=== PATIENT | female | born 1960 | race Caucasian/White ===

== ENCOUNTER 2018-09-15 10:38 | Emergency (ER) | payer BC ==
--- OUTSIDE RECORDS SUMMARY | 2018-09-15 10:40 | XMS REPORT | Clinical Summary ---
:1960 Author Organization [facility] Address [address] [place] [address] Care Team Providers Name Role Phone Florencio Caceres MD Primary Care Provider Allergies Not on File Medications Not on file Active Problems Not on file Social History Tobacco Use Types Packs/Day Years Used Date Never Assessed Sex Assigned at Date Recorded Not on file Job Start Date Occupation Industry Not on file Not on file Not on file Travel History Travel Start Travel End No recent travel history available. Last Filed Vital Signs Not on file Plan of Treatment Health Maintenance Due Date Last Done Comments CERVICAL CANCER SCREENING 1979 BREAST CANCER SCREENING 01/16/2008 COLON CANCER SCREENING 01/16/2008 SHINGLES VACCINES (1 of 2) 01/16/2008 INFLUENZA VACCINE 02/26/2018 Results Not on fileafter 09/14/2017 Insurance Payer Benefit Plan / Group Subscriber ID Type Phone Address BCBS BCBS CHOICE PPO/FEDERAL EMPL PPO xxxxxxxxxxxx PPO Charline MAJOR y (Home) [place] [id number] Advance Directives Patient has advance care planning documents on file. For more information, please contact:[facility] [place] [address]
--- OUTSIDE RECORDS SUMMARY | 2018-09-15 10:41 | XMS REPORT | Continuity of Care Document ---
:1960 Author Organization Interface Problems Problem Status Onset Date Classification Date Comments Source Reported Medications Medication Details Route Status Patient Ordering Order Source Instructions Provider Date Allergies, Adverse Reactions, Alerts Substance Category Reaction Severity Reaction Status Date Comments Source type Reported Immunizations Immunization Date Given Site Status Last Updated Comments Source Results Order Results Value Reference Date Interpretation Comments Source Name Range Vital Signs Vital Sign Value Date Comments Source Encounters Location Location Encounter Encounter Reason Attending ADM DC Status Source Details Type Number For Provider Date Date Visit Outpatient [id number] ARASH 08/01 [facility] [id number] ARASH 08/07 [facility] [id number] ARASH 09/18 [facility] Procedures Procedure Code Date Perfomer Comments Source
--- OUTSIDE RECORDS SUMMARY | 2018-09-15 10:41 | XMS REPORT ---
:1960 Author Organization [employer] Care Team Providers Name Role Phone Osmel Juan Provider Role Unavailable Allergies, Adverse Reactions, Alerts Substance Reaction Event Type Lyrica Info Not Available Drug Allergy Mucinex Info Not Available Drug Allergy Metoprolol Tartrate Info Not Available Drug Allergy Macrobid Info Not Available Drug Allergy Gabapentin Info Not Available Drug Allergy Clonidine HCl Info Not Available Drug Allergy Benicar Info Not Available Drug Allergy Aspirin Info Not Available Drug Allergy Problems Problem Type Condition Code Onset Dates Condition Status Problem Primary osteoarthritis of right M17.11 Active knee Problem Pain, joint, knee, right M25.561 Active Assessment Pain, joint, knee, right M25.561 Active Assessment Primary osteoarthritis of right M17.11 Active knee Medications Medication Code Code Instructions Start End Status Dosage System Date Date Amlodipine [facility] 37405478183 5 MG Oral Active not Besylate defined Quetiapine [facility] 02894158310 300 MG Oral Active not Fumarate defined Citalopram [facility] 97328273688 40 MG Oral Active not Hydrobromide defined Bystolic [facility] 04637004223 10 MG Oral Active not defined Topiramate [facility] 62714810819 100 MG Oral Active not defined Levothyroxine [facility] 02019342488 75 MCG Oral Active not Sodium defined Alprazolam ND 22635204169 1 MG Oral Active not defined Results No Known Results Summary Purpose eClinicalWorks Submission
[2018-09-15 11:57] LABS: Absolute Lymphocytes (CBC) 2.3 K/uL (0.7-4.9); Absolute Monocytes 0.6 K/uL (0.1-1.3); Absolute Neutrophil 6.4 K/uL (1.8-8.0); Basophils % 0.4 % (0-1.3); Eosinophils % 1.3 % (0-4.4); Hematocrit 36.4 % (36.0-45.0); Lymphocytes % 24.2 % (15.3-44.8); MPV 8.3 fL (7.6-11.3); Monocytes % 6.8 % (3.3-12.3); RBC Red Blood Cell Count 5.71 M/uL (3.86-4.86)
[2018-09-15 12:15] LABS: ALT/SGPT 26 U/L (12-78); AST/SGOT 15 U/L (15-37); Albumin 3.4 g/dL (3.4-5.0); Alkaline Phosphatase 112 U/L (45-117); BUN Blood Urea Nitrogen 20 mg/dL (7-18); Bicarbonate 21 mmol/L (21-32); Bilirubin Direct 0.1 mg/dL (0-0.2); Bilirubin Total 0.4 mg/dL (0.2-1.0); Glucose Level 98 mg/dL (74-106); Lipase 253 U/L (73-393); Potassium 4.3 mmol/L (3.5-5.1); Protein, Total 7.3 g/dL (6.4-8.2); Sodium Level 141 mmol/L (136-145)
[2018-09-15 12:24] LABS: Blood Morphology Comment NOTED (NOT SEEN); Platelet Estimate ADEQ; Urine White Blood Cell Casts OK
[2018-09-15 12:25] LABS: Anisocytosis 2+; Hypochromasia 1+
--- NOTE | 2018-09-15 12:33 | RAD REPORT ---
EXAM DESCRIPTION: US - Abdomen Exam Limited - 09/15/2018 11:15 am CLINICAL HISTORY: Abdominal pain. COMPARISON: None. FINDINGS: The gallbladder wall is not thickened. A gallstone is not seen. The biliary tree is normal caliber. IMPRESSION: Unremarkable gallbladder ultrasound.
[2018-09-15] MEDS ORDERED: FENTANYL CITR 100 MCG/2 ML ONE (12:55)
--- NOTE | 2018-09-15 12:59 | RAD REPORT ---
EXAM DESCRIPTION: CT - Stone Protocol - 09/15/2018 12:49 pm CLINICAL HISTORY: Flank pain. FLANK PAIN COMPARISON: Abdomen Pelvis W Contrast dated 11/19/2015 TECHNIQUE: Axial images were obtained without oral or IV contrast. Lack of contrast limits solid org an and vascular assessment. The [id number] spans the entirety of the system partially obscuring uppermost abdomen and lung bases. Coronal reformatted images were obtained and reviewed. All CT scans are performed using dose optimization technique as appropriate and may include automated exposure control or mA/KV adjustment according to patient size. FINDINGS: The lower lung samuels are clear. Imaged portions of the liver and spleen show no suspicious findings on non-contrast imaging. The panc reas and adrenal glands are normal. No pathologic lymphadenopathy in the abdomen or pelvis. Moderate aortic atherosclerosis. No urinary tract stones or obstructive uropathy. No bowel obstruction, free air, free fluid or abscess. The majority of the colon is surgically absent with a distal colonic anastomosis seen. Moderate fecal material is retained in the distal colon. No significant bony abnormality. IMPRESSION: No urinary tract stones or obstructive uropathy. No acute intra-abdominal process seen.
[2018-09-15 13:26] LABS: Troponin (Emerg Dept Use Only) < 0.02 ng/mL (0.0-0.045)
--- NOTE | 2018-09-15 13:48 | EDPHYS ---
Physician Documentation [facility] Name: Nelsy Romero Age: 58 yrs Sex: Female : 1960 Arrival Date: 09/15/2018 Time: 10:42 Bed 20 Private MD: Florencio Caceres T ED Physician Adriel Gardiner HPI: 09/15 14:10 This 58 yrs old Female presents to ER via Ambulatory with complaints of gs Abdominal Pain. 14:10 The patient complains of pain in the left low back and right low back. The pain does gs not radiate. Onset: The symptoms/episode began/occurred 4 week(s) ago. Modifying factors: The symptoms are alleviated by nothing. the symptoms are aggravated by food/fluids. Associated signs and symptoms: Pertinent positives: nausea. Severity of pain: At its worst the pain was severe in the emergency department the pain has improved markedly. The patient has experienced similar episodes in the past, several times. The patient has been recently seen by a physician: the patient's primary care provider, earlier today, with similar presenting complaints. Historical: - Allergies: 10:49 benacor; aa5 10:49 Clonidine; aa5 10:49 GABAPENTIN; aa5 10:49 IRON COMPLEX; aa5 10:49 Lipitor; aa5 10:49 Lyrica; aa5 10:49 Macrobid; aa5 10:49 Metoprolol Tartrate; aa5 10:49 Mucinex; aa5 - Home Meds: 10:51 Zyrtec 10 mg Oral chew 1 tab once daily [Active]; Topamax 100 mg Oral tab 1 tab three aa5 times a day [Active]; sulindac 200 mg Oral tab 1 tab 2 times per day [Active]; omeprazole 40 mg Oral cpDR 1 cap once daily [Active]; citalopram 40 mg tab 1 tab once daily [Active]; Bystolic 10 mg Oral tab 1 tab once daily [Active]; levothyroxine 25 mcg tab once daily [Active]; - PMHx: 10:49 Anxiety; buldging disk in neck; Degenerative disc disease; Depression; Hypertension; aa5 thalassemia minor; 10:51 Thyroid problem; aa5 - PSHx: 10:49 Knee surgery; colon resection; aa5 - Immunization history:: Flu vaccine is up to date. - Social history:: Smoking status: Patient uses tobacco products, smokes two packs cigarettes per day. - Ebola Screening: : No symptoms or risks identified at this time. ROS: 14:10 All other systems are negative. Exam: 14:40 Head/Face: Normocephalic, atraumatic. Eyes: Pupils equal round and reactive to light, gs extra-ocular motions intact. Lids and lashes normal. Conjunctiva and sclera are non-icteric and not injected. Cornea within normal limits. Periorbital areas with no swelling, redness, or edema. ENT: Nares patent. No nasal discharge, no septal abnormalities noted. Tympanic membranes are normal and external auditory canals are clear. Oropharynx with no redness, swelling, or masses, exudates, or evidence of obstruction, uvula midline. Mucous membranes moist. Neck: Trachea midline, no thyromegaly or masses palpated, and no cervical lymphadenopathy. Supple, full range of motion without nuchal rigidity, or vertebral point tenderness. No Meningismus. Chest/axilla: Normal chest wall appearance and motion. Nontender with no deformity. No lesions are appreciated. Cardiovascular: Regular rate and rhythm with a normal S1 and S2. No gallops, murmurs, or rubs. Normal PMI, no JVD. No pulse deficits. Respiratory: Lungs have equal breath sounds bilaterally, clear to auscultation and percussion. No rales, rhonchi or wheezes noted. No increased work of breathing, no retractions or nasal flaring. Skin: Warm, dry with normal turgor. Normal color with no rashes, no lesions, and no evidence of cellulitis. MS/ Extremity: Pulses equal, no cyanosis. Neurovascular intact. Full, normal range of motion. Neuro: Awake and alert, GCS 15, oriented to person, place, time, and situation. Cranial nerves II-XII grossly intact. Motor strength 5/5 in all extremities. Sensory grossly intact. Cerebellar exam normal. Normal gait. 14:40 Constitutional: The patient appears alert, awake. 14:51 Abdomen/GI: Palpation: moderate abdominal tenderness, in the posterior aspect of left gs lateral abdomen and right upper quadrant. 14:51 Back: CVA tenderness, that is mild, is noted bilaterally. 14:57 ECG was reviewed by the Attending Physician. Vital Signs: 10:51 BP 109 / 58; Pulse 68; Resp 16 S; Temp 98.2(TE); Pulse Ox 99% on R/A; Weight 96.16 kg aa5 (R); Height 5 ft. 8 in. (172.72 cm) (R); Pain 5/10; 12:00 BP 112 / 66; Pulse 66; Resp 16; Pulse Ox 99% on R/A; hb 10:51 Body Mass Index 32.23 (96.16 kg, 172.72 cm) aa5 MDM: 12:34 Patient medically screened. gs 14:51 Differential diagnosis: nephrolithiasis, pyelonephritis, UTI, acute choly, cad,aaa. gs Data reviewed: vital signs, nurses notes. Counseling: I had a detailed discussion with the patient and/or guardian regarding: the historical points, exam findings, and any diagnostic results supporting the discharge/admit diagnosis, lab results, radiology results, the need for outpatient follow up. Response to treatment: the patient's symptoms have markedly improved after treatment. 09/15 11:27 Order name: Basic Metabolic Panel; Complete Time: 13:36 gs 09/15 11:27 Order name: CBC with Diff; Complete Time: 12:34 gs 09/15 11:27 Order name: Hepatic Function; Complete Time: 13:36 gs 09/15 11:27 Order name: Lipase; Complete Time: 13:36 gs 09/15 12:06 Order name: CBC Smear Scan; Complete Time: 12:34 EDMS 09/15 10:56 Order name: US Abdomen Limited; Complete Time: 13:11 kb 09/15 11:27 Order name: IV Saline Lock; Complete Time: 11:44 gs 09/15 11:27 Order name: Labs collected and sent; Complete Time: 11:44 gs 09/15 12:35 Order name: EKG; Complete Time: 12:36 gs 09/15 12:35 Order name: EKG - Nurse/Tech; Complete Time: 13:35 gs 09/15 12:37 Order name: CT Stone Protocol; Complete Time: 13:11 gs 09/15 13:08 Order name: Troponin (Emerg Dept Use Only); Complete Time: 13:36 EDMS EC:57 Rate is 61 beats/min. Rhythm is regular. KS interval is normal. QRS interval is normal. gs T waves are Normal. No ST changes noted. Clinical impression: Normal ECG. Interpreted by me. Administered Medications: 12:48 Drug: fentaNYL (PF) 25 mcg Route: IVP; Site: left antecubital; hb Disposition: 09/15/18 13:47 Discharged to Home. Impression: Abdominal and pelvic pain. - Condition is Stable. - Discharge Instructions: Abdominal Pain, Adult, [id number]. - Medication Reconciliation Form, Thank You Letter, Antibiotic Education, Prescription Opioid Use form. - Follow up: Private Physician; When: 2 - 3 days; Reason: Re-evaluation by your physician. Signatures: Dispatcher [employer] [facility] Kyra Solis RN RN aa5 Gwendolyn Red RN RN Adriel Gardiner MD MD Corrections: (The following items were deleted from the chart) 13:07 12:36 TROPONIN (EMERG DEPT USE ONLY)+C.LAB.BRZ ordered. [facility] 14:13 13:47 09/15/2018 13:47 Discharged to Home. Impression: Abdominal and pelvic pain. hb Condition is Stable. Forms are Medication Reconciliation Form, Thank You Letter, Antibiotic Education, Prescription Opioid Use. Follow up: Private Physician; When: 2 - 3 days; Reason: Re-evaluation by your physician. gs
--- NOTE | 2018-09-15 13:48 | ER ---
Nurse's Notes [facility] Name: Nelsy Romero Age: 58 yrs Sex: Female : 1960 Arrival Date: 09/15/2018 Time: 10:42 Bed 20 Private MD: Florencio Caceres T Diagnosis: Abdominal and pelvic pain Presentation: 09/15 10:47 Presenting complaint: Patient states: Dr. Caceres sent me here to get my gallbladder aa5 checked. Pt c/o back pain, chest pain and right flank pain. Transition of care: patient was not received from another setting of care. Onset of symptoms was September 15, 2018. Risk Assessment: Do you want to hurt yourself or someone else? Patient reports no desire to harm self or others. Initial Sepsis Screen: Does the patient meet any 2 criteria? No. Patient's initial sepsis screen is negative. Does the patient have a suspected source of infection? No. Patient's initial sepsis screen is negative. Care prior to arrival: None. 10:47 Method Of Arrival: Ambulatory aa5 10:47 Acuity: RENITA 3 aa5 Historical: - Allergies: 10:49 benacor; aa5 10:49 Clonidine; aa5 10:49 GABAPENTIN; aa5 10:49 IRON COMPLEX; aa5 10:49 Lipitor; aa5 10:49 Lyrica; aa5 10:49 Macrobid; aa5 10:49 Metoprolol Tartrate; aa5 10:49 Mucinex; aa5 - Home Meds: 10:51 Zyrtec 10 mg Oral chew 1 tab once daily [Active]; Topamax 100 mg Oral tab 1 tab three aa5 times a day [Active]; sulindac 200 mg Oral tab 1 tab 2 times per day [Active]; omeprazole 40 mg Oral cpDR 1 cap once daily [Active]; citalopram 40 mg tab 1 tab once daily [Active]; Bystolic 10 mg Oral tab 1 tab once daily [Active]; levothyroxine 25 mcg tab once daily [Active]; - PMHx: 10:49 Anxiety; buldging disk in neck; Degenerative disc disease; Depression; Hypertension; aa5 thalassemia minor; 10:51 Thyroid problem; aa5 - PSHx: 10:49 Knee surgery; colon resection; aa5 - Immunization history:: Flu vaccine is up to date. - Social history:: Smoking status: Patient uses tobacco products, smokes two packs cigarettes per day. - Ebola Screening: : No symptoms or risks identified at this time. Screenin:00 Abuse screen: Denies threats or abuse. Denies injuries from another. Nutritional hb screening: No deficits noted. Tuberculosis screening: No symptoms or risk factors identified. Fall Risk None identified. Assessment: 11:15 General: Appears in no apparent distress. Behavior is calm, cooperative. Pain: Pain hb currently is 5 out of 10 on a pain scale. Neuro: Level of Consciousness is awake, alert, obeys commands, Oriented to person, place, time, situation. Cardiovascular: Capillary refill < 3 seconds Patient's skin is warm and dry. Respiratory: Airway is patent Trachea midline Respiratory effort is even, unlabored, Respiratory pattern is regular, symmetrical. GI: Abdomen is non-distended, Bowel sounds present X 4 quads. Abd is soft and non tender X 4 quads. : No signs and/or symptoms were reported regarding the genitourinary system. EENT: No signs and/or symptoms were reported regarding the EENT system. Derm: Skin is intact, is healthy with good turgor. Musculoskeletal: No signs and/or symptoms reported regarding the musculoskeletal system. 12:00 Reassessment: Patient appears in no apparent distress at this time. No changes from hb previously documented assessment. Patient and/or family updated on plan of care and expected duration. Pain level reassessed. Patient is alert, oriented x 3, equal unlabored respirations, skin warm/dry/pink. 13:00 Reassessment: Patient appears in no apparent distress at this time. No changes from hb previously documented assessment. Patient and/or family updated on plan of care and expected duration. Pain level reassessed. Patient is alert, oriented x 3, equal unlabored respirations, skin warm/dry/pink. Vital Signs: 10:51 BP 109 / 58; Pulse 68; Resp 16 S; Temp 98.2(TE); Pulse Ox 99% on R/A; Weight 96.16 kg aa5 (R); Height 5 ft. 8 in. (172.72 cm) (R); Pain 5/10; 12:00 BP 112 / 66; Pulse 66; Resp 16; Pulse Ox 99% on R/A; hb 10:51 Body Mass Index 32.23 (96.16 kg, 172.72 cm) aa5 ED Course: 10:42 Patient arrived in ED. mr 10:43 Florencio Caceres MD is Private Physician. mr 10:47 Arm band placed on. aa5 10:48 Triage completed. aa5 11:00 Patient has correct armband on for positive identification. Bed in low position. Call hb light in reach. Side rails up X 1. 11:07 Adriel Gardiner MD is Attending Physician. gs 11:15 US Abdomen Limited In Process Unspecified. EDMS 11:30 Gwendolyn Red, RN is Primary Nurse. hb 11:38 Missed attempt(s): 22 gauge in right forearm. Bleeding controlled, band aid applied, 3 catheter tip intact. 11:40 Initial lab(s) drawn, by ok, sent to lab. Inserted saline lock: 22 gauge in left dh3 antecubital area, using aseptic technique. Blood collected. 12:47 CT completed. Patient tolerated procedure well. Patient moved to CT via wheelchair. Patient moved back from CT. 12:49 CT Stone Protocol In Process Unspecified. EDMS 13:33 EKG done, by technical support 1 software engineer. reviewed by Adriel Gardiner MD. at1 14:12 No provider procedures requiring assistance completed. IV discontinued, intact, hb bleeding controlled, No redness/swelling at site. Pressure dressing applied. Administered Medications: 12:48 Drug: fentaNYL (PF) 25 mcg Route: IVP; Site: left antecubital; hb Outcome: 13:47 Discharge ordered by . gs 14:12 Discharged to home ambulatory, with significant other. hb 14:12 Condition: stable 14:12 Discharge instructions given to patient, significant other, Instructed on discharge instructions, follow up and referral plans. medication usage, Demonstrated understanding of instructions, follow-up care, medications. 14:13 Patient left the ED. hb Signatures: Dispatcher [employer] EDVT Annie Bhatti Ashli Kyra Ibarra, RN RN aa5 Ann Marrufo, medical imaging director EKG Tat1 Gwendolyn Red, ALBERT RN Verónica Campbell [facility] Adriel Gardiner MD MD
--- NOTE | 2018-09-15 17:23 | EKG ---
Test Date: 2018-09-15 Test Time: 13:06:47 Manager Bakery: BEULAH MEASUREMENT RESULTS: Intervals: Rate: 61 MI: 138 QRSD: 88 QT: 434 QTc: 436 Bud: P: 36 MI: 138 QRS: 30 T: 64 INTERPRETIVE STATEMENTS: Normal sinus rhythm Normal ECG Compared to ECG 10/20/2012 09:01:17 No significant changes Electronically Signed On 09-15-18 17:23:04 [employer] by John Owens
== END 2018-09-15 14:13 | disposition home or self-care (01) ==
LOC: ER 10:38
DX: R10.2 Pelvic and perineal pain (principal); M54.5 Low back pain; R10.9 Unspecified abdominal pain; F41.9 Anxiety disorder, unspecified; F32.9 Major depressive disorder, single episode, unspecified; I10 Essential (primary) hypertension; F17.210 Nicotine dependence, cigarettes, uncomplicated; Z88.1 Allergy status to other antibiotic agents; Z88.8 Allergy status to other drugs, medicaments and biological substances
CPT/HCPCS: 36415; 74176; 76377; 76705; 80048; 80076; 83690; 84484; 85025; 93005; J3010

== ENCOUNTER 2021-06-07 05:51 | Inpatient (IN) | payer BC ==
--- NOTE | 2021-06-02 15:29 | RAD REPORT ---
EXAM DESCRIPTION: RAD - Chest Pa And Lat (2 Views) - 06/02/2021 3:13 pm CLINICAL HISTORY: Pre Op pending knee replacement COMPARISON: Chest Pa And Lat (2 Views) dated 10/03/2016; Chest Single View dated 09/22/2016; Chest Sing le View dated 09/21/2016; Chest Single View dated 09/20/2016 FINDINGS: Lines: None. Lungs: No evidence of edema or pneumonia. Pleural: No significant pleural effusions or pneumothorax. Cardiac: The heart size is within normal limits. Bones: No acute fractures. Remote bilateral rib fractures. Other: IMPRESSION: No acute cardiopulmonary disease.
[2021-06-02 15:42] LABS: Absolute Lymphocytes (CBC) 3.3 K/uL (0.7-4.9); Basophils % 0.3 % (0-1.3); Hematocrit 38.9 % (36.0-45.0); MPV 8.7 fL (7.6-11.3); RBC Red Blood Cell Count 6.35 M/uL (3.86-4.86)
[2021-06-02 15:44] LABS: Potassium 4.1 mmol/L (3.5-5.1)
[2021-06-02 16:20] LABS: Protime INR 0.93
[2021-06-02 20:22] LABS: Blood Morphology Comment NOTED (NOT SEEN); Platelet Estimate ADEQ; White Blood Cell Scan OK (OK)
[2021-06-02 20:23] LABS: Anisocytosis 1+; Burr Cells FEW; Hypochromasia 2+; Ovalocytes 1+; Poikilocytosis 2+; Polychromasia 1+
[2021-06-07] MEDS ORDERED: Ringers Lactate 1,000 ML IV ONE ×2 (06:05→08:25)
[2021-06-07] MEDS ORDERED: CEFAZOLIN/SWI 2gm 2 GM/20 ML SYR ONE (06:05)
[2021-06-07] MEDS ORDERED: Oxycodone HCl/Acetaminophen 1 TAB TAB ONE (06:06)
[2021-06-07] MEDS ORDERED: GABAPENTIN 100 MG CAP ONE (06:06)
[2021-06-07] MEDS ORDERED: ACETAMINOPHEN 500 MG TAB ONE (06:06)
[2021-06-07] MEDS ORDERED: NS 0.9% VIAL 20 ML ONE (06:14)
[2021-06-07] MEDS ORDERED: LIDOCAINE 1% MPF 5 ML VIAL ONE (06:14)
[2021-06-07] MEDS ORDERED: FENTANYL CITR 100 MCG/2 ML ONE (06:15)
[2021-06-07] MEDS ORDERED: dexAMETHasone 10 MG/ML VIAL ONE (06:15)
[2021-06-07] MEDS ORDERED: MIDAZOLAM HCL 2 MG/2 ML INJ ONE (06:16)
[2021-06-07] MEDS ORDERED: BUPIVACAINE 0.25% PF 30 ML VIAL ONE (06:16)
[2021-06-07] MEDS ORDERED: propofoL 200 MG/20 ML VIAL IV ONE (07:07)
[2021-06-07] MEDS ORDERED: LIDOCAINE 2% MPF 5 ML VIAL ONE (07:07)
[2021-06-07] MEDS ORDERED: BUPIVACA 0.5%/EPI 0.0005%/PF 30 ML VIAL ONE (07:14)
[2021-06-07] MEDS ORDERED: NS 0.9% VIAL 10 ML ONE (07:32)
[2021-06-07] MEDS ORDERED: KETAMINE HCL 500 MG/5 ML VIAL ONE (07:32)
[2021-06-07] MEDS ORDERED: HYDROMORPHONE HCL 2 MG/ML inj ONE (07:37)
[2021-06-07] MEDS ORDERED: ONDANSETRON 4 MG/2 ML VIAL ONE (07:38)
[2021-06-07] MEDS ORDERED: EPHEDRINE SULF 50 MG/ML VIAL ONE (07:42)
[2021-06-07] MEDS ORDERED: Phenylephrine HCl 10 MG/ML 1 ML VIAL ONE (08:00)
[2021-06-07] MEDS ORDERED: TRANEXAMIC ACID 1,000 MG in NA CHLORIDE 0.9% 50 ML IV ONE (08:00)
--- NOTE | 2021-06-07 10:34 | P.BOP ---
Preoperative diagnosis: right knee osteoarthritis Postoperative diagnosis: same Primary procedure: right total knee arthroplasty Assembly Loader: NONE,NONE Estimated blood loss: 20 cc Specimen: right knee bone remnants Findings: see dictation Anesthesia: General Complications: None Implants: [employer] Andie Persona 10 CR femur, E tibia, 32 patella, 10 CR poly Fluids & blood products: per anesthesia record; TT: 102 mins @ 300 mmHg Transferred to: Recovery Room Condition: Good
[2021-06-07] MEDS ORDERED: HOME MED 1 EA UNK (Dexlansoprazole [Dexilant] 30 MG Cap.Dr.Bp) PO PRN (10:35)
[2021-06-07] MEDS ORDERED: DOCUSATE NA 100 MG CAP PO PRN (10:36)
[2021-06-07] MEDS ORDERED: ONDANSETRON 4 MG/2 ML VIAL IV PRN (10:36)
[2021-06-07] MEDS ORDERED: TRAMADOL HCL 50 MG TAB PO PRN (10:40)
--- NOTE | 2021-06-07 11:25 | RAD REPORT ---
EXAM DESCRIPTION: RAD - Knee Right 2 View - 06/07/2021 10:56 am CLINICAL HISTORY: Post Op COMPARISON: Knee Right 3 View dated 04/21/2017 FINDINGS: Postoperative changes from right knee arthroplasty. The hardware is intact. Air in fluid i s present within the joint which is not unexpected. Surgical clips along the ventral aspect of the kn ee. No acute fracture. IMPRESSION: Status post right total knee arthroplasty without evidence of immediate hardware complic ations.
[2021-06-07] MEDS ORDERED: PANTOPRAZOLE 40MG TABLET PO PRN (11:33)
[2021-06-07 12:15] VITALS: BMI 29.3
[2021-06-07] MEDS: HYDROCODONE/APAP 7.5/325 MG TAB PO PRN (14:26)
[2021-06-07] MEDS ORDERED: CEFAZOLIN 2 GM in NA CHLORIDE 0.9% 100 ML IVPB SCH (17:00)
[2021-06-07] MEDS: MORPHINE 2 MG/ML SYR IV PRN ×2 (17:16→21:41)
[2021-06-07] MEDS: CEFAZOLIN/SWI 2gm 2 GM/20 ML SYR IV SCH (17:18)
[2021-06-07] MEDS ORDERED: AMLODIPINE 5 MG TAB PO SCH (21:00)
[2021-06-07] MEDS ORDERED: GABAPENTIN 300 MG CAP PO SCH (21:00)
[2021-06-07] MEDS ORDERED: HOME MED 1 EA UNK (Citalopram Hydrobromide [Celexa] 40 MG Tablet) PO SCH (21:00)
--- NOTE | 2021-06-07 21:02 | P.OP ---
Preoperative diagnosis: right knee osteoarthritis Postoperative diagnosis: same Primary procedure: right total knee arthroplasty Anesthesia: general Estimated blood loss: 20 cc Specimen: right knee bone remnants Findings: see dictation Operative Technique: Indication For Procedure: Nelsy is a 61 year-old female presenting to my clinic with signs, symptoms and x-ray findings consistent with severe right knee osteoarthritis. I discussed with the patient at length risks and benefits associated with operative and nonoperative treatment. She had failed conservative treatment measures and had significant difficulties with ADLs secondary to her pain. We discussed operative treatment and elected to proceed with right total knee arthroplasty. She expressed understanding and elected to proceed with operative treatment. Description Of Procedure: After informed consent was obtained, the patient was identified in the preoperative holding area. The right lower extremity was marked. The patient was then taken to the PACU where she underwent a right lower extremity adductor canal block performed by Anesthesia. She was then taken to the operating room, transferred to the operating table in supine fashion, and placed under general anesthesia. Her right lower extremity was then prepped and draped in usual sterile fashion. A time-out was initiated. The correct patient and procedure were confirmed and identified. The patient did receive her preoperative prophylactic antibiotics. The right lower extremity was then exsanguinated and tourniquet was inflated to 300 mmHg. Approximately 15 cm longitudinal incision was made centered over the anterior aspect of the right knee. Dissection was then taken to the extensor mechanism and a medial parapatellar arthrotomy was performed. The patella was everted and dislocated laterally and the knee was flexed in the fat pad. Medial and lateral meniscus and ACL were all excised exposing the distal femur. Excess hypertrophic synovium was also excised within the suprapatellar pouch. The patient had an MRI of her right knee preoperatively for surgical planning and creation of cutting blocks. The cutting block was then placed over the distal femur and pins were then placed. The distal femoral cutting block was then placed over the pins. Knee joint was then used to ensure proper depth cut and the distal femur was then cut. The chamfer cutting guide was then placed over the distal end of the femur. Anterior, posterior cuts as well as anterior and posterior chamfer cuts were then made again confirming proper depth of the cut using an Celestino wing. Excess bone remnants were then sent to pathology for further evaluation. Next, attention was taken to the proximal tibia. A tibial jig and tibial cutting block was then placed on proximal aspect of the right tibia and locked into position. Pins were then placed and alignment guide was then used to confirm proper alignment of the cut and then coronal and sagittal planes. Once this was confirmed, the cutting jig was placed over the pins and the proximal tibia was cut. Extra cuts had to be made on the tibia and distal femur as there was tightness in both flexion and extension. Sizing trays were then selected and size 10 mm spacer was used and there was good overall balance in flexion and extension. Next, the trial implants were then placed using the size 10 standard CR femur and a size E tibia with an 10 mm CR poly. There was overall good range of motion and good stability trial implants were then removed. This improved the overall stability of the knee and components. The wound was then irrigated thoroughly with normal saline and the knee was then injected with 30 cc of 0.5% Marcaine both in the posterior capsule and medial lateral gutters as well as quadriceps tendon and periosteum. The tibia was then punched. The femur was drilled. The cement was then prepared on the back table. Cement was then placed first on the tibial surface followed by size E tibia. Excess cement was removed with [place] elevators. Size 10 standard CR femur was then placed on the distal femur after cement was placed on the distal femur. Excess cement was then removed and a size 10 mm CR trial poly was then placed. The knee was held in extension as the cement hardened. Undersurface of the patella was prepared debriding osteophytes using rongeurs as well as osteophytes had been debrided off the proximal tibia with rongeurs and osteotomes to aid with the medial tightness. Cement was placed on the undersurface of the patella after it was cut and a size 32 patella was placed. Once the cement was hardened, the knee was ranged, there was good overall stability both in flexion, extension and as well as stability with varus and dago jory stresses. Trial poly was then removed and a size 10 mm CR poly was then placed and locked into position. The knee was then ranged again. There was good overall range of motion both for flexion and extension with good stability. The wound was then irrigated again thoroughly with normal saline using pulse lavage. Tourniquet was let down. Hemostasis was achieved using Bovie electrocautery. Extensor mechanism was then approximated using a #1 Vicryl bothin interrupted and running fashion. The fascia was then approximated using 0 Vicryl. Subcutaneous tissue was approximated with a 2-0 Vicryl. Skin was approximated using marquita. Sterile dressings were applied. The patient was awakened and transferred back in stable condition Complications: None Implants: Biomet Andie Persona 10 CR femur, E tibia, 32 patella, 10 mm CR poly Fluids & blood products: per anesthesia record; TT: 102 mins @ 300 mmHg Transferred to: Recovery Room Condition: Good
[2021-06-07] MEDS: BACLOFEN 10 MG TAB PO SCH (21:40)
[2021-06-07] MEDS: TOPIRAMATE 100 MG TAB PO SCH (21:40)
[2021-06-08] MEDS: CEFAZOLIN/SWI 2gm 2 GM/20 ML SYR IV SCH ×2 (01:01→10:22)
[2021-06-08 03:45] LABS: Hematocrit 34.4 % (36.0-45.0)
[2021-06-08] MEDS ORDERED: ENOXAPARIN 30 MG/0.3 ML SQ SCH (06:00)
[2021-06-08] MEDS: HYDROCODONE/APAP 7.5/325 MG TAB PO PRN ×2 (06:07→14:44)
[2021-06-08] MEDS ORDERED: LEVOTHYROXINE SOD 0.075 MG TAB PO SCH (06:30)
[2021-06-08] MEDS ORDERED: HOME MED 1 EA UNK (Nebivolol Hcl [Bystolic] 10 MG Tablet) PO SCH (09:00)
[2021-06-08] MEDS ORDERED: HOME MED 1 EA UNK (Levothyroxine Sodium [Levothyroxine] 150 MCG Capsule) PO SCH (09:00)
[2021-06-08] MEDS ORDERED: CELECOXIB 100 MG CAPSULE PO SCH (09:00)
[2021-06-08] MEDS ORDERED: NEBIVOLOL HCL 5 MG TAB PO SCH (09:00)
[2021-06-08] MEDS ORDERED: LIOTHYRONINE SOD 25 MCG TAB PO SCH (09:00)
[2021-06-08] MEDS: BACLOFEN 10 MG TAB PO SCH (10:16)
[2021-06-08] MEDS: TOPIRAMATE 100 MG TAB PO SCH (10:16)
[2021-06-08 11:33] VITALS: O2SAT 96
[2021-06-08 14:08] VITALS: BP 159/69; TEMP 98.6
--- NOTE | 2021-06-08 14:42 | P.DS ---
Admission Date: 06/07/21 Discharge Date: 06/08/21 Disposition: DC HOME/HOME HEALTH CARE Discharge Condition: GOOD Reason for Admission: s/p R TKA, HTN Consultations: None Procedures: R TKA on 06/07/2021 Brief History of Present Illness: Nelsy is a 61-year-old female that underwent right total knee arthroplasty on June 07, 2021 without complication. She was admitted to the floor for observation and physical therapy. Hospital Course: Nelsy underwent the surgery without complication. She was admitted to the floor in stable condition. Physical therapy was consulted the patient mobilized well. She was discharged on June 08 in stable condition. She will take Xarelto while at home for DVT prophylaxis. Physical therapy will be consulted to work on range of motion and strengthening exercises on an outpatient basis. Vital Signs/Physical Exam: Temp Pulse Resp BP Pulse Ox 98.6 F 65 20 159/69 H 98 06/08/21 13:00 06/08/21 13:00 06/08/21 13:00 06/08/21 13:00 06/08/21 13:00 Laboratory Data at Discharge: WBC 11.90 K/uL (4.3-10.9) H 06/02/21 14:52 Hgb 10.6 g/dL (12.0-15.0) L 06/08/21 03:28 Hct 34.4 % (36.0-45.0) L 06/08/21 03:28 Plt Count 278 K/uL (152-406) 06/02/21 14:52 PT 10.7 SECONDS (9.5-12.5) 06/02/21 14:52 INR 0.93 06/02/21 14:52 APTT 29.5 SECONDS (24.3-36.9) 06/02/21 14:52 Sodium 141 mmol/L (136-145) 06/02/21 14:52 Potassium 4.1 mmol/L (3.5-5.1) 06/02/21 14:52 BUN 17 mg/dL (7-18) 06/02/21 14:52 Creatinine 1.22 mg/dL (0.55-1.3) 06/02/21 14:52 Glucose 97 mg/dL (74-106) 06/02/21 14:52 Home Medications: Citalopram Hydrobromide [Celexa] 20 mg PO BID 09/20/16 Nebivolol HCl [Bystolic] 10 mg PO DAILY 09/20/16 Topiramate 200 mg PO BID 09/20/16 Amlodipine [Norvasc] 5 mg PO BEDTIME 06/02/21 Aspirin [Aspirin EC 81 MG] 81 mg PO DAILY 06/02/21 Baclofen 10 mg PO BID 06/02/21 Dexlansoprazole [Dexilant] 60 mg PO DAILYPRN PRN 06/02/21 Gabapentin 600 mg PO BEDTIME 06/02/21 Levothyroxine Sodium [Levothyroxine] 150 mcg PO DAILY 06/02/21 Liothyronine [Cytomel] 25 mcg PO DAILY 06/02/21 Physician Discharge Instructions: Keep dressing clean and dry; use PORTER hose for 2 weeks on both lower extremities. Begin Xarelto once daily starting tomorrow 06/09, with breakfast. Followup with Dr. Soria in 1-2 weeks for staple removal Diet: Regular Activity: Weight bearing as tolerated (RLE) Followup: Albin Soria MD [ACTIVE - CAN ADMIT] - 1-2 Weeks (Follow up per scheduled appointment )
--- OUTSIDE RECORDS SUMMARY | 2021-06-10 19:08 | XMS REPORT | Clinical Summary ---
:1960 Author Organization [facility] Address [address] [place] [address] Care Team Providers Name Role Phone Lisa Toure MD Unavailable Martina Maldonado MD Primary Care Provider Allergies Active Allergy Reactions Severity Noted Date Comments Aspirin GI Intolerance 03/24/2019 Olmesartan-Hydrochlorothi Hives 03/24/2019 azide Clonidine Palpitations Low 03/24/2019 Pregabalin Palpitations Low 03/24/2019 Nitrofurantoin Other (See Comments) 03/24/2019 Back pain per Monohyd/M-Cryst patient Metoprolol Shortness Of Breath High 03/24/2019 Guaifenesin Palpitations Low 03/24/2019 Medications Medication Sig Dispensed Refills Start Date End Date Status QUEtiapine (SEROquel Take 600 mg by 0 Active XR) 300 MG 24 hr mouth at bedtime. tablet gabapentin (NEURONTIN) Take 300 mg by 0 Active 300 mg capsule mouth at bedtime. liothyronine (CYTOMEL) Take 25 mcg by 0 Active 25 mcg tablet mouth daily. citalopram (CeleXA) 40 Take 80 mg by 0 Active mg tablet mouth daily. dexlansoprazole Take 60 mg by 0 Active (DEXILANT) 60 mg mouth daily. capsule nebivolol (BYSTOLIC) Take 10 mg by 0 Active 10 mg tablet mouth daily. amLODIPine (NORVASC) 5 Take 5 mg by mouth 0 Active mg tablet daily. baclofen (LIORESAL) 10 Take 10 mg by 0 Active mg tablet mouth every 12 (twelve) hours. topiramate (TOPAMAX) Take 200 mg by 0 Active 100 mg tablet mouth twice daily. levothyroxine Take 125 mcg by 0 Active (TIROSINT) 125 mcg cap mouth daily. mupirocin (BACTROBAN) Apply 1 0 Active 2% ointment application topically to affected area(s) daily. lidocaine RECTAL APPLY 6 03/06/2019 Active HCl-hydrocortison ac RECTALLY TWICE 3-0.5 % kit WEEKLY NEEDED RECTICARE 5 % cream APPLY TO AFFECTED 1 01/27/2019 Active AREA 4 TIMES A DAY NEEDED Active Problems Problem Noted Date Other skin change 03/24/2019 Encounters Date Type Specialty Care Team Description 11/06/2020 Orders Only Infectious Diseases Michael Camacho MD S ARS-CoV-2 vaccination after 06/07/2020 Surgical History Surgery Date Site/Laterality Comments UPPER GASTROINTESTINAL 02/19/2019 Dr. Gareth Hensley ENDOSCOPY COLECTOMY 07/29/2004 - total colectomy for 07/28/2005 treatment of col onic inertia ESOPHAGEAL DILATION KNEE CARTILAGE SURGERY 07/29/1973 - Right 07/28/1974 APPENDECTOMY Medical History Medical History Date Comments Hypertension 1997 Migraine 2000 Caused by disc. [place]oma kalli by Dr. Richard Phan Allergic rhinitis As lomg as I remembe r Tooth disorder Wear upper denture Swallowing problem 2013 Dr. Gareth Hensley Gastric ulcer 2015 Dr. Gareth Hensley Menopause 11/2007 Anemia Thalasemia minor Blood transfusion, without reported 08/2004 Afte r Operation diagnosis Arthritis Age Depressive disorder Anxiety Herpes zoster 2014 Across right side of face Hypothyroidism [place] of colon 2004 Esophageal erosions Hypothyroidism Rheumatoid arthritis Thalassemia minor Family History Medical History Relation Name Comments -Pancreatic cancer Brother [place] -Cervical cancer Daughter Sienna -Thyroid cancer Maternal Aunt Nithya -Breast cancer Maternal Grandmother Brenda -Melanoma Maternal Uncle Be -Ovarian cancer Mother Cameron -Brain cancer Paternal Aunt Kinsey -Breast cancer Paternal Grandmother Lala Relation Name Status Comments Brother [place] Daughter Sienna Maternal Aunt Nithya Maternal Grandmother Brenda Maternal Uncle Be Mother Cameron Paternal Aunt [place] Paternal Grandmother [place] Social History Tobacco Use Types Packs/Day Years Used Date Current Every Day Smoker 1 46 Tobacco Cessation: Ready to Quit: No Alcohol Use Standard Drinks/Week Comments Not Currently 0 (1 standard drink = 0.6 oz pure alcoho l) Sex Assigned at Date Recorded Not on file Obstetrics History Para Term AB IAB SAB Ectopic Multiple Living Live Births 1 1 0 Date Outcome GA Total Labor/2nd/3rd Weight Sex Delivery Anes PTL Shanthi A 1 A5 Name Clin Labor Para Comments Menarche age 12 Menopause: LMP age 40 Denies breast feeding or HRT OCP for 6 years Last Filed Vital Signs Not on file Plan of Treatment Health Maintenance Due Date Last Done Comments COVID-19 Vaccination (1) 1965 Results Not on fileafter 06/07/2020 Insurance Payer Benefit Plan / Subscriber ID Effective Dates Phone Addre ss Type Group [place] [id number] 2018-Present PO [place] X [id number] HMO BLUE SHIELD BLUE/[place] [employer] [phone] Care Teams Hospice Volunteer Coordinator Relationship Specialty Start Date End Date Rafia Toure, PCP - External Referring Obstetrics/Gynecology 03/03/19 [address] [facility] [address] [place] [address] Gaviota Maldonado PCP - General Breast Surgery 03/11/19 MD Radha [address] [place] [id number]
--- OUTSIDE RECORDS SUMMARY | 2021-06-10 19:08 | XMS REPORT | Continuity of Care Document ---
:1960 Author Organization [facility] t Address [address] [place] [address] Dr. [address]. [address] [place] [address] Care Team Providers Name Role Phone Joel SHOEMAKER, Martina Garcia Primary Care Physician [phone] Janice SHOEMAKER Attending Clinician Misty Chamorro MD Attending Clinician Misty CHAMORRO Attending Clinician Unavailable Aruna BURGER, A Attending Clinician ARUNA, Mile Attending Clinician Unavailable Doctor Unassigned, Name Attending Clinician Unavailable Only, Test Attending Clinician Unavailable Aruna BURGER, A Admitting Clinician ARUNA, Mile Admitting Clinician Unavailable Payers Payer Name Policy Type Policy Number Effective Date Expiration Date Radha verdugo BLUE CROSS BLUE [id number] 2018 MD Calin [facility] 00:00:00 BLUE/BLUE [id number] [id number] 2018-Pre [id number], [place] [id number] [facility] [id number] 2018 SELECT 00:00:00 Problems Condition Condition Condition Status Onset Resolution Last Treating Co mments Source Name Details Category Date Date Treatment Clinician Date Obesity Obesity Disease Active 2020-0 Univers (BMI (BMI 6-26 ity of 30-39.9) 30-39.9) 00:00: [place] 00 Medical Branch Other skin Other skin Disease Active 2019-0 M D change change 03-24 Anderso 00:00: n 00 Allergies, Adverse Reactions, Alerts Allergy Allergy Status Severity Reaction(s) Onset Inactive Treating Comm ents Source Name Type Date Date Clinician Olmesart Propensi Active Rash 2020-0 Univer s an ty to 6-25 ity of Medoxomi adverse 00:00: [place] l reaction 00 Medical s Branch Clonidin Propensi Active Palpitations 2020-0 Univers e ty to 6-25 ity of adverse 00:00: [place] reaction 00 Medical s Branch Nitrofur Propensi Active Unknown - 2019-0 "Cant Uni vers antoin ty to See comments 01-20 Move" ity of Monohyd/ adverse 00:00: [place] M-Cryst reaction 00 Medical s Branch Metoprol Propensi Active Rash 2020-0 Univer s ol ty to 6-25 ity of adverse 00:00: [place] reaction 00 Medical s Branch OLMESART DRUG Active Rash 2020-0 Univers AN INGREDI 6-25 ity of MEDOXOMI 00:00: [place] L 00 Medical Branch CLONIDIN DRUG Active Palpitations 2020-0 Un ford E INGREDI 6-25 ity of 00:00: [place] 00 Medical Branch NITROFUR DRUG Active Unknown-Cmnt 2020-0 Un ford ANTOIN 6-25 ity of MONOHYD/ 00:00: [place] M-CRYST 00 Medical Branch METOPROL DRUG Active Rash 2020-0 Univers OL INGREDI 6-25 ity of 00:00: [place] 00 Medical Branch NO KNOWN Drug Active Univers ALLERGIE Class ity of S [facility] Mucinex Adverse Active Info Not [facility] Reaction Available [facility] Clinics Metoprol Adverse Active Info Not [facility] Reaction Available [facility] Clonidin Adverse Active Info Not [facility] e [facility] Benicar Adverse Active Info Not [facility] Reaction Available [facility]ics Aspirin Adverse Active Info Not [facility] Reaction Available [facility] Clinics Lyrica Adverse Active Info Not [facility] Reaction Available [facility] Macrobid Adverse Active Info Not [facility] Reaction Available [facility] Family History Family Member Diagnosis Comments Start Date Stop Date Source Paternal grandmother -Breast cancer MD Cruz Natural brother -Pancreatic cancer Misty Cruz Natural daughter -Cervical cancer MD Cruz Maternal aunt -Thyroid cancer Maternal grandmother -Breast cancer MD Cruz Maternal uncle -Melanoma MD Vandana schumacher Natural mother -Ovarian cancer MD Sharon hicks Paternal aunt -Brain cancer MD Chapman son Social History Social Habit Start Date Stop Date Quantity Comments Source Exposure to Not sure [facility]-CoV-2 (event) [facility] Tobacco use and 2020-01-25 2020-01-25 Never used Universit y of exposure 00:00:00 00:00:00 [facility] Cigarettes smoked 2019-03-24 2019-03-24 MD Calin bojorquez current (pack per 00:00:00 00:00:00 day) - Reported Cigarette 2019-03-24 2019-03-24 MD Cruz pack-years 00:00:00 00:00:00 Alcohol intake 2019-03-24 2019-03-24 Ex-drinker MD Vandana schumacher 00:00:00 00:00:00 (finding) Sex [birth year] At [birth year] MD Rachel on 00:00:00 00:00:00 Smoking Status Start Date Stop Date Source Unknown if ever smoked [facility] Current some day smoker 2020-01-25 00:00:00 [facility] Smokes tobacco daily 2019-03-24 00:00:00 MD Calin bojorquez Medications Ordered Filled Start Stop Current Ordering Indication Dosage Frequency Signature Comments Components Source Medication Medication Date Date Medication? Clinician (SIG) Name Name barium 2020-0 2020- No 340g 340 g, Univers sulfate 08-31 Oral, ity of (LIQUID E-Z 16:00: 15:33 ONCE, 1 Cheng RICO) 60 % 00 :00 dose, Wed Med ical (w/v) oral 08/31/20 at Bran ch suspension 1000, 340 g Routine nebivolol Yes 10mg Take 10 mg Un ford (BYSTOLIC) 6-26 by mouth ity o f 10 mg 16:40: daily. [place] tablet 13 Medical Branch liothyronin 2020-0 Yes 25ug Take 25 Uni vers e 25 mcg 6-26 mcg by ity of tablet 16:40: mouth [place] 13 daily. Medical Branch Levothyroxi 2020-0 Yes Take by Un ford ne 125 mcg 6-26 mouth. ity of capsule 16:40: [place] [address] Medical Branch citalopram 2020-0 Yes 40mg Take 40 mg U nivers 40 mg 6-26 by mouth ity of tablet 16:40: daily. [place] [address] Medical Branch amLODIPine 2020-0 Yes 5mg Take 5 mg Un ford 5 mg tablet 6-26 by mouth ity of 16:40: daily. [place] [address] Medical Branch topiramate 2020-0 Yes 200mg Take 200 Un ford 200 mg Cp24 6-26 mg by ity of 16:40: mouth 2 [place] 13 (two) Medical times Branch daily. baclofen 10 2019-0 Yes 10mg Take 10 mg Univers mg tablet 6-26 by mouth 2 ity of 16:40: (two) [place] [address] times Medical daily. Branch Dexlansopra 2020-0 Yes 60mg Take 60 mg Univers zole 6-26 by mouth ity of (DEXILANT) 16:40: daily [place] 60 mg 13 before Medical capsule breakfast. Branch gabapentin 2019-0 Yes Take by Uni vers ER 600 mg 6-26 mouth at ity of tablet, 16:40: bedtime. [place] extended 13 Medical release 24 Branch hr hydroxychlo 2020-0 Yes 400mg Take 400 U nivers roquine 200 6-26 mg by ity of mg tablet 16:40: mouth [place] [address] daily. Medical Branch nebivolol 2020-0 Yes 10mg Take 10 mg Un ford (BYSTOLIC) 6-26 by mouth ity o f 10 mg 16:40: daily. [place] tablet 13 Medical Branch liothyronin 2020-0 Yes 25ug Take 25 Uni vers e 25 mcg 6-26 mcg by ity of tablet 16:40: mouth [place] 13 daily. Medical Branch Levothyroxi 2020-0 Yes Take by Un ford ne 125 mcg 6-26 mouth. ity of capsule 16:40: [place] [address] Medical Branch citalopram 2020-0 Yes 40mg Take 40 mg U nivers 40 mg 6-26 by mouth ity of tablet 16:40: daily. [place] [address] Medical Branch amLODIPine 2020-0 Yes 5mg Take 5 mg Un ford 5 mg tablet 6-26 by mouth ity of 16:40: daily. [place] [address] Medical Branch topiramate 2020-0 Yes 200mg Take 200 Un ford 200 mg Cp24 6-26 mg by ity of 16:40: mouth 2 [place] 13 (two) Medical times Branch daily. baclofen 10 2020-0 Yes 10mg Take 10 mg Univers mg tablet 6-26 by mouth 2 ity of 16:40: (two) [place] [address] times Medical daily. Branch Dexlansopra 2020-0 Yes 60mg Take 60 mg Univers zole 6-26 by mouth ity of (DEXILANT) 16:40: daily [place] 60 mg 13 before Medical capsule breakfast. Branch gabapentin 2019-0 Yes Take by Uni vers ER 600 mg 6-26 mouth at ity of tablet, 16:40: bedtime. [place] [address] Medical release 24 Branch hr hydroxychlo 2020-0 Yes 400mg Take 400 U nivers roquine 200 6-26 mg by ity of mg tablet 16:40: mouth [place] [address] daily. Medical Branch nebivolol 2019-0 Yes 10mg Take 10 mg Un ford (BYSTOLIC) 6-26 by mouth ity o f 10 mg 16:40: daily. [place] tablet 13 Medical Branch liothyronin 2019-0 Yes 25ug Take 25 Uni vers e 25 mcg 6-26 mcg by ity of tablet 16:40: mouth [place] [address] daily. Medical Branch Levothyroxi 2019-0 Yes Take by Un ford ne 125 mcg 6-26 mouth. ity of capsule 16:40: [place] [address] Medical Branch citalopram 2020-0 Yes 40mg Take 40 mg U nivers 40 mg 6-26 by mouth ity of tablet 16:40: daily. [place] [address] Medical Branch amLODIPine 2020-0 Yes 5mg Take 5 mg Un ford 5 mg tablet 6-26 by mouth ity of 16:40: daily. [place] [address] Medical Branch topiramate 2020-0 Yes 200mg Take 200 Un ford 200 mg Cp24 6-26 mg by ity of 16:40: mouth 2 [place] [address] (two) Medical times Branch daily. baclofen 10 2019-0 Yes 10mg Take 10 mg Univers mg tablet 6-26 by mouth 2 ity of 16:40: (two) [place] [address] times Medical daily. Branch Dexlansopra 2020-0 Yes 60mg Take 60 mg Univers zole 6-26 by mouth ity of (DEXILANT) 16:40: daily [place] 60 mg 13 before Medical capsule breakfast. Branch gabapentin 2020-0 Yes Take by Uni vers ER 600 mg 6- mouth at ity of tablet, 16:40: bedtime. [place] extended 13 Medical release 24 Branch hr hydroxychlo 2020-0 Yes 400mg Take 400 U nivers roquine 200 6-26 mg by ity of mg tablet 16:40: mouth [place] 13 daily. Medical Branch lactated 2020-0 Yes 1000mL at 75 Univer s ringers IV 6-26 mL/hr, ity of infusion 14:45: 1,000 mL, [place] 1[place]000 mL 00 IV Medical Infusion, Branch CONTINUOUS , Starting Sat01/22/20 at 0945, Until Discontinu ed, Routine, PACU FENTanyl PF 2020-0 Yes 25ug 25 mcg, Uni vers (SUBLIMAZE 6- Slow IV ity of (PF)) 14:40: Push, [place] injection 45 Q5MIN PRN, Medi eren 25 mcg 4 doses, Branch Starting Sat01/22/20 at 0940, Until Discontinu ed, Routine, Pain (scale 4-6), PACU ondansetron 2020-0 Yes 4mg 4 mg, Slow Univers (ZOFRAN - IV Push, ity of (PF)) 14:40: PRN, 1 [place] injection 4 45 dose, Medical mg Starting Branch Sat01/22/20 at 0940, Until Discontinu ed, Routine, Nausea and Vomiting (N/V), PACU lidocaine 2020-0 Yes PRN, Univers 1% (PF) 01-21 Starting ity of (XYLOCAINE) 13:22: Fri [place] injection 00 01/22/20 at Medi eren 0822, Branch Until Discontinu ed, Routine, Intra-op bupivacaine 2020-0 Yes PRN, Univer s (preserv - Starting ity of free) 0.5% 13:22: Fri [place] (SENSORCAIN 01/22/20 at Mo dicny E [facility]) 0.5 0822, Branch % (5 mg/mL) Until injection Discontinu ed, Routine, Intra-op lactated 2020-0 2020- No 1000mL at 20 Unive rs ringers IV 6- 06-26 mL/hr, ity of infusion 12:45: 12:43 1,000 mL, Dong as 1,000 mL 00 :00 IV Medical Infusion, Branch ONCE, 1 dose, 01/22/20 at 0745, Routine, DSU Pre-op lidocaine 2019-0 Yes 1mL 1 mL, Univers 1% (PF) 01-21 Infiltrati ity of (XYLOCAINE) 12:42: on, [place]N, [place] injection 1 44 Starting Medi eren mL Fri Branch 01/22/20 at 0742, Until Discontinu ed, Routine, Surgery/Pr ocedure, DSU Pre-op QUEtiapine 2019-0 Yes 600mg Take 600 MD (SEROquel 8-27 mg by Anderso XR) 300 MG 09:24: mouth at n 24 hr 02 bedtime. tablet gabapentin 2019-0 Yes 300mg Take 300 MD (NEURONTIN) 8-27 mg by Anderso 300 mg 09:24: mouth at n capsule 02 bedtime. liothyronin 2019-0 Yes 25ug Take 25 MD e (CYTOMEL) 8-27 mcg by Wilson o 25 mcg 09:24: mouth n tablet 02 daily. citalopram 2019-0 Yes 80mg Take 80 mg M D (CeleXA) 40 8-27 by mouth Calin rso mg tablet 09:24: daily. n 02 dexlansopra 2019-0 Yes 60mg Take 60 mg MD zole 8-27 by mouth Anderso (DEXILANT) 09:24: daily. n 60 mg 02 capsule nebivolol 2019-0 Yes 10mg Take 10 mg MD (BYSTOLIC) 8-27 by mouth Ari so 10 mg 09:24: daily. n tablet 02 amLODIPine 2019-0 Yes 5mg Take 5 mg MD (NORVASC) 5 8-27 by mouth Calin rso mg tablet 09:24: daily. n 02 baclofen 2019-0 Yes 10mg Take 10 mg MD (LIORESAL) 8-27 by mouth Ari so 10 mg 09:24: every 12 n tablet 02 (twelve) hours. topiramate 2019-0 Yes 200mg Take 200 MD (TOPAMAX) 8-27 mg by Anderso 100 mg 09:24: mouth n tablet 02 twice daily. levothyroxi 2019-0 Yes 125ug Take 125 M D ne 8-27 mcg by Anderso (TIROSINT) 09:24: mouth n 125 mcg cap 02 daily. mupirocin Yes 1{appli Apply 1 MD (BACTROBAN) 03-24 cation} applicatio Anderso 2% ointment 09:24: n n 02 topically to affected area(s) daily. lidocaine Yes RECTAL MD HCl-hydroco 03-06 APPLY Anderso rtison ac 00:00: RECTALLY n 3-0.5 % kit 00 TWICE WEEKLY NEEDED RECTICARE 5 Yes APPLY TO MD % cream 01-27 AFFECTED Anderso 00:00: AREA 4 n 00 TIMES A DAY NEEDED Citalopram Citalopram Yes Na Pandey [address] [facility] Hydrobromid Hydrobromid [facility] Baclofen Baclofen Yes Na Pandey [address] [facility] Bactroban Bactroban Yes Na Pandey [address] applicatio [facility] to [facility] affected l area Outpati ent Clinics Doxycycline Doxycycline Yes Na Pandey [address] [facility] Hyclate Hyclate [facility] Azithromyci Azithromyci Yes Na Pandey [address] [facility] n n on the [facility] - first day, Memoria then 1 l tablet Outpati daily for ent 4 days Clinics Gabapentin Gabapentin Yes Na Pandey [address] [facility] Topiramate Topiramate Yes Na Pandey not [facility] defined [facility] PredniSONE PredniSONE Yes Na Pandey [address] [facility] daily x 5 [facility] - days then Memoria one tablet l daily x 5 Outpati days ent Clinics Bystolic Bystolic Yes Na Pandey [address] [facility] Liothyronin Liothyronin Yes Na Pandey [address] [facility] e Sodium e Sodium on an [facility] - empty Memoria stomach l Outpati ent Clinics Dexilant Dexilant Yes Na Pandey [address] [facility] Levothyroxi Levothyroxi Yes Na Pandey [address] [facility] ne Sodium ne Sodium on an Luke s - empty Memoria stomach in l the Outpati morning ent Clinics Hydroxychlo Hydroxychlo Yes Na Pandey not [facility] roquine roquine defined [facility] - Sulfate Sulfate [facility]oria l Outpati ent Clinics Levothyroxi Levothyroxi Yes Na Pandey [address] [facility] ne Sodium ne Sodium on an Luke s - empty Memoria stomach in l the Outpati morning ent Clinics Amlodipine Amlodipine Yes Na Pandey [address] [facility] [facility] Besylate Besylate [facility] Quetiapine Quetiapine Yes Na Pandey not [facility] Fumarate Fumarate defined [facility] - [facility] Outpat[facility] ent Clinics Liothyronin Liothyronin Yes Na Pandey [address] [facility] e Sodium e Sodium on an [facility] empty [facility]oria stomach l Outpati ent Clinics No known No Univers medications [facility] No known No Univers medications [facility] Vital Signs Vital Name Observation Time Observation Value Comments Source Systolic blood 2020-01-22 15:34:00 160 mm[Hg] [facility] Diastolic blood 2020-01-22 15:34:00 62 mm[Hg] [facility] Heart rate 2020-01-22 15:34:00 67 /min [facility] Respiratory rate 2020-01-22 15:34:00 12 /min [facility] Oxygen saturation in 2020-01-22 15:34:00 96 /min [facility] Arterial blood by [facility] Pulse oximetry Branch Body temperature 2020-01-22 14:37:00 36.5 Deanne [facility] Body height 2020-01-21 16:45:00 172.7 cm [facility] Body weight 2020-01-21 16:45:00 95.255 kg [facility] BMI 2020-01-21 16:45:00 31.93 kg/m2 [facility] Procedures Procedure Date / Time Performing Clinician Source Performed [place] BARIUM SWALLOW 2020-08-31 15:50:28 Pedro Chamorro [facility] ESOPHAGUS [facility] [place] TIME OR 2020-01-22 14:15:18 Guero Valdovinos [facility] (NON-REPORTABLE) [facility] CBC WITH DIFFERENTIAL 2020-01-22 12:27:00 Guero Valdovinos [facility] PROTHROMBIN TIME / INR 2020-01-22 12:27:00 Guero Valdovinos [facility] ACTIVATED PARTIAL THRMPLAS 2020-01-22 12:27:00 Guero Valdovinos [facility] DAY SURGERY - ADC 2020-01-22 05:01:00 Doctor Moonssigned, [facility] [place] [facility] PATIENT FINANCIAL 2020-01-18 17:24:22 Doctor Unassigned, Un [facility] POLICY [place] [facility] NO SHOW OR MISSED 2020-01-18 17:23:47 Doctor Unassigned, [facility] APPOINTMENT POLICY [place] [facility] ACKNOWLEDGEMENT NOTICE OF PRIVACY 2020-01-18 17:23:25 Doctor Unassigned, [facility] PRACTICES [place] [facility] CONSENT/REFUSAL FOR 2020-01-18 17:23:00 Doctor Karoline, [facility] DIAGNOSIS AND TREATMENT [place] [facility] ASSIGNMENT OF BENEFITS 2020-01-18 17:22:39 Doctor Unassigned, [facility] [place] [facility] Plan of Care Planned Activity Planned Date Details Comments Source Future Scheduled Test 1963 00:00:00 COVID-19 Vaccination MD Cruz (1) [code = COVID-19 Vaccination (1)] Encounters Start End Encounter Admission Attending Care Care Encounter Source Date/Time Date/Time Type Type Clinicians Facility Department ID 2021-05-22 2021-05-22 Outpatient [facility] [id number] [facility] 00[facility] 2021-05-16 2021-05-16 Outpatient [facility] [id number] [facility] 2021-05-11 2021-05-11 Outpatient [id number] [facility] 2021-04-14 2021-04-14 Outpatient [facility] [id number] [facility] 2021-04-14 2021-04-14 Outpatient [facility] [id number] [facility] 2021-03-20 2021-03-20 Outpatient [facility] [id number] [facility] 2021-02-24 2021-02-24 ambulatory [facility] [id number] [facility] 2021-02-23 2021-02-23 Outpatient [facility] [id number] [facility] 2021-02-23 2021-02-23 Outpatient [facility] [id number] [facility] 2021-02-23 2021-02-23 Outpatient [facility] [id number] [facility] 2021-02-09 2021-02-09 Outpatient [facility] [id number] [facility] 2021-02-08 2021-02-08 Outpatient [facility] [id number] [facility] 2020-12-12 2020-12-12 Outpatient [facility] [id number] [facility] 2020-11-22 2020-11-22 Outpatient [facility] [id number] [facility] 2020-11-21 2020-11-21 Outpatient [facility] [id number] [facility] 2020-11-09 2020-11-09 Outpatient [facility] [id number] [facility] 2020-10-24 2020-10-24 Outpatient [facility] [id number] [facility] 2020-10-17 2020-10-17 Outpatient [facility] [id number] [facility] 2020-10-15 2020-10-15 Outpatient [facility] [id number] Univers 09:10:00 [facility] 2020-10-10 2020-10-10 Outpatient [facility] [id number] [facility] 2020-09-24 2020-09-24 Outpatient [facility] [id number] Univers 09:10:00 09:10:00 [facility] 2020-09-08 2020-09-08 Outpatient [facility] [id number] [facility] 2020-09-07 2020-09-07 Outpatient [facility] [id number] [facility] 2020-09-07 2020-09-07 Outpatient [facility] [id number] [facility] 2020-09-02 2020-09-02 Outpatient [facility] [id number] [facility] 2020-08-31 2020-08-31 [facility] [id number] Univers 09:00:00 23:59:00 Encounter Misty Reyes [id number] [facility] [place] [id number] [facility] [id number] [facility] 807 Branch 2020-08-31 2020-08-31 Outpatient [facility] [id number] Univers 00:00:00 00:00:00 [id number] ity [facility] 2020-08-31 2020-08-31 Outpatient PEDRO TELLEZ [facility] [id number] Univers 00:00:00 00:00:00 ity [facility] 2020-08-29 2020-08-29 Outpatient [facility] [id number] [facility] 2020-08-05 2020-08-05 Outpatient [facility] [id number] [facility] 2020-07-07 2020-07-07 Outpatient [facility] [id number] [facility] 2020-05-13 2020-05-13 Outpatient [facility] [id number] [facility] 2020-05-11 2020-05-11 Outpatient [facility] [id number] [facility] 2020-05-10 2020-05-10 Outpatient [facility] [id number] [facility] 2020-05-10 2020-05-10 Outpatient [facility] [id number] [facility] 2020-05-04 2020-05-04 Outpatient [facility] [id number] [facility] 2020-04-08 2020-04-08 [facility] [id number] [facility] 14:25:00 14:25:00 t [employer] [facility] l Medicine Outpati ent Clinics 2020-04-07 2020-04-07 [facility] [id number] 11:00:00 11:00:00 t [employer] [facility] Clin[facility] 2020-03-29 2020-03-29 Outpatient Linda Mckeont [id number] [facility] 14:53:00 14:53:00 t [employer] [facility]MD [facility] [place] 2020-03-29 2020-03-29 [facility] [id number] 09:48:00 09:48:00 t Ryan Ryan Signal [employer] [place] [facility] [place] [facility] [place] 2020-03-23 2020-03-23 Outpatient Linda Mckeont [id number] 08:00:00 08:00:00 t [facility] 2020-03-07 2020-03-07 Outpatient Linda Mckeont [id number] 08:45:00 08:45:00 t [facility] ent [facility] 2020-02-25 2020-02-25 Outpatient Linda Mckeont [id number] 15:00:00 15:00:00 t [facility] 2020-01-22 2020-01-22 [facility] [id number] Univers 07:05:01 10:45:00 Encounter Guero Reyes [id number] ity of [place] [id number] [place] [facility] [id number] [place] [id number] Branch 2020-01-22 2020-01-22 Outpatient [facility] LORELEI [id number] Univers 07:05: 10:45:00 GUERO ity of [facility] 2020-01-22 2020-01-22 Orders Doctor ADAMS [id number] Univers 00:00:00 00:00:00 Only Unassigned, ANGIE [id number] ity of [place] [facility] [id number] Dong as [id number] [place] [address] Branch 2020-01-21 2020-01-21 Laboratory Only, Adc Test [facility] [id number] [facility] 10:52:42 11:19:22 Only Guero Valdovinos [id number] [facility] [id number] [facility] [id number] [address] 2020-01-21 2020-01-21 Outpatient Hannah VALDOVINOS [facility] [id number] Univers 11:00:00 11:00:00 [facility] 2020-[facility]-11 2020-01-11 [facility] [id number] 13:35:00 13:35:00 t Ryan Ryan Signal Data [place] [facility] - [facility] l Medicine Outpati ent Clinics 2020-01-06 2020-01-06 [facility] [id number] 10:20:00 10:20:00 t Ryan Ryan [employer] Luke s - Drive [facility] l Medicine Outpati ent Clinics 2019-12-31 2019-12-31 [facility] [id number] [facility] 11:52:00 11:52:00 t Ryan [employer] Luke s - Drive [facility] Medicine Outpati ent Clinics 2019-12-14 2019-12-14 [facility] [id number] [address] 13:21:00 13:21:00 t Ryan [employer] s - Drive [facility] Medicine Outpati ent Clinics 2019-11-12 2019-11-12 [facility] [id number] [address] 09:37:00 09:37:00 t Ryan [employer] Luke s - Drive [facility] Medicine Outpati ent Clinics 2019-10-07 2019-10-07 [facility] [id number] [address] 08:00:00 08:00:[address] Luke s - Drive [facility] Medicine Outpati ent Clinics 2019-10-01 2019-10-01 [facility] [id number] [address] 11:58:00 11:58:00 t Ryan [employer] s - Drive [facility] l Medicine Outpati ent Clinics 2019-09-18 2019-09-18 [facility] [id number] 09:05:00 09:05:00 t Ryan [employer] s - Drive [facility] Medicine Outpati ent Clinics 2019-08-11 2019-08-11 [facility] [id number] [address] 09:20:00 09:20:00 t Ryan [employer] [address] [facility] Medicine Outpati ent Clinics 2019-07-03 2019-07-03 [facility] [id number] [address] 09:40:00 09:40:00 t Ryan [employer] [facility] Medicine Outpati ent Clinics 2019-06-23 2019-06-23 [facility] [id number] [address] 17:04:00 17:04:00 t Ryan [employer] [facility] Medicine Outpati ent Clinics 2019-04-03 2019-04-03 [facility] [id number] [address] 10:40:00 10:40:00 t [employer] [facility] Medicine Outpati ent Clinics 2019-03-03 2019-03-03 [facility] [id number] [address] 10:17:00 10:17:00 t [employer] [facility] Medicine Outpati ent Clinics 2019-02-23 2019-02-23 [facility] [id number] 08:38:00 08:38:00 t [employer] [facility] Medicine Outpati ent Clinics 2019-02-13 2019-02-13 [facility] [id number] 08:30:00 08:30:00 t [facility] ent Clinics 2019-02-11 2019-02-11 [facility] [id number] 08[facility]00:00 08:00:00 t [facility] ent Clinics 2019-01-27 2019-01-27 [facility] [id number] [address] 16:20:00 16:20:00 t [employer] Kate [employer] [facility] Outpati ent Clinics 2018-12-08 2018-12-08 [facility] [id number] [facility] [address] 09:44:00 09:44:00 t [facility] Luke s - Drive [facility] ent Clinics 2018-03-18 2018-03-18 Outpatient Linda [facility]keont 15 [id number] [facility] 08:30:00 08:30:00 t [facility] ent [facility] Results Test Description Test Test Results Result Source Time Comments Comments [place] BARIUM 2020-08- HISTORY: Dysphagia. Unive rsity of SWALLOW 03 TECHNIQUE: Barium [facility] edical ESOPHAGUS 15:57:47 swallow/esophagram were B ranch obtained using overheadradiography technique as well as digital fluoroscopic technique done by mewith the patient in multiple positions. FINDINGS: Swallowing function appear normal. Esophagus appears of normalsize and shape with no focal mucosal lesions. No stricture or diverticulaseen. I was able to demonstrate hiatal hernia with Valsalva technique. Somereversed peristaltic activity was seen in the lower esophagus, withrefluxing of barium from the lower esophagus into middle esophagus.However, no significant gastroesophageal reflux was visualized. ThinSchatzki's ring was also visualized. CONCLUSIONS: Thin Schatzki's ring, short sliding hiatal hernia withoutsignificant gastroesophageal reflux. [facility], Radiant Results Inft User - 08/31/2020 9:58 AM CSTHISTORY: Dysphagia.TECHNIQUE: Barium swallow/esophagram were obtained using overheadradiography technique as well as digital fluoroscopic technique done by mewith the patient in multiple positions.FINDINGS: Swallowing function appear normal. Esophagus appears of normalsize and shape with no focal mucosal lesions. No stricture or diverticulaseen. I was able to demonstrate hiatal hernia with Valsalva technique. Somereversed peristaltic activity was seen in the lower esophagus, withrefluxing of barium from the lower esophagus into middle esophagus.However, no significant gastroesophageal reflux was visualized. ThinSchatzki's ring was also visualized.CONCLUSIONS: Thin Schatzki's ring, short sliding hiatal hernia withoutsignificant gastroesophageal reflux. FL TIME OR 2019-12- These images do not Unive rsity of (NON-REPORTABLE) [address] [facility] 14:16:17 diagnostic report. Branch CBC WITH DIFFERENTIAL 2020-01-22 13:26:00 Test Item Value Reference Range Interpretation Comme nts WBC (test code = 6690-2) See_Comment [A utomated message] The system which ge nerated this result transmit kalli reference range: 4.30 - 1 1.10 10*3/?L. The reference r gonzalez was not used to interpr et this result as normal/abnor mal. RBC (test code = 789-8) See_Comment H [Au tomated message] The system which ge nerated this result transmit kalli reference range: 3.93 - 5 .25 10*6/?L. The reference r gonzalez was not used to interpr et this result as normal/abnor mal. HGB (test code = 718-7) 11.6 g/dL 11.6-15 HCT (test code = 4544-3) 39.2 % 35.7-45.2 MCV (test code = 787-2) 63.2 fL 80.6-95.5 L MCH (test code = 785-6) 18.7 pg 25.9-32.8 L MCHC (test code = 786-4) 29.6 g/dL 31.6-35.1 L RDW-SD (test code = 15602-8) 37.5 fL 39-49.9 L RDW-CV (test code = 788-0) 18.6 % 12-15.5 H PLT (test code = 777-3) See_Comment [Au tomated message] The system which ge nerated this result transmit kalli reference range: 166 - 35 8 10*3/?L. The reference range was not used to interpret th is result as normal/abnormal . MPV (test code = 12745-8) 10.1 fL 9.5-12.9 NRBC/100 WBC (test code = See_Comment [ Automated message] The [id number]) system which [employer] nerated this result transmit klali reference range: 0.0 - 10 .0 /100 WBCs. The reference r gonzalez was not used to interpr et this result as normal/abnor mal. NRBC x10^3 (test code = <0.01 See_Comment [Au tomated message] The [id number]) system which [employer] nerated this result transmit kalli reference range: 10*3/?L. The reference range was not u sed to interpret this result as normal/abnormal . GRAN MAT (NEUT) % (test code 66.8 % = 770-8) IMM GRAN % (test code = 0.60 % [id number]) LYMPH % (test code = 736-9) 23.4 % MONO % (test code = 5905-5) 7.0 % EOS % (test code = 713-8) 1.6 % BASO % (test code = 706-2) 0.6 % GRAN MAT x10^3(ANC) (test 6.70 10*3/uL 1.88-7.09 code = [id number]) IMM GRAN x10^3 (test code = 0.06 10*3/uL 0-0.06 [id number]) LYMPH x10^3 (test code = 2.34 10*3/uL 1.32-3.29 731-0) MONO x10^3 (test code = 0.70 10*3/uL 0.33-0.92 742-7) EOS x10^3 (test code = 0.16 10*3/uL 0.03-0.39 711-2) BASO x10^3 (test code = 0.06 10*3/uL 0.01-0.07 704-7) Lab Interpretation (test Abnormal code = 08527-3) [facility] / [id number] 13:16:00 Test Item Value Reference Range Interpretation Comments PROTIME PATIENT (test See_Comment [Auto mated message] code = 5964-2) The system ich generated this result transmitted ref erence range: 12.0 - 1 4.7 Seconds. The re ference range was not u sed to interpret this result as normal/abnor mal. INR (test code = 6301-6) Nor mal INR <1.1; Warfarin Therap eutic range 2.0 to 3. 0 or 2.5 to 3.5, dep ending upon the indica tions. Lab Interpretation (test Normal code = 82807-7) [facility] 13:15:00 Test Item Value Reference Range Interpretation Comments APTT Patient (test See_Comment [Automat ed code = 3173-2) message] The system which generated this result transmitted reference range : 23 - 38 Seconds . The reference range was not used to interpr et this result as normal/abnormal . SERA (test code = SERA) The [facility] patient population mean normal value for aPTT is 30 seconds. Lab Interpretation Normal (test code = 75915-6) [facility]
== END 2021-06-08 15:32 | disposition home health service (06) | DRG 470 ==
LOC: OR 05:51 → 2ND 11:18 → OBSVTOIN 16:21
PROVIDERS: ADMIT Orthopaedic Surgery Sports Medicine; ATTEND Orthopaedic Surgery Sports Medicine
PROC: 0SRC0J9 Replacement of Right Knee Joint with Synthetic Substitute, Cemented, Open Approach (ICD-10-PCS; principal; 2021-06-07 07:30)
DX: M17.11 Unilateral primary osteoarthritis, right knee (principal); I10 Essential (primary) hypertension; Z20.822 Contact with and (suspected) exposure to COVID-19; Z79.890 Hormone replacement therapy; Z79.82 Long term (current) use of aspirin; Z79.52 Long term (current) use of systemic steroids; Z79.899 Other long term (current) drug therapy; Z88.8 Allergy status to other drugs, medicaments and biological substances
CPT/HCPCS: 36415; 71046; 80048; 85014; 85018; 85025; 85610; 85730; 88305; 88311; 94010; 97110; 97116; 97139; 97161; 97530; G0378; G0379; J0690; J1100; J1170; J2250; J2270; J2370; J2405; J2704; J3010; J7120; U0003

== ENCOUNTER 2022-07-02 12:01 | Day surgery (SDC) | payer BC ==
--- NOTE | 2022-06-29 10:30 | RAD REPORT ---
EXAM DESCRIPTION: RAD - Chest Pa And Lat (2 Views) - 06/29/2022 10:24 am CLINICAL HISTORY: Pre op pending heart cath COMPARISON: Chest Pa And Lat (2 Views) dated 06/02/2021; Chest Pa And Lat (2 Views) dated 10/03/2016; C hest Single View dated 09/22/2016; Chest Single View dated 09/21/2016 FINDINGS: Lines: None. Lungs: No evidence of edema or pneumonia. Pleural: No significant pleural effusions or pneumothorax. Cardiac: The heart size is within normal limits. Mediastinum: Within normal limits. Bones: No acute fractures. Remote right sided rib fractures. Other: None IMPRESSION: No acute cardiopulmonary disease.
[2022-06-29 11:12] LABS: Absolute Lymphocytes (CBC) 4.2 K/uL (0.7-4.9); Hematocrit 33.2 % (36.0-45.0); Lymphocytes % 37.9 % (15.3-44.8); MCV 61.6 fL (80-100); MPV 8.6 fL (7.6-11.3); RBC Red Blood Cell Count 5.39 M/uL (3.86-4.86)
[2022-06-29 11:22] LABS: Protime INR 0.95
[2022-06-29 11:32] LABS: Potassium 3.9 mmol/L (3.5-5.1)
[2022-06-29 12:40] LABS: Anisocytosis 1+; Blood Morphology Comment NOTED (NOT SEEN); Hypochromasia 2+; Ovalocytes 1+; Platelet Estimate ADEQ; White Blood Cell Scan OK (OK)
--- NOTE | 2022-06-29 13:42 | EKG ---
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
[2022-07-02] MEDS ORDERED: NA CHLORIDE 0.9% 500 ML ONE (12:06)
[2022-07-02 12:40] VITALS: TEMP 98
[2022-07-02] MEDS ORDERED: LIDOCAINE 1% 20 ML MDV ONE (13:40)
[2022-07-02] MEDS ORDERED: HEPA 1000U/500MLS 2,000 UNIT/1,000 ML BAG IV ONE (13:40)
[2022-07-02] MEDS ORDERED: FENTANYL CITR 100 MCG/2 ML ONE (13:41)
[2022-07-02] MEDS ORDERED: ASPIRIN 325 MG TAB ONE (13:42)
[2022-07-02] MEDS ORDERED: CLOPIDOGREL 75 MG TABLET ONE (13:42)
[2022-07-02] MEDS ORDERED: VERAPAMIL HCL 10 MG/4 ML VIAL IV ONE (13:42)
[2022-07-02] MEDS ORDERED: HEPARIN 5000 UNIT/ML 1 ML VIAL ONE (13:42)
[2022-07-02] MEDS ORDERED: MIDAZOLAM HCL 2 MG/2 ML INJ ONE (13:42)
[2022-07-02] MEDS ORDERED: HEPARIN 10,000 UNIT/10 ML VIAL IV ONE (13:43)
[2022-07-02] MEDS ORDERED: ATROPINE SULF 1 MG/10 ML SYR IV ONE (13:43)
[2022-07-02] MEDS ORDERED: TICAGRELOR 90 MG TABLET PO ONE (13:43)
[2022-07-02 16:38] VITALS: BP 126/50; O2SAT 100
--- NOTE | 2022-07-02 20:45 | OP ---
Date of Procedure: 07/02/2022 Surgeon: MICHELA TOWNSEND Procedures Performed: 1.Selective coronary angiogram. 2.Left heart catheterization. Indication: Chest pain with abnormal stress test. Access: Right radial artery 6-C[place] Rican closed with TR band. Complications: None. Estimated Blood Loss: Bleeding less than 10 mL. Anesthesia: Total sedation time was 25 minutes. Description Of Procedure: After risks, benefits, and alternatives were explained, patient agreed to procedure and signed informed consent. The patient was brought to the cardiac catheterization [facility] and prepped and draped in usual sterile fashion. Then I accessed right radial artery using pedi atric micropuncture kit, placed 6-[place] Slender sheath, took 5-[place] 4 catheter in order to e ngage the left main and right coronary artery and took standard views and then the catheter was pushe d over the wire into the LV. LVEDP was measured. Pullback did not record any gradient and then jeanie denis the catheter and sheath and placed TR band with good hemostasis. Findings: 1.Left main: Large and normal. 2.LAD: Moderate size with diffuse proximal to mid 50% stenosis, normal diagonal branches and then th e LAD becomes normal. 3.Left circumflex: It is large and codominant and normal. 4.RCA: It has a codominant circulation, moderate size with diffuse 50% long lesion in the mid secti on. 5.Elevated LVEDP 15 mmHg. Conclusion: 1.Moderate coronary artery disease of left anterior descending and right coronary artery. 2.Mildly elevated left ventricular end-diastolic pressure. Recommendations: 1.Aggressive risk factor modification and medical management. Repeat stress test in 6 months to a y ear. 2.Diuretics. SR/MODL Voice ID: [id number] Report ID: [id number]
== END 2022-07-02 16:45 | disposition home or self-care (01) ==
LOC: PRE 12:01
PROVIDERS: ATTEND Internal Medicine
DX: I25.10 Atherosclerotic heart disease of native coronary artery without angina pectoris (principal); I10 Essential (primary) hypertension; F17.210 Nicotine dependence, cigarettes, uncomplicated; Z79.82 Long term (current) use of aspirin; Z79.899 Other long term (current) drug therapy; Z88.2 Allergy status to sulfonamides; Z88.6 Allergy status to analgesic agent; Z88.8 Allergy status to other drugs, medicaments and biological substances; Z82.49 Family history of ischemic heart disease and other diseases of the circulatory system
CPT/HCPCS: 93005; 85025; 80048; 36415; 85610; 85730; 71046; 93458; C1893; Q9966; J1644 ×2; J2250; J3010; J7040; J0461

== ENCOUNTER 2022-07-22 11:19 | Emergency (ER) | payer BC ==
--- OUTSIDE RECORDS SUMMARY | 2022-07-22 11:23 | XMS REPORT | Clinical Summary ---
:1960 Author Organization [facility] MD [facility] Address [address] [place] [address] Care Team Providers Name Role Phone Rafia Toure MD Unavailable Gaviota Maldonado MD Primary Care Provider [phone] Allergies Active Allergy Reactions Severity Noted Date [...] Problem Noted Date Other skin change 03/24/2019 Surgical History Surgery Date Site/Laterality Comments UPPER [...] Paternal Aunt Kinsey -Breast cancer Paternal Grandmother [place] Relation Name Status Comments Brother [place] Daughter Sienna Maternal Aunt Nithya Maternal Grandmother Brenda Maternal Uncle Be Mother Cameron Paternal Aunt Kinsey Paternal Grandmother Lala Social History Tobacco Use Types Packs/Day Years Used Date Smoking Tobacco: Every Day Cigarettes 1 46 Tobacco Cessation: Ready to Quit: [...] Due Date Last Done Comments COVID-19 Vaccination (#1) 1960 Results Not on fileafter 07/22/2021 Insurance Payer Benefit Plan / Subscriber ID Effective Dates Phone Addre ss Type Group [employer] O [id number] 2018-Present PO ROSALES X [id number] O [place] [place] [employer] [id number] Care Teams 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
--- OUTSIDE RECORDS SUMMARY | 2022-07-22 11:34 | XMS REPORT | Continuity of Care Document ---
:1960 Author Organization [facility] t Address [address] [place] [address] Michael. [address] [place] [address] Care Team Providers Name Role Phone [phone] Primary Care Physician Unavailable Amy Pandey Attending Clinician Unavailable Richard Phan Attending Clinician Doctor Unassigned, [place] Attending Clinician Unavailable Pedro Chamorro MD Attending Clinician PEDRO CHAMORRO Attending Clinician Unavailable Guero Valdovinos DPM Attending Clinician GUERO VALDOVINOS Attending Clinician Unavailable Only, Adc Test Attending Clinician Unavailable Guero Valdovinos DPM Admitting Clinician GUERO VALDOVINOS Admitting Clinician Unavailable Payers Payer Name Policy Type Policy Number Effective Date Expiration Date S ourbryant [employer] 6 [id number] 2018 Common Spiri t Blue Shield of 00:00:00 - [facility] Problems Condition Condition Condition Status Onset Resolution Last Treating Co mments Source Name Details Category Date Date Treatment Clinician Date Obesity Obesity Disease Active Univers (BMI (BMI 6-26 ity of 30-39.9) 30-39.9) 00:00: [place] 00 Medical [facility] Other skin Other skin Disease Active U nivers change change 8-27 ity of 00:00: [place] 00 MD [facility] [id number] Thalassemi Problem Com mon a, Spirit unspecifie - CHI d type [facility] [id number] Primary Problem Comm on osteoarthr Spirit itis of - [facility] right knee [facility] Anxiety Anxiety Problem Common [facility] [id number] Pain in Problem Common joint of [facility] right knee [facility] [id number] Essential Problem Comm on hypertensi Spirit on [facility] Allergic Allergic Problem Commo n rhinitis rhinitis [facility] [id number] +5th digit Problem Co mmon eff Spirit 04/28/20*CK - CHI D (chronic kidney [facility] disease), Medical stage III Center [id number] [place] [id number] lesion of [facility] breast [facility] [id number] Primary Problem Common insomnia [facility] Depression Depression Problem C ommon [facility] Gastroesop Gastroesop Problem C [facility] hageal hageal Spirit reflux reflux - [facility], [facility] Med[facility] l not Center specified Thalassemi Thalassemi Problem C ommon a minor a minor [facility] [id number] Cigarette Problem Comm on nicotine [facility] dependence - [facility] Migraine Migraine Problem Commo n with aura with aura Spir it and - CHI without [facility] migrainosu Medica l s, not Center intractabl e [id number] PUD Problem Common (peptic Spirit ulcer - CHI disease) [facility] [id number] Simple Problem Common chronic Spirit bronchitis [facility] Mixed Mixed Problem Common hyperlipid hyperlipid Sp sunitha emia emia [facility] Vitamin D Vitamin D Problem Com mon deficiency deficiency Sp sunitha [facility] [id number] Gastro-eso Problem Co mmon phageal Spirit reflux - CHI disease [facility] esophagiti Medica l s Center Cervical Osteoarthr Problem Com mon spondylosi itis of Spiri t s without spine with - C HI myelopathy radiculopa [facility] cervicotho Medica l racic Center region Acquired Acquired Problem Commo n hypothyroi hypothyroi Sp sunitha dism dism - CHI [facility] [id number] Rheumatoid Problem Co mmon arthritis Spirit involving - [facility] multiple [facility] unspecifie Medica l d whether Center rheumatoid factor present [id number] Depression Problem Co mmon with Spirit anxiety - CHI [facility] Degenerati Lumbar Problem Commo n on of degenerati Spirit lumbar ve disc - [facility] [id number] Unsteady Problem Comm on gait Spirit - CHI [facility] [id number] Chronic Problem Comm on obstructiv Spirit e - CHI pulmonary [facility] with Medical (acute) Center lower respirator y infection [id number] Unspecifie Problem Com mon d chronic Spirit bronchitis - CHI [facility] [id number] Needs flu Problem Com mon shot Spirit - CHI [facility] Chronic Stage 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 - CHI stage 3A disease [facility] [id number] Aftercare Problem Com mon following Spirit joint - CHI [facility] Artificial Status Problem Commo n knee joint post right Sp sunitha present knee - [facility] Hypertensi Problem Active 2022-03-25 M emoria ve Hypertensi 03:56:05 l disorder, ve Jamie systemic disorder, arterial systemic (disorder) arterial (disorder) Active Problem 03/25/2022 [facility] Hypothyroi Hypothyro Problem Active 2022-03-25 Memoria dism idism 03:56:05 l (disorder) (disorder) He rmann Active Problem 03/25/2022 [facility] Lumbar Lumbar Problem Active 2022-03-25 Babatunde roe radiculopa radiculopa 03:56:05 l thy thy [place] (disorder) (disorder) Active Problem 03/25/2022 [facility] Weight Weight Problem Active 2022-03-25 Babatunde roe gain gain 03:56:05 l finding finding Jamie (finding) (finding) Active Problem 03/25/2022 [facility] Cervical Cervical Problem Active 2022-03-25 Memoria radiculopa radiculopa 03:56:05 l thy thy [place] (disorder) (disorder) Active Problem 03/25/2022 [facility] Headache Headache Problem Active 2022-03-25 Memoria (finding) (finding) 03:56:05 l Active Jamie Problem 03/25/2022 [facility] Paresthesi Paresthes Problem Active 2022-03-25 Memoria a ia 03:56:05 l (finding) (finding) Herm chinmay Active Problem 03/25/2022 [facility] Rheumatoid Rheumatoi Problem Active 2022-03-25 Memoria arthritis d 03:56:05 l (disorder) arthritis Her echeverria (disorder) Active Problem 03/25/2022 [facility] Allergies, Adverse Reactions, Alerts Allergy Allergy Status [...] s Branch Nitrofur Propensi Active Unknown - 2020-0 "Cant Uni vers antoin ty to See [...] ity of 00:00: [place] 00 [facility] Aspirin Propensi Active GI 2019-0 Univers ty to Intolerance 03-24 ity o f adverse 00:00: [place] reaction 00 MD linda schumacher [facility] [place] Propensi Active Hives Univer s an-[place] ty to 03-24 ity of chloroth adverse 00:00: [place] iazide reaction 00 MD linda schumacher [facility] Clonidin Propensi Active Palpitations Univers e ty to 03-24 ity of adverse 00:00: [place] reaction 00 MD linda schumacher [facility] Pregabal Propensi Active Palpitations Univers in ty to 03-24 ity of adverse 00:00: [place] reaction 00 MD linda schumacher [facility] Nitrofur Propensi Active Other (See Back pain Univers antoin ty to Comments) 03-24 per ity of Monohyd/ adverse 00:00: patient [place] M-Cryst reaction 00 MD linda schumacher [facility] Metoprol Propensi Active Shortness Of Univers ol ty to Breath 03-24 ity of adverse 00:00: [place] reaction 00 MD linda schumacher [facility] Guaifene Propensi Active Palpitations Univers sin ty to 03-24 ity of adverse 00:00: [place] reaction 00 MD linda schumacher [facility] sulfa sulfa Active Memoria drugs drugs l Jamie guaifene guaifene Active Unknown Commo n sin sin [facility] aspirin aspirin Active Unknown Common [facility] metoprol metoprol Active Unknown Commo n ol ol [facility] nitrofur nitrofur Active Unknown Commo n antoin, antoin, Spirit macrocry macrocry [facility] stals / stals / St nitrofur nitrofur Lu antoin, antoin, Medical monohydr monohydr Center ate ate pregabal pregabal Active Unknown Commo n in in [facility] clonidin clonidin Active Unknown Commo n e e [facility] olmesart olmesart Active Unknown Commo n an an [facility] NO KNOWN Drug Active Univers ALLERGIE Class ity of S [place] [facility] Family History Family Member Diagnosis Comments Start Date Stop Date Source Natural brother -Pancreatic Universi ty of cancer [place] MD [facility] Natural daughter -Cervical cancer [facility] [place] MD [facility] Maternal aunt -Thyroid cancer [facility] [place] MD [facility] [place] Maternal grandmother -Breast cancer [facility] MD Ari [facility] [place] Maternal uncle -Melanoma [facility] MD Ari [facility]aba [facility] [place] Natural mother -Ovarian cancer [facility] [place] MD [facility] Paternal aunt -Brain cancer Universi ty [facility] MD Ari ruvalcaba [facility] [place] Paternal grandmother -Breast cancer [facility] MD Ari ruvalcaba [facility] Social History Social Habit Start Date Stop Date Quantity Comments Source Exposure to Not sure [facility]-CoV-2 (event) [facility] History of Tobacco Current Smoker Co mmon Spirit - Use CHI [facility] Tobacco use and 2020-01-21 2020-01-21 Never used Universit y of exposure 00:00:00 00:00:00 [facility] Cigarettes smoked 2019-03-24 2019-03-24 Univers ity of current (pack per 00:00:00 00:00:00 [place] Misty Cruz ) - Reported Cancer Ce nter Cigarette 2019-03-24 2019-03-24 University of pack-years 00:00:00 00:00:00 [place] MD Ari ruvalcaba [facility] Alcohol intake 2019-03-24 2019-03-24 Ex-drinker University of 00:00:00 00:00:00 (finding) [place] MD Ari ruvalcaba [facility] Sex Ass[birth year] At [birth year] Universit y of 00:00:00 00:00:00 [place] MD Ari ruvalcaba [facility] Smoking Status Start Date Stop Date Source Tobacco smoking consumption [facility] unknown Social History 2022-03-22 16:30:58 [facility] Current some day smoker 2020-01-21 00:00:00 Univ ersity [facility] [place] [facility] Medications Ordered Filled Start Stop Current Ordering Indication Dosage Frequency Signature Comments Components Source Medication Medication Date Date Medication? Clinician (SIG) Name Name Cipro 500 Cipro 500 2021-07- No 1{table BID Cipro 500 MG MG 0-06-03 t} MG 00:00: 00:00 00 :00 Cipro 500 Cipro 500 2021-07- No 1{table BID Cipro 500 MG MG 0-06-03 t} MG 00:00: 00:00 00 :00 Finasteride Finasteride 2021-07- No 1{table Finasterid 1 MG 1 MG 0-08-22 t} e 1 MG 00:00: 00:00 00 :00 Finasteride Finasteride 2021-07- No 1{table Finasterid 1 MG 1 MG 0-28 08-22 t} e 1 MG 00:00: 00:00 00 :00 Finasteride Finasteride 2021-07- No 1{table Finasterid 1 MG 1 MG 0-28 08-22 t} e 1 MG 00:00: 00:00 00 :00 Finasteride Finasteride 2021-07- No 1{table Finasterid 1 MG 1 MG 0-28 08-22 t} e 1 MG 00:00: 00:00 00 :00 Finasteride Finasteride 2021-07- No 1{table Finasterid 1 MG 1 MG 008-22 t} e 1 MG 00:00: 00:00 00 :00 baclofen 10 Yes 20 mg = 2 M emoria mg oral 8-25 tab, PO, l tablet 16:46: Daily, # Jamie 00 180 tab, 3 Refill(s), Pharmacy: [facility] #[id number], 170.18, cm, 03/22/22 11:35:00 CDT, Height, 85.511, kg, 03/22/22 11:35:00 CDT, Weight HYDROcodone HYDROcodone 2020-07- No 1{table HYDROcodon -Acetaminop -Acetaminop 08-06 t_as_ne e-Acetamin hen 7.5-325 hen 7.5-325 00:00: 00:00 eded} ophen MG MG 00 :00 7.5-325 MG HYDROcodone HYDROcodone 2020-07- No 1{table HYDROcodon -Acetaminop -Acetaminop 08-06 t_as_ne e-Acetamin hen 7.5-325 hen 7.5-325 00:00: 00:00 eded} ophen MG MG 00 :00 7.5-325 MG HYDROcodone HYDROcodone 2020-07- No 1{table HYDROcodon -Acetaminop -Acetaminop 08-06 t_as_ne e-Acetamin hen 7.5-325 hen 7.5-325 00:00: 00:00 eded} ophen MG MG 00 :00 7.5-325 MG HYDROcodone HYDROcodone 2020-07- No 1{table HYDROcodon -Acetaminop -Acetaminop 08-06 t_as_ne e-Acetamin hen 7.5-325 hen 7.5-325 00:00: 00:00 eded} ophen MG MG 00 :00 7.5-325 MG HYDROcodone HYDROcodone 2020-07- No 1{table HYDROcodon -Acetaminop -Acetaminop 08-06 t_as_ne e-Acetamin hen 7.5-325 hen 7.5-325 00:00: 00:00 eded} ophen MG MG 00 :00 7.5-325 MG HYDROcodone HYDROcodone 2020-07- No 1{table HYDROcodon -Acetaminop -Acetaminop 08-06 t_as_ne e-Acetamin hen 7.5-325 hen 7.5-325 00:00: 00:00 eded} ophen MG MG 00 :00 7.5-325 MG HYDROcodone HYDROcodone 2020-07- No 1{table HYDROcodon -Acetaminop -Acetaminop 08-06 t_as_ne e-Acetamin hen 7.5-325 hen 7.5-325 00:00: 00:00 eded} ophen MG MG 00 :00 7.5-325 MG Xarelto 10 Xarelto 10 2020-07 No 1{table QD Xarelto 10 MG MG 1-08 t} MG 00:00: 00 Xarelto 10 Xarelto 10 2020-07 No 1{table QD Xarelto 10 MG MG 1-08 t} MG 00:00: 00 Xarelto 10 Xarelto 10 2020-07 No 1{table QD Xarelto 10 MG MG 1-08 t} MG 00:00: 00 Xarelto 10 Xarelto 10 2020-07 No 1{table QD Xarelto 10 MG MG 1-08 t} MG 00:00: 00 Xarelto 10 Xarelto 10 2021-1 No 1{table QD Xarelto 10 MG MG 1-08 t} MG 00:00: 00 Xarelto 10 Xarelto 10 2020-1 No 1{table QD Xarelto 10 MG MG 1-08 t} MG 00:00: 00 Xarelto 10 Xarelto 10 2020-1 No 1{table QD Xarelto 10 MG MG 1-08 t} MG 00:00: 00 Xarelto 10 Xarelto 10 2020-1 No 1{table QD Xarelto 10 MG MG 1-08 t} MG 00:00: 00 Xarelto 10 Xarelto 10 2020- No 1{table QD Xarelto 10 MG MG 1-08 t} MG 00:00: 00 Xarelto 10 Xarelto 10 2020- No 1{table QD Xarelto 10 MG MG 1-08 t} MG 00:00: 00 Xarelto 10 Xarelto 10 2020- No 1{table QD Xarelto 10 MG MG 1-08 t} MG 00:00: 00 Xarelto 10 Xarelto 10 2020- No 1{table QD Xarelto 10 MG MG 1-08 t} MG 00:00: 00 Xarelto 10 Xarelto 10 2020- No 1{table QD Xarelto 10 MG MG 1-08 t} MG 00:00: 00 Xarelto 10 Xarelto 10 2020-1 No 1{table QD Xarelto 10 MG MG 1-08 t} MG 00:00: 00 Xarelto 10 Xarelto 10 2020- No 1{table QD Xarelto 10 MG MG 1-08 t} MG 00:00: 00 Xarelto 10 Xarelto 10 2020-1 No 1{table QD Xarelto 10 MG MG 1-08 t} MG 00:00: 00 Xarelto 10 Xarelto 10 2020- No 1{table QD Xarelto 10 MG MG 1-08 t} MG 00:00: 00 Xarelto 10 Xarelto 10 2020-1 No 1{table QD Xarelto 10 MG MG 1-08 t} MG 00:00: 00 Xarelto 10 Xarelto 10 2020- No 1{table QD Xarelto 10 MG MG 1-08 t} MG 00:00: 00 Xarelto 10 Xarelto 10 2020-07 No 1{table QD Xarelto 10 MG MG 1-08 t} MG 00:00: 00 Xarelto 10 Xarelto 10 2020-07 No 1{table QD Xarelto 10 MG MG 1-08 t} MG 00:00: 00 Xarelto 10 Xarelto 10 2020-07 No 1{table QD Xarelto 10 MG MG 1-08 t} MG 00:00: 00 Xarelto 10 Xarelto 10 2020-07 No 1{table QD Xarelto 10 MG MG 1-08 t} MG 00:00: 00 Xarelto 10 Xarelto 10 2020-07 No 1{table QD Xarelto 10 MG MG 1-08 t} MG 00:00: 00 Xarelto 10 Xarelto 10 2020-07 No 1{table QD Xarelto 10 MG MG 1-08 t} MG 00:00: 00 Xarelto 10 Xarelto 10 2020-07 No 1{table QD Xarelto 10 MG MG 1-08 t} MG 00:00: 00 Xarelto 10 Xarelto 10 2020-07 No 1{table QD Xarelto 10 MG MG 1-08 t} MG 00:00: 00 Xarelto 10 Xarelto 10 2020-07 No 1{table QD Xarelto 10 MG MG 1-08 t} MG 00:00: 00 Xarelto 10 Xarelto 10 2020-07 No 1{table QD Xarelto 10 MG MG 1-08 t} MG 00:00: 00 tramadol 2020-0 Yes 50 mg = 1 Babatunde roe hydrochlori 02-03 tab, PO, l de 50 MG 19:25: Daily, X Natalia nn Oral Tablet day, # 30 tab, 2 Refill(s), Pharmacy: [facility] #[id number], 172.72, cm, 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, Height, 7.636, kg, 02/03/21 14:08:00 CDT, Weight gabapentin 2020-0 Yes 600 mg = 2 M emoria 300 MG Oral 02-03 cap, PO, l Capsule 19:18: BID, # 120 Herm chinmay 00 cap, 3 Refill(s), Pharmacy: [facility] #[id number], 172.72, cm, 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, Height, 7.636, kg, 02/03/21 14:08:00 CDT, Weight baclofen 10 2020-0 Yes 20 mg = 2 M emoria mg oral 7-09 tab, PO, l tablet 19:18: Daily, # [place] 00 180 tab, 3 Refill(s), Pharmacy: [facility] #[id number], 172.72, cm, 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, Height, 7.636, kg, 02/03/21 14:08:00 CDT, Weight topiramate 2020-0 Yes = 1 tab, Mem oria 100 mg oral - PO, BID, # l tablet 19:18: 180 tab, 3 Natalia nn 00 Refill(s), Pharmacy: [facility] #[id number], 172.72, cm, 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, Height, 7.636, kg, 02/03/21 14:08:00 CDT, Weight Bupivicaine Bupivicaine 2020-0 No 2.5mg Common [place] Bartlett 5-17 Spirit 00:00: - CHI [facility] Kenalog Kenalog 2020-0 No 40mg Common (Triamcinol (Triamcinol 5-17 S pirit one) one) 00:00: - [facility]I [facility] Bupivicaine Bupivicaine 1-0 No 2.5mg Common Bartlett Bartlett 5-17 Spirit 00:00: - [facility]I [facility] Kenalog Kenalog 2020-0 No 40mg Common (Triamcinol (Triamcinol 5-17 S pirit one) one) 00:00: - [facility]I [facility] Bupivicaine Bupivicaine 2020-0 No 2.5mg Common [place] Bartlett 5-17 Spirit 00:00: - [facility]I [facility] Kenalog Kenalog 2020-0 No 40mg Common (Triamcinol (Triamcinol 5-17 S pirit one) one) 00:00: - [facility]I [facility] Bupivicaine Bupivicaine 2020-0 No 2.5mg Common Bartlett Bartlett 5-17 Spirit 00:00: - CHI 00 [facility] Kenalog Kenalog 2020-0 No 40mg Common (Triamcinol (Triamcinol 5-17 S pirit one) one) 00:00: - CHI 00 [facility] Bupivicaine Bupivicaine 2020-0 No 2.5mg Common [place] Bartlett 5-17 Spirit 00:00: - CHI 00 [facility] Kenalog Kenalog 2020-0 No 40mg Common (Triamcinol (Triamcinol 5-17 S pirit one) one) 00:00: - CHI 00 [facility] Bupivicaine Bupivicaine 2020-0 No 2.5mg Common [place] Bartlett 5-17 Spirit 00:00: - CHI 00 [facility] Kenalog Kenalog 2020-0 No 40mg Common (Triamcinol (Triamcinol 5-17 S pirit one) one) 00:00: - CHI 00 [facility] Bupivicaine Bupivicaine 2020-0 No 2.5mg Common [place] Bartlett 5-17 Spirit 00:00: - CHI 00 [facility] Kenalog Kenalog 2020-0 No 40mg Common (Triamcinol (Triamcinol 5-17 S pirit one) one) 00:00: - CHI 00 [facility] Bupivicaine Bupivicaine 2020-0 No 2.5mg Common [place] Bartlett 5-17 Spirit 00:00: - CHI 00 [facility] Kenalog Kenalog 2020-0 No 40mg Common (Triamcinol (Triamcinol 5-17 S pirit one) one) 00:00: - CHI 00 [facility] Bupivicaine Bupivicaine 2020-0 No 2.5mg Common Bart[place] Bartlett 5-17 Spirit 00:00: - CHI 00 [facility] Kenalog Kenalog 2020-0 No 40mg Common (Triamcinol (Triamcinol 5-17 S pirit one) one) 00:00: - CHI 00 [facility] Bupivicaine Bupivicaine 2020-0 No 2.5mg Common [place] Bartlett 5-17 Spirit 00:00: - CHI 00 [facility] Kenalog Kenalog 2020-0 No 40mg Common (Triamcinol (Triamcinol 5-17 S pirit one) one) 00:00: - CHI 00 [facility] Bupivicaine Bupivicaine 2020-0 No 2.5mg Common Bartlett Bartlett 5-17 Spirit 00:00: - CHI 00 [facility] Kenalog Kenalog 2020-0 No 40mg Common (Triamcinol (Triamcinol 5-17 S pirit one) one) 00:00: - CHI 00 [facility] Bupivicaine Bupivicaine 2020-0 No 2.5mg Common Bartlett Bartlett 5-17 Spirit 00:00: - CHI 00 [facility] Kenalog Kenalog 2020-0 No 40mg Common (Triamcinol (Triamcinol 5-17 S pirit one) one) 00:00: - CHI 00 [facility] Bupivicaine Bupivicaine 2020-0 No 2.5mg Common Bartlett Bartlett 5-17 Spirit 00:00: - CHI 00 [facility] Kenalog Kenalog 2020-0 No 40mg Common (Triamcinol (Triamcinol 5-17 S pirit one) one) 00:00: - CHI 00 [facility] Bupivicaine Bupivicaine 2020-0 No Common Bartlett Bartlett 5-17 Spirit 00:00: - CHI 00 [facility] Kenalog Kenalog 2020-0 No 40mg Common (Triamcinol (Triamcinol 5-17 S pirit one) one) 00:00: - CHI 00 [facility] Bupivicaine Bupivicaine 2020-0 No Common Bartlett Bartlett 5-17 Spirit 00:00: - CHI 00 [facility] Kenalog Kenalog 2020-0 No 40mg Common (Triamcinol (Triamcinol 5-17 S pirit one) one) 00:00: - CHI 00 [facility] Bupivicaine Bupivicaine 2020-0 No Common Bartlett Bartlett 5-17 Spirit 00:00: - CHI 00 [facility] Kenalog Kenalog 2020-0 No 40mg Common (Triamcinol (Triamcinol 5-17 S pirit one) one) 00:00: - CHI 00 [facility] Bupivicaine Bupivicaine 2020-0 No 2.5mg Common Bartlett Bartlett 5-17 Spirit 00:00: - CHI 00 [facility] Kenalog Kenalog 2020-0 No 40mg Common (Triamcinol (Triamcinol 5-17 S pirit one) one) 00:00: - [facility]I [facility] Bupivicaine Bupivicaine 2020-0 No 2.5mg Common Bartlett Bartlett 5-17 Spirit 00:00: - CHI 00 [facility] Kenalog Kenalog 2020-0 No 40mg Common (Triamcinol (Triamcinol 5-17 S pirit one) one) 00:00: - [facility] Hyalgan 20 Hyalgan 20 2020-0 No 20mg C ommon mg mg 3- Spirit 00:00: - [facility] Hyalgan 20 Hyalgan 20 2020-0 No 20mg C ommon mg mg 3- Spirit 00:00: - [facility] Hyalgan 20 Hyalgan 20 2020-0 No 20mg C ommon mg mg 3- Spirit 00:00: - [facility] Hyalgan 20 Hyalgan 20 2020-0 No 20mg C ommon mg mg 3- Spirit 00:00: - [facility] Hyalgan 20 Hyalgan 20 2020-0 No 20mg C ommon mg mg 3- Spirit 00:00: - [facility] Hyalgan 20 Hyalgan 20 2020-0 No 20mg C ommon mg mg 3- Spirit 00:00: - [facility] Hyalgan 20 Hyalgan 20 2020-0 No 20mg C ommon mg mg 3- Spirit 00:00: - [facility] Hyalgan 20 Hyalgan 20 2020-0 No 20mg C ommon mg mg 3- Spirit 00:00: - [facility] Hyalgan 20 Hyalgan 20 2020-0 No 20mg C ommon mg mg 3- Spirit 00:00: - [facility] Hyalgan 20 Hyalgan 20 2020-0 No 20mg C ommon mg mg 3- Spirit 00:00: - [facility] Hyalgan 20 Hyalgan 20 2020-0 No 20mg C ommon mg mg 10-24 Spirit 00:00: - [facility] Hyalgan 20 Hyalgan 20 2020-0 No 20mg C ommon mg mg 10-24 Spirit 00:00: - [facility] Hyalgan 20 Hyalgan 20 2020-0 No 20mg C ommon mg mg 10-24 Spirit 00:00: - [facility] Hyalgan 20 Hyalgan 20 2020-0 No 20mg C ommon mg mg 10-24 Spirit 00:00: - [facility] Hyalgan 20 Hyalgan 20 2020-0 No 20mg C ommon mg mg 10-24 Spirit 00:00: - [facility] Hyalgan 20 Hyalgan 20 2020-0 No 20mg C ommon mg mg 10-24 Spirit 00:00: - [facility] Hyalgan 20 Hyalgan 20 2020-0 No 20mg C ommon mg mg 10-24 Spirit 00:00: - [facility] Hyalgan 20 Hyalgan 20 2020-0 No 20mg C ommon mg mg 10-24 Spirit 00:00: - [facility] Hyalgan 20 Hyalgan 20 2020-0 No 20mg C ommon mg mg 10-17 Spirit 00:00: - [facility] Hyalgan 20 Hyalgan 20 2020-0 No 20mg C ommon mg mg 10-17 Spirit 00:00: - [facility] Hyalgan 20 Hyalgan 20 2020-0 No 20mg C ommon mg mg 10-17 Spirit 00:00: - [facility] Hyalgan 20 Hyalgan 20 2020-0 No 20mg C ommon mg mg 10-17 Spirit 00:00: - [facility] Hyalgan 20 Hyalgan 20 2020-0 No 20mg C ommon mg mg 10-17 Spirit 00:00: - [facility] Hyalgan 20 Hyalgan 20 2020-0 No 20mg C ommon mg mg 10-17 Spirit 00:00: - [facility] Hyalgan 20 Hyalgan 20 2020-0 No 20mg C ommon mg mg 10-17 Spirit 00:00: - CHI 00 [facility] Hyalgan 20 Hyalgan 20 2020-0 No 20mg C ommon mg mg 10-17 Spirit 00:00: - [facility] Hyalgan 20 Hyalgan 20 2020-0 No 20mg C ommon mg mg 10-17 [facility] 00:[facility]: - [facility] Hyalgan 20 Hyalgan 20 2020-0 No 20mg C ommon mg mg 10-17 [facility] 00:00: - [facility] Hyalgan 20 Hyalgan 20 2020-0 No 20mg C ommon mg mg 10-17 [facility] 00:00: - [facility] 00 [facility] Hyalgan 20 Hyalgan 20 2020-0 No 20mg C ommon mg mg 10-17 [facility] 00:00: - [facility] Hyalgan 20 Hyalgan 20 2020-0 No 20mg C ommon mg mg 10-17 [facility] 00:00: - [facility] Hyalgan 20 Hyalgan 20 2020-0 No 20mg C ommon mg mg 10-17 [facility] 00:00: - [facility] Hyalgan 20 Hyalgan 20 2020-0 No 20mg C ommon mg mg 10-17 [facility] 00:00: - [facility] Hyalgan 20 Hyalgan 20 2020-0 No 20mg C ommon mg mg 10-17 [facility] 00:00: - [facility] Hyalgan 20 Hyalgan 20 2020-0 No 20mg C ommon mg mg 10-17 [facility] 00:00: - [facility] Hyalgan 20 Hyalgan 20 2020-0 No 20mg C ommon mg mg 10-17 [facility] 00:00: - [facility] 00 [facility] Hyalgan 20 Hyalgan 20 2020-0 No 20mg C ommon mg mg 3- [facility] 00:00: - [facility] Hyalgan 20 Hyalgan 20 2020-0 No 20mg C ommon mg mg 3- [facility] 00:00: - [facility] Hyalgan 20 Hyalgan 20 2020-0 No 20mg C ommon mg mg 3- [facility] 00:00: - [facility] 00 [facility] Hyalgan 20 Hyalgan 20 2020-0 No 20mg C ommon mg mg 3-15 [facility] 00:00: - [facility] 00 [facility] Hyalgan 20 Hyalgan 20 2020-0 No 20mg C ommon mg mg 3-15 [facility] 00:00: - [facility] 00 [facility] Hyalgan 20 Hyalgan 20 2020-0 No 20mg C ommon mg mg 3-15 [facility] 00:00: - [facility] 00 [facility] Hyalgan 20 Hyalgan 20 2020-0 No 20mg C ommon mg mg 3-15 [facility] 00:00: - [facility] 00 [facility] Hyalgan 20 Hyalgan 20 2020-0 No 20mg C ommon mg mg 3-15 [facility] 00:00: - [facility] 00 [facility] Hyalgan 20 Hyalgan 20 2020-0 No 20mg C ommon mg mg 3-15 [facility] 00:00: - [facility] 00 [facility] Hyalgan 20 Hyalgan 20 2020-0 No 20mg C ommon mg mg 3-15 [facility] 00:00: - [facility] Hyalgan 20 Hyalgan 20 2020-0 No 20mg C ommon mg mg 3-15 [facility] 00:00: - [facility] 00 [facility] Hyalgan 20 Hyalgan 20 2020-0 No 20mg C ommon mg mg 3-15 [facility] 00:00: - [facility] 00 [facility] Hyalgan 20 Hyalgan 20 2020-0 No 20mg C ommon mg mg 3-15 [facility] 00:00: - [facility] 00 [facility] Hyalgan 20 Hyalgan 20 2020-0 No 20mg C ommon mg mg 3-15 [facility] 00:00: - [facility] 00 [facility] Hyalgan 20 Hyalgan 20 2020-0 No 20mg C ommon mg mg 3-15 [facility] 00:00: - [facility] 00 [facility] Hyalgan 20 Hyalgan 20 2020-0 No 20mg C ommon mg mg 3-15 [facility] 00:00: - [facility] Hyalgan 20 Hyalgan 20 2020-0 No 20mg C ommon mg mg 3-15 [facility] 00:00: - [facility] 00 [facility] Hyalgan 20 Hyalgan 20 2020-0 No 20mg C ommon mg mg 3-15 [facility] 00:00: - [facility] 00 [facility] Kenalog Kenalog 2020-0 No 40mg Common (Triamcinol (Triamcinol 2-05 S pirit one) one) 00:00: - [facility] 00 [facility] Bupivicaine Bupivicaine 2020-0 No 2.5mg Common Bartlett Bartlett 2-05 Spirit 00:00: - [facility] 00 [facility] Norma Kenalog 2020-0 No 40mg Common (Triamcinol (Triamcinol 2-05 S pirit one) one) 00:00: - [facility] 00 [facility] Bupivicaine Bupivicaine 2020-0 No 2.5mg Common Bartlett Bartlett 2-05 Spirit 00:00: - [facility] 00 [facility] Norma Olveraalog 2020-0 No 40mg Common (Triamcinol (Triamcinol 2-05 S pirit one) one) 00:00: - [facility] 00 [facility] Bupivicaine Bupivicaine 2020-0 No 2.5mg Common Bartlett Bartlett 2-05 Spirit 00:00: - [facility] 00 [facility] Norma Kenalog 2020-0 No 40mg Common (Triamcinol (Triamcinol 2-05 S pirit one) one) 00:00: - [facility] 00 [facility] Bupivicaine Bupivicaine 2020-0 No 2.5mg Common Bartlett Bartlett 2-05 Spirit 00:00: - [facility] 00 [facility] Norma Kenalog 2020-0 No 40mg Common (Triamcinol (Triamcinol 2-05 S pirit one) one) 00:00: - [facility] 00 [facility] Bupivicaine Bupivicaine 2020-0 No 2.5mg Common Bartlett Bartlett 2-05 Spirit 00:00: - [facility] 00 [facility] Kenjacob Kenalog 2020-0 No 40mg Common (Triamcinol (Triamcinol 2-05 S pirit one) one) 00:00: - [facility] 00 [facility] Bupivicaine Bupivicaine 2020-0 No 2.5mg Common Bartlett Bartlett 2-05 Spirit 00:00: - [facility] 00 [facility] Norma Kenalog 2020-0 No 40mg Common (Triamcinol (Triamcinol 2-05 S pirit one) one) 00:00: - [facility] 00 [facility] Bupivicaine Bupivicaine 2020-0 No 2.5mg Common Bartlett Bartlett 2-05 [facility] 00:00: - [facility] 00 [facility] Kenalog Kenalog 2020-0 No 40mg Common (Triamcinol (Triamcinol 2-05 S pirit one) one) 00:00: - [facility] 00 [facility] Bupivicaine Bupivicaine 2020-0 No 2.5mg Common Bartlett Bartlett 2-05 [facility] 00:00: - [facility] 00 [facility] Kenalog Kenalog 2020-0 No 40mg Common (Triamcinol (Triamcinol 2-05 S pirit one) one) 00:00: - [facility] 00 [facility] Bupivicaine Bupivicaine 2020-0 No 2.5mg Common Bartlett Bartlett 2-05 [facility] 00:00: - [facility] 00 [facility] Kenalog Kenalog 2020-0 No 40mg Common (Triamcinol (Triamcinol 2-05 S pirit one) one) 00:00: - [facility] 00 [facility] Bupivicaine Bupivicaine 2020-0 No 2.5mg Common Bartlett Bartlett 2-05 [facility] 00:00: - [facility] 00 [facility] Kenalog Kenalog 2020-0 No 40mg Common (Triamcinol (Triamcinol 2-05 S pirit one) one) 00:00: - [facility] 00 [facility] Bupivicaine Bupivicaine 2020-0 No 2.5mg Common Bartlett Bartlett 2-05 [facility] 00:00: - [facility] 00 [facility] Kenalog Kenalog 2020-0 No 40mg Common (Triamcinol (Triamcinol 2-05 S pirit one) one) 00:00: - [facility] 00 [facility] Bupivicaine Bupivicaine 2020-0 No 2.5mg Common Bartlett Bartlett 2-05 [facility] 00:00: - [facility] 00 [facility] Kenalog Kenalog 2020-0 No 40mg Common (Triamcinol (Triamcinol 2-05 S pirit one) one) 00:00: - [facility] 00 [facility] Bupivicaine Bupivicaine 2020-0 No 2.5mg Common Bartlett Bartlett 2-05 [facility] 00:00: - [facility] 00 [facility] Kenalog Kenalog 2020-0 No 40mg Common (Triamcinol (Triamcinol 2-05 S pirit one) one) 00:00: - [facility] 00 [facility] Bupivicaine Bupivicaine 2020-0 No Common Bartlett Bartlett 2-05 [facility] 00:00: - [facility] 00 [facility] Kenalog Kenalog 2020-0 No 40mg Common (Triamcinol (Triamcinol 2-05 S pirit one) one) 00:00: - [facility] 00 [facility] Bupivicaine Bupivicaine 2020-0 No Common Bartlett Bartlett 2-05 [facility] 00:00: - [facility] 00 [facility] Kenalog Kenalog 2020-0 No 40mg Common (Triamcinol (Triamcinol 2-05 S pirit one) one) 00:00: - [facility] 00 [facility] Bupivicaine Bupivicaine 2020-0 No Common Bartlett Bartlett 2-05 [facility] 00:00: - [facility] 00 [facility] Kenalog Kenalog 2020-0 No 40mg Common (Triamcinol (Triamcinol 2-05 S pirit one) one) 00:00: - [facility] 00 [facility] Bupivicaine Bupivicaine 2020-0 No 2.5mg Common Bartlett Bartlett 2-05 [facility] 00:00: - [facility] 00 [facility] Kenalog Kenalog 2020-0 No 40mg Common (Triamcinol (Triamcinol 2-05 S pirit one) one) 00:00: - [facility] 00 [facility] Bupivicaine Bupivicaine 2020-0 No 2.5mg Common Bartlett Bartlett 2-05 [facility] 00:00: - [facility] 00 [facility] barium 2020-0 2020- No 340g 340 g, Univers sulfate 203 Oral, ity of (LIQUID E-Z 16:00: 15:33 ONCE, 1 [place]) 60 % 00 :00 dose, Wed Med ical (w/v) oral 08/31/20 at [facility] suspension 1000, 340 g Routine tramadol 2019-07 Yes 50 mg = 1 Babatunde roe hydrochlori 0-12 tab, PO, l de 50 MG 19:22: Daily, Saravanan Fisher nn Oral Tablet 00 day, # 30 tab, 2 Refill(s), Pharmacy: [facility] #[id number], 172.72, cm, 02/18/20 9:24:00 CDT, Height, 101.818, kg, 02/18/20 9:24:00 CDT, Weight methotrexat 2019-0 Yes IV, ONCE, M emoria e 1 g 04-01 0 l injection 19:57: Refill(s) Her echeverria 00 Hyalgan 20 Hyalgan 20 2020-0 No 20mg C ommon mg mg 03-23 [facility] 00:00: - [facility] Hyalgan 20 Hyalgan 20 2020-0 No 20mg C ommon mg mg 03-23 [facility] 00:00: - [facility] Hyalgan 20 Hyalgan 20 2020-0 No 20mg C ommon mg mg 03-23 [facility] 00:00: - [facility] Hyalgan 20 Hyalgan 20 2020-0 No 20mg C ommon mg mg 03-23 [facility] 00:00: - [facility] Hyalgan 20 Hyalgan 20 2020-0 No 20mg C ommon mg mg 03-23 [facility] 00:00: - [facility] Hyalgan 20 Hyalgan 20 2020-0 No 20mg C ommon mg mg 03-23 [facility] 00:00: - [facility] Hyalgan 20 Hyalgan 20 2020-0 No 20mg C ommon mg mg 03-23 [facility] 00:00: - [facility] Hyalgan 20 Hyalgan 20 2020-0 No 20mg C ommon mg mg 03-23 [facility] 00:00: - [facility] Hyalgan 20 Hyalgan 20 2020-0 No 20mg C ommon mg mg 03-23 [facility] 00:00: - [facility] Hyalgan 20 Hyalgan 20 2020-0 No 20mg C ommon mg mg 03-23 [facility] 00:00: - [facility] Hyalgan 20 Hyalgan 20 2020-0 No 20mg C ommon mg mg 03-23 [facility] 00:00: - [facility] Hyalgan 20 Hyalgan 20 2020-0 No 20mg C ommon mg mg 03-23 [facility] 00:00: - [facility] Hyalgan 20 Hyalgan 20 2020-0 No 20mg C ommon mg mg 03-23 [facility] 00:00: - [facility] Hyalgan 20 Hyalgan 20 2020-0 No 20mg C ommon mg mg 03-23 [facility] 00:00: - [facility] Hyalgan 20 Hyalgan 20 2020-0 No 20mg C ommon mg mg 03-23 [facility] 00:00: - [facility] Hyalgan 20 Hyalgan 20 2020-0 No 20mg C ommon mg mg 03-23 [facility] 00:00: - [facility] Hyalgan 20 Hyalgan 20 2020-0 No 20mg C ommon mg mg 03-23 [facility] 00:00: - [facility] Hyalgan 20 Hyalgan 20 2020-0 No 20mg C ommon mg mg 03-23 [facility] 00:00: - [facility] Hyalgan 20 Hyalgan 20 2020-0 No 20mg C ommon mg mg 03-14 [facility] 00:00: - [facility] Hyalgan 20 Hyalgan 20 2020-0 No 20mg C ommon mg mg 03-14 [facility] 00:00: - [facility] Hyalgan 20 Hyalgan 20 2020-0 No 20mg C ommon mg mg 03-14 [facility] 00:00: - [facility] Hyalgan 20 Hyalgan 20 2020-0 No 20mg C ommon mg mg 03-14 [facility] 00:00: - [facility] Hyalgan 20 Hyalgan 20 2020-0 No 20mg C ommon mg mg 03-14 [facility] 00:00: - [facility] Hyalgan 20 Hyalgan 20 2020-0 No 20mg C ommon mg mg 03-14 [facility] 00:00: - [facility] Hyalgan 20 Hyalgan 20 2020-0 No 20mg C ommon mg mg 03-14 [facility] 00:00: - [facility] Hyalgan 20 Hyalgan 20 2020-0 No 20mg C ommon mg mg 03-14 [facility] 00:00: - [facility] Hyalgan 20 Hyalgan 20 2020-0 No 20mg C ommon mg mg 03-14 [facility] 00:00: - [facility] Hyalgan 20 Hyalgan 20 2020-0 No 20mg C ommon mg mg 03-14 [facility] 00:00: - [facility] Hyalgan 20 Hyalgan 20 2020-0 No 20mg C ommon mg mg 03-14 [facility] 00:00: - [facility] Hyalgan 20 Hyalgan 20 2020-0 No 20mg C ommon mg mg 03-14 [facility] 00:00: - [facility] Hyalgan 20 Hyalgan 20 2020-0 No 20mg C ommon mg mg 03-14 [facility] 00:00: - [facility] Hyalgan 20 Hyalgan 20 2020-0 No 20mg C ommon mg mg 03-14 [facility] 00:00: - [facility] Hyalgan 20 Hyalgan 20 2020-0 No 20mg C ommon mg mg 03-14 [facility] 00:00: - [facility] Hyalgan 20 Hyalgan 20 2020-0 No 20mg C ommon mg mg 03-14 [facility] 00:00: - [facility] Hyalgan 20 Hyalgan 20 2020-0 No 20mg C ommon mg mg 03-14 [facility] 00:00: - [facility] Hyalgan 20 Hyalgan 20 2020-0 No 20mg C ommon mg mg 03-14 [facility] 00:00: - [facility] Hyalgan 20 Hyalgan 20 2020-0 No 20mg C ommon mg mg 8 [facility] 00:00: - [facility] Kenalog Kenalog 2020-0 No 40mg Common (Triamcinol (Triamcinol 8-10 S pirit one) one) 00:00: - [facility] Bupivicaine Bupivicaine 2020-0 No 4mL Common Bartlett Bartlett 8- Spirit 00:00: - [facility] 00 [facility] Hyalgan 20 Hyalgan 20 2020-0 No 20mg C ommon mg mg 8 [facility] 00:00: - [facility] Kenalog Kenalog 2020-0 No 40mg Common (Triamcinol (Triamcinol 8-10 S pirit one) one) 00:00: - [facility] 00 [facility] Bupivicaine Bupivicaine 2020-0 No 4mL Common Bartlett Bartlett 8-10 Spirit 00:00: - [facility] 00 [facility] Hyalgan 20 Hyalgan 20 2020-0 No 20mg C ommon mg mg 8-10 [facility] 00:00: - [facility] 00 [facility] Kenalog Kenalog 2020-0 No 40mg Common (Triamcinol (Triamcinol 8-10 S pirit one) one) 00:00: - [facility] 00 [facility] Bupivicaine Bupivicaine 2020-0 No 4mL Common Bartlett Bartlett 8-10 [facility] 00:00: - [facility] 00 [facility] Hyalgan 20 Hyalgan 20 2020-0 No 20mg C ommon mg mg 8-10 [facility] 00:00: - [facility] 00 [facility] Kenalog Kenalog 2020-0 No 40mg Common (Triamcinol (Triamcinol 8-10 S pirit one) one) 00:00: - [facility] 00 [facility] Bupivicaine Bupivicaine 2020-0 No 4mL Common Bartlett Bartlett 8-10 [facility] 00:00: - [facility] 00 [facility] Hyalgan 20 Hyalgan 20 2020-0 No 20mg C ommon mg mg 8-10 [facility] 00:00: - [facility] 00 [facility] Kenalog Kenalog 2020-0 No 40mg Common (Triamcinol (Triamcinol 8-10 S pirit one) one) 00:00: - [facility] 00 [facility] Bupivicaine Bupivicaine 2020-0 No 4mL Common Bartlett Bartlett 8-10 [facility] 00:00: - [facility] 00 [facility] Hyalgan 20 Hyalgan 20 2020-0 No 20mg C ommon mg mg 8-10 [facility] 00:00: - [facility] 00 [facility] Kenalog Kenalog 2020-0 No 40mg Common (Triamcinol (Triamcinol 8-10 S pirit one) one) 00:00: - [facility] 00 [facility] Bupivicaine Bupivicaine 2020-0 No 4mL Common Bartlett Bartlett 8-10 Spirit 00:00: - [facility] 00 [facility] Hyalgan 20 Hyalgan 20 2020-0 No 20mg C ommon mg mg 8-10 Spirit 00:00: - [facility] 00 [facility] Kenalog Kenalog 2020-0 No 40mg Common (Triamcinol (Triamcinol 8-10 S pirit one) one) 00:00: - [facility] 00 [facility] Bupivicaine Bupivicaine 2020-0 No 4mL Common Bartlett Bartlett 8-10 Spirit 00:00: - [facility] 00 [facility] Hyalgan 20 Hyalgan 20 2020-0 No 20mg C ommon mg mg 8-10 Spirit 00:00: - [facility] 00 [facility] Kenalog Kenalog 2020-0 No 40mg Common (Triamcinol (Triamcinol 8-10 S pirit one) one) 00:00: - [facility] 00 [facility] Bupivicaine Bupivicaine 2020-0 No 4mL Common Bartlett Bartlett 8-10 Spirit 00:00: - [facility] 00 [facility] Hyalgan 20 Hyalgan 20 2020-0 No 20mg C ommon mg mg 8-10 [facility] 00:00: - [facility] 00 [facility] Kenalog Kenalog 2020-0 No 40mg Common (Triamcinol (Triamcinol 8-10 S pirit one) one) 00:00: - [facility] 00 [facility] Bupivicaine Bupivicaine 2020-0 No 4mL Common Bartlett Bartlett 8-10 Spirit 00:00: - [facility] 00 [facility] Hyalgan 20 Hyalgan 20 2020-0 No 20mg C ommon mg mg 8-10 [facility] 00:00: - [facility] 00 [facility] Kenalog Kenalog 2020-0 No 40mg Common (Triamcinol (Triamcinol 8-10 S pirit one) one) 00:00: - [facility] 00 [facility] Bupivicaine Bupivicaine 2020-0 No 4mL Common Bartlett Bartlett 8-10 Spirit 00:00: - [facility] 00 [facility] Hyalgan 20 Hyalgan 20 2020-0 No 20mg C ommon mg mg 8-10 Spirit 00:00: - [facility] 00 [facility] Kenalog Kenalog 2020-0 No 40mg Common (Triamcinol (Triamcinol 8-10 S pirit one) one) 00:00: - [facility] 00 [facility] Bupivicaine Bupivicaine 2020-0 No 4mL Common Bartlett Bartlett 8-10 Spirit 00:00: - [facility] 00 [facility] Hyalgan 20 Hyalgan 20 2020-0 No 20mg C ommon mg mg 8-10 [facility] 00:00: - [facility] 00 [facility] Kenalog Kenalog 2020-0 No 40mg Common (Triamcinol (Triamcinol 8-10 S pirit one) one) 00:00: - [facility] 00 [facility] Bupivicaine Bupivicaine 2020-0 No 4mL Common Bartlett Bartlett 8-10 Spirit 00:00: - [facility] 00 [facility] Hyalgan 20 Hyalgan 20 2020-0 No 20mg C ommon mg mg 8-10 [facility] 00:00: - [facility] 00 [facility] Kenalog Kenalog 2020-0 No 40mg Common (Triamcinol (Triamcinol 8-10 S pirit one) one) 00:00: - [facility] 00 [facility] Bupivicaine Bupivicaine 2020-0 No 4mL Common Bartlett Bartlett 8-10 Spirit 00:00: - [facility] 00 [facility] Hyalgan 20 Hyalgan 20 2020-0 No 20mg C ommon mg mg 8-10 [facility] 00:00: - [facility] 00 [facility] Kenalog Kenalog 2020-0 No 40mg Common (Triamcinol (Triamcinol 8-10 S pirit one) one) 00:00: - [facility] 00 [facility] Bupivicaine Bupivicaine 2020-0 No 4mL Common Bartlett Bartlett 8-10 Spirit 00:00: - [facility] 00 [facility] Hyalgan 20 Hyalgan 20 2020-0 No 20mg C ommon mg mg 8-10 [facility] 00:00: - [facility] 00 [facility] Kenalog Kenalog 2020-0 No 40mg Common (Triamcinol (Triamcinol 8-10 S pirit one) one) 00:00: - [facility] 00 [facility] Bupivicaine Bupivicaine 2020-0 No 4mL Common Bartlett Bartlett 8-10 [facility] 00:00: - [facility] 00 [facility] Hyalgan 20 Hyalgan 20 2020-0 No 20mg C ommon mg mg 8-10 [facility] 00:00: - [facility] 00 [facility] Kenalog Kenalog 2020-0 No 40mg Common (Triamcinol (Triamcinol 8-10 S pirit one) one) 00:00: - [facility] Bupivicaine Bupivicaine 2020-0 No 4mL Common Bartlett Bartlett 8-10 [facility] 00:00: - [facility] Hyalgan 20 Hyalgan 20 2020-0 No 20mg C ommon mg mg 8-10 [facility] 00:00: - [facility] Kenalog Kenalog 2020-0 No 40mg Common (Triamcinol (Triamcinol 8-10 S pirit one) one) 00:00: - [facility] Bupivicaine Bupivicaine 2020-0 No 4mL Common Bartlett Bartlett 8-10 [facility] 00:00: - [facility] Hyalgan 20 Hyalgan 20 2020-0 No 20mg C ommon mg mg 8-10 [facility] 00:00: - [facility] Kenalog Kenalog 2020-0 No 40mg Common (Triamcinol (Triamcinol 8-10 S pirit one) one) 00:00: - [facility] Bupivicaine Bupivicaine 2020-0 No 4mL Common Bartlett Bartlett 8-10 [facility] 00:00: - [facility] topiramate 2020-0 Yes = 1 tab, Mem oria 100 mg oral 7-23 PO, BID, # l tablet 14:35: 180 tab, 3 Natalia nn 00 Refill(s), Pharmacy: [facility] #[id number], 172.72, cm, 02/18/20 9:24:00 CDT, Height, 101.818, kg, 02/18/20 9:24:00 CDT, Weight Hydroxychlo 2020-0 Yes 400 mg, Mem oria roquine 7-23 PO, BID, 0 l 14:29: Refill(s) Buspirone 2020-0 Yes 5 mg, PO, Mem oria 7-23 Q8H, 0 l 14:29: Refill(s) baclofen 10 2019-0 Yes 10mg Take 10 mg Univers mg tablet 6-26 by mouth 2 ity of 16:40: (two) [place] 13 times Medical daily. Branch Dexlansopra 2020-0 Yes 60mg Take 60 mg Univers zole 6-26 by mouth ity of (DEXILANT) 16:40: daily [place] 60 mg 13 before Medical capsule breakfast. Branch gabapentin 2020-0 Yes Take by Univ ers ER 600 mg 6-26 mouth at ity of tablet, 16:40: bedtime. [place] extended 13 Medical release 24 Branch hr hydroxychlo 2020-0 Yes 400mg Take 400 U nivers roquine 200 6-26 mg by ity of mg tablet 16:40: mouth [place] 13 daily. Medical Branch nebivolol 2020-0 Yes 10mg Take 10 mg Un ford (BYSTOLIC) 6-26 by mouth ity o f 10 mg 16:40: daily. [facility] 13 Medical Branch liothyronin 2020-0 Yes 25ug Take 25 Uni vers e 25 mcg 6-26 mcg by ity of tablet 16:40: mouth [place] 13 daily. Medical Branch Levothyroxi 2020-0 Yes Take by Uni vers ne 125 mcg 6-26 mouth. ity of capsule 16:40: [place] [id number] Medical Branch citalopram 2020-0 Yes 40mg Take 40 mg U nivers 40 mg 6-26 by mouth ity of tablet 16:40: daily. [place] [address] Medical Branch amLODIPine 2020-0 Yes 5mg Take 5 mg Un ford 5 mg tablet 6-26 by mouth ity of 16:40: daily. [place] [address] Medical Branch topiramate 2020-0 Yes 200mg Take 200 Un ford 200 mg Cp24 6-26 mg by ity of 16:40: mouth 2 [place] 13 (two) Medical times Branch daily. baclofen 10 2020-0 Yes 10mg Take 10 mg Univers mg tablet 6-26 by mouth 2 ity of 16:40: (two) [place] 13 times Medical daily. Branch Dexlansopra 2020-0 Yes 60mg Take 60 mg Univers zole 6-26 by mouth ity of (DEXILANT) 16:40: daily [place] 60 mg 13 before Medical capsule breakfast. Branch gabapentin 2020-0 Yes Take by Univ ers ER 600 mg 6-26 mouth at ity of tablet, 16:40: bedtime. [place] extended 13 Medical release 24 Branch hr hydroxychlo 2020-0 Yes 400mg Take 400 U nivers roquine 200 6-26 mg by ity of mg tablet 16:40: mouth [place] 13 daily. Medical Branch nebivolol 2020-0 Yes 10mg Take 10 mg Un ford (BYSTOLIC) 6-26 by mouth ity o f 10 mg 16:40: daily. [place] tablet 13 Medical Branch liothyronin 2020-0 Yes 25ug Take 25 Uni vers e 25 mcg 6-26 mcg by ity of tablet 16:40: mouth [place] 13 daily. Medical Branch Levothyroxi 2019-0 Yes Take by Uni vers ne 125 mcg 6-26 mouth. ity of capsule 16:40: [place] 13 Medical Branch citalopram 2020-0 Yes 40mg Take 40 mg U nivers 40 mg 6-26 by mouth ity of tablet 16:40: daily. [place] 13 Medical Branch amLODIPine 2020-0 Yes 5mg Take 5 mg Un ford 5 mg tablet 6-26 by mouth ity of 16:40: daily. [place] [address] Medical Branch topiramate 2020-0 Yes 200mg Take 200 Un ford 200 mg Cp24 6-26 mg by ity of 16:40: mouth 2 [place] 13 (two) Medical times Branch daily. baclofen 10 2019-0 Yes 10mg Take 10 mg Univers mg tablet 6-26 by mouth 2 ity of 16:40: (two) [place] 13 times Medical daily. Branch Dexlansopra 2020-0 Yes 60mg Take 60 mg Univers zole 6-26 by mouth ity of (DEXILANT) 16:40: daily [place] 60 mg 13 before Medical capsule breakfast. Branch gabapentin 2019-0 Yes Take by Univ ers ER 600 mg 6-26 mouth at ity of tablet, 16:40: bedtime. [place] extended 13 Medical release 24 Branch hr hydroxychlo 2020-0 Yes 400mg Take 400 U nivers roquine 200 6-26 mg by ity of mg tablet 16:40: mouth [place] 13 daily. Medical Branch nebivolol 2020-0 Yes 10mg Take 10 mg Un ford (BYSTOLIC) 6-26 by mouth ity o f 10 mg 16:40: daily. [place] tablet 13 Medical [facility] liothyronin 2020-0 Yes 25ug Take 25 Uni vers e 25 mcg 6-26 mcg by ity of tablet 16:40: mouth [place] 13 daily. Medical [facility] Levothyroxi 2020-0 Yes Take by Uni vers ne 125 mcg 6-26 mouth. ity of capsule 16:40: [place] 13 [facility] citalopram 2020-0 Yes 40mg Take 40 mg U nivers 40 mg - by mouth ity of tablet 16:40: daily. [address] amLODIPine 2020-0 Yes 5mg Take 5 mg Un ford 5 mg tablet 01-21 by mouth ity of 16:40: daily. [address] topiramate 2020-0 Yes 200mg Take 200 Un ford 200 mg Cp24 6-26 mg by ity of 16:40: mouth 2 [place] [id number] (two) Medical times Branch daily. lactated 2020-0 Yes 1000mL at 75 Univer s ringers IV 6-26 mL/hr, ity of infusion 14:45: 1,000 [place], [place] 1[place]000 [place] 00 IV Medical Infusion, Branch CONTINUOUS , Starting Sat01/22/20 at 0945, Until Discontinu ed, Routine, PACU FENTanyl PF 2020-0 Yes 25ug 25 mcg, Uni vers (SUBLIMAZE 01-21 Slow IV ity of (PF)) 14:40: Push, [place] injection 45 Q5MIN PRN, Medi eren 25 mcg 4 doses, Branch Starting Sat01/22/20 at 0940, Until Discontinu ed, Routine, Pain (scale 4-6), PACU ondansetron 2020-0 Yes 4mg 4 mg, Slow Univers (ZOFRAN 01-21 IV Push, ity of (PF)) 14:40: PRN, [...] bupivacaine 2020-0 Yes PRN, Univer s (preserv 01-21 Starting ity of free) 0.5% 13:22: Fri [place] (SENSORCAIN 01/22/20 at Fl dictx E [facility]) 0.5 0822, Branch % (5 mg/mL) Until injection Discontinu ed, Routine, Intra-op lactated 2020-0 2020- No 1000mL at 20 Unive rs ringers IV - 06-26 mL/hr, ity of infusion 12:45: 12:43 1,000 mL, [place] 1,000 mL 00 :00 IV Medical Infusion, Branch ONCE, 1 dose, 01/22/20 at 0745, Routine, DSU Pre-op lidocaine 2020-0 Yes 1mL 1 mL, Univers 1% (PF) 6- Infiltrati ity of (XYLOCAINE) 12:42: on, PRN, [place] injection 1 44 Starting Medi eren mL Fri Branch 01/22/20 at 0742, Until Discontinu ed, Routine, Surgery/Pr ocedure, DSU Pre-op nebivolol 2020-0 Yes 10mg Take 10 mg Un ford (BYSTOLIC) 6-26 by mouth ity o f 10 mg 11:40: daily. [place] [id number] Medical Branch liothyronin 2020-0 Yes 25ug Take 25 Uni vers e 25 mcg 6-26 mcg by ity of tablet 11:40: mouth [place] 13 daily. Medical Branch Levothyroxi 2020-0 Yes Take by Uni vers ne 125 mcg 6-26 mouth. ity of capsule 11:40: [address] citalopram 2020-0 Yes 40mg Take 40 mg U nivers 40 mg 6-26 by mouth ity of tablet 11:40: daily. [address] amLODIPine 2020-0 Yes 5mg Take 5 mg Un ford 5 mg tablet - by mouth ity of 11:40: daily. [address] topiramate 2020-0 Yes 200mg Take 200 Un for[place] 200 mg Cp24 6-26 mg by ity of 11:40: mouth 2 [place] 13 (two) Medical times Branch daily. baclofen 10 2020-0 Yes 10mg Take 10 mg Univers mg tablet 6-26 by mouth 2 ity of 11:40: (two) [place] 13 times Medical daily. Branch Dexlansopra 2020-0 Yes 60mg Take 60 mg Univers zole 6-26 by mouth ity of (DEXILANT) 11:40: daily [place] 60 mg 13 before Medical capsule breakfast. Branch gabapentin 2020-0 Yes Take by Univ ers ER 600 mg 6-26 mouth at ity of tablet, 11:40: bedtime. [place] extended Medical release 24 Branch hr hydroxychlo 2020-0 Yes 400mg Take 400 U nivers roquine 200 6-26 mg by ity of mg tablet 11:40: mouth [place] 13 daily. Medical Branch Hydrochloro 2020-0 Yes 400 mg, Mem oria thiazide 5-28 PO, Daily, l 18:05: 0 Jamie 00 Refill(s) Kenalog Kenalog 2020-0 No 40mg Common (Triamcinol (Triamcinol 1-14 S pirit one) one) 00:00: - [facility] 00 [facility] Kenalog Kenalog 2020-0 No 40mg Common (Triamcinol (Triamcinol 1-14 S pirit one) one) 00:00: - [facility] 00 [facility] Kenalog Kenalog 2020-0 No 40mg Common (Triamcinol (Triamcinol 1-14 S pirit one) one) 00:00: - [facility] 00 [facility] Kenalog Kenalog 2020-0 No 40mg Common (Triamcinol (Triamcinol 1-14 S pirit one) one) 00:00: - [facility] 00 [facility] Kenalog Kenalog 2020-0 No 40mg Common (Triamcinol (Triamcinol 1-14 S pirit one) one) 00:00: - [facility] 00 [facility] Kenalog Kenalog 2020-0 No 40mg Common (Triamcinol (Triamcinol 1-14 S pirit one) one) 00:00: - [facility] 00 [facility] Kenalog Kenalog 2020-0 No 40mg Common (Triamcinol (Triamcinol 1-14 S pirit one) one) 00:00: - [facility] 00 [facility] Kenalog Kenalog 2020-0 No 40mg Common (Triamcinol (Triamcinol 1-14 S pirit one) one) 00:00: - [facility] 00 [facility] Kenalog Kenalog 2020-0 No 40mg Common (Triamcinol (Triamcinol 1-14 S pirit one) one) 00:00: - [facility] 00 [facility] Kenalog Kenalog 2020-0 No 40mg Common (Triamcinol (Triamcinol 1-14 S pirit one) one) 00:00: - [facility] 00 [facility] Kenalog Kenalog 2020-0 No 40mg Common (Triamcinol (Triamcinol 1-14 S pirit one) one) 00:00: - [facility] 00 [facility] Kenalog Kenalog 2020-0 No 40mg Common (Triamcinol (Triamcinol 1-14 S pirit one) one) 00:00: - [facility] 00 [facility] Kenalog Kenalog 2020-0 No 40mg Common (Triamcinol (Triamcinol 1-14 S pirit one) one) 00:00: - [facility] 00 [facility] Kenalog Kenalog 2020-0 No 40mg Common (Triamcinol (Triamcinol 1-14 S pirit one) one) 00:00: - [facility] 00 [facility] Kenalog Kenalog 2020-0 No 40mg Common (Triamcinol (Triamcinol 1-14 S pirit one) one) 00:00: - [facility] 00 [facility] Kenalog Kenalog 2020-0 No 40mg Common (Triamcinol (Triamcinol 1-14 S pirit one) one) 00:00: - [facility] 00 [facility] Kenalog Kenalog 2020-0 No 40mg Common (Triamcinol (Triamcinol 1-14 S pirit one) one) 00:00: - [facility] 00 [facility] Kenalog Kenalog 2020-0 No 40mg Common (Triamcinol (Triamcinol 1-14 S pirit one) one) 00:00: - [facility] 00 [facility] gabapentin 2018- Yes 600 mg = 2 M emoria 300 MG Oral 1-20 cap, PO, l Capsule 16:19: BID, # 120 [place] chinmay 22 cap, 2 Refill(s), Pharmacy: [facility] #[id number] baclofen 10 2018-07 Yes 20 mg = 2 M emoria mg oral 1-20 tab, PO, l tablet 16:19: BID, # 360 Natalia nn 19 tab, 3 Refill(s), Pharmacy: [facility] #[id number] topiramate 2018- Yes = 1 tab, Mem oria 100 mg oral 1-12 PO, BID, # l tablet 22:03: 180 tab, 3 Natalia nn 42 Refill(s), Pharmacy: [facility] #[id number] QUEtiapine 2018- Yes 600mg Take 600 Un ford (SEROquel 8-27 mg by ity of XR) 300 MG 09:24: mouth at [place] 24 hr 02 bedtime. tablet Vandana [facility] gabapentin Yes 300mg Take 300 Un ford (NEURONTIN) 8-27 mg by ity of 300 mg 09:24: mouth at [place] capsule 02 bedtime. MD Vandana schumacher [facility] liothyronin Yes 25ug Take 25 Uni vers e (CYTOMEL) 8-27 mcg by ity of 25 mcg 09:24: mouth [place] tablet 02 daily. MD Vandana schum[facility] citalopram Yes 80mg Take 80 mg U nivers (CeleXA) 40 8-27 by mouth ity of mg tablet 09:24: daily. MD Vandana schumacher [facility] dexlansopra Yes 60mg Take 60 mg Univers zole 8-27 by mouth ity of (DEXILANT) 09:24: daily. 60 mg 02 capsule Vandana [facility] nebivolol Yes 10mg Take 10 mg Un ford (BYSTOLIC) 8-27 by mouth ity o f 10 mg 09:24: daily. tablet MD Vandana schumacher [facility] amLODIPine Yes 5mg Take 5 mg Un ford (NORVASC) 5 8-27 by mouth ity of mg tablet 09:24: daily. MD Vandana schumacher [facility] baclofen Yes 10mg Take 10 mg Uni vers (LIORESAL) 8-27 by mouth ity o f 10 mg 09:24: every 12 [place] tablet 02 (twelve) MD hours. Vandana [facility] topiramate Yes 200mg Take 200 Un ford (TOPAMAX) 8-27 mg by ity of 100 mg 09:24: mouth [place] tablet 02 twice MD daily. Vandana [facility] levothyroxi Yes 125ug Take 125 U nivers ne 8-27 mcg by ity of (TIROSINT) 09:24: mouth [place] 125 mcg cap 02 daily. MD Vandana schumacher [facility] mupirocin Yes 1{appli Apply 1 Un ford (BACTROBAN) 8-27 cation} applicatio ity of 2% ointment 09:24: n [place] 02 topically MD to Andkaryo affected n area(s) Cancer daily. Center lidocaine 0 Yes RECTAL Univer s HCl-hydroco 03-06 APPLY ity of rtison ac 00:00: RECTALLY [place] 3-0.5 % kit 00 TWICE MD WEEKLY [place] NEEDED n [facility] topiramate 0 Yes = 1 tab, Mem oria 100 mg oral 7 PO, BID, # l tablet 19:50: 180 tab, Jamie 27 Refill(s) 7, Pharmacy: [facility] #[id number] Depo Medrol Depo Medrol 0 No 1mL Common (40mg) (40mg) 02-13 Spirit 00:00: - [facility] Bupivicaine Bupivicaine 2018-0 No 5mL Common [place]lett Bartlett 02-13 Spirit 00:00: - [facility] Depo Medrol Depo Medrol 2018-0 No 1mL Common (40mg) (40mg) 02-13 Spirit 00:00: - [facility] Bupivicaine Bupivicaine 2018-0 No 5mL Common Bartlett Bartlett 02-13 Spirit 00:00: - [facility] Depo Medrol Depo Medrol 2018-0 No 1mL Common (40mg) (40mg) 02-13 Spirit 00:00: - [facility] Bupivicaine Bupivicaine 2018-0 No 5mL Common Bartlett Bartlett 02-13 Spirit 00:00: - [facility] Depo Medrol Depo Medrol 2019-0 No 1mL Common (40mg) (40mg) 02-13 Spirit 00:00: - [facility] Bupivicaine Bupivicaine 2019-0 No 5mL Common Bartlett Bartlett 02-13 Spirit 00:00: - [facility] Depo Medrol Depo Medrol 2019-0 No 1mL Common (40mg) (40mg) 02-13 Spirit 00:00: - [facility] Bupivicaine Bupivicaine 2019-0 No 5mL Common Bartlett Bartlett 02-13 Spirit 00:00: - [facility] Depo Medrol Depo Medrol 2019-0 No 1mL Common (40mg) (40mg) 02-13 Spirit 00:00: - [facility] Bupivicaine Bupivicaine 2019-0 No 5mL Common Bartlett Bartlett 02-13 Spirit 00:00: - [facility] Depo Medrol Depo Medrol 2019-0 No 1mL Common (40mg) (40mg) 02-13 Spirit 00:00: - [facility] Bupivicaine Bupivicaine 2019-0 No 5mL Common Bartlett Bartlett 02-13 Spirit 00:00: - [facility] Depo Medrol Depo Medrol 2019-0 No 1mL Common (40mg) (40mg) 02-13 Spirit 00:00: - [facility] Bupivicaine Bupivicaine 2019-0 No 5mL Common Bartlett Bartlett 02-13 Spirit 00:00: - [facility] Depo Medrol Depo Medrol 2019-0 No 1mL Common (40mg) (40mg) 02-13 Spirit 00:00: - [facility] Bupivicaine Bupivicaine 2019-0 No 5mL Common Bartlett Bartlett 02-13 Spirit 00:00: - [facility] Depo Medrol Depo Medrol 2019-0 No 1mL Common (40mg) (40mg) 02-13 Spirit 00:00: - [facility] Bupivicaine Bupivicaine 2019-0 No 5mL Common Bartlett Bartlett 02-13 Spirit 00:00: - [facility] Depo Medrol Depo Medrol 2019-0 No 1mL Common (40mg) (40mg) 02-13 Spirit 00:00: - [facility] Bupivicaine Bupivicaine 2019-0 No 5mL Common Bartlett Bartlett 02-13 Spirit 00:00: - [facility] Depo Medrol Depo Medrol 2019-0 No 1mL Common (40mg) (40mg) 02-13 Spirit 00:00: - [facility] Bupivicaine Bupivicaine 2019-0 No 5mL Common Bartlett Bartlett 02-13 Spirit 00:00: - [facility] Depo Medrol Depo Medrol 2019-0 No 1mL Common (40mg) (40mg) 02-13 Spirit 00:00: - [facility] Bupivicaine Bupivicaine 2019-0 No 5mL Common Bartlett Bartlett 02-13 Spirit 00:00: - [facility] Depo Medrol Depo Medrol 2019-0 No 1mL Common (40mg) (40mg) 02-13 Spirit 00:00: - [facility] Bupivicaine Bupivicaine 2019-0 No 5mL Common Bartlett Bartlett 02-13 Spirit 00:00: - [facility] Depo Medrol Depo Medrol 2018-0 No 1mL Common (40mg) (40mg) 02-13 Spirit 00:00: - [facility] Bupivicaine Bupivicaine 2019-0 No 5mL Common Bartlett Bartlett 02-13 Spirit 00:00: - [facility] Depo Medrol Depo Medrol 2018-0 No 1mL Common (40mg) (40mg) 02-13 Spirit 00:00: - [facility] Bupivicaine Bupivicaine 2018-0 No 5mL Common Bartlett Bartlett 02-13 Spirit 00:00: - [facility] Depo Medrol Depo Medrol 2018-0 No 1mL Common (40mg) (40mg) 02-13 Spirit 00:00: - [facility] Bupivicaine Bupivicaine 2019-0 No 5mL Common Bartlett Bartlett 02-13 Spirit 00:00: - [facility] Depo Medrol Depo Medrol 2019-0 No 1mL Common (40mg) (40mg) 02-13 Spirit 00:00: - [facility] Bupivicaine Bupivicaine 2018-0 No 5mL Common Bartlett Bartlett 02-13 Spirit 00:00: - [facility] RECTICARE 5 2018-0 Yes APPLY TO Un ford % cream 01-27 AFFECTED ity of 00:00: AREA 4 [place] 00 TIMES A MD DAY Anderso NEEDED n [facility] gabapentin 2018-0 Yes 300 mg = 1 M emoria 300 MG Oral 6-17 cap, PO, l Capsule 13:36: Bedtime, # Herm chinmay 56 90 cap, 3 Refill(s), Pharmacy: [facility] #[id number] topiramate 2019- Yes 100 mg = 1 M emoria 100 MG Oral 5-17 tab, PO, l Tablet 15:22: BID, 0 [place] [Topamax] 00 Refill(s) nebivolol 2019- Yes 10 mg = 1 Mem oria 10 MG Oral 5-17 tab, PO, l Tablet 15:22: Daily, 0 [place] [Bystolic] 00 Refill(s) baclofen 10 No 10 mg = 1 M emoria mg oral 1-04 tab, PO, l tablet 18:15: BID, X 30 Donnell n 00 day, # 60 tab, 2 Refill(s), Pharmacy: [facility] #[id number] levothyroxi Yes 75 Memori a ne 75 mcg 1-04 microgram l (0.075 mg) 18:08: = 1 tab, Her echeverria oral tablet 00 PO, Daily, 0 Refill(s) citalopram Yes 40 mg = 1 Me moria 40 mg oral 1-04 tab, PO, l tablet 18:08: Daily, 0 [place] 00 Refill(s) QUEtiapine Yes See Memoria 200 mg oral 1-04 Instructio l tablet 18:08: ns, 3 po Jamie 00 qhs, 0 Refill(s) Citalopram No 40 mg, PO, M emoria 1-04 Daily, 0 l 18:04: Refill(s) Jamie 00 Depo Medrol Depo Medrol No 1mL Common (40mg) (40mg) 03-18 Spirit 00:00: - [facility] Bupivicaine Bupivicaine 2017-0 No 5mL Common [place]lett Bartlett 03-18 Spirit 00:00: - [facility] Depo Medrol Depo Medrol 0 No 1mL Common (40mg) (40mg) 03-18 Spirit 00:00: - [facility] Bupivicaine Bupivicaine 2017-0 No 5mL Common Bartlett Bartlett 03-18 Spirit 00:00: - [facility] Depo Medrol Depo Medrol 0 No 1mL Common (40mg) (40mg) 03-18 00:00: - [facility] Bupivicaine Bupivicaine 2018-0 No 5mL Common Bartlett Bartlett 03-18 00:00: - [facility] Depo Medrol Depo Medrol 2018-0 No 1mL Common (40mg) (40mg) 03-18 00:00: - [facility] Bupivicaine Bupivicaine 2018-0 No 5mL Common Bartlett Bartlett 03-18 00:00: - [facility] Depo Medrol Depo Medrol 2018-0 No 1mL Common (40mg) (40mg) 03-18 00:00: - [facility] Bupivicaine Bupivicaine 2018-0 No 5mL Common Bartlett Bartlett 03-18 00:00: - [facility] Depo Medrol Depo Medrol 2018-0 No 1mL Common (40mg) (40mg) 03-18 00:00: - [facility] Bupivicaine Bupivicaine 2018-0 No 5mL Common Bartlett Bartlett 03-18 00:00: - [facility] Depo Medrol Depo Medrol 2018-0 No 1mL Common (40mg) (40mg) 03-18 00:00: - [facility] Bupivicaine Bupivicaine 2018-0 No 5mL Common Bartlett Bartlett 03-18 Spirit 00:00: - [facility] Depo Medrol Depo Medrol 2018-0 No 1mL Common (40mg) (40mg) 03-18 00:00: - [facility] Bupivicaine Bupivicaine 2018-0 No 5mL Common Bartlett Bartlett 03-18 Spirit 00:00: - [facility] Depo Medrol Depo Medrol 2018-0 No 1mL Common (40mg) (40mg) 03-18 Spirit 00:00: - [facility] Bupivicaine Bupivicaine 2018-0 No 5mL Common Bartlett Bartlett 03-18 Spirit 00:00: - [facility] Depo Medrol Depo Medrol 2018-0 No 1mL Common (40mg) (40mg) 03-18 00:00: - [facility] Bupivicaine Bupivicaine 2018-0 No 5mL Common Bartlett Bartlett 03-18 00:00: - [facility] Depo Medrol Depo Medrol 2018-0 No 1mL Common (40mg) (40mg) 03-18 00:00: - [facility] Bupivicaine Bupivicaine 2018-0 No 5mL Common Bartlett Bartlett 03-18 00:00: - [facility] Depo Medrol Depo Medrol 2018-0 No 1mL Common (40mg) (40mg) 03-18 00:00: - [facility] Bupivicaine Bupivicaine 2018-0 No 5mL Common Bartlett Bartlett 03-18 00:00: - [facility] Depo Medrol Depo Medrol 2018-0 No 1mL Common (40mg) (40mg) 03-18 00:00: - [facility] Bupivicaine Bupivicaine 2018-0 No 5mL Common Bartlett Bartlett 03-18 00:00: - [facility] Depo Medrol Depo Medrol 2018-0 No 1mL Common (40mg) (40mg) 03-18 00:00: - [facility] Bupivicaine Bupivicaine 2018-0 No 5mL Common Bartlett Bartlett 03-18 Spirit 00:00: - [facility] Depo Medrol Depo Medrol 2018-0 No 1mL Common (40mg) (40mg) 03-18 Spirit 00:00: - [facility] Bupivicaine Bupivicaine 2018-0 No 5mL Common Bartlett Bartlett 03-18 [facility] 00:00: - [facility] Depo Medrol Depo Medrol 2018-0 No 1mL Common (40mg) (40mg) 03-18 Spirit 00:00: - [facility] Bupivicaine Bupivicaine 2018-0 No 5mL Common Bartlett Bartlett 03-18 Spirit 00:00: - [facility] Depo Medrol Depo Medrol 2018-0 No 1mL Common (40mg) (40mg) 03-18 Spirit 00:00: - [facility] Bupivicaine Bupivicaine 2018-0 No 5mL Common Bartlett Bartlett 03-18 [facility] 00:00: - [facility] Depo Medrol Depo Medrol 2018-0 No 1mL Common (40mg) (40mg) 03-18 Spirit 00:00: - [facility] Bupivicaine Bupivicaine 2018-0 No 5mL Common Bartlett Bartlett 03-18 Spirit 00:00: - [facility] Hydroxychlo Hydroxychlo No Hydroxychl roquine roquine oroquine Sulfate Sulfate Sulfate Baclofen 10 Baclofen 10 No BID Baclofen MG MG 10 MG Levothyroxi Levothyroxi No Levothyrox ne Sodium ne Sodium ine Sodium 200 MCG 200 MCG 200 MCG Bactroban 2 Bactroban 2 No 1{appli BID Bactroban % % cation_ 2 % to_affe cted_ar ea} amLODIPine amLODIPine No amLODIPine Besylate 5 Besylate 5 Besylate 5 MG MG MG amLODIPine amLODIPine No amLODIPine Besylate 10 Besylate 10 Besylate MG MG 10 MG Liothyronin Liothyronin No Liothyroni e Sodium 25 e Sodium 25 ne Sodium MCG MCG 25 MCG HYDROcodone HYDROcodone No HYDROcodon -Acetaminop -Acetaminop e-Acetamin hen hen ophen methylPREDN methylPREDN No methylPRED ISolone ISolone NISolone traMADol traMADol No traMADol HCl HCl HCl Baby Baby No Baby Aspirin Aspirin Aspirin Citalopram Citalopram No Citalopram Hydrobromid Hydrobromid Hydrobromi e 40 MG e 40 MG de 40 MG Levothyroxi Levothyroxi No Levothyrox ne Sodium ne Sodium ine Sodium 175 MCG 175 MCG 175 MCG Omeprazole Omeprazole No QD Omeprazole 40 MG 40 MG 40 MG Baby Baby No Baby Aspirin Aspirin Aspirin Citalopram Citalopram No Citalopram Hydrobromid Hydrobromid Hydrobromi e 40 MG e 40 MG de 40 MG Levothyroxi Levothyroxi No Levothyrox ne Sodium ne Sodium ine Sodium 200 MCG 200 MCG 200 MCG amLODIPine amLODIPine No 1{table amLODIPine Besylate 10 Besylate 10 t} Besylate MG MG 10 MG QUEtiapine QUEtiapine No QUEtiapine Fumarate Fumarate Fumarate 300 MG 300 MG 300 MG Levothyroxi Levothyroxi No Levothyrox ne Sodium ne Sodium ine Sodium 175 MCG 175 MCG 175 MCG traMADol traMADol No traMADol HCl HCl HCl Bystolic 10 Bystolic 10 No 1{table QD Bystolic MG MG t} 10 MG Baclofen 10 Baclofen 10 No BID Baclofen MG MG 10 MG Topiramate Topiramate No Topiramate 100 MG 100 MG 100 MG Levothyroxi Levothyroxi No QD Levothyrox ne Sodium ne Sodium ine Sodium 200 MCG 200 MCG 200 MCG Liothyronin Liothyronin No 1{table QD Liothyroni e Sodium 25 e Sodium 25 t_on_an ne Sodium MCG MCG _empty_ 25 MCG stomach } Doxycycline Doxycycline No 1{capsu BID Doxycyclin Hyclate 100 Hyclate 100 le} e Hyclate MG MG 100 MG Bactroban 2 Bactroban 2 No 1{appli BID Bactroban % % cation_ 2 % to_affe cted_ar ea} busPIRone busPIRone No busPIRone HCl 5 MG HCl 5 MG HCl 5 MG QUEtiapine QUEtiapine No 2{table QD QUEtiapine Fumarate Fumarate ts_at_b Fumarate 300 MG 300 MG edtime} 300 MG Gabapentin Gabapentin No 1{capsu QD Gabapentin 300 MG 300 MG le} 300 MG amLODIPine amLODIPine No amLODIPine Besylate 5 Besylate 5 Besylate 5 MG MG MG Citalopram Citalopram No 1{table QD Citalopram Hydrobromid Hydrobromid t} Hydrobromi e 40 MG e 40 MG de 40 MG Diclofenac Diclofenac No Diclofenac Sodium Sodium Sodium HYDROcodone HYDROcodone No HYDROcodon -Acetaminop -Acetaminop e-Acetamin hen hen ophen amLODIPine amLODIPine No amLODIPine Besylate 10 Besylate 10 Besylate MG MG 10 MG Triamcinolo Triamcinolo No 1{appli BID Triamcinol ne ne cation_ one Acetonide Acetonide to_affe Acetonide 0.1 % 0.1 % cted_ar 0.1 % ea} Nebivolol Nebivolol No Nebivolol HCl 10 MG HCl 10 MG HCl 10 MG Hydroxychlo Hydroxychlo No Hydroxychl roquine roquine oroquine Sulfate Sulfate Sulfate methylPREDN methylPREDN No methylPRED ISolone ISolone NISolone Liothyronin Liothyronin No Liothyroni e Sodium 25 e Sodium 25 ne Sodium MCG MCG 25 MCG predniSONE predniSONE No QD predniSONE 10 MG 10 MG 10 MG Azithromyci Azithromyci No QD Azithromyc n 250 MG n 250 MG in 250 MG Nebivolol Nebivolol No Nebivolol HCl 10 MG HCl 10 MG HCl 10 MG amLODIPine amLODIPine No 1{table amLODIPine Besylate 10 Besylate 10 t} Besylate MG MG 10 MG methylPREDN methylPREDN No methylPRED ISolone ISolone NISolone Levothyroxi Levothyroxi No QD Levothyrox ne Sodium ne Sodium ine Sodium 200 MCG 200 MCG 200 MCG Levothyroxi Levothyroxi No Levothyrox ne Sodium ne Sodium ine Sodium 175 MCG 175 MCG 175 MCG traMADol traMADol No traMADol HCl HCl HCl Citalopram Citalopram No Citalopram Hydrobromid Hydrobromid Hydrobromi e 40 MG e 40 MG de 40 MG Gabapentin Gabapentin No 1{capsu QD Gabapentin 300 MG 300 MG le} 300 MG Baby Baby No Baby Aspirin Aspirin Aspirin predniSONE predniSONE No QD predniSONE 10 MG 10 MG 10 MG Topiramate Topiramate No Topiramate 100 MG 100 MG 100 MG QUEtiapine QUEtiapine No QUEtiapine Fumarate Fumarate Fumarate 300 MG 300 MG 300 MG HYDROcodone HYDROcodone No HYDROcodon -Acetaminop -Acetaminop e-Acetamin hen hen ophen Diclofenac Diclofenac No Diclofenac Sodium Sodium Sodium QUEtiapine QUEtiapine No 2{table QD QUEtiapine Fumarate Fumarate ts_at_b Fumarate 300 MG 300 MG edtime} 300 MG Liothyronin Liothyronin No Liothyroni e Sodium 25 e Sodium 25 ne Sodium MCG MCG 25 MCG Triamcinolo Triamcinolo No 1{appli BID Triamcinol ne ne cation_ one Acetonide Acetonide to_affe Acetonide 0.1 % 0.1 % cted_ar 0.1 % ea} Citalopram Citalopram No 1{table QD Citalopram Hydrobromid Hydrobromid t} Hydrobromi e 40 MG e 40 MG de 40 MG Bystolic 10 Bystolic 10 No 1{table QD Bystolic MG MG t} 10 MG Levothyroxi Levothyroxi No Levothyrox ne Sodium ne Sodium ine Sodium 200 MCG 200 MCG 200 MCG amLODIPine amLODIPine No amLODIPine Besylate 10 Besylate 10 Besylate MG MG 10 MG Bystolic 10 Bystolic 10 No 1{table QD Bystolic MG MG t} 10 MG Baclofen 10 Baclofen 10 No BID Baclofen MG MG 10 MG Omeprazole Omeprazole No QD Omeprazole 40 MG 40 MG 40 MG busPIRone busPIRone No busPIRone HCl 5 MG HCl 5 MG HCl 5 MG Liothyronin Liothyronin No 1{table QD Liothyroni e Sodium 25 e Sodium 25 t_on_an ne Sodium MCG MCG _empty_ 25 MCG stomach } amLODIPine amLODIPine No amLODIPine Besylate 5 Besylate 5 Besylate 5 MG MG MG Bactroban 2 Bactroban 2 No 1{appli BID Bactroban % % cation_ 2 % to_affe cted_ar ea} Hydroxychlo Hydroxychlo No Hydroxychl roquine roquine oroquine Sulfate Sulfate Sulfate Doxycycline Doxycycline No 1{capsu BID Doxycyclin Hyclate 100 Hyclate 100 le} e Hyclate MG MG 100 MG Azithromyci Azithromyci No QD Azithromyc n 250 MG n 250 MG in 250 MG amLODIPine amLODIPine No amLODIPine Besylate 5 Besylate 5 Besylate 5 MG MG MG busPIRone busPIRone No busPIRone HCl 5 MG HCl 5 MG HCl 5 MG Hydroxychlo Hydroxychlo No Hydroxychl roquine roquine oroquine Sulfate Sulfate Sulfate Liothyronin Liothyronin No 1{table QD Liothyroni e Sodium 25 e Sodium 25 t_on_an ne Sodium MCG MCG _empty_ 25 MCG stomach } Nebivolol Nebivolol No Nebivolol HCl 10 MG HCl 10 MG HCl 10 MG amLODIPine amLODIPine No 1{table amLODIPine Besylate 10 Besylate 10 t} Besylate MG MG 10 MG methylPREDN methylPREDN No methylPRED ISolone ISolone NISolone Levothyroxi Levothyroxi No QD Levothyrox ne Sodium ne Sodium ine Sodium 200 MCG 200 MCG 200 MCG Levothyroxi Levothyroxi No Levothyrox ne Sodium ne Sodium ine Sodium 175 MCG 175 MCG 175 MCG [place] 10 [place] 10 No BID [place] MG MG 10 MG traMADol traMADol No traMADol HCl HCl HCl Citalopram Citalopram No Citalopram Hydrobromid Hydrobromid Hydrobromi e 40 MG e 40 MG de 40 MG Gabapentin Gabapentin No 1{capsu QD Gabapentin 300 MG 300 MG le} 300 MG Baby Baby No Baby Aspirin Aspirin Aspirin predniSONE predniSONE No QD predniSONE 10 MG 10 MG 10 MG Topiramate Topiramate No Topiramate 100 MG 100 MG 100 MG QUEtiapine QUEtiapine No QUEtiapine Fumarate Fumarate Fumarate 300 MG 300 MG 300 MG HYDROcodone HYDROcodone No HYDROcodon -Acetaminop -Acetaminop e-Acetamin hen hen ophen Diclofenac Diclofenac No Diclofenac Sodium Sodium Sodium Citalopram Citalopram No Citalopram Hydrobromid Hydrobromid Hydrobromi e 40 MG e 40 MG de 40 MG QUEtiapine QUEtiapine No 2{table QD QUEtiapine Fumarate Fumarate ts_at_b Fumarate 300 MG 300 MG edtime} 300 MG Liothyronin Liothyronin No Liothyroni e Sodium 25 e Sodium 25 ne Sodium MCG MCG 25 MCG Triamcinolo Triamcinolo No 1{appli BID Triamcinol ne ne cation_ one Acetonide Acetonide to_affe Acetonide 0.1 % 0.1 % cted_ar 0.1 % ea} Citalopram Citalopram No 1{table QD Citalopram Hydrobromid Hydrobromid t} Hydrobromi e 40 MG e 40 MG de 40 MG Bystolic 10 Bystolic 10 No 1{table QD Bystolic MG MG t} 10 MG Levothyroxi Levothyroxi No Levothyrox ne Sodium ne Sodium ine Sodium 200 MCG 200 MCG 200 MCG amLODIPine amLODIPine No amLODIPine Besylate 10 Besylate 10 Besylate MG MG 10 MG Baclof[place] 10 Baclof[place] 10 No BID Baclof[place] MG MG 10 MG Omeprazole Omeprazole No QD Omeprazole 40 MG 40 MG 40 MG Bactroban 2 Bactroban 2 No 1{appli BID Bactroban % % cation_ 2 % to_affe cted_ar ea} busPIRone busPIRone No busPIRone HCl 5 MG HCl 5 MG HCl 5 MG Liothyronin Liothyronin No 1{table QD Liothyroni e Sodium 25 e Sodium 25 t_on_an ne Sodium MCG MCG _empty_ 25 MCG stomach } amLODIPine amLODIPine No amLODIPine Besylate 5 Besylate 5 Besylate 5 MG MG MG Bactroban 2 Bactroban 2 No 1{appli BID Bactroban % % cation_ 2 % to_affe cted_ar ea} Hydroxychlo Hydroxychlo No Hydroxychl roquine roquine oroquine Sulfate Sulfate Sulfate Doxycycline Doxycycline No 1{capsu BID Doxycyclin Hyclate 100 Hyclate 100 le} e Hyclate MG MG 100 MG Azithromyci Azithromyci No QD Azithromyc n 250 MG n 250 MG in 250 MG Levothyroxi Levothyroxi No QD Levothyrox ne Sodium ne Sodium ine Sodium 125 MCG 125 MCG 125 MCG Diclofenac Diclofenac No Diclofenac Sodium Sodium Sodium HYDROcodone HYDROcodone No HYDROcodon -Acetaminop -Acetaminop e-Acetamin hen hen ophen Nebivolol Nebivolol No Nebivolol HCl 10 MG HCl 10 MG HCl 10 MG Baby Baby No Baby Aspirin Aspirin Aspirin predniSONE predniSONE No QD predniSONE 10 MG 10 MG 10 MG Levothyroxi Levothyroxi No QD Levothyrox ne Sodium ne Sodium ine Sodium 200 MCG 200 MCG 200 MCG amLODIPine amLODIPine No 1{table amLODIPine Besylate 10 Besylate 10 t} Besylate MG MG 10 MG methylPREDN methylPREDN No methylPRED ISolone ISolone NISolone traMADol traMADol No traMADol HCl HCl HCl QUEtiapine QUEtiapine No QUEtiapine Fumarate Fumarate Fumarate 300 MG 300 MG 300 MG HYDROcodone HYDROcodone No HYDROcodon -Acetaminop -Acetaminop e-Acetamin hen hen ophen Citalopram Citalopram No Citalopram Hydrobromid Hydrobromid Hydrobromi e 40 MG e 40 MG de 40 MG Gabapentin Gabapentin No 1{capsu QD Gabapentin 300 MG 300 MG le} 300 MG Diclofenac Diclofenac No Diclofenac Sodium Sodium Sodium amLODIPine amLODIPine No amLODIPine Besylate 10 Besylate 10 Besylate MG MG 10 MG Topiramate Topiramate No Topiramate 100 MG 100 MG 100 MG Omeprazole Omeprazole No QD Omeprazole 40 MG 40 MG 40 MG QUEtiapine QUEtiapine No 2{table QD QUEtiapine Fumarate Fumarate ts_at_b Fumarate 300 MG 300 MG edtime} 300 MG Liothyronin Liothyronin No Liothyroni e Sodium 25 e Sodium 25 ne Sodium MCG MCG 25 MCG Levothyroxi Levothyroxi No QD Levothyrox ne Sodium ne Sodium ine Sodium 125 MCG 125 MCG 125 MCG Triamcinolo Triamcinolo No 1{appli BID Triamcinol ne ne cation_ one Acetonide Acetonide to_affe Acetonide 0.1 % 0.1 % cted_ar 0.1 % ea} Citalopram Citalopram No 1{table QD Citalopram Hydrobromid Hydrobromid t} Hydrobromi e 40 MG e 40 MG de 40 MG Baclofen 10 Baclofen 10 No BID Baclofen MG MG 10 MG Levothyroxi Levothyroxi No Levothyrox ne Sodium ne Sodium ine Sodium 200 MCG 200 MCG 200 MCG Bystolic 10 Bystolic 10 No 1{table QD Bystolic MG MG t} 10 MG Levothyroxi Levothyroxi No Levothyrox ne Sodium ne Sodium ine Sodium 175 MCG 175 MCG 175 MCG traMADol traMADol No traMADol HCl HCl HCl busPIRone busPIRone No busPIRone HCl 5 MG HCl 5 MG HCl 5 MG Liothyronin Liothyronin No 1{table QD Liothyroni e Sodium 25 e Sodium 25 t_on_an ne Sodium MCG MCG _empty_ 25 MCG stomach } Baby Baby No Baby Aspirin Aspirin Aspirin amLODIPine amLODIPine No amLODIPine Besylate 5 Besylate 5 Besylate 5 MG MG MG Bactroban 2 Bactroban 2 No 1{appli BID Bactroban % % cation_ 2 % to_affe cted_ar ea} Hydroxychlo Hydroxychlo No Hydroxychl roquine roquine oroquine Sulfate Sulfate Sulfate Doxycycline Doxycycline No 1{capsu BID Doxycyclin Hyclate 100 Hyclate 100 le} e Hyclate MG MG 100 MG Azithromyci Azithromyci No QD Azithromyc n 250 MG n 250 MG in 250 MG methylPREDN methylPREDN No methylPRED ISolone ISolone NISolone Bystolic 10 Bystolic 10 No Bystolic MG MG 10 MG Nebivolol Nebivolol No Nebivolol HCl 10 MG HCl 10 MG HCl 10 MG Baby Baby No Baby Aspirin Aspirin Aspirin predniSONE predniSONE No QD predniSONE 10 MG 10 MG 10 MG QUEtiapine QUEtiapine No 2{table QD QUEtiapine Fumarate Fumarate ts_at_b Fumarate 300 MG 300 MG edtime} 300 MG Levothyroxi Levothyroxi No QD Levothyrox ne Sodium ne Sodium ine Sodium 200 MCG 200 MCG 200 MCG amLODIPine amLODIPine No 1{table amLODIPine Besylate 10 Besylate 10 t} Besylate MG MG 10 MG methylPREDN methylPREDN No methylPRED ISolone ISolone NISolone QUEtiapine QUEtiapine No QUEtiapine Fumarate Fumarate Fumarate 300 MG 300 MG 300 MG HYDROcodone HYDROcodone No HYDROcodon -Acetaminop -Acetaminop e-Acetamin hen hen ophen Citalopram Citalopram No Citalopram Hydrobromid Hydrobromid Hydrobromi e 40 MG e 40 MG de 40 MG Gabapentin Gabapentin No 1{capsu QD Gabapentin 300 MG 300 MG le} 300 MG Diclofenac Diclofenac No Diclofenac Sodium Sodium Sodium amLODIPine amLODIPine No amLODIPine Besylate 10 Besylate 10 Besylate MG MG 10 MG Topiramate Topiramate No Topiramate 100 MG 100 MG 100 MG Triamcinolo Triamcinolo No 1{appli BID Triamcinol ne ne cation_ one Acetonide Acetonide to_affe Acetonide 0.1 % 0.1 % cted_ar 0.1 % ea} Omeprazole Omeprazole No QD Omeprazole 40 MG 40 MG 40 MG QUEtiapine QUEtiapine No 2{table QD QUEtiapine Fumarate Fumarate ts_at_b Fumarate 300 MG 300 MG edtime} 300 MG Liothyronin Liothyronin No Liothyroni e Sodium 25 e Sodium 25 ne Sodium MCG MCG 25 MCG Triamcinolo Triamcinolo No 1{appli BID Triamcinol ne ne cation_ one Acetonide Acetonide to_affe Acetonide 0.1 % 0.1 % cted_ar 0.1 % ea} Citalopram Citalopram No 1{table QD Citalopram Hydrobromid Hydrobromid t} Hydrobromi e 40 MG e 40 MG de 40 MG Baclofen 10 Baclofen 10 No BID Baclofen MG MG 10 MG Levothyroxi Levothyroxi No Levothyrox ne Sodium ne Sodium ine Sodium 200 MCG 200 MCG 200 MCG Bystolic 10 Bystolic 10 No 1{table QD Bystolic MG MG t} 10 MG Levothyroxi Levothyroxi No Levothyrox ne Sodium ne Sodium ine Sodium 175 MCG 175 MCG 175 MCG Gabapentin Gabapentin No 1{capsu QD Gabapentin 300 MG 300 MG le} 300 MG traMADol traMADol No traMADol HCl HCl HCl busPIRone busPIRone No busPIRone HCl 5 MG HCl 5 MG HCl 5 MG Liothyronin Liothyronin No 1{table QD Liothyroni e Sodium 25 e Sodium 25 t_on_an ne Sodium MCG MCG _empty_ 25 MCG stomach } amLODIPine amLODIPine No amLODIPine Besylate 5 Besylate 5 Besylate 5 MG MG MG Bactroban 2 Bactroban 2 No 1{appli BID Bactroban % % cation_ 2 % to_affe cted_ar ea} Hydroxychlo Hydroxychlo No Hydroxychl roquine roquine oroquine Sulfate Sulfate Sulfate Doxycycline Doxycycline No 1{capsu BID Doxycyclin Hyclate 100 Hyclate 100 le} e Hyclate MG MG 100 MG Azithromyci Azithromyci No QD Azithromyc n 250 MG n 250 MG in 250 MG amLODIPine amLODIPine No 1{table amLODIPine Besylate 10 Besylate 10 t} Besylate MG MG 10 MG Liothyronin Liothyronin No 1{table QD Liothyroni e Sodium 25 e Sodium 25 t_on_an ne Sodium MCG MCG _empty_ 25 MCG stomach } Dexilant 60 Dexilant 60 No 1{capsu QD Dexilant MG MG le} 60 MG predniSONE predniSONE No QD predniSONE 10 MG 10 MG 10 MG Azithromyci Azithromyci No QD Azithromyc n 250 MG n 250 MG in 250 MG Topiramate Topiramate No Topiramate 100 MG 100 MG 100 MG Doxycycline Doxycycline No 1{capsu BID Doxycyclin Hyclate 100 Hyclate 100 le} e Hyclate MG MG 100 MG Bystolic 10 Bystolic 10 No 1{table QD Bystolic MG MG t} 10 MG amLODIPine amLODIPine No amLODIPine Besylate 5 Besylate 5 Besylate 5 MG MG MG busPIRone busPIRone No busPIRone HCl 5 MG HCl 5 MG HCl 5 MG Hydroxychlo Hydroxychlo No Hydroxychl roquine roquine oroquine Sulfate Sulfate Sulfate Liothyronin Liothyronin No 1{table QD Liothyroni e Sodium 25 e Sodium 25 t_on_an ne Sodium MCG MCG _empty_ 25 MCG stomach } Baclofen 10 Baclofen 10 No BID Baclofen MG MG 10 MG Citalopram Citalopram No Citalopram Hydrobromid Hydrobromid Hydrobromi e 40 MG e 40 MG de 40 MG Bactroban 2 Bactroban 2 No 1{appli BID Bactroban % % cation_ 2 % to_affe cted_ar ea} Levothyroxi Levothyroxi No QD Levothyrox ne Sodium ne Sodium ine Sodium 125 MCG 125 MCG 125 MCG Diclofenac Diclofenac No Diclofenac Sodium Sodium Sodium HYDROcodone HYDROcodone No HYDROcodon -Acetaminop -Acetaminop e-Acetamin hen hen ophen traMADol traMADol No traMADol HCl HCl HCl Levothyroxi Levothyroxi No QD Levothyrox ne Sodium ne Sodium ine Sodium 125 MCG 125 MCG 125 MCG Baby Baby No Baby Aspirin Aspirin Aspirin methylPREDN methylPREDN No methylPRED ISolone ISolone NISolone Bystolic 10 Bystolic 10 No Bystolic MG MG 10 MG QUEtiapine QUEtiapine No 2{table QD QUEtiapine Fumarate Fumarate ts_at_b Fumarate 300 MG 300 MG edtime} 300 MG Triamcinolo Triamcinolo No 1{appli BID Triamcinol ne ne cation_ one Acetonide Acetonide to_affe Acetonide 0.1 % 0.1 % cted_ar 0.1 % ea} Gabapentin Gabapentin No 1{capsu QD Gabapentin 300 MG 300 MG le} 300 MG amLODIPine amLODIPine No 1{table amLODIPine Besylate 10 Besylate 10 t} Besylate MG MG 10 MG Liothyronin Liothyronin No 1{table QD Liothyroni e Sodium 25 e Sodium 25 t_on_an ne Sodium MCG MCG _empty_ 25 MCG stomach } No known [facility] Dexilant 60 No 1{capsu QD Dexilant MG MG le} 60 MG predniSONE predniSONE No QD predniSONE 10 MG 10 MG 10 MG Azithromyci Azithromyci No QD Azithromyc n 250 MG n 250 MG in 250 MG Topiramate Topiramate No Topiramate 100 MG 100 MG 100 MG Doxycycline Doxycycline No 1{capsu BID Doxycyclin Hyclate 100 Hyclate 100 le} e Hyclate MG MG 100 MG Bystolic 10 Bystolic 10 No 1{table QD Bystolic MG MG t} 10 MG amLODIPine amLODIPine No amLODIPine Besylate 5 Besylate 5 Besylate 5 MG MG MG busPIRone busPIRone No busPIRone HCl 5 MG HCl 5 MG HCl 5 MG Hydroxychlo Hydroxychlo No Hydroxychl roquine roquine oroquine Sulfate Sulfate Sulfate Liothyronin Liothyronin No 1{table QD Liothyroni e Sodium 25 e Sodium 25 t_on_an ne Sodium MCG MCG _empty_ 25 MCG stomach } No known No [facility] 10 Baclofen 10 No BID Baclofen MG MG 10 MG Citalopram Citalopram No Citalopram Hydrobromid Hydrobromid Hydrobromi e 40 MG e 40 MG de 40 MG Bactroban 2 Bactroban 2 No 1{appli BID Bactroban % % cation_ 2 % to_affe cted_ar ea} Levothyroxi Levothyroxi No QD Levothyrox ne Sodium ne Sodium ine Sodium 125 MCG 125 MCG 125 MCG Diclofenac Diclofenac No Diclofenac Sodium Sodium Sodium HYDROcodone HYDROcodone No HYDROcodon -Acetaminop -Acetaminop e-Acetamin hen hen ophen traMADol traMADol No traMADol HCl HCl HCl Levothyroxi Levothyroxi No QD Levothyrox ne Sodium ne Sodium ine Sodium 125 MCG 125 MCG 125 MCG Baby Baby No Baby Aspirin Aspirin Aspirin methylPREDN methylPREDN No methylPRED ISolone ISolone NISolone Bystolic 10 Bystolic 10 No Bystolic MG MG 10 MG QUEtiapine QUEtiapine No 2{table QD QUEtiapine Fumarate Fumarate ts_at_b Fumarate 300 MG 300 MG edtime} 300 MG Triamcinolo Triamcinolo No 1{appli BID Triamcinol ne ne cation_ one Acetonide Acetonide to_affe Acetonide 0.1 % 0.1 % cted_ar 0.1 % ea} Gabapentin Gabapentin No 1{capsu QD Gabapentin 300 MG 300 MG le} 300 MG amLODIPine amLODIPine No 1{table amLODIPine Besylate 10 Besylate 10 t} Besylate MG MG 10 MG Liothyronin Liothyronin No 1{table QD Liothyroni e Sodium 25 e Sodium 25 t_on_an ne Sodium MCG MCG _empty_ 25 MCG stomach } Dexilant 60 Dexilant 60 No 1{capsu QD Dexilant MG MG le} 60 MG predniSONE predniSONE No QD predniSONE 10 MG 10 MG 10 MG Azithromyci Azithromyci No QD Azithromyc n 250 MG n 250 MG in 250 MG Topiramate Topiramate No Topiramate 100 MG 100 MG 100 MG Doxycycline Doxycycline No 1{capsu BID Doxycyclin Hyclate 100 Hyclate 100 le} e Hyclate MG MG 100 MG Bystolic 10 Bystolic 10 No 1{table QD Bystolic MG MG t} 10 MG amLODIPine amLODIPine No amLODIPine Besylate 5 Besylate 5 Besylate 5 MG MG MG busPIRone busPIRone No busPIRone HCl 5 MG HCl 5 MG HCl 5 MG Hydroxychlo Hydroxychlo No Hydroxychl roquine roquine oroquine Sulfate Sulfate Sulfate Liothyronin Liothyronin No 1{table QD Liothyroni e Sodium 25 e Sodium 25 t_on_an ne Sodium MCG MCG _empty_ 25 MCG stomach } Baclofen 10 Baclofen 10 No BID Baclofen MG MG 10 MG Citalopram Citalopram No Citalopram Hydrobromid Hydrobromid Hydrobromi e 40 MG e 40 MG de 40 MG Bactroban 2 Bactroban 2 No 1{appli BID Bactroban % % cation_ 2 % to_affe cted_ar ea} Levothyroxi Levothyroxi No QD Levothyrox ne Sodium ne Sodium ine Sodium 125 MCG 125 MCG 125 MCG Diclofenac Diclofenac No Diclofenac Sodium Sodium Sodium HYDROcodone HYDROcodone No HYDROcodon -Acetaminop -Acetaminop e-Acetamin hen hen ophen traMADol traMADol No traMADol HCl HCl HCl Levothyroxi Levothyroxi No QD Levothyrox ne Sodium ne Sodium ine Sodium 125 MCG 125 MCG 125 MCG Baby Baby No Baby Aspirin Aspirin Aspirin methylPREDN methylPREDN No methylPRED ISolone ISolone NISolone Bystolic 10 Bystolic 10 No Bystolic MG MG 10 MG QUEtiapine QUEtiapine No 2{table QD QUEtiapine Fumarate Fumarate ts_at_b Fumarate 300 MG 300 MG edtime} 300 MG Triamcinolo Triamcinolo No 1{appli BID Triamcinol ne ne cation_ one Acetonide Acetonide to_affe Acetonide 0.1 % 0.1 % cted_ar 0.1 % ea} Gabapentin Gabapentin No 1{capsu QD Gabapentin 300 MG 300 MG le} 300 MG amLODIPine amLODIPine No 1{table amLODIPine Besylate 10 Besylate 10 t} Besylate MG MG 10 MG Liothyronin Liothyronin No 1{table QD Liothyroni e Sodium 25 e Sodium 25 t_on_an ne Sodium MCG MCG _empty_ 25 MCG stomach } Dexilant 60 Dexilant 60 No 1{capsu QD Dexilant MG MG le} 60 MG predniSONE predniSONE No QD predniSONE 10 MG 10 MG 10 MG Azithromyci Azithromyci No QD Azithromyc n 250 MG n 250 MG in 250 MG Topiramate Topiramate No Topiramate 100 MG 100 MG 100 MG Doxycycline Doxycycline No 1{capsu BID Doxycyclin Hyclate 100 Hyclate 100 le} e Hyclate MG MG 100 MG Bystolic 10 Bystolic 10 No 1{table QD Bystolic MG MG t} 10 MG amLODIPine amLODIPine No amLODIPine Besylate 5 Besylate 5 Besylate 5 MG MG MG busPIRone busPIRone No busPIRone HCl 5 MG HCl 5 MG HCl 5 MG Hydroxychlo Hydroxychlo No Hydroxychl roquine roquine oroquine Sulfate Sulfate Sulfate Liothyronin Liothyronin No 1{table QD Liothyroni e Sodium 25 e Sodium 25 t_on_an ne Sodium MCG MCG _empty_ 25 MCG stomach } Baclofen 10 Baclofen 10 No BID Baclofen MG MG 10 MG Citalopram Citalopram No Citalopram Hydrobromid Hydrobromid Hydrobromi e 40 MG e 40 MG de 40 MG Bactroban 2 Bactroban 2 No 1{appli BID Bactroban % % cation_ 2 % to_affe cted_ar ea} Levothyroxi Levothyroxi No QD Levothyrox ne Sodium ne Sodium ine Sodium 125 MCG 125 MCG 125 MCG Diclofenac Diclofenac No Diclofenac Sodium Sodium Sodium HYDROcodone HYDROcodone No HYDROcodon -Acetaminop -Acetaminop e-Acetamin hen hen ophen traMADol traMADol No traMADol HCl HCl HCl Levothyroxi Levothyroxi No QD Levothyrox ne Sodium ne Sodium ine Sodium 125 MCG 125 MCG 125 MCG Baby Baby No Baby Aspirin Aspirin Aspirin methylPREDN methylPREDN No methylPRED ISolone ISolone NISolone Bystolic 10 Bystolic 10 No Bystolic MG MG 10 MG QUEtiapine QUEtiapine No 2{table QD QUEtiapine Fumarate Fumarate ts_at_b Fumarate 300 MG 300 MG edtime} 300 MG Triamcinolo Triamcinolo No 1{appli BID Triamcinol ne ne cation_ one Acetonide Acetonide to_affe Acetonide 0.1 % 0.1 % cted_ar 0.1 % ea} Gabapentin Gabapentin No 1{capsu QD Gabapentin 300 MG 300 MG le} 300 MG amLODIPine amLODIPine No 1{table amLODIPine Besylate 10 Besylate 10 t} Besylate MG MG 10 MG Liothyronin Liothyronin No 1{table QD Liothyroni e Sodium 25 e Sodium 25 t_on_an ne Sodium MCG MCG _empty_ 25 MCG stomach } Dexilant 60 Dexilant 60 No 1{capsu QD Dexilant MG MG le} 60 MG predniSONE predniSONE No QD predniSONE 10 MG 10 MG 10 MG Azithromyci Azithromyci No QD Azithromyc n 250 MG n 250 MG in 250 MG Topiramate Topiramate No Topiramate 100 MG 100 MG 100 MG Doxycycline Doxycycline No 1{capsu BID Doxycyclin Hyclate 100 Hyclate 100 le} e Hyclate MG MG 100 MG Baclofen 10 Baclofen 10 No BID Baclofen MG MG 10 MG traMADol traMADol No traMADol HCl HCl HCl Bactroban 2 Bactroban 2 No 1{appli BID Bactroban % % cation_ 2 % to_affe cted_ar ea} Dexilant 60 Dexilant 60 No 1{capsu QD Dexilant MG MG le} 60 MG Bystolic 10 Bystolic 10 No Bystolic MG MG 10 MG methylPREDN methylPREDN No methylPRED ISolone ISolone NISolone busPIRone busPIRone No busPIRone HCl 5 MG HCl 5 MG HCl 5 MG Gabapentin Gabapentin No 1{capsu QD Gabapentin 300 MG 300 MG le} 300 MG predniSONE predniSONE No QD predniSONE 10 MG 10 MG 10 MG Levothyroxi Levothyroxi No QD Levothyrox ne Sodium ne Sodium ine Sodium 125 MCG 125 MCG 125 MCG Topiramate Topiramate No Topiramate 100 MG 100 MG 100 MG Azithromyci Azithromyci No QD Azithromyc n 250 MG n 250 MG in 250 MG Bystolic 10 Bystolic 10 No 1{table QD Bystolic MG MG t} 10 MG Levothyroxi Levothyroxi No QD Levothyrox ne Sodium ne Sodium ine Sodium 125 MCG 125 MCG 125 MCG Triamcinolo Triamcinolo No 1{appli BID Triamcinol ne ne cation_ one Acetonide Acetonide to_affe Acetonide 0.1 % 0.1 % cted_ar 0.1 % ea} Baby Baby No Baby Aspirin Aspirin Aspirin Liothyronin Liothyronin No 1{table QD Liothyroni e Sodium 25 e Sodium 25 t_on_an ne Sodium MCG MCG _empty_ 25 MCG stomach } Citalopram Citalopram No 1{table QD Citalopram Hydrobromid Hydrobromid t} Hydrobromi e 40 MG e 40 MG de 40 MG HYDROcodone HYDROcodone No HYDROcodon -Acetaminop -Acetaminop e-Acetamin hen hen ophen Diclofenac Diclofenac No Diclofenac Sodium Sodium Sodium QUEtiapine QUEtiapine No 2{table QD QUEtiapine Fumarate Fumarate ts_at_b Fumarate 300 MG 300 MG edtime} 300 MG Doxycycline Doxycycline No 1{capsu BID Doxycyclin Hyclate 100 Hyclate 100 le} e Hyclate MG MG 100 MG Liothyronin Liothyronin No 1{table QD Liothyroni e Sodium 25 e Sodium 25 t_on_an ne Sodium MCG MCG _empty_ 25 MCG stomach } amLODIPine amLODIPine No amLODIPine Besylate 5 Besylate 5 Besylate 5 MG MG MG Hydroxychlo Hydroxychlo No Hydroxychl roquine roquine oroquine Sulfate Sulfate Sulfate Citalopram Citalopram No Citalopram Hydrobromid Hydrobromid Hydrobromi e 40 MG e 40 MG de 40 MG amLODIPine amLODIPine No 1{table amLODIPine Besylate 10 Besylate 10 t} Besylate MG MG 10 MG Baclofen 10 Baclofen 10 No BID Baclofen MG MG 10 MG traMADol traMADol No traMADol HCl HCl HCl Bactroban 2 Bactroban 2 No 1{appli BID Bactroban % % cation_ 2 % to_affe cted_ar ea} Dexilant 60 Dexilant 60 No 1{capsu QD Dexilant MG MG le} 60 MG Bystolic 10 Bystolic 10 No Bystolic MG MG 10 MG methylPREDN methylPREDN No methylPRED ISolone ISolone NISolone busPIRone busPIRone No busPIRone HCl 5 MG HCl 5 MG HCl 5 MG Gabapentin Gabapentin No 1{capsu QD Gabapentin 300 MG 300 MG le} 300 MG predniSONE predniSONE No QD predniSONE 10 MG 10 MG 10 MG Levothyroxi Levothyroxi No QD Levothyrox ne Sodium ne Sodium ine Sodium 125 MCG 125 MCG 125 MCG Topiramate Topiramate No Topiramate 100 MG 100 MG 100 MG Azithromyci Azithromyci No QD Azithromyc n 250 MG n 250 MG in 250 MG Bystolic 10 Bystolic 10 No 1{table QD Bystolic MG MG t} 10 MG Levothyroxi Levothyroxi No QD Levothyrox ne Sodium ne Sodium ine Sodium 125 MCG 125 MCG 125 MCG Triamcinolo Triamcinolo No 1{appli BID Triamcinol ne ne cation_ one Acetonide Acetonide to_affe Acetonide 0.1 % 0.1 % cted_ar 0.1 % ea} Baby Baby No Baby Aspirin Aspirin Aspirin Liothyronin Liothyronin No 1{table QD Liothyroni e Sodium 25 e Sodium 25 t_on_an ne Sodium MCG MCG _empty_ 25 MCG stomach } Citalopram Citalopram No 1{table QD Citalopram Hydrobromid Hydrobromid t} Hydrobromi e 40 MG e 40 MG de 40 MG HYDROcodone HYDROcodone No HYDROcodon -Acetaminop -Acetaminop e-Acetamin hen hen ophen Diclofenac Diclofenac No Diclofenac Sodium Sodium Sodium QUEtiapine QUEtiapine No 2{table QD QUEtiapine Fumarate Fumarate ts_at_b Fumarate 300 MG 300 MG edtime} 300 MG Doxycycline Doxycycline No 1{capsu BID Doxycyclin Hyclate 100 Hyclate 100 le} e Hyclate MG MG 100 MG Liothyronin Liothyronin No 1{table QD Liothyroni e Sodium 25 e Sodium 25 t_on_an ne Sodium MCG MCG _empty_ 25 MCG stomach } amLODIPine amLODIPine No amLODIPine Besylate 5 Besylate 5 Besylate 5 MG MG MG Hydroxychlo Hydroxychlo No Hydroxychl roquine roquine oroquine Sulfate Sulfate Sulfate Citalopram Citalopram No Citalopram Hydrobromid Hydrobromid Hydrobromi e 40 MG e 40 MG de 40 MG amLODIPine amLODIPine No 1{table amLODIPine Besylate 10 Besylate 10 t} Besylate MG MG 10 MG Baclofen 10 Baclofen 10 No BID Baclofen MG MG 10 MG traMADol traMADol No traMADol HCl HCl HCl Bactroban 2 Bactroban 2 No 1{appli BID Bactroban % % cation_ 2 % to_affe cted_ar ea} Dexilant 60 Dexilant 60 No 1{capsu QD Dexilant MG MG le} 60 MG Bystolic 10 Bystolic 10 No Bystolic MG MG 10 MG methylPREDN methylPREDN No methylPRED ISolone ISolone NISolone busPIRone busPIRone No busPIRone HCl 5 MG HCl 5 MG HCl 5 MG Gabapentin Gabapentin No 1{capsu QD Gabapentin 300 MG 300 MG le} 300 MG predniSONE predniSONE No QD predniSONE 10 MG 10 MG 10 MG Levothyroxi Levothyroxi No QD Levothyrox ne Sodium ne Sodium ine Sodium 125 MCG 125 MCG 125 MCG Topiramate Topiramate No Topiramate 100 MG 100 MG 100 MG Azithromyci Azithromyci No QD Azithromyc n 250 MG n 250 MG in 250 MG Bystolic 10 Bystolic 10 No 1{table QD Bystolic MG MG t} 10 MG Levothyroxi Levothyroxi No QD Levothyrox ne Sodium ne Sodium ine Sodium 125 MCG 125 MCG 125 MCG Triamcinolo Triamcinolo No 1{appli BID Triamcinol ne ne cation_ one Acetonide Acetonide to_affe Acetonide 0.1 % 0.1 % cted_ar 0.1 % ea} Baby Baby No Baby Aspirin Aspirin Aspirin Liothyronin Liothyronin No 1{table QD Liothyroni e Sodium 25 e Sodium 25 t_on_an ne Sodium MCG MCG _empty_ 25 MCG stomach } Citalopram Citalopram No 1{table QD Citalopram Hydrobromid Hydrobromid t} Hydrobromi e 40 MG e 40 MG de 40 MG HYDROcodone HYDROcodone No HYDROcodon -Acetaminop -Acetaminop e-Acetamin hen hen ophen Diclofenac Diclofenac No Diclofenac Sodium Sodium Sodium QUEtiapine QUEtiapine No 2{table QD QUEtiapine Fumarate Fumarate ts_at_b Fumarate 300 MG 300 MG edtime} 300 MG Doxycycline Doxycycline No 1{capsu BID Doxycyclin Hyclate 100 Hyclate 100 le} e Hyclate MG MG 100 MG Liothyronin Liothyronin No 1{table QD Liothyroni e Sodium 25 e Sodium 25 t_on_an ne Sodium MCG MCG _empty_ 25 MCG stomach } amLODIPine amLODIPine No amLODIPine Besylate 5 Besylate 5 Besylate 5 MG MG MG Hydroxychlo Hydroxychlo No Hydroxychl roquine roquine oroquine Sulfate Sulfate Sulfate Citalopram Citalopram No Citalopram Hydrobromid Hydrobromid Hydrobromi e 40 MG e 40 MG de 40 MG amLODIPine amLODIPine No 1{table amLODIPine Besylate 10 Besylate 10 t} Besylate MG MG 10 MG Baclofen 10 Baclofen 10 No BID Baclofen MG MG 10 MG traMADol traMADol No traMADol HCl HCl HCl Bactroban 2 Bactroban 2 No 1{appli BID Bactroban % % cation_ 2 % to_affe cted_ar ea} Dexilant 60 Dexilant 60 No 1{capsu QD Dexilant MG MG le} 60 MG Bystolic 10 Bystolic 10 No Bystolic MG MG 10 MG methylPREDN methylPREDN No methylPRED ISolone ISolone NISolone busPIRone busPIRone No busPIRone HCl 5 MG HCl 5 MG HCl 5 MG Gabapentin Gabapentin No 1{capsu QD Gabapentin 300 MG 300 MG le} 300 MG predniSONE predniSONE No QD predniSONE 10 MG 10 MG 10 MG Levothyroxi Levothyroxi No QD Levothyrox ne Sodium ne Sodium ine Sodium 125 MCG 125 MCG 125 MCG Topiramate Topiramate No Topiramate 100 MG 100 MG 100 MG Azithromyci Azithromyci No QD Azithromyc n 250 MG n 250 MG in 250 MG Bystolic 10 Bystolic 10 No 1{table QD Bystolic MG MG t} 10 MG Levothyroxi Levothyroxi No QD Levothyrox ne Sodium ne Sodium ine Sodium 125 MCG 125 MCG 125 MCG Triamcinolo Triamcinolo No 1{appli BID Triamcinol ne ne cation_ one Acetonide Acetonide to_affe Acetonide 0.1 % 0.1 % cted_ar 0.1 % ea} Baby Baby No Baby Aspirin Aspirin Aspirin Liothyronin Liothyronin No 1{table QD Liothyroni e Sodium 25 e Sodium 25 t_on_an ne Sodium MCG MCG _empty_ 25 MCG stomach } Citalopram Citalopram No 1{table QD Citalopram Hydrobromid Hydrobromid t} Hydrobromi e 40 MG e 40 MG de 40 MG HYDROcodone HYDROcodone No HYDROcodon -Acetaminop -Acetaminop e-Acetamin hen hen ophen Diclofenac Diclofenac No Diclofenac Sodium Sodium Sodium QUEtiapine QUEtiapine No 2{table QD QUEtiapine Fumarate Fumarate ts_at_b Fumarate 300 MG 300 MG edtime} 300 MG Doxycycline Doxycycline No 1{capsu BID Doxycyclin Hyclate 100 Hyclate 100 le} e Hyclate MG MG 100 MG Liothyronin Liothyronin No 1{table QD Liothyroni e Sodium 25 e Sodium 25 t_on_an ne Sodium MCG MCG _empty_ 25 MCG stomach } amLODIPine amLODIPine No amLODIPine Besylate 5 Besylate 5 Besylate 5 MG MG MG Hydroxychlo Hydroxychlo No Hydroxychl roquine roquine oroquine Sulfate Sulfate Sulfate Citalopram Citalopram No Citalopram Hydrobromid Hydrobromid Hydrobromi e 40 MG e 40 MG de 40 MG amLODIPine amLODIPine No 1{table amLODIPine Besylate 10 Besylate 10 t} Besylate MG MG 10 MG Gabapentin Gabapentin No 1{capsu QD Gabapentin 300 MG 300 MG le} 300 MG Hydroxychlo Hydroxychlo No Hydroxychl roquine roquine oroquine Sulfate Sulfate Sulfate Azithromyci Azithromyci No QD Azithromyc n 250 MG n 250 MG in 250 MG Doxycycline Doxycycline No 1{capsu BID Doxycyclin Hyclate 100 Hyclate 100 le} e Hyclate MG MG 100 MG Triamcinolo Triamcinolo No 1{appli BID Triamcinol ne ne cation_ one Acetonide Acetonide to_affe Acetonide 0.1 % 0.1 % cted_ar 0.1 % ea} Liothyronin Liothyronin No Liothyroni e Sodium 25 e Sodium 25 ne Sodium MCG MCG 25 MCG predniSONE predniSONE No QD predniSONE 10 MG 10 MG 10 MG Baclofen 10 Baclofen 10 No BID Baclofen MG MG 10 MG amLODIPine amLODIPine No amLODIPine Besylate 5 Besylate 5 Besylate 5 MG MG MG methylPREDN methylPREDN No methylPRED ISolone ISolone NISolone amLODIPine amLODIPine No 1{table amLODIPine Besylate 10 Besylate 10 t} Besylate MG MG 10 MG traMADol traMADol No traMADol HCl HCl HCl Dexilant 60 Dexilant 60 No 1{capsu QD Dexilant MG MG le} 60 MG QUEtiapine QUEtiapine No 2{table QD QUEtiapine Fumarate Fumarate ts_at_b Fumarate 300 MG 300 MG edtime} 300 MG Diclofenac Diclofenac No Diclofenac Sodium Sodium Sodium Bystolic 10 Bystolic 10 No 1{table QD Bystolic MG MG t} 10 MG Citalopram Citalopram No 1{table QD Citalopram Hydrobromid Hydrobromid t} Hydrobromi e 40 MG e 40 MG de 40 MG Bactroban 2 Bactroban 2 No 1{appli BID Bactroban % % cation_ 2 % to_affe cted_ar ea} Bystolic 10 Bystolic 10 No Bystolic MG MG 10 MG Topiramate Topiramate No Topiramate 100 MG 100 MG 100 MG Citalopram Citalopram No Citalopram Hydrobromid Hydrobromid Hydrobromi e 40 MG e 40 MG de 40 MG Baby Baby No Baby Aspirin Aspirin Aspirin HYDROcodone HYDROcodone No HYDROcodon -Acetaminop -Acetaminop e-Acetamin hen hen ophen busPIRone busPIRone No busPIRone HCl 5 MG HCl 5 MG HCl 5 MG Levothyroxi Levothyroxi No Levothyrox ne Sodium ne Sodium ine Sodium 125 MCG 125 MCG 125 MCG Gabapentin Gabapentin No 1{capsu QD Gabapentin 300 MG 300 MG le} 300 MG Hydroxychlo Hydroxychlo No Hydroxychl roquine roquine oroquine Sulfate Sulfate Sulfate Azithromyci Azithromyci No QD Azithromyc n 250 MG n 250 MG in 250 MG Doxycycline Doxycycline No 1{capsu BID Doxycyclin Hyclate 100 Hyclate 100 le} e Hyclate MG MG 100 MG Triamcinolo Triamcinolo No 1{appli BID Triamcinol ne ne cation_ one Acetonide Acetonide to_affe Acetonide 0.1 % 0.1 % cted_ar 0.1 % ea} Liothyronin Liothyronin No Liothyroni e Sodium 25 e Sodium 25 ne Sodium MCG MCG 25 MCG predniSONE predniSONE No QD predniSONE 10 MG 10 MG 10 MG Baclofen 10 Baclofen 10 No BID Baclofen MG MG 10 MG amLODIPine amLODIPine No amLODIPine Besylate 5 Besylate 5 Besylate 5 MG MG MG methylPREDN methylPREDN No methylPRED ISolone ISolone NISolone amLODIPine amLODIPine No 1{table amLODIPine Besylate 10 Besylate 10 t} Besylate MG MG 10 MG traMADol traMADol No traMADol HCl HCl HCl Dexilant 60 Dexilant 60 No 1{capsu QD Dexilant MG MG le} 60 MG QUEtiapine QUEtiapine No 2{table QD QUEtiapine Fumarate Fumarate ts_at_b Fumarate 300 MG 300 MG edtime} 300 MG Diclofenac Diclofenac No Diclofenac Sodium Sodium Sodium Bystolic 10 Bystolic 10 No 1{table QD Bystolic MG MG t} 10 MG Citalopram Citalopram No 1{table QD Citalopram Hydrobromid Hydrobromid t} Hydrobromi e 40 MG e 40 MG de 40 MG Bactroban 2 Bactroban 2 No 1{appli BID Bactroban % % cation_ 2 % to_affe cted_ar ea} Bystolic 10 Bystolic 10 No Bystolic MG MG 10 MG Topiramate Topiramate No Topiramate 100 MG 100 MG 100 MG Citalopram Citalopram No Citalopram Hydrobromid Hydrobromid Hydrobromi e 40 MG e 40 MG de 40 MG Baby Baby No Baby Aspirin Aspirin Aspirin HYDROcodone HYDROcodone No HYDROcodon -Acetaminop -Acetaminop e-Acetamin hen hen ophen busPIRone busPIRone No busPIRone HCl 5 MG HCl 5 MG HCl 5 MG Levothyroxi Levothyroxi No Levothyrox ne Sodium ne Sodium ine Sodium 125 MCG 125 MCG 125 MCG Gabapentin Gabapentin No 1{capsu QD Gabapentin 300 MG 300 MG le} 300 MG Hydroxychlo Hydroxychlo No Hydroxychl roquine roquine oroquine Sulfate Sulfate Sulfate Azithromyci Azithromyci No QD Azithromyc n 250 MG n 250 MG in 250 MG Doxycycline Doxycycline No 1{capsu BID Doxycyclin Hyclate 100 Hyclate 100 le} e Hyclate MG MG 100 MG Triamcinolo Triamcinolo No 1{appli BID Triamcinol ne ne cation_ one Acetonide Acetonide to_affe Acetonide 0.1 % 0.1 % cted_ar 0.1 % ea} Liothyronin Liothyronin No Liothyroni e Sodium 25 e Sodium 25 ne Sodium MCG MCG 25 MCG predniSONE predniSONE No QD predniSONE 10 MG 10 MG 10 MG Baclofen 10 Baclofen 10 No BID Baclofen MG MG 10 MG amLODIPine amLODIPine No amLODIPine Besylate 5 Besylate 5 Besylate 5 MG MG MG methylPREDN methylPREDN No methylPRED ISolone ISolone NISolone amLODIPine amLODIPine No 1{table amLODIPine Besylate 10 Besylate 10 t} Besylate MG MG 10 MG traMADol traMADol No traMADol HCl HCl HCl Dexilant 60 Dexilant 60 No 1{capsu QD Dexilant MG MG le} 60 MG QUEtiapine QUEtiapine No 2{table QD QUEtiapine Fumarate Fumarate ts_at_b Fumarate 300 MG 300 MG edtime} 300 MG Diclofenac Diclofenac No Diclofenac Sodium Sodium Sodium Bystolic 10 Bystolic 10 No 1{table QD Bystolic MG MG t} 10 MG Citalopram Citalopram No 1{table QD Citalopram Hydrobromid Hydrobromid t} Hydrobromi e 40 MG e 40 MG de 40 MG Bactroban 2 Bactroban 2 No 1{appli BID Bactroban % % cation_ 2 % to_affe cted_ar ea} Bystolic 10 Bystolic 10 No Bystolic MG MG 10 MG Topiramate Topiramate No Topiramate 100 MG 100 MG 100 MG Citalopram Citalopram No Citalopram Hydrobromid Hydrobromid Hydrobromi e 40 MG e 40 MG de 40 MG Baby Baby No Baby Aspirin Aspirin Aspirin HYDROcodone HYDROcodone No HYDROcodon -Acetaminop -Acetaminop e-Acetamin hen hen ophen busPIRone busPIRone No busPIRone HCl 5 MG HCl 5 MG HCl 5 MG Levothyroxi Levothyroxi No Levothyrox ne Sodium ne Sodium ine Sodium 125 MCG 125 MCG 125 MCG Azithromyci Azithromyci No QD Azithromyc n 250 MG n 250 MG in 250 MG Gabapentin Gabapentin No 1{capsu QD Gabapentin 300 MG 300 MG le} 300 MG Doxycycline Doxycycline No 1{capsu BID Doxycyclin Hyclate 100 Hyclate 100 le} e Hyclate MG MG 100 MG methylPREDN methylPREDN No methylPRED ISolone ISolone NISolone Bactroban 2 Bactroban 2 No 1{appli BID Bactroban % % cation_ 2 % to_affe cted_ar ea} predniSONE predniSONE No QD predniSONE 10 MG 10 MG 10 MG Baclofen 10 Baclofen 10 No BID Baclofen MG MG 10 MG traMADol traMADol No traMADol HCl HCl HCl amLODIPine amLODIPine No amLODIPine Besylate 5 Besylate 5 Besylate 5 MG MG MG HYDROcodone HYDROcodone No HYDROcodon -Acetaminop -Acetaminop e-Acetamin hen hen ophen Bystolic 10 Bystolic 10 No Bystolic MG MG 10 MG Baby Baby No Baby Aspirin Aspirin Aspirin Citalopram Citalopram No 1{table QD Citalopram Hydrobromid Hydrobromid t} Hydrobromi e 40 MG e 40 MG de 40 MG QUEtiapine QUEtiapine No 2{table QD QUEtiapine Fumarate Fumarate ts_at_b Fumarate 300 MG 300 MG edtime} 300 MG Dexilant 60 Dexilant 60 No 1{capsu QD Dexilant MG MG le} 60 MG busPIRone busPIRone No busPIRone HCl 5 MG HCl 5 MG HCl 5 MG Hydroxychlo Hydroxychlo No Hydroxychl roquine roquine oroquine Sulfate Sulfate Sulfate Triamcinolo Triamcinolo No 1{appli BID Triamcinol ne ne cation_ one Acetonide Acetonide to_affe Acetonide 0.1 % 0.1 % cted_ar 0.1 % ea} Citalopram Citalopram No Citalopram Hydrobromid Hydrobromid Hydrobromi e 40 MG e 40 MG de 40 MG Topiramate Topiramate No Topiramate 100 MG 100 MG 100 MG Diclofenac Diclofenac No Diclofenac Sodium Sodium Sodium Bystolic 10 Bystolic 10 No 1{table QD Bystolic MG MG t} 10 MG Liothyronin Liothyronin No Liothyroni e Sodium 25 e Sodium 25 ne Sodium MCG MCG 25 MCG amLODIPine amLODIPine No 1{table amLODIPine Besylate 10 Besylate 10 t} Besylate MG MG 10 MG Levothyroxi Levothyroxi No Levothyrox ne Sodium ne Sodium ine Sodium 125 MCG 125 MCG 125 MCG Azithromyci Azithromyci No QD Azithromyc n 250 MG n 250 MG in 250 MG Gabapentin Gabapentin No 1{capsu QD Gabapentin 300 MG 300 MG le} 300 MG Doxycycline Doxycycline No 1{capsu BID Doxycyclin Hyclate 100 Hyclate 100 le} e Hyclate MG MG 100 MG methylPREDN methylPREDN No methylPRED ISolone ISolone NISolone Bactroban 2 Bactroban 2 No 1{appli BID Bactroban % % cation_ 2 % to_affe cted_ar ea} predniSONE predniSONE No QD predniSONE 10 MG 10 MG 10 MG Baclofen 10 Baclofen 10 No BID Baclofen MG MG 10 MG traMADol traMADol No traMADol HCl HCl HCl amLODIPine amLODIPine No amLODIPine Besylate 5 Besylate 5 Besylate 5 MG MG MG Citalopram Citalopram No 1{table QD Citalopram Hydrobromid Hydrobromid t} Hydrobromi e 40 MG e 40 MG de 40 MG busPIRone busPIRone No busPIRone HCl 5 MG HCl 5 MG HCl 5 MG Citalopram Citalopram No Citalopram Hydrobromid Hydrobromid Hydrobromi e 40 MG e 40 MG de 40 MG Nebivolol Nebivolol No Nebivolol HCl 10 MG HCl 10 MG HCl 10 MG QUEtiapine QUEtiapine No 2{table QD QUEtiapine Fumarate Fumarate ts_at_b Fumarate 300 MG 300 MG edtime} 300 MG Diclofenac Diclofenac No Diclofenac Sodium Sodium Sodium amLODIPine amLODIPine No amLODIPine Besylate 10 Besylate 10 Besylate MG MG 10 MG Hydroxychlo Hydroxychlo No Hydroxychl roquine roquine oroquine Sulfate Sulfate Sulfate Triamcinolo Triamcinolo No 1{appli BID Triamcinol ne ne cation_ one Acetonide Acetonide to_affe Acetonide 0.1 % 0.1 % cted_ar 0.1 % ea} Dexilant 60 Dexilant 60 No 1{capsu QD Dexilant MG MG le} 60 MG Topiramate Topiramate No Topiramate 100 MG 100 MG 100 MG HYDROcodone HYDROcodone No HYDROcodon -Acetaminop -Acetaminop e-Acetamin hen hen ophen Baby Baby No Baby Aspirin Aspirin Aspirin Liothyronin Liothyronin No Liothyroni e Sodium 25 e Sodium 25 ne Sodium MCG MCG 25 MCG Bystolic 10 Bystolic 10 No 1{table QD Bystolic MG MG t} 10 MG Levothyroxi Levothyroxi No Levothyrox ne Sodium ne Sodium ine Sodium 125 MCG 125 MCG 125 MCG Azithromyci Azithromyci No QD Azithromyc n 250 MG n 250 MG in 250 MG Gabapentin Gabapentin No 1{capsu QD Gabapentin 300 MG 300 MG le} 300 MG Doxycycline Doxycycline No 1{capsu BID Doxycyclin Hyclate 100 Hyclate 100 le} e Hyclate MG MG 100 MG methylPREDN methylPREDN No methylPRED ISolone ISolone NISolone Bactroban 2 Bactroban 2 No 1{appli BID Bactroban % % cation_ 2 % to_affe cted_ar ea} predniSONE predniSONE No QD predniSONE 10 MG 10 MG 10 MG Baclofen 10 Baclofen 10 No BID Baclofen MG MG 10 MG traMADol traMADol No traMADol HCl HCl HCl amLODIPine amLODIPine No amLODIPine Besylate 5 Besylate 5 Besylate 5 MG MG MG Citalopram Citalopram No 1{table QD Citalopram Hydrobromid Hydrobromid t} Hydrobromi e 40 MG e 40 MG de 40 MG busPIRone busPIRone No busPIRone HCl 5 MG HCl 5 MG HCl 5 MG Citalopram Citalopram No Citalopram Hydrobromid Hydrobromid Hydrobromi e 40 MG e 40 MG de 40 MG Nebivolol Nebivolol No Nebivolol HCl 10 MG HCl 10 MG HCl 10 MG QUEtiapine QUEtiapine No 2{table QD QUEtiapine Fumarate Fumarate ts_at_b Fumarate 300 MG 300 MG edtime} 300 MG Diclofenac Diclofenac No Diclofenac Sodium Sodium Sodium amLODIPine amLODIPine No amLODIPine Besylate 10 Besylate 10 Besylate MG MG 10 MG Hydroxychlo Hydroxychlo No Hydroxychl roquine roquine oroquine Sulfate Sulfate Sulfate Triamcinolo Triamcinolo No 1{appli BID Triamcinol ne ne cation_ one Acetonide Acetonide to_affe Acetonide 0.1 % 0.1 % cted_ar 0.1 % ea} Dexilant 60 Dexilant 60 No 1{capsu QD Dexilant MG MG le} 60 MG Topiramate Topiramate No Topiramate 100 MG 100 MG 100 MG HYDROcodone HYDROcodone No HYDROcodon -Acetaminop -Acetaminop e-Acetamin hen hen ophen Baby Baby No Baby Aspirin Aspirin Aspirin Liothyronin Liothyronin No Liothyroni e Sodium 25 e Sodium 25 ne Sodium MCG MCG 25 MCG Bystolic 10 Bystolic 10 No 1{table QD Bystolic MG MG t} 10 MG Levothyroxi Levothyroxi No Levothyrox ne Sodium ne Sodium ine Sodium 125 MCG 125 MCG 125 MCG Nebivolol Nebivolol No Nebivolol HCl 10 MG HCl 10 MG HCl 10 MG traMADol traMADol No traMADol HCl HCl HCl Citalopram Citalopram No 1{table QD Citalopram Hydrobromid Hydrobromid t} Hydrobromi e 40 MG e 40 MG de 40 MG Gabapentin Gabapentin No 1{capsu QD Gabapentin 300 MG 300 MG le} 300 MG amLODIPine amLODIPine No amLODIPine Besylate 5 Besylate 5 Besylate 5 MG MG MG methylPREDN methylPREDN No methylPRED ISolone ISolone NISolone Hydroxychlo Hydroxychlo No Hydroxychl roquine roquine oroquine Sulfate Sulfate Sulfate Topiramate Topiramate No Topiramate 100 MG 100 MG 100 MG Azithromyci Azithromyci No QD Azithromyc n 250 MG n 250 MG in 250 MG Triamcinolo Triamcinolo No 1{appli BID Triamcinol ne ne cation_ one Acetonide Acetonide to_affe Acetonide 0.1 % 0.1 % cted_ar 0.1 % ea} predniSONE predniSONE No QD predniSONE 10 MG 10 MG 10 MG Liothyronin Liothyronin No 1{table QD Liothyroni e Sodium 25 e Sodium 25 t_on_an ne Sodium MCG MCG _empty_ 25 MCG stomach } Levothyroxi Levothyroxi No QD Levothyrox ne Sodium ne Sodium ine Sodium 175 MCG 175 MCG 175 MCG Dexilant 60 Dexilant 60 No 1{capsu QD Dexilant MG MG le} 60 MG QUEtiapine QUEtiapine No 2{table QD QUEtiapine Fumarate Fumarate ts_at_b Fumarate 300 MG 300 MG edtime} 300 MG Baclofen 10 Baclofen 10 No BID Baclofen MG MG 10 MG amLODIPine amLODIPine No amLODIPine Besylate 10 Besylate 10 Besylate MG MG 10 MG busPIRone busPIRone No busPIRone HCl 5 MG HCl 5 MG HCl 5 MG Bactroban 2 Bactroban 2 No 1{appli BID Bactroban % % cation_ 2 % to_affe cted_ar ea} Doxycycline Doxycycline No 1{capsu BID Doxycyclin Hyclate 100 Hyclate 100 le} e Hyclate MG MG 100 MG Diclofenac Diclofenac No Diclofenac Sodium Sodium Sodium Liothyronin Liothyronin No Liothyroni e Sodium 25 e Sodium 25 ne Sodium MCG MCG 25 MCG HYDROcodone HYDROcodone No HYDROcodon -Acetaminop -Acetaminop e-Acetamin hen hen ophen Citalopram Citalopram No Citalopram Hydrobromid Hydrobromid Hydrobromi e 40 MG e 40 MG de 40 MG Baby Baby No Baby Aspirin Aspirin Aspirin amLODIPine amLODIPine No 1{table amLODIPine Besylate 10 Besylate 10 t} Besylate MG MG 10 MG Bystolic 10 Bystolic 10 No 1{table QD Bystolic MG MG t} 10 MG Nebivolol Nebivolol No Nebivolol HCl 10 MG HCl 10 MG HCl 10 MG traMADol traMADol No traMADol HCl HCl HCl Citalopram Citalopram No 1{table QD Citalopram Hydrobromid Hydrobromid t} Hydrobromi e 40 MG e 40 MG de 40 MG Gabapentin Gabapentin No 1{capsu QD Gabapentin 300 MG 300 MG le} 300 MG amLODIPine amLODIPine No amLODIPine Besylate 5 Besylate 5 Besylate 5 MG MG MG methylPREDN methylPREDN No methylPRED ISolone ISolone NISolone Hydroxychlo Hydroxychlo No Hydroxychl roquine roquine oroquine Sulfate Sulfate Sulfate Topiramate Topiramate No Topiramate 100 MG 100 MG 100 MG Azithromyci Azithromyci No QD Azithromyc n 250 MG n 250 MG in 250 MG Triamcinolo Triamcinolo No 1{appli BID Triamcinol ne ne cation_ one Acetonide Acetonide to_affe Acetonide 0.1 % 0.1 % cted_ar 0.1 % ea} predniSONE predniSONE No QD predniSONE 10 MG 10 MG 10 MG Liothyronin Liothyronin No 1{table QD Liothyroni e Sodium 25 e Sodium 25 t_on_an ne Sodium MCG MCG _empty_ 25 MCG stomach } Levothyroxi Levothyroxi No QD Levothyrox ne Sodium ne Sodium ine Sodium 175 MCG 175 MCG 175 MCG Dexilant 60 Dexilant 60 No 1{capsu QD Dexilant MG MG le} 60 MG QUEtiapine QUEtiapine No 2{table QD QUEtiapine Fumarate Fumarate ts_at_b Fumarate 300 MG 300 MG edtime} 300 MG Baclofen 10 Baclofen 10 No BID Baclofen MG MG 10 MG amLODIPine amLODIPine No amLODIPine Besylate 10 Besylate 10 Besylate MG MG 10 MG busPIRone busPIRone No busPIRone HCl 5 MG HCl 5 MG HCl 5 MG Bactroban 2 Bactroban 2 No 1{appli BID Bactroban % % cation_ 2 % to_affe cted_ar ea} Doxycycline Doxycycline No 1{capsu BID Doxycyclin Hyclate 100 Hyclate 100 le} e Hyclate MG MG 100 MG Diclofenac Diclofenac No Diclofenac Sodium Sodium Sodium Liothyronin Liothyronin No Liothyroni e Sodium 25 e Sodium 25 ne Sodium MCG MCG 25 MCG HYDROcodone HYDROcodone No HYDROcodon -Acetaminop -Acetaminop e-Acetamin hen hen ophen Citalopram Citalopram No Citalopram Hydrobromid Hydrobromid Hydrobromi e 40 MG e 40 MG de 40 MG Baby Baby No Baby Aspirin Aspirin Aspirin amLODIPine amLODIPine No 1{table amLODIPine Besylate 10 Besylate 10 t} Besylate MG MG 10 MG Bystolic 10 Bystolic 10 No 1{table QD Bystolic MG MG t} 10 MG amLODIPine amLODIPine No amLODIPine Besylate 5 Besylate 5 Besylate 5 MG MG MG methylPREDN methylPREDN No methylPRED ISolone ISolone NISolone Hydroxychlo Hydroxychlo No Hydroxychl roquine roquine oroquine Sulfate Sulfate Sulfate Topiramate Topiramate No Topiramate 100 MG 100 MG 100 MG Bactroban 2 Bactroban 2 No 1{appli BID Bactroban % % cation_ 2 % to_affe cted_ar ea} Citalopram Citalopram No Citalopram Hydrobromid Hydrobromid Hydrobromi e 40 MG e 40 MG de 40 MG Triamcinolo Triamcinolo No 1{appli BID Triamcinol ne ne cation_ one Acetonide Acetonide to_affe Acetonide 0.1 % 0.1 % cted_ar 0.1 % ea} predniSONE predniSONE No QD predniSONE 10 MG 10 MG 10 MG Baclofen 10 Baclofen 10 No BID Baclofen MG MG 10 MG Azithromyci Azithromyci No QD Azithromyc n 250 MG n 250 MG in 250 MG busPIRone busPIRone No busPIRone HCl 5 MG HCl 5 MG HCl 5 MG Liothyronin Liothyronin No 1{table QD Liothyroni e Sodium 25 e Sodium 25 t_on_an ne Sodium MCG MCG _empty_ 25 MCG stomach } Diclofenac Diclofenac No Diclofenac Sodium Sodium Sodium Gabapentin Gabapentin No 1{capsu QD Gabapentin 300 MG 300 MG le} 300 MG Liothyronin Liothyronin No Liothyroni e Sodium 25 e Sodium 25 ne Sodium MCG MCG 25 MCG QUEtiapine QUEtiapine No 2{table QD QUEtiapine Fumarate Fumarate ts_at_b Fumarate 300 MG 300 MG edtime} 300 MG Doxycycline Doxycycline No 1{capsu BID Doxycyclin Hyclate 100 Hyclate 100 le} e Hyclate MG MG 100 MG traMADol traMADol No traMADol HCl HCl HCl amLODIPine amLODIPine No amLODIPine Besylate 10 Besylate 10 Besylate MG MG 10 MG Nebivolol Nebivolol No Nebivolol HCl 10 MG HCl 10 MG HCl 10 MG Levothyroxi Levothyroxi No QD Levothyrox ne Sodium ne Sodium ine Sodium 175 MCG 175 MCG 175 MCG Dexilant 60 Dexilant 60 No 1{capsu QD Dexilant MG MG le} 60 MG Baby Baby No Baby Aspirin Aspirin Aspirin HYDROcodone HYDROcodone No HYDROcodon -Acetaminop -Acetaminop e-Acetamin hen hen ophen amLODIPine amLODIPine No 1{table amLODIPine Besylate 10 Besylate 10 t} Besylate MG MG 10 MG Bystolic 10 Bystolic 10 No 1{table QD Bystolic MG MG t} 10 MG Triamcinolo Triamcinolo No 1{appli BID Triamcinol ne ne cation_ one Acetonide Acetonide to_affe Acetonide 0.1 % 0.1 % cted_ar 0.1 % ea} methylPREDN methylPREDN No methylPRED ISolone ISolone NISolone amLODIPine amLODIPine No amLODIPine Besylate 5 Besylate 5 Besylate 5 MG MG MG Topiramate Topiramate No Topiramate 100 MG 100 MG 100 MG Baclofen 10 Baclofen 10 No BID Baclofen MG MG 10 MG Citalopram Citalopram No Citalopram Hydrobromid Hydrobromid Hydrobromi e 40 MG e 40 MG de 40 MG Bactroban 2 Bactroban 2 No 1{appli BID Bactroban % % cation_ 2 % to_affe cted_ar ea} predniSONE predniSONE No QD predniSONE 10 MG 10 MG 10 MG Levothyroxi Levothyroxi No Levothyrox ne Sodium ne Sodium ine Sodium 175 MCG 175 MCG 175 MCG Azithromyci Azithromyci No QD Azithromyc n 250 MG n 250 MG in 250 MG QUEtiapine QUEtiapine No 2{table QD QUEtiapine Fumarate Fumarate ts_at_b Fumarate 300 MG 300 MG edtime} 300 MG busPIRone busPIRone No busPIRone HCl 5 MG HCl 5 MG HCl 5 MG Diclofenac Diclofenac No Diclofenac Sodium Sodium Sodium Nebivolol Nebivolol No Nebivolol HCl 10 MG HCl 10 MG HCl 10 MG Gabapentin Gabapentin No 1{capsu QD Gabapentin 300 MG 300 MG le} 300 MG Liothyronin Liothyronin No Liothyroni e Sodium 25 e Sodium 25 ne Sodium MCG MCG 25 MCG Doxycycline Doxycycline No 1{capsu BID Doxycyclin Hyclate 100 Hyclate 100 le} e Hyclate MG MG 100 MG traMADol traMADol No traMADol HCl HCl HCl amLODIPine amLODIPine No amLODIPine Besylate 10 Besylate 10 Besylate MG MG 10 MG Hydroxychlo Hydroxychlo No Hydroxychl roquine roquine oroquine Sulfate Sulfate Sulfate Liothyronin Liothyronin No 1{table QD Liothyroni e Sodium 25 e Sodium 25 t_on_an ne Sodium MCG MCG _empty_ 25 MCG stomach } Dexilant 60 Dexilant 60 No 1{capsu QD Dexilant MG MG le} 60 MG Baby Baby No Baby Aspirin Aspirin Aspirin HYDROcodone HYDROcodone No HYDROcodon -Acetaminop -Acetaminop e-Acetamin hen hen ophen amLODIPine amLODIPine No 1{table amLODIPine Besylate 10 Besylate 10 t} Besylate MG MG 10 MG Bystolic 10 Bystolic 10 No 1{table QD Bystolic MG MG t} 10 MG Gabapentin Gabapentin No 1{capsu QD Gabapentin 300 MG 300 MG le} 300 MG Hydroxychlo Hydroxychlo No Hydroxychl roquine roquine oroquine Sulfate Sulfate Sulfate traMADol traMADol No traMADol HCl HCl HCl amLODIPine amLODIPine No amLODIPine Besylate 5 Besylate 5 Besylate 5 MG MG MG Dexilant 60 Dexilant 60 No 1{capsu QD Dexilant MG MG le} 60 MG Azithromyci Azithromyci No QD Azithromyc n 250 MG n 250 MG in 250 MG Triamcinolo Triamcinolo No 1{appli BID Triamcinol ne ne cation_ one Acetonide Acetonide to_affe Acetonide 0.1 % 0.1 % cted_ar 0.1 % ea} QUEtiapine QUEtiapine No 2{table QD QUEtiapine Fumarate Fumarate ts_at_b Fumarate 300 MG 300 MG edtime} 300 MG predniSONE predniSONE No QD predniSONE 10 MG 10 MG 10 MG busPIRone busPIRone No busPIRone HCl 5 MG HCl 5 MG HCl 5 MG Liothyronin Liothyronin No Liothyroni e Sodium 25 e Sodium 25 ne Sodium MCG MCG 25 MCG Levothyroxi Levothyroxi No Levothyrox ne Sodium ne Sodium ine Sodium 175 MCG 175 MCG 175 MCG Citalopram Citalopram No Citalopram Hydrobromid Hydrobromid Hydrobromi e 40 MG e 40 MG de 40 MG Bystolic 10 Bystolic 10 No 1{table QD Bystolic MG MG t} 10 MG methylPREDN methylPREDN No methylPRED ISolone ISolone NISolone Topiramate Topiramate No Topiramate 100 MG 100 MG 100 MG HYDROcodone HYDROcodone No HYDROcodon -Acetaminop -Acetaminop e-Acetamin hen hen ophen Baby Baby No Baby Aspirin Aspirin Aspirin Bactroban 2 Bactroban 2 No 1{appli BID Bactroban % % cation_ 2 % to_affe cted_ar ea} Doxycycline Doxycycline No 1{capsu BID Doxycyclin Hyclate 100 Hyclate 100 le} e Hyclate MG MG 100 MG Diclofenac Diclofenac No Diclofenac Sodium Sodium Sodium amLODIPine amLODIPine No amLODIPine Besylate 10 Besylate 10 Besylate MG MG 10 MG Baclofen 10 Baclofen 10 No BID Baclofen MG MG 10 MG amLODIPine amLODIPine No 1{table amLODIPine Besylate 10 Besylate 10 t} Besylate MG MG 10 MG Nebivolol Nebivolol No Nebivolol HCl 10 MG HCl 10 MG HCl 10 MG Levothyroxi Levothyroxi No QD Levothyrox ne Sodium ne Sodium ine Sodium 200 MCG 200 MCG 200 MCG Citalopram Citalopram No 1{table QD Citalopram Hydrobromid Hydrobromid t} Hydrobromi e 40 MG e 40 MG de 40 MG Liothyronin Liothyronin No 1{table QD Liothyroni e Sodium 25 e Sodium 25 t_on_an ne Sodium MCG MCG _empty_ 25 MCG stomach } Gabapentin Gabapentin No 1{capsu QD Gabapentin 300 MG 300 MG le} 300 MG Hydroxychlo Hydroxychlo No Hydroxychl roquine roquine oroquine Sulfate Sulfate Sulfate traMADol traMADol No traMADol HCl HCl HCl amLODIPine amLODIPine No amLODIPine Besylate 5 Besylate 5 Besylate 5 MG MG MG Dexilant 60 Dexilant 60 No 1{capsu QD Dexilant MG MG le} 60 MG Azithromyci Azithromyci No QD Azithromyc n 250 MG n 250 MG in 250 MG Triamcinolo Triamcinolo No 1{appli BID Triamcinol ne ne cation_ one Acetonide Acetonide to_affe Acetonide 0.1 % 0.1 % cted_ar 0.1 % ea} QUEtiapine QUEtiapine No 2{table QD QUEtiapine Fumarate Fumarate ts_at_b Fumarate 300 MG 300 MG edtime} 300 MG predniSONE predniSONE No QD predniSONE 10 MG 10 MG 10 MG busPIRone busPIRone No busPIRone HCl 5 MG HCl 5 MG HCl 5 MG Liothyronin Liothyronin No Liothyroni e Sodium 25 e Sodium 25 ne Sodium MCG MCG 25 MCG Levothyroxi Levothyroxi No Levothyrox ne Sodium ne Sodium ine Sodium 175 MCG 175 MCG 175 MCG Citalopram Citalopram No Citalopram Hydrobromid Hydrobromid Hydrobromi e 40 MG e 40 MG de 40 MG Bystolic 10 Bystolic 10 No 1{table QD Bystolic MG MG t} 10 MG methylPREDN methylPREDN No methylPRED ISolone ISolone NISolone Topiramate Topiramate No Topiramate 100 MG 100 MG 100 MG HYDROcodone HYDROcodone No HYDROcodon -Acetaminop -Acetaminop e-Acetamin hen hen ophen Baby Baby No Baby Aspirin Aspirin Aspirin Bactroban 2 Bactroban 2 No 1{appli BID Bactroban % % cation_ 2 % to_affe cted_ar ea} Doxycycline Doxycycline No 1{capsu BID Doxycyclin Hyclate 100 Hyclate 100 le} e Hyclate MG MG 100 MG Diclofenac Diclofenac No Diclofenac Sodium Sodium Sodium amLODIPine amLODIPine No amLODIPine Besylate 10 Besylate 10 Besylate MG MG 10 MG Baclofen 10 Baclofen 10 No BID Baclofen MG MG 10 MG amLODIPine amLODIPine No 1{table amLODIPine Besylate 10 Besylate 10 t} Besylate MG MG 10 MG Nebivolol Nebivolol No Nebivolol HCl 10 MG HCl 10 MG HCl 10 MG Levothyroxi Levothyroxi No QD Levothyrox ne Sodium ne Sodium ine Sodium 200 MCG 200 MCG 200 MCG Citalopram Citalopram No 1{table QD Citalopram Hydrobromid Hydrobromid t} Hydrobromi e 40 MG e 40 MG de 40 MG Liothyronin Liothyronin No 1{table QD Liothyroni e Sodium 25 e Sodium 25 t_on_an ne Sodium MCG MCG _empty_ 25 MCG stomach } Citalopram Citalopram Yes Na Pandey 1 tablet [facility] Hydrobromid Hydrobromid [facility] Baclofen Baclofen Yes Na Pandey 2 tabs [facility] Bactroban Bactroban Yes Na Pandey 1 Co mmon applicatio [facility] n to - [facility] affected [facility] Doxycycline Doxycycline Yes Na Pandey 1 capsule [facility] Hyclate Hyclate [facility] Azithromyci Azithromyci Yes Na Pandey 2 tablets [facility] n n on [facility] first day, - [facility] [address] [facility] Gabapentin Gabapentin Yes Na Pandey 1 capsule Common [facility] Topiramate Topiramate Yes Na Pandey not Common defined [facility] PredniSONE PredniSONE Yes Na Pandey 2 tablet [facility] daily x 5 [facility] days then - [facility] one tablet [facility] daily x 5 [facility] Bystolic Bystolic Yes Na Pandey 1 tablet Common [facility] Liothyronin Liothyronin Yes Na Pandey 1 tablet Common e Sodium e Sodium on an Spirit empty - [facility] stomach [facility] Dexilant Dexilant Yes Na Pandey 1 capsule Common [facility] Levothyroxi Levothyroxi Yes Na Pandey 1 tablet Common ne Sodium ne Sodium on an Spir it empty - [facility] stomach in [facility] Hydroxychlo Hydroxychlo Yes Na Pandey not Common roquine roquine defined Spirit Sulfate Sulfate [facility] Levothyroxi Levothyroxi Yes Na Pandey 1 tablet [facility] ne Sodium ne Sodium on an Sp[facility] it empty - [facility] stomach in [facility] Amlodipine Amlodipine Yes Na Pandey 1 tablet Common Besylate Besylate [facility] Quetiapine Quetiapine Yes Na Pandey not Common Fumarate Fumarate defined Spir it [facility] Liothyronin Liothyronin Yes Na Pandey 1 tablet Common e Sodium e Sodium on an [facility] empty - [facility] stomach [facility] Azithromyci Azithromyci No QD Azithromyc n 250 MG n 250 MG in 250 MG Triamcinolo Triamcinolo No 1{appli BID Triamcinol ne ne cation_ one Acetonide Acetonide to_affe Acetonide 0.1 % 0.1 % cted_ar 0.1 % ea} Gabapentin Gabapentin No 1{capsu QD Gabapentin 300 MG 300 MG le} 300 MG Hydroxychlo Hydroxychlo No Hydroxychl roquine roquine oroquine Sulfate Sulfate Sulfate predniSONE predniSONE No QD predniSONE 10 MG 10 MG 10 MG Dexilant 60 Dexilant 60 No 1{capsu QD Dexilant MG MG le} 60 MG Levothyroxi Levothyroxi No Levothyrox ne Sodium ne Sodium ine Sodium 200 MCG 200 MCG 200 MCG QUEtiapine QUEtiapine No 2{table QD QUEtiapine Fumarate Fumarate ts_at_b Fumarate 300 MG 300 MG edtime} 300 MG Bactroban 2 Bactroban 2 No 1{appli BID Bactroban % % cation_ 2 % to_affe cted_ar ea} busPIRone busPIRone No busPIRone HCl 5 MG HCl 5 MG HCl 5 MG Liothyronin Liothyronin No Liothyroni e Sodium 25 e Sodium 25 ne Sodium MCG MCG 25 MCG Baby Baby No Baby Aspirin Aspirin Aspirin Levothyroxi Levothyroxi No Levothyrox ne Sodium ne Sodium ine Sodium 175 MCG 175 MCG 175 MCG Diclofenac Diclofenac No Diclofenac Sodium Sodium Sodium amLODIPine amLODIPine No amLODIPine Besylate 10 Besylate 10 Besylate MG MG 10 MG Doxycycline Doxycycline No 1{capsu BID Doxycyclin Hyclate 100 Hyclate 100 le} e Hyclate MG MG 100 MG Baclofen 10 Baclofen 10 No BID Baclofen MG MG 10 MG methylPREDN methylPREDN No methylPRED ISolone ISolone NISolone Topiramate Topiramate No Topiramate 100 MG 100 MG 100 MG amLODIPine amLODIPine No amLODIPine Besylate 5 Besylate 5 Besylate 5 MG MG MG HYDROcodone HYDROcodone No HYDROcodon -Acetaminop -Acetaminop e-Acetamin hen hen ophen traMADol traMADol No traMADol HCl HCl HCl Citalopram Citalopram No Citalopram Hydrobromid Hydrobromid Hydrobromi e 40 MG e 40 MG de 40 MG Bystolic 10 Bystolic 10 No 1{table QD Bystolic MG MG t} 10 MG Nebivolol Nebivolol No Nebivolol HCl 10 MG HCl 10 MG HCl 10 MG amLODIPine amLODIPine No 1{table amLODIPine Besylate 10 Besylate 10 t} Besylate MG MG 10 MG Citalopram Citalopram No 1{table QD Citalopram Hydrobromid Hydrobromid t} Hydrobromi e 40 MG e 40 MG de 40 MG Liothyronin Liothyronin No 1{table QD Liothyroni e Sodium 25 e Sodium 25 t_on_an ne Sodium MCG MCG _empty_ 25 MCG stomach } Gabapentin Gabapentin No 1{capsu QD Gabapentin 300 MG 300 MG le} 300 MG Triamcinolo Triamcinolo No 1{appli BID Triamcinol ne ne cation_ one Acetonide Acetonide to_affe Acetonide 0.1 % 0.1 % cted_ar 0.1 % ea} Liothyronin Liothyronin No Liothyroni e Sodium 25 e Sodium 25 ne Sodium MCG MCG 25 MCG amLODIPine amLODIPine No amLODIPine Besylate 5 Besylate 5 Besylate 5 MG MG MG Topiramate Topiramate No Topiramate 100 MG 100 MG 100 MG QUEtiapine QUEtiapine No 2{table QD QUEtiapine Fumarate Fumarate ts_at_b Fumarate 300 MG 300 MG edtime} 300 MG Azithromyci Azithromyci No QD Azithromyc n 250 MG n 250 MG in 250 MG busPIRone busPIRone No busPIRone HCl 5 MG HCl 5 MG HCl 5 MG Liothyronin Liothyronin No 1{table QD Liothyroni e Sodium 25 e Sodium 25 t_on_an ne Sodium MCG MCG _empty_ 25 MCG stomach } Doxycycline Doxycycline No 1{capsu BID Doxycyclin Hyclate 100 Hyclate 100 le} e Hyclate MG MG 100 MG Citalopram Citalopram No 1{table QD Citalopram Hydrobromid Hydrobromid t} Hydrobromi e 40 MG e 40 MG de 40 MG Levothyroxi Levothyroxi No QD Levothyrox ne Sodium ne Sodium ine Sodium 200 MCG 200 MCG 200 MCG Baclofen 10 Baclofen 10 No BID Baclofen MG MG 10 MG Levothyroxi Levothyroxi No Levothyrox ne Sodium ne Sodium ine Sodium 200 MCG 200 MCG 200 MCG methylPREDN methylPREDN No methylPRED ISolone ISolone NISolone Diclofenac Diclofenac No Diclofenac Sodium Sodium Sodium Bactroban 2 Bactroban 2 No 1{appli BID Bactroban % % cation_ 2 % to_affe cted_ar ea} Nebivolol Nebivolol No Nebivolol HCl 10 MG HCl 10 MG HCl 10 MG HYDROcodone HYDROcodone No HYDROcodon -Acetaminop -Acetaminop e-Acetamin hen hen ophen Omeprazole Omeprazole No QD Omeprazole 40 MG 40 MG 40 MG Hydroxychlo Hydroxychlo No Hydroxychl roquine roquine oroquine Sulfate Sulfate Sulfate Bystolic 10 Bystolic 10 No 1{table QD Bystolic MG MG t} 10 MG predniSONE predniSONE No QD predniSONE 10 MG 10 MG 10 MG amLODIPine amLODIPine No 1{table amLODIPine Besylate 10 Besylate 10 t} Besylate MG MG 10 MG Baby Baby No Baby Aspirin Aspirin Aspirin amLODIPine amLODIPine No amLODIPine Besylate 10 Besylate 10 Besylate MG MG 10 MG traMADol traMADol No traMADol HCl HCl HCl Citalopram Citalopram No Citalopram Hydrobromid Hydrobromid Hydrobromi e 40 MG e 40 MG de 40 MG Levothyroxi Levothyroxi No Levothyrox ne Sodium ne Sodium ine Sodium 175 MCG 175 MCG 175 MCG Gabapentin Gabapentin No 1{capsu QD Gabapentin 300 MG 300 MG le} 300 MG Triamcinolo Triamcinolo No 1{appli BID Triamcinol ne ne cation_ one Acetonide Acetonide to_affe Acetonide 0.1 % 0.1 % cted_ar 0.1 % ea} Liothyronin Liothyronin No Liothyroni e Sodium 25 e Sodium 25 ne Sodium MCG MCG 25 MCG amLODIPine amLODIPine No amLODIPine Besylate 5 Besylate 5 Besylate 5 MG MG MG Topiramate Topiramate No Topiramate 100 MG 100 MG 100 MG QUEtiapine QUEtiapine No 2{table QD QUEtiapine Fumarate Fumarate ts_at_b Fumarate 300 MG 300 MG edtime} 300 MG Azithromyci Azithromyci No QD Azithromyc n 250 MG n 250 MG in 250 MG busPIRone busPIRone No busPIRone HCl 5 MG HCl 5 MG HCl 5 MG Liothyronin Liothyronin No 1{table QD Liothyroni e Sodium 25 e Sodium 25 t_on_an ne Sodium MCG MCG _empty_ 25 MCG stomach } Doxycycline Doxycycline No 1{capsu BID Doxycyclin Hyclate 100 Hyclate 100 le} e Hyclate MG MG 100 MG Citalopram Citalopram No 1{table QD Citalopram Hydrobromid Hydrobromid t} Hydrobromi e 40 MG e 40 MG de 40 MG Levothyroxi Levothyroxi No QD Levothyrox ne Sodium ne Sodium ine Sodium 200 MCG 200 MCG 200 MCG Baclofen 10 Baclofen 10 No BID Baclofen MG MG 10 MG Levothyroxi Levothyroxi No Levothyrox ne Sodium ne Sodium ine Sodium 200 MCG 200 MCG 200 MCG methylPREDN methylPREDN No methylPRED ISolone ISolone NISolone Diclofenac Diclofenac No Diclofenac Sodium Sodium Sodium Bactroban 2 Bactroban 2 No 1{appli BID Bactroban % % cation_ 2 % to_affe cted_ar ea} Nebivolol Nebivolol No Nebivolol HCl 10 MG HCl 10 MG HCl 10 MG HYDROcodone HYDROcodone No HYDROcodon -Acetaminop -Acetaminop e-Acetamin hen hen ophen Omeprazole Omeprazole No QD Omeprazole 40 MG 40 MG 40 MG Hydroxychlo Hydroxychlo No Hydroxychl roquine roquine oroquine Sulfate Sulfate Sulfate Bystolic 10 Bystolic 10 No 1{table QD Bystolic MG MG t} 10 MG predniSONE predniSONE No QD predniSONE 10 MG 10 MG 10 MG amLODIPine amLODIPine No 1{table amLODIPine Besylate 10 Besylate 10 t} Besylate MG MG 10 MG Baby Baby No Baby Aspirin Aspirin Aspirin amLODIPine amLODIPine No amLODIPine Besylate 10 Besylate 10 Besylate MG MG 10 MG traMADol traMADol No traMADol HCl HCl HCl Citalopram Citalopram No Citalopram Hydrobromid Hydrobromid Hydrobromi e 40 MG e 40 MG de 40 MG Levothyroxi Levothyroxi No Levothyrox ne Sodium ne Sodium ine Sodium 175 MCG 175 MCG 175 MCG Topiramate Topiramate No Topiramate 100 MG 100 MG 100 MG QUEtiapine QUEtiapine No 2{table QD QUEtiapine Fumarate Fumarate ts_at_b Fumarate 300 MG 300 MG edtime} 300 MG Azithromyci Azithromyci No QD Azithromyc n 250 MG n 250 MG in 250 MG busPIRone busPIRone No busPIRone HCl 5 MG HCl 5 MG HCl 5 MG Omeprazole Omeprazole No QD Omeprazole 40 MG 40 MG 40 MG Liothyronin Liothyronin No 1{table QD Liothyroni e Sodium 25 e Sodium 25 t_on_an ne Sodium MCG MCG _empty_ 25 MCG stomach } Doxycycline Doxycycline No 1{capsu BID Doxycyclin Hyclate 100 Hyclate 100 le} e Hyclate MG MG 100 MG Citalopram Citalopram No 1{table QD Citalopram Hydrobromid Hydrobromid t} Hydrobromi e 40 MG e 40 MG de 40 MG Levothyroxi Levothyroxi No Levothyrox ne Sodium ne Sodium ine Sodium 200 MCG 200 MCG 200 MCG Bactroban 2 Bactroban 2 No 1{appli BID Bactroban % % cation_ 2 % to_affe cted_ar ea} Bystolic 10 Bystolic 10 No 1{table QD Bystolic MG MG t} 10 MG Diclofenac Diclofenac No Diclofenac Sodium Sodium Sodium HYDROcodone HYDROcodone No HYDROcodon -Acetaminop -Acetaminop e-Acetamin hen hen ophen predniSONE predniSONE No QD predniSONE 10 MG 10 MG 10 MG Liothyronin Liothyronin No Liothyroni e Sodium 25 e Sodium 25 ne Sodium MCG MCG 25 MCG amLODIPine amLODIPine No amLODIPine Besylate 5 Besylate 5 Besylate 5 MG MG MG amLODIPine amLODIPine No amLODIPine Besylate 10 Besylate 10 Besylate MG MG 10 MG Hydroxychlo Hydroxychlo No Hydroxychl roquine roquine oroquine Sulfate Sulfate Sulfate Triamcinolo Triamcinolo No 1{appli BID Triamcinol ne ne cation_ one Acetonide Acetonide to_affe Acetonide 0.1 % 0.1 % cted_ar 0.1 % ea} Nebivolol Nebivolol No Nebivolol HCl 10 MG HCl 10 MG HCl 10 MG Gabapentin Gabapentin No 1{capsu QD Gabapentin 300 MG 300 MG le} 300 MG Baclofen 10 Baclofen 10 No BID Baclofen MG MG 10 MG methylPREDN methylPREDN No methylPRED ISolone ISolone NISolone traMADol traMADol No traMADol HCl HCl HCl Baby Baby No Baby Aspirin Aspirin Aspirin Citalopram Citalopram No Citalopram Hydrobromid Hydrobromid Hydrobromi e 40 MG e 40 MG de 40 MG Levothyroxi Levothyroxi No Levothyrox ne Sodium ne Sodium ine Sodium 175 MCG 175 MCG 175 MCG Topiramate Topiramate No Topiramate 100 MG 100 MG 100 MG QUEtiapine QUEtiapine No 2{table QD QUEtiapine Fumarate Fumarate ts_at_b Fumarate 300 MG 300 MG edtime} 300 MG Azithromyci Azithromyci No QD Azithromyc n 250 MG n 250 MG in 250 MG busPIRone busPIRone No busPIRone HCl 5 MG HCl 5 MG HCl 5 MG Omeprazole Omeprazole No QD Omeprazole 40 MG 40 MG 40 MG Liothyronin Liothyronin No 1{table QD Liothyroni e Sodium 25 e Sodium 25 t_on_an ne Sodium MCG MCG _empty_ 25 MCG stomach } Doxycycline Doxycycline No 1{capsu BID Doxycyclin Hyclate 100 Hyclate 100 le} e Hyclate MG MG 100 MG Citalopram Citalopram No 1{table QD Citalopram Hydrobromid Hydrobromid t} Hydrobromi e 40 MG e 40 MG de 40 MG Levothyroxi Levothyroxi No Levothyrox ne Sodium ne Sodium ine Sodium 200 MCG 200 MCG 200 MCG Bactroban 2 Bactroban 2 No 1{appli BID Bactroban % % cation_ 2 % to_affe cted_ar ea} Bystolic 10 Bystolic 10 No 1{table QD Bystolic MG MG t} 10 MG Diclofenac Diclofenac No Diclofenac Sodium Sodium Sodium HYDROcodone HYDROcodone No HYDROcodon -Acetaminop -Acetaminop e-Acetamin hen hen ophen predniSONE predniSONE No QD predniSONE 10 MG 10 MG 10 MG Liothyronin Liothyronin No Liothyroni e Sodium 25 e Sodium 25 ne Sodium MCG MCG 25 MCG amLODIPine amLODIPine No amLODIPine Besylate 5 Besylate 5 Besylate 5 MG MG MG amLODIPine amLODIPine No amLODIPine Besylate 10 Besylate 10 Besylate MG MG 10 MG Hydroxychlo Hydroxychlo No Hydroxychl roquine roquine oroquine Sulfate Sulfate Sulfate Triamcinolo Triamcinolo No 1{appli BID Triamcinol ne ne cation_ one Acetonide Acetonide to_affe Acetonide 0.1 % 0.1 % cted_ar 0.1 % ea} Nebivolol Nebivolol No Nebivolol HCl 10 MG HCl 10 MG HCl 10 MG Gabapentin Gabapentin No 1{capsu QD Gabapentin 300 MG 300 MG le} 300 MG Baclofen 10 Baclofen 10 No BID Baclofen MG MG 10 MG methylPREDN methylPREDN No methylPRED ISolone ISolone NISolone traMADol traMADol No traMADol HCl HCl HCl Baby Baby No Baby Aspirin Aspirin Aspirin Citalopram Citalopram No Citalopram Hydrobromid Hydrobromid Hydrobromi e 40 MG e 40 MG de 40 MG Levothyroxi Levothyroxi No Levothyrox ne Sodium ne Sodium ine Sodium 175 MCG 175 MCG 175 MCG Topiramate Topiramate No Topiramate 100 MG 100 MG 100 MG QUEtiapine QUEtiapine No 2{table QD QUEtiapine Fumarate Fumarate ts_at_b Fumarate 300 MG 300 MG edtime} 300 MG Azithromyci Azithromyci No QD Azithromyc n 250 MG n 250 MG in 250 MG busPIRone busPIRone No busPIRone HCl 5 MG HCl 5 MG HCl 5 MG Omeprazole Omeprazole No QD Omeprazole 40 MG 40 MG 40 MG Liothyronin Liothyronin No 1{table QD Liothyroni e Sodium 25 e Sodium 25 t_on_an ne Sodium MCG MCG _empty_ 25 MCG stomach } Doxycycline Doxycycline No 1{capsu BID Doxycyclin Hyclate 100 Hyclate 100 le} e Hyclate MG MG 100 MG Citalopram Citalopram No 1{table QD Citalopram Hydrobromid Hydrobromid t} Hydrobromi e 40 MG e 40 MG de 40 MG Levothyroxi Levothyroxi No Levothyrox ne Sodium ne Sodium ine Sodium 200 MCG 200 MCG 200 MCG Bactroban 2 Bactroban 2 No 1{appli BID Bactroban % % cation_ 2 % to_affe cted_ar ea} Bystolic 10 Bystolic 10 No 1{table QD Bystolic MG MG t} 10 MG Diclofenac Diclofenac No Diclofenac Sodium Sodium Sodium HYDROcodone HYDROcodone No HYDROcodon -Acetaminop -Acetaminop e-Acetamin hen hen ophen predniSONE predniSONE No QD predniSONE 10 MG 10 MG 10 MG Liothyronin Liothyronin No Liothyroni e Sodium 25 e Sodium 25 ne Sodium MCG MCG 25 MCG amLODIPine amLODIPine No amLODIPine Besylate 5 Besylate 5 Besylate 5 MG MG MG amLODIPine amLODIPine No amLODIPine Besylate 10 Besylate 10 Besylate MG MG 10 MG Hydroxychlo Hydroxychlo No Hydroxychl roquine roquine oroquine Sulfate Sulfate Sulfate Triamcinolo Triamcinolo No 1{appli BID Triamcinol ne ne cation_ one Acetonide Acetonide to_affe Acetonide 0.1 % 0.1 % cted_ar 0.1 % ea} Nebivolol Nebivolol No Nebivolol HCl 10 MG HCl 10 MG HCl 10 MG Gabapentin Gabapentin No 1{capsu QD Gabapentin 300 MG 300 MG le} 300 MG Baclofen 10 Baclofen 10 No BID Baclofen MG MG 10 MG methylPREDN methylPREDN No methylPRED ISolone ISolone NISolone traMADol traMADol No traMADol HCl HCl HCl Baby Baby No Baby Aspirin Aspirin Aspirin Citalopram Citalopram No Citalopram Hydrobromid Hydrobromid Hydrobromi e 40 MG e 40 MG de 40 MG Levothyroxi Levothyroxi No Levothyrox ne Sodium ne Sodium ine Sodium 175 MCG 175 MCG 175 MCG Azithromyci Azithromyci No QD Azithromyc n 250 MG n 250 MG in 250 MG busPIRone busPIRone No busPIRone HCl 5 MG HCl 5 MG HCl 5 MG Gabapentin Gabapentin No 1{capsu QD Gabapentin 300 MG 300 MG le} 300 MG Triamcinolo Triamcinolo No 1{appli BID Triamcinol ne ne cation_ one Acetonide Acetonide to_affe Acetonide 0.1 % 0.1 % cted_ar 0.1 % ea} Doxycycline Doxycycline No 1{capsu BID Doxycyclin Hyclate 100 Hyclate 100 le} e Hyclate MG MG 100 MG Liothyronin Liothyronin No 1{table QD Liothyroni e Sodium 25 e Sodium 25 t_on_an ne Sodium MCG MCG _empty_ 25 MCG stomach } Topiramate Topiramate No Topiramate 100 MG 100 MG 100 MG Citalopram Citalopram No 1{table QD Citalopram Hydrobromid Hydrobromid t} Hydrobromi e 40 MG e 40 MG de 40 MG Nebivolol Nebivolol No Nebivolol HCl 10 MG HCl 10 MG HCl 10 MG Omeprazole Omeprazole No QD Omeprazole 40 MG 40 MG 40 MG Bystolic 10 Bystolic 10 No 1{table QD Bystolic MG MG t} 10 MG QUEtiapine QUEtiapine No QUEtiapine Fumarate Fumarate Fumarate 300 MG 300 MG 300 MG Diclofenac Diclofenac No Diclofenac Sodium Sodium Sodium predniSONE predniSONE No QD predniSONE 10 MG 10 MG 10 MG Hydroxychlo Hydroxychlo No Hydroxychl roquine roquine oroquine Sulfate Sulfate Sulfate Baclofen 10 Baclofen 10 No BID Baclofen MG MG 10 MG Levothyroxi Levothyroxi No Levothyrox ne Sodium ne Sodium ine Sodium 200 MCG 200 MCG 200 MCG Bactroban 2 Bactroban 2 No 1{appli BID Bactroban % % cation_ 2 % to_affe cted_ar ea} amLODIPine amLODIPine No amLODIPine Besylate 5 Besylate 5 Besylate 5 MG MG MG amLODIPine amLODIPine No amLODIPine Besylate 10 Besylate 10 Besylate MG MG 10 MG Liothyronin Liothyronin No Liothyroni e Sodium 25 e Sodium 25 ne Sodium MCG MCG 25 MCG HYDROcodone HYDROcodone No HYDROcodon -Acetaminop -Acetaminop e-Acetamin hen hen ophen methylPREDN methylPREDN No methylPRED ISolone ISolone NISolone traMADol traMADol No traMADol HCl HCl HCl Baby Baby No Baby Aspirin Aspirin Aspirin Citalopram Citalopram No Citalopram Hydrobromid Hydrobromid Hydrobromi e 40 MG e 40 MG de 40 MG Levothyroxi Levothyroxi No Levothyrox ne Sodium ne Sodium ine Sodium 175 MCG 175 MCG 175 MCG Azithromyci Azithromyci No QD Azithromyc n 250 MG n 250 MG in 250 MG busPIRone busPIRone No busPIRone HCl 5 MG HCl 5 MG HCl 5 MG Gabapentin Gabapentin No 1{capsu QD Gabapentin 300 MG 300 MG le} 300 MG Triamcinolo Triamcinolo No 1{appli BID Triamcinol ne ne cation_ one Acetonide Acetonide to_affe Acetonide 0.1 % 0.1 % cted_ar 0.1 % ea} Doxycycline Doxycycline No 1{capsu BID Doxycyclin Hyclate 100 Hyclate 100 le} e Hyclate MG MG 100 MG Liothyronin Liothyronin No 1{table QD Liothyroni e Sodium 25 e Sodium 25 t_on_an ne Sodium MCG MCG _empty_ 25 MCG stomach } Topiramate Topiramate No Topiramate 100 MG 100 MG 100 MG Citalopram Citalopram No 1{table QD Citalopram Hydrobromid Hydrobromid t} Hydrobromi e 40 MG e 40 MG de 40 MG Nebivolol Nebivolol No Nebivolol HCl 10 MG HCl 10 MG HCl 10 MG Omeprazole Omeprazole No QD Omeprazole 40 MG 40 MG 40 MG Bystolic 10 Bystolic 10 No 1{table QD Bystolic MG MG t} 10 MG QUEtiapine QUEtiapine No QUEtiapine Fumarate Fumarate Fumarate 300 MG 300 MG 300 MG Diclofenac Diclofenac No Diclofenac Sodium Sodium Sodium predniSONE predniSONE No QD predniSONE 10 MG 10 MG 10 MG Immunizations Ordered Filled Immunization Date Status Comments Sourc e Immunization Name Name Bupivicaine Bartlett Bupivicaine Bartlett 2020-[facility]-12 [facility] Bupivicaine Bartlett Bupivicaine Bartlett 2020-12-12 [facility] Bupivicaine Bartlett Bupivicaine Bartlett 2020-12-12 [facility]00 [facility] Bupivicaine Bartlett Bupivicaine Bartlett 2020-12-12 [facility]00 [facility] Bupivicaine Bartlett Bupivicaine Bartlett 2020-12-12 [facility]00 [facility] Kenjacob Green 2020-12-12 [facility] (Triamcinol[facility] (Triamcinolone) 08:36:00 [facility] Norma Green 2020-12-12 [facility] (Triam[facility]one[facility] (Triamcinolone) 08:36:00 [facility] Norma Green 2020-12-12 [facility]pleted [facility] (Triamcin[facility] (Triamcinolone) 08:36:00 [facility] Norma Olveraalog 2020-12-12 Completed [facility] (Triamcin[facility] (Triamcinolone) 08:36:00 [facility] Kenjacob Kenalog 2020-12-12 [facility] (Triamcinolone[facility] (Triamcinolone) 08:36:00 [facility] Hyalgan 20 mg Hyalgan 20 mg 2020-10-24 [facility] Hyalgan 20 mg Hyalgan 20 mg 2020-10-24 [facility] Hyalgan 20 mg Hyalgan 20 mg 2020-10-24 [facility] Hyalgan 20 mg Hyalgan 20 mg 2020-10-24 [facility] Hyalgan 20 mg Hyalgan 20 mg 2020-10-24 [facility]00 [facility] Hyalgan 20 mg Hyalgan 20 mg 2020-10-17 [facility]00 [facility] Hyalgan 20 mg Hyalgan 20 mg 2020-10-17 [facility]00 [facility] Hyalgan 20 mg Hyalgan 20 mg 2020-10-17 [facility]00 [facility] Hyalgan 20 mg Hyalgan 20 mg 2020-10-17 [facility]00 [facility] Hyalgan 20 mg Hyalgan 20 mg 2020-10-17 [facility]00 [facility] SARS-COV-2 COVID-19 2020-10-15 Completed [facility] PFIZER VACCINE 00:00:00 [facility] [place] 20 mg [place] 20 mg 2020-10-10 Completed [facility] - 09:36:00 [facility] [place] 20 mg [place] 20 mg 2020-10-10 Completed [facility] - 09:36:00 [facility] [place] 20 mg [place] 20 mg 2020-10-10 Completed [facility] - 09:36:00 [facility] [place] 20 mg [place] 20 mg 2020-10-10 Completed [facility] - 09:36:00 [facility] [place] 20 mg [place] 20 mg 2020-10-10 Completed [facility] - 09:36:00 [facility] SARS-COV-2 COVID-19 2020-09-24 Completed [facility] PFIZER VACCINE 00:00:00 [facility] Bupivicaine Bartlett Bupivicaine Bartlett 2020-09-02 [facility] [facility] Bupivicaine Bartlett 2020-09-02 [facility]00 [facility] Bupivicaine Bartlett Bupivicaine Bartlett 2020-09-02 Completed [facility] 10:42:00 [facility] Bupivicaine Bartlett Bupivicaine Bartlett 2020-09-02 Completed [facility] 10:42:00 [facility] Bupivicaine Bartlett Bupivicaine Bartlett 2020-09-02 Completed [facility] 10:42:00 [facility] Kenjacob Green 2020-09-02 Completed [facility] - (Triamcinolone) (Triamcinolone) 10:41:00 [facility] Norma Green 2020-09-02 Completed [facility] (Triamcinolone) (Triamcinolone) 10:41:00 [facility] Norma Green 2020-09-02 Completed [facility] (Triamcinolone) (Triamcinolone) 10:41:00 [facility] Norma Green 2020-09-02 [facility]pleted [facility] (Triamcinolone) (Triamcinolone) 10:41:00 [facility] Norma Green 2020-09-02 Completed [facility] (Triamcinolone) (Triamcinolone) 10:41:00 [facility] Afluria Afluria 2020-05-04 [facility]pleted [facility] 10[facility]08:00 [facility] Afluria Afluria 2020-05-04 Completed [facility] 10:08:00 [facility] Afluria Afluria 2020-05-04 Completed [facility] 10:08:00 [facility] Afluria Afluria 2020-05-04 [facility]pleted [facility] 10:08:00 [facility] Afluria Afluria 2020-05-04 [facility]pleted [facility] 10:08:00 [facility] Afluria Afluria 2020-05-04 [facility]pleted [facility] 10:08:00 [facility] Afluria Afluria 2020-05-04 [facility]pleted [facility] 10:08:00 [facility] Afluria Afluria 2020-05-04 [facility]pleted [facility] 10:08:00 [facility] Afluria Afluria 2020-05-04 [facility]pleted [facility] 10:08:00 [facility] Afluria Afluria 2020-05-04 [facility]pleted [facility] 10:08:00 [facility] Afluria Afluria 2020-05-04 [facility]pleted [facility] 10:08:00 [facility] Afluria Afluria 2020-05-04 [facility]pleted [facility] 10:08:00 [facility] Afluria Afluria 2020-05-04 [facility]pleted [facility] 10:08:00 [facility] Afluria Afluria 2020-05-04 [facility]pleted [facility] 10:08:00 [facility] Afluria Afluria 2020-05-04 [facility]pleted [facility] 10:08:00 [facility] Afluria Afluria 2020-05-04 [facility]pleted [facility] 10:08:00 [facility] Afluria Afluria 2020-05-04 [facility]pleted [facility] 10:08:00 [facility] Afluria Afluria 2020-05-04 [facility]pleted [facility] 10:08:00 [facility] Afluria Afluria 2020-05-04 [facility] 10:08:00 [facility] Afluria Afluria 2020-05-04 [facility]pleted [facility] 10:08:00 [facility] Afluria Afluria 2020-05-04 [facility]pleted [facility] 10:08:00 [facility] Afluria Afluria 2020-05-04 [facility]pleted [facility] 10:08:00 [facility] Afluria Afluria 2020-05-04 [facility]pleted [facility] 10:08:00 [facility] Afluria Afluria 2020-05-04 [facility]pleted [facility] 10:08:00 [facility] Afluria Afluria 2020-05-04 [facility]pleted [facility] 10:08:00 [facility] Afluria Afluria 2020-05-04 [facility]pleted [facility] 10:08:00 [facility] Afluria Afluria 2020-05-04 [facility]pleted [facility] 10:08:00 [facility] Afluria Afluria 2020-05-04 [facility]pleted [facility] 10:08:00 [facility] Afluria Afluria 2020-05-04 [facility] 10:08: [facility] Afluria Afluria 2020-05-04 [facility]pleted [facility] - 10:08: [facility] Afluria Afluria 2020-05-04 Completed [facility] - 10:08: [facility] Afluria Afluria 2020-05-04 Completed [facility] 10:08: [facility] Afluria Afluria 2020-05-04 [facility]pleted [facility] - 10:08: [facility] Afluria Afluria 2020-05-04 [facility]pleted [facility] 10:08: [facility] Hyalgan 20 mg Hyalgan 20 mg 2020-03-23 [facility]00 [facility] Hyalgan 20 mg Hyalgan 20 mg 2020-03-23 [facility]00 [facility] Hyalgan 20 mg Hyalgan 20 mg 2020-03-23 [facility] 08:[facility]00 [facility] Hyalgan 20 mg Hyalgan 20 mg 2020-03-23 [facility] 08:[facility]00 [facility] Hyalgan 20 mg Hyalgan 20 mg 2020-03-23 [facility] 08:21[facility]00 [facility] Hyalgan 20 mg Hyalgan 20 mg 2020-03-14 [facility] 08:40[facility]00 [facility] Hyalgan 20 mg Hyalgan 20 mg 2020-03-14 [facility] 08:[facility]00 [facility] Hyalgan 20 mg Hyalgan 20 mg 2020-03-14 [facility] 08:[facility]00 [facility] [place] 20 mg Hyalgan 20 mg 2020-03-14 [facility] 08:[facility]00 [facility] [place] 20 mg Hyalgan 20 mg 2020-03-14 [facility]00 [facility] Bupivicaine Bartlett Bupivicaine Bartlett 2020-03-07 Completed [facility] - 09:22:00 [facility] Kenalog Kenalog 2020-03-07 Completed [facility] (Triamcinolone) (Triamcinolone) 09:22:00 [facility] Bupivicaine Bartlett Bupivicaine Bartlett 2020-03-07 Completed [facility] - 09:22:00 [facility] Kenalog Kenalog 2020-03-07 Completed [facility] (Triamcinolone) (Triamcinolone) 09:22:00 [facility] Bupivicaine Bartlett Bupivicaine Bartlett 2020-03-07 Completed [facility] - 09:22:00 [facility] Kenalog Kenalog 2020-03-07 Completed [facility] - (Triamcinolone) (Triamcinolone) 09:22:00 [facility] Bupivicaine Bartlett Bupivicaine Bartlett 2020-03-07 Completed [facility] - 09:22:00 [facility] Kenalog Kenalog 2020-03-07 Completed [facility] (Triamcinolone) (Triamcinolone) 09:22:00 [facility] Bupivicaine Bartlett Bupivicaine Bartlett 2020-03-07 Completed [facility] - 09:22: [facility] Kenalog Kenalog 2020-03-07 Completed [facility] (Triamcinolone) (Triamcinolone) 09:22:00 [facility] Hyalgan 20 mg Hyalgan 20 mg 2020-03-07 [facility] 09:[facility]00 [facility] [place]al[place] 20 mg Hyalgan 20 mg 2020-03-07 [facility] 09:21[facility]00 [facility] [place] 20 mg Hyalgan 20 mg 2020-03-07 [facility] 09:21:00 [facility] [place] 20 mg Hyalgan 20 mg 2020-03-07 [facility] 09:21[facility]00 [facility] [place] 20 mg Hyalgan 20 mg 2020-03-07 [facility] 09:21:00 [facility] Kenalog Kenalog 2019-08-11 Completed [facility] (Triamcinolone) (Triamcinolone) 10:42:00 [facility] Kenalog Kenalog 2019-08-11 Completed [facility] (Triamcinolone) (Triamcinolone) 10:42:00 [facility] Kenalog Kenalog 2019-08-11 Completed [facility] (Triamcinolone) (Triamcinolone) 10:42:00 [facility] Kenalog Kenalog 2019-08-11 Completed [facility] (Triamcinolone) (Triamcinolone) 10:42:00 [facility] Kenalog Kenalog 2019-08-11 Completed [facility] (Triamcinolone) (Triamcinolone) 10:42:00 [facility] Fluzone Fluzone 2019-03-08 Completed [facility] - 15:07:00 [facility] Fluzone Fluzone 2019-03-08 Completed [facility] - 15:07:00 [facility] Fluzone Fluzone 2019-03-08 Completed [facility] - 15:07:00 [facility] Fluzone Fluzone 2019-03-08 Completed [facility] - 15:07:00 [facility] Fluzone Fluzone 2019-03-08 Completed [facility] - 15:07:00 [facility] Fluzone Fluzone 2019-03-08 Completed [facility] - 15:07:00 [facility] Fluzone Fluzone 2019-03-08 Completed [facility] - 15:07:00 [facility] Fluzone Fluzone 2019-03-08 Completed [facility] - 15:07:00 [facility] Fluzone Fluzone 2019-03-08 Completed [facility] - 15:07:00 [facility] Fluzone Fluzone 2019-03-08 Completed [facility] - 15:07:00 [facility] Fluzone Fluzone 2019-03-08 Completed [facility] - 15:07:00 [facility] Fluzone Fluzone 2019-03-08 Completed [facility] - 15:07:00 [facility] Fluzone Fluzone 2019-03-08 Completed [facility] - 15:07:00 [facility] Fluzone Fluzone 2019-03-08 Completed [facility] - 15:07:00 [facility] Fluzone Fluzone 2019-03-08 Completed [facility] - 15:07:00 [facility] Fluzone Fluzone 2019-03-08 Completed [facility] - 15:07:00 [facility] Fluzone Fluzone 2019-03-08 Completed [facility] - 15:07:00 [facility] Fluzone Fluzone 2019-03-08 Completed [facility] - 15:07:00 [facility] Fluzone Fluzone 2019-03-08 Completed [facility] - 15:07:00 [facility] Fluzone Fluzone 2019-03-08 Completed [facility] - 15:07:00 [facility] Fluzone Fluzone 2019-03-08 Completed [facility] - 15:07:00 [facility] Fluzone Fluzone 2019-03-08 Completed [facility] - 15:07:00 [facility] Fluzone Fluzone 2019-03-08 Completed [facility] - 15:07:00 [facility] Fluzone Fluzone 2019-03-08 Completed [facility] - 15:07:00 [facility] Fluzone Fluzone 2019-03-08 Completed [facility] - 15:07:00 [facility] Fluzone Fluzone 2019-03-08 Completed [facility] - 15:07:00 [facility] Fluzone Fluzone 2019-03-08 Completed [facility] - 15:07:00 [facility] Fluzone Fluzone 2019-03-08 Completed [facility] - 15:07:00 [facility] Fluzone Fluzone 2019-03-08 Completed [facility] - 15:07:00 [facility] Fluzone Fluzone 2019-03-08 Completed [facility] - 15:07:00 [facility] Fluzone Fluzone 2019-03-08 Completed [facility] - 15:07:00 [facility] Fluzone Fluzone 2019-03-08 Completed [facility] - 15:07:00 [facility] Fluzone Fluzone 2019-03-08 Completed [facility] - 15:07:00 [facility] Fluzone Fluzone 2019-03-08 Completed [facility] - 15:07:00 [facility] Depo Medrol (40mg) Depo Medrol (40mg) 2019-02-13 Completed [facility] - 10:44:00 [facility] Depo Medrol (40mg) Depo Medrol (40mg) 2019-02-13 Completed [facility] - 10:44:00 [facility] Depo Medrol (40mg) Depo Medrol (40mg) 2019-02-13 Completed [facility] - 10:44:00 [facility] Depo Medrol (40mg) Depo Medrol (40mg) 2019-02-13 Completed [facility] - 10:44:00 [facility] Depo Medrol (40mg) Depo Medrol (40mg) 2019-02-13 Completed [facility] - 10:44:00 [facility] Bupivicaine Bartlett Bupivicaine Bartlett 2019-02-13 Completed [facility] - 10:43:00 [facility] Bupivicaine Bartlett Bupivicaine Bartlett 2019-02-13 Completed [facility] - 10:43:00 [facility] Bupivicaine Bartlett Bupivicaine Bartlett 2019-02-13 Completed [facility] - 10:43:00 [facility] Bupivicaine Bartlett Bupivicaine Bartlett 2019-02-13 Completed [facility] - 10:43:00 [facility] Bupivicaine Bartlett Bupivicaine Bartlett 2019-02-13 Completed [facility] - 10:43:00 [facility] Depo Medrol (40mg) Depo Medrol (40mg) 2018-03-18 Completed [facility] - 09:14:00 [facility] Depo Medrol (40mg) Depo Medrol (40mg) 2018-03-18 Completed [facility] - 09:14:00 [facility] Depo Medrol (40mg) Depo Medrol (40mg) 2018-03-18 Completed [facility] - 09:14:00 [facility] Depo Medrol (40mg) Depo Medrol (40mg) 2018-03-18 Completed [facility] - 09:14:00 [facility] Depo Medrol (40mg) Depo Medrol (40mg) 2018-03-18 Completed [facility] - 09:14:00 [facility] Bupivicaine Bartlett Bupivicaine Bartlett 2018-03-18 Completed [facility] - 09:13:00 [facility] Bupivicaine Bartlett Bupivicaine Bartlett 2018-03-18 Completed [facility] - 09:13:00 [facility] Bupivicaine Bartlett Bupivicaine Bartlett 2018-03-18 Completed [facility] - 09:13:00 [facility] Bupivicaine Bartlett Bupivicaine Bartlett 2018-03-18 Completed [facility] - :13:00 [facility] Bupivicaine Bartlett Bupivicaine Bartlett 2018-03-18 Completed [facility] - 09:13:00 [facility] Vital Signs Vital Name Observation Time Observation Value Comments Source height 2022-05-25 13:40:00 68 [in_i] [facility] weight 2022-05-25 13:40:00 186 [lb_av] [facility] temperature 2022-05-25 13:40:00 97.5 [degF] [facility] bmi 2022-05-25 13:40:00 28.28 kg/m2 [facility] height 2022-05-22 08:30:00 68 [in_i] [facility] weight 2022-05-22 08:30:00 192.4 [lb_av] [facility] temperature 2022-05-22 08:30:00 98.2 [degF] [facility] bmi 2022-05-22 08:30:00 29.25 kg/m2 [facility] blood pressure 2022-05-22 08:30:00 134 mm[Hg] [facility] - systolic [facility] blood pressure 2022-05-22 08:30:00 78 mm[Hg] [facility] - diastolic [facility] height 2022-01-18 09:00:00 68 [in_i] [facility] weight 2022-01-18 09:00:00 184.8 [lb_av] [facility] temperature 2022-01-18 09:00:00 97.6 [degF] [facility] bmi 2022-01-18 09:00:00 28.1 kg/m2 [facility] height 2021-11-21 08:00:00 68 [in_i] [facility] weight 2021-11-21 08:00:00 184.6 [lb_av] Common [facility] temperature 2021-11-21 08:00:00 98.0 [degF] [facility] bmi 2021-11-21 08:00:00 28.07 kg/m2 [facility] blood pressure 2021-11-21 08:00:00 134 mm[Hg] Common [facility] - systolic [facility] blood pressure 2021-11-21 08:00:00 74 mm[Hg] [facility] diastolic [facility] height 2021-11-17 15:40:00 68 [in_i] [facility] weight 2021-11-17 15:40:00 185.4 [lb_av] [facility] temperature 2021-11-17 15:40:00 97.3 [degF] [facility] bmi 2021-11-17 15:40:00 28.19 kg/m2 [facility] oximetry 2021-11-17 15:40:00 98 % [facility] 2021-11-17 15:40:00 18 /min [facility] blood pressure 2021-11-17 15:40:00 132 mm[Hg] [facility] systolic [facility] blood pressure 2021-11-17 15:40:00 61 mm[Hg] [facility] - diastolic [facility] height 2021-09-06 09:00:00 68 [in_i] Common [facility] weight 2021-09-06 09:00:00 183 [lb_av] [facility] temperature 2021-09-06 09:00:00 97.8 [degF] [facility] bmi 2021-09-06 09:00:00 27.82 kg/m2 [facility] height 2021-08-28 08:30:00 68 [in_i] [facility] weight 2021-08-28 08:30:00 190 [lb_av] [facility] temperature 2021-08-28 08:30:00 98.0 [degF] [facility] bmi 2021-08-28 08:30:00 28.89 kg/m2 [facility] blood pressure 2021-08-28 08:30:00 126 mm[Hg] [facility] systolic [facility] blood pressure 2021-08-28 08:30:00 78 mm[Hg] [facility] diastolic [facility] height 2021-07-17 11:00:00 68 [in_i] [facility] weight 2021-07-17 11:00:00 190 [lb_av] [facility] temperature 2021-07-17 11:00:00 97.5 [degF] [facility] bmi 2021-07-17 11:00:00 28.89 kg/m2 [facility] blood pressure 2021-07-17 11:00:00 128 mm[Hg] [facility] - systolic [facility] blood pressure 2021-07-17 11:00:00 78 mm[Hg] [facility] - diastolic [facility] height 2021-06-21 10:30:00 68 [in_i] [facility] weight 2021-06-21 10:30:00 190 [lb_av] [facility] temperature 2021-06-21 10:30:00 97.4 [degF] [facility] bmi 2021-06-21 10:30:00 28.89 kg/m2 [facility] blood pressure 2021-06-21 10:30:00 132 mm[Hg] [facility] - systolic [facility] blood pressure 2021-06-21 10:30:00 86 mm[Hg] [facility] - diastolic [facility] height 2021-06-01 08:30:00 68 [in_i] [facility] weight 2021-06-01 08:30:00 190.5 [lb_av] [facility] temperature 2021-06-01 08:30:00 97.3 [degF] [facility] bmi 2021-06-01 08:30:00 28.96 kg/m2 [facility] Systolic blood 2020-01-22 15:34:00 160 mm[Hg] [facility] Diastolic blood 2020-01-22 15:34:00 62 mm[Hg] [facility] Heart rate 2020-01-22 15:34:00 67 /min [facility] Respiratory rate 2020-01-22 15:34:00 12 /min [facility] Oxygen saturation in 2020-01-22 15:34:00 96 /min [facility] Arterial blood by [facility] Pulse oximetry [facility] temperature 2020-01-22 14:37:00 36.5 [facility] 2020-01-21 16:45:00 172.7 cm [facility] Body weight 2020-01-21 16:45:00 95.255 kg [facility] BMI 2020-01-21 16:45:00 31.93 kg/m2 [facility] Systolic (mm Hg) 2022-03-22 16:30:00 Babatunde Ayala Diastolic (mm Hg) 2022-03-22 16:30:00 Akash Ayala Heart Rate 2022-03-22 16:30:00 Kalin Jamie Respitory Rate 2022-03-22 16:30:00 [facility] Height 2022-03-22 16:30:00 170.18 cm [facility] Weight 2022-03-22 16:30:00 [facility] BMI Calculated 2022-03-22 16:30:00 [facility] Weight 2021-08-10 15:01:00 [facility] BMI Calculated 2021-08-10 15:01:00 [facility] Systolic (mm Hg) 2021-08-10 15:01:00 Babatunde rial Jamie Diastolic (mm Hg) 2021-08-10 15:01:00 Mem [facility] Heart Rate 2021-08-10 15:01:00 [facility] Respitory Rate 2021-08-10 15:01:00 [facility] Height 2021-08-10 15:01:00 172.72 cm [facility] Systolic (mm Hg) 2021-05-09 15:20:00 Babatunde rial Jamie Diastolic (mm Hg) 2021-05-09 15:20:00 [facility] Heart Rate 2021-05-09 15:20:00 [facility] Respitory Rate 2021-05-09 15:20:00 [facility] Height 2021-05-09 15:20:00 172.72 cm [facility] Weight 2021-05-09 15:20:00 [facility] BMI Calculated 2021-05-09 15:20:00 [facility] Systolic (mm Hg) 2021-03-20 13:36:00 Babatunde rial [facility] Diastolic (mm Hg) 2021-03-20 13:36:00 [facility] Heart Rate 2021-03-20 13:36:00 [facility] Respitory Rate 2021-03-20 13:36:00 [facility] Height 2021-03-20 13:36:00 172.72 cm [facility] Weight 2021-03-20 13:36:00 [facility] BMI Calculated 2021-03-20 13:36:00 [facility] Systolic (mm Hg) 2021-02-03 18:54:00 Babatunde rial Jamie Diastolic (mm Hg) 2021-02-03 18:54:00 [facility] Heart Rate 2021-02-03 18:54:00 [facility] Respitory Rate 2021-02-03 18:54:00 [facility] Weight 2021-02-03 18:54:00 [facility] Systolic (mm Hg) 2020-09-05 15:53:00 Babatunde rial Jamie Diastolic (mm Hg) 2020-09-05 15:53:00 [facility] Heart Rate 2020-09-05 15:53:00 [facility] Height 2020-09-05 15:53:00 172.72 cm [facility] Weight 2020-09-05 15:53:00 [facility] BMI Calculated 2020-09-05 15:53:00 [facility] Systolic (mm Hg) 2020-02-18 14:24:00 Babatunde rial [facility] Diastolic (mm Hg) 2020-02-18 14:24:00 [facility] Heart Rate 2020-02-18 14:24:00 [facility] Respitory Rate 2020-02-18 14:24:00 [facility] Temperature Oral (F) 2020-02-18 14:24:00 98.6 F [facility] Height 2020-02-18 14:24:00 172.72 cm [facility] Weight 2020-02-18 14:24:00 [facility] BMI Calculated 2020-02-18 14:24:00 [facility] Systolic (mm Hg) 2019-06-17 15:37:00 Babatunde rial [facility] Diastolic (mm Hg) 2019-06-17 15:37:00 Mem o[facility] Heart Rate 2019-06-17 15:37:00 [facility] Respitory Rate 2019-06-17 15:37:00 [facility] Height 2019-06-17 15:37:00 172.72 cm [facility] Weight 2019-06-17 15:37:00 [facility] BMI Calculated 2019-06-17 15:37:00 [facility] BMI Calculated 2018-12-12 15:05:00 [facility] Weight 2018-12-12 15:05:00 [facility] Height 2018-12-12 15:05:00 172.72 cm [facility] Respitory Rate 2018-12-12 15:05:00 [facility] Heart Rate 2018-12-12 15:05:00 [facility] Systolic (mm Hg) 2018-12-12 15:05:00 Babatunde rial [facility] Diastolic (mm Hg) 2018-12-12 15:05:00 Mem o[facility] Jamie BMI Calculated 2018-08-07 22:41:00 [facility] Weight 2018-08-07 22:41:00 [facility] Height 2018-08-07 22:41:00 172.72 cm [facility] Systolic (mm Hg) 2018-08-07 22:41:00 Babatunde rial Jamie Diastolic (mm Hg) 2018-08-07 22:41:00 [facility] Heart Rate 2018-08-07 22:41:00 [facility] Respitory Rate 2018-08-07 22:41:00 [facility] Weight 2018-08-01 17:50:00 [facility] Height 2018-08-01 17:50:00 172.72 cm [facility] BMI Calculated 2018-08-01 17:50:00 [facility] Heart Rate 2018-08-01 17:50:00 [facility] Systolic (mm Hg) 2018-08-01 17:50:00 Babatunde rial Jamie Diastolic (mm Hg) 2018-08-01 17:50:00 Mem o[facility] Jamie Respitory Rate 2018-08-01 17:50:00 [facility]ori [facility] Procedures Procedure Date / Time Performing Clinician Source Performed REFERRAL- REQUEST/RESPONSE 2021-11-20 05:01:00 Doctor Unassigned , [facility] [place] BARIUM SWALLOW 2020-08-31 15:50:28 Pedro Chamorro [facility] ESOPHAGUS [facility] [place] TIME OR 2020-01-22 14:15:18 Guero Valdovinos [facility] (NON-REPORTABLE) [facility] CBC WITH DIFFERENTIAL 2020-01-22 12:27:00 Guero Valdovinos [facility] PROTHROMBIN TIME / INR 2020-01-22 12:27:[address] [facility] ACTIVATED PARTIAL THRMPLAS 2020-01-22 12:27:00 [facility] 2020-01-22 05:01:00 Doctor Unassigned, [facility] [facility] Name [facility] PATIENT FINANCIAL 2020-01-18 17:24:22 Doctor Unassigned, Un [facility] POLICY [facility] NO SHOW OR MISSED 2020-01-18 17:23:47 Doctor Unassigned, [facility] APPOINTMENT POLICY [facility] ACKNOWLEDGEMENT NOTICE OF PRIVACY 2020-01-18 17:23:25 Doctor Unassigned, [facility] PRACTICES [facility] CONSENT/REFUSAL FOR 2020-01-18 17:23:00 Doctor Moons[place]oy, [facility] DIAGNOSIS AND TREATMENT [facility] ASSIGNMENT OF BENEFITS 2020-01-18 17:22:39 Doctor Unassigned, Un [facility] Colectomy [facility] Plan of Care Planned Activity Planned Date Details Comments Source Future Scheduled 2022-07-18 COVID-19 VACCINE (#1) [facility] Test 23:49:55 [code = COVID-19 VACCINE (#1)] Future Scheduled 2022-07-18 Screening for [facility] Test 23:49:55 malignant neoplasm of cervix (procedure) [code = 570151459] Future Scheduled 2022-07-18 BREAST CANCER [facility] Test 23:49:55 SCREENING [code = BREAST CANCER SCREENING] Future Scheduled 2022-07-18 COLONOSCOPY SCREENING [facility] Test 23:49:55 [code = COLONOSCOPY SCREENING] Future Scheduled 2022-07-18 SHINGLES VACCINES (1 [facility] Test 23:49:55 of 2) [code = SHINGLES VACCINES (1 of 2)] Future Scheduled 2022-07-18 INFLUENZA VACCINE [facility] Test 23:49:55 [code = INFLUENZA VACCINE] Future Scheduled 2022-05-16 COVID-19 Vaccination [facility] Test 10:25:36 (#1) [code = COVID-19 [facility] Vaccination (#1)] Center Encounters Start End Encounter Admission Attending Care Care Encounter Source Date/Time Date/Time Type Type Clinicians Facility Department ID 2022-05-23 Outpatient Amy Pandey [facility] [id number] 2 Common 13:33:00 [facility] 2022-05-22 Outpatient Amy Pandey [facility] [id number] 2 Common 09:33:01 [facility] 2022-01-16 Outpatient Pandey, Na STLMLC STLMLC [id number] 2 Common 15:46:00 [facility] 2021-11-20 Outpatient Pandey, Na STLMLC STLMLC [id number] 2 Common 10:45:01 [facility] 2021-11-17 Outpatient Pandey, Na STLMLC STLMLC [id number] 2 Common 15:36:02 [facility] 2021-11-15 Outpatient Pandey, Na STLMLC STLMLC [id number] 2 Common 13:25:00 [facility] 2021-09-04 Outpatient Pandey, Na STLMLC STLMLC [id number] 2 Common 09:01:00 [facility] 2021-08-23 Outpatient Pandey, Na STLMLC STLMLC [id number] 2 Common 14:20:13 [id number] [facility] 2021-08-23 Outpatient Pandey, Na STLMLC STLMLC [id number] 2 Common 14:15:44 [id number] [facility] 2021-08-23 Outpatient Pandey, Na STLMLC STLMLC [id number] 2 Common 14:07:55 [id number] [facility] 2021-08-23 Outpatient Pandey, Na STLMLC STLMLC [id number] 2 Common 14:05:46 [id number] [facility] 2021-08-23 Outpatient Pandey, Na STLMLC STLMLC [id number] 2 Common 13:25:20 [id number] [facility] 2021-08-23 Outpatient Pandey, Na STLMLC STLMLC [id number] 2 Common 13:04:16 [id number] [facility] 2021-08-23 Outpatient Pandey, Na STLMLC STLMLC [id number] 2 Common 12:56:34 [id number] [facility] 2021-08-23 Outpatient Pandey, Na STLMLC STLMLC [id number] 2 Common 12:51:22 [id number] [facility] 2021-08-23 Outpatient Pandey, Na STLMLC STLMLC [id number] 2 Common 12:47:17 [id number] [facility] 2021-08-23 Outpatient Pandey, Na STLMLC STLMLC [id number] 2 Common 12:28:22 [id number] [facility] 2021-08-23 Outpatient Pandey, Na STLMLC STLMLC [id number] 2 Common 12:18:35 [id number] [facility] 2021-08-23 Outpatient Pandey, Na STLMLC STLMLC [id number] 2 Common 12:11:19 [id number] [facility] 2021-08-23 Outpatient Pandey, Na STLMLC STLMLC [id number] 2 Common 11:57:16 [id number] [facility] 2021-08-23 Outpatient Pandey, Na STLMLC STLMLC [id number] 2 Common 11:44:02 [id number] [facility] 2021-08-23 Outpatient Pandey, Na STLMLC STLMLC [id number] 2 Common 11:42:26 [id number] [facility] 2021-08-23 Outpatient Pandey, Na STLMLC STLMLC [id number] 2 Common 11:35:39 [id number] [facility] 2021-08-23 Outpatient Pandey, Na STLMLC STLMLC [id number] 2 Common 11:34:32 [id number] [facility] 2021-08-23 Outpatient Pandey, Na STLMLC STLMLC [id number] 2 Common 11:26:35 [id number] [facility] 2021-08-23 Outpatient Pandey, Na STLMLC STLMLC [id number] 2 Common 11:17:41 [id number] [facility] 2021-08-23 Outpatient Pandey, Na STLMLC STLMLC [id number] 2 Common 11:13:27 [id number] [facility] 2021-08-23 Outpatient Pandey, Na STLMLC STLMLC [id number] 2 Common 11:13:21 [id number] [facility] 2022-09-25 2022-09-25 Outpatient MHIE MHIE [id number] Memoria 09:00:00 09:00:00 26 l Jamie 2022-06-26 2022-06-26 (TEL) STLMLC STLMLC [id number] Co mmon 00:00:00 00:00:00 [facility] 2022-06-11 2022-06-11 (WEB) STLMLC STLMLC [id number] Co mmon 00:00:00 00:00:00 [facility] 2022-05-28 2022-05-28 (WEB) STLMLC STLMLC [id number] Co mmon 00:00:00 00:00:00 [facility] 2022-05-25 2022-05-25 OFFICE STLMLC STLMLC [id number] Co mmon 00:00:00 00:00:00 VISIT [facility] PT - CHI LEVEL 4 [facility] 2022-05-22 2022-05-22 OFFICE STLMLC STLMLC [id number] Co mmon 00:00:00 00:00:00 VISIT EST Sp[facility] PT LEVEL 3 - [facility] 2022-05-05 2022-05-05 (WEB) STLMLC STLMLC [id number] Co mmon 00:00:00 00:00:00 [facility] 2022-05-05 2022-05-05 (WEB) STLMLC STLMLC [id number] Co mmon 00:00:00 00:00:00 [facility] 2022-04-04 2022-04-04 (WEB) STLMLC STLMLC [id number] Co mmon 00:00:00 00:00:00 [facility] 2022-03-27 2022-03-27 (WEB) STLMLC STLMLC [id number] Co mmon 00:00:00 00:00:00 [facility] 2022-03-22 2022-03-23 Outpatient nullFlavo MNA [id number] Memoria 16:30:00 04:59:59 r Neurology 25 l Clinch Jamie 2022-03-22 2022-03-22 Outpatient Sylvester, MISCHER MISCHER [id number] 11:30:00 23:59:59 Richard Erickson 2022-03-22 2022-03-22 Outpatient MHIE MHIE [id number] [facility] 11:30:00 11:30:00 25 l Jamie 2022-03-17 2022-03-17 (WEB) STLMLC STLMLC [id number] Co mmon 00:00:00 00:00:00 [facility] 2022-02-01 2022-02-01 (WEB) STLMLC STLMLC [id number] Co mmon 00:00:00 00:00:00 [facility] 2022-01-18 2022-01-18 OFFICE STLMLC STLMLC [id number] Co mmon 00:00:00 00:00:00 VISIT [facility] PT - CHI LEVEL 4 [facility] 2021-12-12 2021-12-12 (WEB) STLMLC STLMLC [id number] Co mmon 00:00:00 00:00:00 [facility] 2021-11-21 2021-11-21 OFFICE STLMLC STLMLC [id number] Co mmon 00:00:00 00:00:00 VISIT EST Spir it PT LEVEL 3 [facility] 2021-11-20 2021-11-20 Orders Doctor BRYAN [id number] Univers 00:00:00 00:00:00 Only Unassigned, ANGIE [id number] ity of [place] [facility] [id number] Dong [place] [phone] [place] [address] Branch 2021-11-17 2021-11-17 OFFICE STLMLC STLMLC [id number] Co mmon 00:00:00 00:00:00 VISIT [facility] PT - CHI LEVEL 4 [facility] 2021-10-03 2021-10-03 (WEB) STLMLC STLMLC [id number] Co mmon 00:00:00 00:00:00 [facility] 2021-09-28 2021-09-28 (WEB) STLMLC STLMLC [id number] Co mmon 00:00:00 00:00:00 [facility] 2021-09-06 2021-09-06 OFFICE STLMLC STLMLC [id number] Co mmon 00:00:00 00:00:00 VISIT [facility] LEVEL 4 [facility] 2021-08-28 2021-08-28 NON-BILLAB STLMLC STLMLC [id number] Common 00:00:00 00:00:00 LE VISIT [facility] 2021-08-21 2021-08-21 (WEB) STLMLC STLMLC [id number] Co mmon 00:00:00 00:00:00 [facility] 2021-08-20 2021-08-20 (WEB) STLMLC STLMLC [id number] Co mmon 00:00:00 00:00:00 [facility] 2021-08-10 2021-08-11 Outpatient nullFlavo MNA [id number] Memoria 15:00:00 05:59:59 r Neurology 24 l Shaila Ayala 2021-08-10 2021-08-[address] [facility] [id number] 09:00:00 23:59:59 Richard 24 Dre 2021-08-10 2021-08-10 Outpatient MHIE MHIE [id number] Memoria 09:00:00 09:00:00 24 l Jamie 2021-07-17 2021-07-17 NON-BILLAB STLMLC STLMLC [id number] Common 00:00:00 00:00:00 LE VISIT [facility] 2021-06-26 2021-06-26 (TEL) STLMLC STLMLC [id number] Co mmon 00:00:00 00:00:00 [facility] 2021-06-21 2021-06-21 NON-BILLAB STLMLC STLMLC [id number] Common 00:00:00 00:00:00 LE VISIT [facility] 2021-06-19 2021-06-19 (TEL) STLMLC STLMLC [id number] Co mmon 00:00:00 00:00:00 [facility] 2021-06-14 2021-06-14 (WEB) STLMLC STLMLC [id number] Co mmon 00:00:00 00:00:00 [facility] 2021-06-01 2021-06-01 OFFICE STLMLC STLMLC [id number] Co mmon 00:00:00 00:00:00 VISIT [facility] LEVEL 4 [facility] 2021-05-22 2021-05-22 (TEL) STLMLC STLMLC [id number] Co mmon 00:00:00 00:00:00 [facility] 2021-05-16 2021-05-16 (WEB) STLMLC STLMLC [id number] Co mmon 00:00:00 00:00:00 [facility] 2021-05-11 2021-05-11 (WEB) STLMLC STLMLC [id number] Co mmon 00:00:00 00:00:00 [facility] 2021-05-11 2021-05-11 (WEB) STLMLC STLMLC [id number] Co mmon 00:00:00 00:00:00 [facility] 2021-05-09 2021-05-10 Outpatient nullFlavo MNA [id number] Memoria 15:15:00 04:59:59 r Neurology 22 l Shaila Ayala 2021-05-09 2021-05-09 Outpatient Krell, MHMISCHER MHMISCHER [id number] 10:15:00 23:59:59 Richard 22 Dre 2021-05-09 2021-05-09 Outpatient MHIE MHIE [id number] Memoria 10:15:00 10:15:00 22 l Jamie 2021-04-14 2021-04-14 (WEB) STLMLC STLMLC [id number] Co mmon 00:00:00 00:00:00 [facility] 2021-04-14 2021-04-14 (WEB) STLMLC STLMLC [id number] Co mmon 00:00:00 00:00:00 [facility] 2021-03-20 2021-03-21 Outpatient nullFlavo MNA [id number] Memoria 13:15:00 04:59:59 r Neurology 23 l Shaila Janeann 2021-03-20 2021-03-20 Outpatient TOMMY PhanMISCHER [id number] 08:15:00 23:59:59 Richard 23 Dre 2021-03-20 2021-03-20 Outpatient MHIE IE [id number] Memoria 08:15:00 08:15:00 23 l [place] 2021-03-20 2021-03-20 Outpatient STLMLC STLMLC [id number] Common 00:00:00 00:00:00 [facility] 2021-02-24 2021-02-24 (TEL) STLMLC STLMLC [id number] Co mmon 00:00:00 00:00:00 [facility] 2021-02-23 2021-02-23 Outpatient STLMLC STLMLC [id number] Common 00:00:00 00:00:00 [facility] 2021-02-23 2021-02-23 Outpatient STLMLC STLMLC [id number] Common 00:00:00 00:00:00 [facility] 2021-02-23 2021-02-23 Outpatient STLMLC STLMLC [id number] Common 00:00:00 00:00:00 [facility] 2021-02-09 2021-02-09 Outpatient STLMLC STLMLC [id number] Common 00:00:00 00:00:00 [facility] 2021-02-08 2021-02-08 Outpatient STLMLC STLMLC [id number] Common 00:00:00 00:00:00 [facility] 2021-02-03 2021-02-04 Outpatient nullFlavo MNA [id number] Memoria 18:45:00 04:59:59 r Neurology 21 l Shaila [place] 2021-02-03 2021-02-03 Outpatient JEFF PhanSCHER MHMISCHER [id number] 13:45:00 23:59:59 Richard 21 Dre 2021-02-03 2021-02-03 Outpatient MHIE MHIE [id number] Memoria 13:45:00 13:45:00 21 l Jamie 2020-12-12 2020-12-12 Outpatient STLMLC STLMLC [id number] Common 00:00:00 00:00:00 [facility] 2020-11-22 2020-11-22 Outpatient STLMLC STLMLC [id number] Common 00:00:00 00:00:00 [facility] 2020-11-21 2020-11-21 Outpatient STLMLC STLMLC [id number] Common 00:00:00 00:00:00 [facility] 2020-11-09 2020-11-09 Outpatient STLMLC STLMLC [id number] Common 00:00:00 00:00:00 [facility] 2020-10-24 2020-10-24 Outpatient STLMLC STLMLC [id number] Common 00:00:00 00:00:00 [facility] 2020-10-17 2020-10-17 Outpatient STLMLC STLMLC [id number] Common 00:00:00 00:00:00 [facility] 2020-10-15 2020-10-15 Outpatient [facility] [id number] Univers 09:10:00 09:10:00 [facility] 2020-10-10 2020-10-10 Outpatient STLMLC STLMLC [id number] Common 00:00:00 00:00:00 [facility] 2020-09-24 2020-09-24 Outpatient [facility] [id number] Univers 09:10:00 09:10:00 [facility] 2020-09-21 2020-09-21 Ambulatory nullFlavo MNA [id number] Memoria 14:15:00 14:15:00 Pre-Reg r Neurology 20 l Clinch Jamie 2020-09-21 2020-09-21 Outpatient MHIE MHIE [id number] Memoria 08:15:00 08:15:00 20 l Jamie 2020-09-21 2020-09-21 Outpatient JEFF PhanSCHER MISCHER [id number] 08:15:00 08:15:00 Richard 20 Dre 2020-09-08 2020-09-08 Outpatient STLMLC STLMLC [id number] Common 00:00:00 00:00:00 [facility] 2020-09-07 2020-09-07 Outpatient STLMLC STLMLC [id number] Common 00:00:00 00:00:00 [facility] 2020-09-07 2020-09-07 Outpatient STLMLC STLMLC [id number] Common 00:00:00 00:00:00 [facility] 2020-09-05 2020-09-06 Outpatient nullFlavo MNA [id number] Memoria 15:45:00 05:59:59 r Neurology 19 l Shaila Ayala 2020-09-05 2020-09-05 Outpatient TOMMY Phan MISCHER [id number] 09:45:00 23:59:59 Richard 19 Dre 2020-09-05 2020-09-05 Outpatient MHIE MHIE [id number] Memoria 09:45:00 09:45:00 19 mike Jamie 2020-09-02 2020-09-02 Outpatient STLMLC STLMLC [id number] Common 00:00:00 00:00:00 [facility] 2020-08-31 2020-08-31 [facility] [id number] Univers 09:00:00 23:59:00 [id number] [phone] [facility] [address] 2020-08-31 2020-08-31 Outpatient [facility] [id number] Univers 00:00:00 00:00:00 ity of [facility] 2020-08-29 2020-08-29 Outpatient STLMLC STLMLC [id number] Common 00:00:00 00:00:00 [facility] 2020-08-23 2020-08-23 Ambulatory nullFlavo MNA [id number] Memoria 15:15:00 15:15:00 Pre-Reg r Neurology 16 l Shaila Ayala 2020-08-23 2020-08-23 Outpatient MHIE MHIE [id number] Memoria 09:15:00 09:15:00 16 l Jamie 2020-08-23 2020-08-23 Outpatient JEFF PhanSCHSANG MHMISCHER [id number] 09:15:00 09:15:00 Richard 16 Dre 2020-08-05 2020-08-05 Outpatient STLMLC STLMLC [id number] Common 00:00:00 00:00:00 [facility] 2020-07-07 2020-07-07 Outpatient STLMLC STLMLC [id number] Common 00:00:00 00:00:00 [facility] 2020-05-13 2020-05-13 Outpatient STLMLC STLMLC [id number] Common 00:00:00 00:00:00 [facility] 2020-05-11 2020-05-11 Outpatient STLMLC STLMLC [id number] Common 00:00:00 00:00:00 [facility] 2020-05-09 2020-05-10 Outpatient nullFlavo MNA [id number] Memoria 18:45:00 04:59:59 r Neurology 18 l Shaila [place] 2020-05-10 2020-05-10 Outpatient STLMLC STLMLC [id number] Common 00:00:00 00:00:00 [facility] 2020-05-10 2020-05-10 Outpatient STLMLC STLMLC [id number] Common 00:00:00 00:00:00 [facility] 2020-05-09 2020-05-09 Outpatient JEFF PhanSCHER MISCHER [id number] 13:45:00 23:59:59 Richard 18 Dre 2020-05-09 2020-05-09 Outpatient MHIE MHIE [id number] Memoria 13:45:00 13:45:00 18 l Jamie 2020-05-04 2020-05-04 Outpatient STLMLC STLMLC [id number] Common 00:00:00 00:00:00 [facility] 2020-04-08 2020-04-08 [facility] [id number] Common 14:25:00 14:25:[address] [place] [address] [facility] 2020-04-07 2020-04-07 [facility] [id number] Common 11:00:00 11:00:00 [place] [address] [place] [address] [facility] 2020-04-01 2020-04-02 Outpatient nullFlavo MNA [id number] Memoria 19:30:00 04:59:59 r Neurology 17 l Shaila [place] 2020-04-01 2020-04-01 [address] Phan [facility] [id number] 14:30:00 23:59:59 Richard Laurie Dre 2020-04-01 2020-04-01 Outpatient MHIE MHIE [id number] Memoria 14:30:00 14:30:00 17 mike JaneSycamore 2020-03-29 2020-03-29 [facility] [id number] Common 14:53:00 14:53:00 [place] [address] [facility] 2020-03-29 2020-03-29 Ambulatory nullFlavo MNA [id number] Memoria 14:00:00 14:00:00 Pre-Reg r Neurology 14 l Clinch [place] 2020-03-29 2020-03-29 Ambulatory nullFlavo MNA [id number] Memoria 14:00:00 14:00:00 Pre-Reg r Neurology 13 l Shaila [place] 2020-03-29 2020-03-29 [facility] [id number] Common 09:48:00 09:48:00 [place] [address] [address] [facility] 2020-03-29 2020-03-29 Outpatient MHIE MHIE [id number] Memoria 09:00:00 09:00:00 13 l Jamie 2020-03-29 2020-03-29 Outpatient MHIE MHIE [id number] Memoria 09:00:00 09:00:00 14 mike Ayala 2020-03-29 2020-03-29 Outpatient TOMMY Phan MHMISCHER [id number] 09:00:00 09:00:00 Richard 14 Dre 2020-03-29 2020-03-29 Outpatient TOMMY Phan [id number] 09:00:00 09:00:00 Richard 13 Dre 2020-03-23 2020-03-23 [facility] [id number] Common 08:00:00 08:00:00 [facility] 2020-03-07 2020-03-07 [facility] [id number] Common 08:45:00 08:45:00 [facility] 2020-02-25 2020-02-25 [facility] [id number] Common 15:00:00 15:00:00 [facility] 2020-02-18 2020-02-19 Outpatient nullFlavo MNA [id number] Memoria 14:00:00 04:59:59 r Neurology 15 l Clinchantony Janeann 2020-02-18 2020-02-18 Outpatient TOMMY Phan BROOKS [id number] 09:00:00 23:59:59 Richard 15 Dre 2020-02-18 2020-02-18 Outpatient MHIE LOUIE [id number] Memoria 09:00:00 09:00:00 15 l [place] 2020-01-22 2020-01-22 [facility] [id number] Univers 07:05: 10:45:00 Encounter Guero Reyes [id number] iteliz [facility] [id number] [facility] [phone] [place] [id number] [address] 2020-01-22 2020-01-22 Outpatient R [facility] LORELEI [id number] Univers 07:05: 10:45:00 GUERO ritter [facility] 2020-01-22 2020-01-22 Orders Doctor ADAMS [id number] Univers 00:00:00 00:00:00 Only Unassigned, ANGIE [id number] ity of [place] [facility] [id number] Dong [id number] [facility] [address] 2020-01-21 2020-01-21 Laboratory Only, Adc Test [facility] [id number]. [id number] Univers 10:52:42 11:19:22 Only Guero Valdovinos [id number] ity of [place] [id number] [facility] [phone] [facility] 353 [address] 2020-01-21 2020-01-21 Outpatient R ARUNA [facility] [id number] Univers 11:00:00 11:00:00 GUERO ritter [facility] 2020-01-11 2020-01-11 Out[facility] [id number] Common 13:35:00 13:35:00 [place] [address] [place] [address] [facility] 2020-01-06 2020-01-06 Out[facility] [id number] Common 10:20:00 10:20:00 [place] [address] [place] [address] [facility] 2019-12-31 2019-12-31 Out[facility] [id number] Common 11:52:00 11:52:00 [address] [place] [address] [place] [address] [facility] 2019-12-24 2019-12-25 Outpatient nullFlavo MNA [id number] Memoria 18:00:00 04:59:59 r Neurology 12 l Shaila Ayala 2019-12-24 2019-12-24 Outpatient TOMMY Phan MHMISCHER [id number] 13:00:00 23:59:59 Richard 12 Dre 2019-12-24 2019-12-24 Outpatient LOUIE ZENY [id number] Memoria 13:00:00 13:00:00 12 l Jamie 2019-12-14 2019-12-14 [facility] [id number] Common 13:21:00 13:21:00 [place] [address] [place] [address] [facility] 2019-11-12 2019-11-12 Out[facility] [id number] Common 09:37:00 09:37:00 [place] [address] [place] [address] [facility] 2019-10-07 2019-10-07 Out[facility] [id number] Common 08:00:00 08:00:00 [place] [address] [place] [address] [facility] 2019-10-01 2019-10-01 Out[facility] [id number] Common 11:58:00 11:58:00 [place] [address] [address] [facility] 2019-09-18 2019-09-18 Outpatient [facility] [id number] Common 09:05:00 09:05:00 [place] [address] [place] [address] [facility] 2019-08-19 2019-08-19 Ambulatory nullFlavo MNA [id number] Memoria 15:00:00 15:00:00 Pre-Reg r Neurology 11 l Shaila Janeann 2019-08-19 2019-08-19 Outpatient MHIE ZENY [id number] Memoria 09:00:00 09:00:00 11 l Jamie 2019-08-19 2019-08-19 Outpatient TOMMY Phan MISCHER [id number] 09:00:00 09:00:00 Richard Erickson 2019-08-11 2019-08-11 Out[facility] [id number] Common 09:20:00 09:20:00 [place] [address] [place] [address] [facility] 2019-07-03 2019-07-03 Out[facility] [id number] Common 09:40:00 09:40:00 [place] [address] [place] [address] [facility] 2019-06-23 2019-06-23 Out[facility] [id number] Common 17:04:00 17:04:00 [place] [address] [place] [address] [facility] 2019-06-17 2019-06-18 Outpatient nullFlavo MNA [id number] Memoria 15:30:00 05:59:59 r Neurology 10 l Shaila Ayala 2019-06-17 2019-06-17 Outpatient TOMMY Phan MISCHER [id number] 09:30:00 23:59:59 Richard 10 Dre 2019-06-17 2019-06-17 Outpatient MHIE MHIE [id number] Memoria 09:30:00 09:30:00 10 l Jamie 2019-06-11 2019-06-11 Ambulatory nullFlavo MNA [id number] Memoria 16:45:00 16:45:00 Pre-Reg r Neurology 09 l Shaila Ayala 2019-06-11 2019-06-11 Outpatient MHIE MHIE [id number] Memoria 10:45:00 10:45:00 09 mike Ayala 2019-06-11 2019-06-11 Outpatient Sylvester MISCHER MHMISCHER [id number] 10:45:00 10:45:00 Richard 09 Dre 2019-04-03 2019-04-03 Out[facility] [id number] Common 10:40:00 10:40:00 [place] [address] [place] [address] [facility] 2019-03-05 2019-03-05 Ambulatory nullFlavo MNA [id number] Memoria 15:00:00 15:00:00 Pre-Reg r Neurology 08 l Shaila Ayala 2019-03-05 2019-03-05 Outpatient MHIE MHIE [id number] Memoria 10:00:00 10:00:00 08 mike Ayala 2019-03-05 2019-03-05 Outpatient Sylvester MISCHER MHMISCHER [id number] 10:00:00 10:00:00 Richard Marco Erickson 2019-03-03 2019-03-03 Out[facility] [id number] Common 10:17:00 10:17:00 [place] [address] [place] [address] [facility] 2019-02-23 2019-02-23 [facility] [id number] Common 08:38:00 08:38:00 [place] [address] [facility] 2019-02-13 2019-02-13 [facility] [id number] Common 08:30:00 08:30:00 t [facility] 2019-02-11 2019-02-11 [facility] [id number] Common 08:00:00 08:00:00 t [facility] 2019-01-27 2019-01-27 [facility] [id number] Common 16:20:00 16:20:00 [place] [address] [facility] 2019 2019 Ambulatory nullFlavo MNA [id number] Memoria 19:15:00 19:15:00 Pre-Reg r Neurology 07 l Clinch Jamie 2019 2019 Outpatient MHIE MHIE [id number] Memoria 14:15:00 14:15:00 07 mike Jamie 2019 2019 Outpatient Sylvester MHMISCHER MHMISCHER [id number] 14:15:00 14:15:00 Richard Samuel Dre 2018-12-19 2018-12-21 Outside nullFlavo MNA [id number] Memoria 17:05:48 04:59:59 Medical r Neurology 05 l Records Clinch Jamie 2018-12-19 2018-12-20 Outpatient MHMISCHER MHMISCHER [id number] 12:05:48 23:59:59 2018-12-12 2018-12-13 Outpatient nullFlavo MNA [id number] Memoria 14:30:00 04:59:59 r Neurology 06 l Shaila Ayala 2018-12-12 2018-12-12 Outpatient LOU PhanMISCHER MHMISCHER [id number] 09:30:00 23:59:59 Richard Frederick [facility] 2018-12-12 2018-12-12 Outpatient MHIE MHIE [id number] Memoria 09:30:00 09:30:00 06 mike Jamie 2018-12-08 2018-12-08 Outpatient [place] [id number] Common 09:44:00 09:44:00 [place] [address] [facility] 2018-11-26 2018-11-26 Outpatient MHIE MHIE [id number] Memoria 11:00:00 11:00:00 04 mike Ayala 2018-11-18 2018-11-18 Ambulatory nullFlavo MNA [id number] Memoria 21:00:00 21:00:00 Pre-Reg r Neurology 05 mike Clinch Jamie 2018-11-18 2018-11-18 Outpatient MHIE MHIE [id number] Memoria 16:00:00 16:00:00 05 mike Jamie 2018-11-18 2018-11-18 Outpatient Sylvester MHMTSCHER MHMISCHER [id number] 16:00:00 16:00:00 Richard 05 Dre 2018-10-23 2018-10-23 Outpatient MHIE MHIE [id number] Memoria 10:15:00 10:15:00 03 mike Jamie 2018-09-18 2018-09-18 Outpatient MHIE MHIE [id number] Memoria 11:30:00 11:30:00 02 mike Jamie 2018-08-25 2018-08-27 Phone nullFlavo MNA [id number] Memoria 20:14:00 05:59:59 Message r Neurology 01 l Shaila Ayala 2018-08-25 2018-08-26 Outpatient MHMISCHER MHMISCHER [id number] 14:14:00 23:59:59 2018-08-07 2018-08-08 Outpatient nullFlavo MNA [id number] Memoria 22:00:00 05:59:59 r Neurology 01 mike Clinch Jamie 2018-08-07 2018-08-07 Outpatient Sylvester, MISCHER MHMISCHER [id number] 16:00:00 23:59:59 Richard Dre 2018-08-07 2018-08-07 Outpatient MHIE MHIE [id number] Memoria 16:00:00 16:00:00 01 mike Jamie 2018-08-01 2018-08-02 Outpatient nullFlavo MNA [id number] Memoria 17:45:00 05:59:59 r Neurology 00 mike Clinch Jamie 2018-08-01 2018-08-01 Outpatient Sylvester MHMISCHER MHMISCHER [id number] 11:45:00 23:59:59 Richard 00 Dre 2018-08-01 2018-08-01 Outpatient MHIE MHIE [id number] Memoria 11:45:00 11:45:00 00 mike Ayala 2018-03-18 2018-03-18 [facility] [id number] Common 08:30:00 08:30:00 [facility] Results Test Description Test Test Results Result Source Time Comments Comments [place] BARIUM 2020-08- HISTORY: Dysphagia. Unive rsity of SWALLOW 03 TECHNIQUE: Barium [place] [facility] ESOPHAGUS 15:57:47 swallow/esophagram were B ranch [...] short sliding hiatal hernia withoutsignificant gastroesophageal reflux. [facility], Radiant Results Inft User - 08/31/2020 9:58 [...] rsity of (NON-REPORTABLE) 26 require a Radiology [facility] 14:16:17 diagnostic report. Branch CBC WITH DIFFERENTIAL [...] H [Au tomated message] The system which [employer] nerated this result transmit kalli reference range: [...] g/dL 31.6-35.1 L RDW-SD (test code = 89714-4) 37.5 fL 39-49.9 L RDW-CV (test code = 788-0) 18.6 % 12-15.5 H PLT (test code = 777-3) See_Comment [Au tomated message] The system which [employer] nerated this result transmit kalli reference range: 166 - 35 8 10*3/?L. The reference range was not used to interpret th is result as normal/abnormal . MPV (test code = 22304-0) 10.1 fL 9.5-12.9 NRBC/100 WBC (test code = See_Comment [ Automated message] The [id number]) system which [employer] nerated this result transmit kalli reference range: 0.0 - 10 .0 /100 WBCs. The reference r gonzalez was not used to interpr et this result as normal/abnor mal. NRBC x10^3 (test code = <0.01 See_Comment [Au tomated message] The [id number]) system which [employer] nerated this result transmit kalli reference range: 10*3/?L. The reference range was not u sed to interpret this result as normal/abnormal . GRAN MAT (NEUT) % (test code 66.8 % = 770-8) IMM GRAN % (test code = 0.60 % [id number]) LYMPH % (test code = 736-9) 23.4 % MONO % (test code = 5905-5) 7.0 % EOS % (test code = 713-8) 1.6 % BASO % (test code = 706-2) 0.6 % GRAN MAT x10^3(ANC) (test 6.70 10*3/uL 1.88-7.09 code = 7392665998) IMM GRAN x10^3 (test code = 0.06 10*3/uL 0-0.06 [id number]) LYMPH x10^3 (test code = 2.34 10*3/uL 1.32-3.29 731-0) MONO x10^3 (test code = 0.70 10*3/uL 0.33-0.92 742-7) EOS x10^3 (test code = 0.16 10*3/uL 0.03-0.39 711-2) BASO x10^3 (test code = 0.06 10*3/uL 0.01-0.07 704-7) Lab Interpretation (test Abnormal code = 78949-9) [facility] [id number] 13:16:00 Test Item Value Reference Range Interpretation Comments PROTIME PATIENT (test See_Comment [Auto mated message] code = 5964-2) The system wh ich generated this result transmitted ref erence range: 12.0 - 1 4.7 Seconds. The re ference range was not u sed to interpret this result as normal/abnor mal. INR (test code = 6301-6) Nor mal INR <1.1; Warfarin Therap eutic range 2.0 to 3. 0 or 2.5 to 3.5, dep ending upon the indica tions. Lab Interpretation (test Normal code = 57720-5) [facility] 13:15:00 Test Item Value Reference Range Interpretation [...] seconds. Lab Interpretation Normal (test code = 21941-3) [facility] Wo ContMRI Knee Right Wo Cont
[2022-07-22] MEDS ORDERED: ALBUTEROL 2.5 MG/3 ML NEB SOL ONE (11:50)
[2022-07-22] MEDS ORDERED: dexAMETHasone 10 MG/ML VIAL ONE (11:50)
[2022-07-22 12:19] LABS: SARS-COV-2 RT PCR NEGATIVE (NEGATIVE)
--- NOTE | 2022-07-22 12:40 | RAD REPORT ---
EXAM DESCRIPTION: RAD - Chest Single View - 07/22/2022 12:17 pm CLINICAL HISTORY: DYSPNEA Chest pain. COMPARISON: Chest Pa And Lat (2 Views) dated 06/29/2022; Chest Pa And Lat (2 Views) dated 06/02/2021; Chest Pa And Lat (2 Views) dated 10/03/2016; Chest Single View dated 09/22/2016 FINDINGS: Portable technique limits examination quality. The lungs are grossly clear. The heart is normal in size. No displaced fractures. IMPRESSION: No acute intrathoracic process suspected.
--- NOTE | 2022-07-22 12:53 | ER ---
Nurse's Notes [facility] Name: Nelsy Romero Age: 62 yrs Sex: Female : 1960 Arrival Date: 07/22/2022 Time: 11:24 Bed 5 Private MD: Diagnosis: COPD/ Chronic obstructive pulmonary disease with (acute) exacerbation Presentation: 07/22 11:28 Chief complaint: Chief complaint: Patient states: SOB, cough, sore throat, fever that aa5 began 3-4 days ago. 11:37 Coronavirus screen: cough unrelated to allergies, fever, shortness of breath. Ebola aa5 Screen: Patient denies travel to an Ebola-affected area in the 21 days before illness onset. Initial Sepsis Screen: Does the patient meet any 2 criteria? No. Patient's initial sepsis screen is negative. Does the patient have a suspected source of infection? Yes:. Risk Assessment: Do you want to hurt yourself or someone else? Patient reports no desire to harm self or others. Onset of symptoms was June 2022. 11:37 Acuity: RENITA 3 aa5 11:37 Method Of Arrival: Ambulatory aa5 Historical: - Allergies: 11:38 benacor; aa5 11:38 Clonidine; aa5 11:38 GABAPENTIN; aa5 11:38 IRON COMPLEX; aa5 11:38 Lipitor; aa5 11:38 Lyrica; aa5 11:38 Macrobid; aa5 11:38 Metoprolol Tartrate; aa5 11:38 Mucinex; aa5 - PMHx: 11:38 Anxiety; buldging disk in neck; Degenerative disc disease; Depression; Hypertension; aa5 thalassemia minor; Thyroid problem; - Immunization history:: Adult Immunizations unknown. - Social history:: Smoking status: Patient reports the use of cigarette tobacco products, 5-6 cigarettes a day . Screenin:55 [facility] ED Fall Risk Assessment (Adult) History of falling in the last 3 months, kb3 including since admission No falls in past 3 months (0 pts) Confusion or Disorientation No (0 pts) Intoxicated or Sedated No (0 pts) Impaired Gait No (0 pts) Mobility Assist Device Used No (0 pt) Altered Elimination No (0 pt) Score/Fall Risk Level 0 - 2 = Low Risk Oriented to surroundings, Maintained a safe environment, Educated pt \T\ family on fall prevention, incl call for assistance when getting out of bed, Assessed \T\ reinforced patient's understanding of fall precautions, Provided non-skid footwear, Hourly rounding (assess needs \T\ fall precautionary measures) done, Used ambulatory aids as needed (educated on \T\ assisted with), Used gait belt as appropriate. Abuse screen: Denies threats or abuse. Denies injuries from another. Nutritional screening: No deficits noted. Tuberculosis screening: No symptoms or risk factors identified. Assessment: 11:55 General: Appears in no apparent distress. ill, Behavior is calm, cooperative. Pain: kb3 Complains of pain in head, chest, right arm, left arm, right leg and left leg Pain does not radiate. Pain currently is 7 out of 10 on a pain scale. Quality of pain is described as aching, Pain began 3-4 dys ago. Cardiovascular: Rhythm is regular. Respiratory: Reports cough that is Airway is patent Respiratory effort is even, unlabored, Breath sounds are coarse Breath sounds with wheezes. Vital Signs: 11:37 BP 146 / 63; Pulse 83; Resp 16 S; Temp 98.3(O); Pulse Ox 97% on R/A; Weight 87.09 kg aa5 (R); Height 5 ft. 8 in. (172.72 cm) (R); 12:00 BP 112 / 94; Pulse 77; Resp 20; Pulse Ox 100% ; kb3 13:30 BP 106 / 61; Pulse 70; Resp 20; Pulse Ox 97% ; kb3 11:37 Body Mass Index 29.19 (87.09 kg, 172.72 cm) aa5 ED Course: 11:24 Patient arrived in ED. mr 11:26 AvaKatty, HIMA-C [facility]. snw 11:26 Lei Cruz MD is Attending Physician. snw 11:28 Arm band placed on. aa5 11:29 Abbe Ruvalcaba, ALBERT is Primary Nurse. bp 11:38 Triage completed. aa5 11:55 Patient has correct armband on for positive identification. Bed in low position. kb3 11:55 No provider procedures requiring assistance completed. Patient did not have IV access kb3 during this emergency room visit. 11:58 COVID-19/FLU A+B/RSV Sent. kb3 12:19 Chest Single View XRAY In Process Unspecified. EDMS Administered Medications: 11:53 Drug: Decadron (dexamethasone) 10 mg Route: IM; Site: right ventrogluteal; kb3 12:30 Follow up: Response: No adverse reaction kb3 11:55 Drug: Albuterol 2.5 mg Route: Inhalation; kb3 12:30 Follow up: Response: No adverse reaction kb3 13:26 Drug: Rocephin (cefTRIAXone) 1 grams {Note: OK to give IM per Rona Escalante INDUSTRIAL MAINTENANCE ELECTRICIAN. kb3 Administered in left ventrogluteal.} Route: IV; Rate: calculated rate; Site: Other; 13:30 Follow up: IV Status: Completed infusion kb3 Medication: 11:55 VIS not applicable for this client. kb3 Outcome: 12:52 Discharge ordered by . emilio 13:31 Discharged to home ambulatory, with family. kb3 13:31 Condition: stable 13:31 Discharge instructions given to patient, Instructed on discharge instructions, follow up and referral plans. medication usage, Demonstrated understanding of instructions, follow-up care, medications, Prescriptions given X 4. 13:32 Patient left the ED. kb3 Signatures: Dispatcher [employer] EDMS Rona Escalatne, CHIEF DISPATCHER-C CHIEF DISPATCHER-Csnw Davy Annie Kyra Hartmann, RN RN aa5 Abbe Ruvalcaba, ALBERT RN Jazlyn Dennison, RN RN kb3 Corrections: (The following items were deleted from the chart) 11:38 11:28 Chief complaint: aa5 aa5
--- NOTE | 2022-07-22 12:53 | EDPHYS ---
Physician Documentation [facility] Name: Nelsy Romero Age: 62 yrs Sex: Female : 1960 Arrival Date: 07/22/2022 Time: 11:24 Bed 5 Private MD: ED Physician Lei Cruz HPI: 07/22 12:15 This 62 yrs old Female presents to ER via Ambulatory with complaints of Flu Symptoms, snw Shortness Of Breath. 12:15 The patient or guardian reports cough, flu symptoms, low-grade fever, myalgias, no snw appetite. Onset: The symptoms/episode began/occurred suddenly, 3 day(s) ago, and became persistent. Associated signs and symptoms: Pertinent positives: fever, rhinorrhea, sore throat. Severity of symptoms: At their worst the symptoms were moderate in the emergency department the symptoms are unchanged. The patient has not experienced similar symptoms in the past, but family has similar symptoms, spouse. The patient has not recently seen a physician. Historical: - Allergies: 11:38 benacor; aa5 11:38 Clonidine; aa5 11:38 GABAPENTIN; aa5 11:38 IRON COMPLEX; aa5 11:38 Lipitor; aa5 11:38 Lyrica; aa5 11:38 Macrobid; aa5 11:38 Metoprolol Tartrate; aa5 11:38 Mucinex; aa5 - PMHx: 11:38 Anxiety; buldging disk in neck; Degenerative disc disease; Depression; Hypertension; aa5 thalassemia minor; Thyroid problem; - Immunization history:: Adult Immunizations unknown. - Social history:: Smoking status: Patient reports the use of cigarette tobacco products, 5-6 cigarettes a day . ROS: 12:06 Constitutional: Negative for fever, chills, and weight loss, Eyes: Negative for injury, snw pain, redness, and discharge, ENT: Negative for injury, pain, and discharge, Neck: Negative for injury, pain, and swelling, Cardiovascular: Negative for chest pain, palpitations, and edema. 12:06 Abdomen/GI: Negative for abdominal pain, nausea, vomiting, diarrhea, and constipation, Back: Negative for injury and pain, : Negative for injury, bleeding, discharge, and swelling, MS/Extremity: Negative for injury and deformity, Skin: Negative for injury, rash, and discoloration, Neuro: Negative for headache, weakness, numbness, tingling, and seizure, Psych: Negative for depression, anxiety, suicide ideation, homicidal ideation, and hallucinations. 12:06 Respiratory: Positive for cough, shortness of breath, at rest. Exam: 12:06 Constitutional: This is a well developed, well nourished patient who is awake, alert, snw and in no acute distress. Head/Face: Normocephalic, atraumatic. Eyes: Pupils equal round and reactive to light, extra-ocular motions intact. Lids and lashes normal. Conjunctiva and sclera are non-icteric and not injected. Cornea within normal limits. Periorbital areas with no swelling, redness, or edema. ENT: Nares patent. No nasal discharge, no septal abnormalities noted. Tympanic membranes are normal and external auditory canals are clear. Oropharynx with no redness, swelling, or masses, exudates, or evidence of obstruction, uvula midline. Mucous membranes moist. Neck: Trachea midline, no thyromegaly or masses palpated, and no cervical lymphadenopathy. Supple, full range of motion without nuchal rigidity, or vertebral point tenderness. No Meningismus. Chest/axilla: Normal chest wall appearance and motion. Nontender with no deformity. No lesions are appreciated. Cardiovascular: Regular rate and rhythm with a normal S1 and S2. No gallops, murmurs, or rubs. Normal PMI, no JVD. No pulse deficits. 12:06 Abdomen/GI: Soft, non-tender, with normal bowel sounds. No distension or tympany. No guarding or rebound. No evidence of tenderness throughout. Back: No spinal tenderness. No costovertebral tenderness. Full range of motion. Skin: Warm, dry with normal turgor. Normal color with no rashes, no lesions, and no evidence of cellulitis. MS/ Extremity: Pulses equal, no cyanosis. Neurovascular intact. Full, normal range of motion. Neuro: Awake and alert, GCS 15, oriented to person, place, time, and situation. Cranial nerves II-XII grossly intact. Motor strength 5/5 in all extremities. Sensory grossly intact. Cerebellar exam normal. Normal gait. Psych: Awake, alert, with orientation to person, place and time. Behavior, mood, and affect are within normal limits. 12:06 Respiratory: mild respiratory distress is noted, Respirations: shallow respirations, tachypnea, Breath sounds: bronchial sounds, + upper airway congestion. wheezing: expiratory Vital Signs: 11:37 BP 146 / 63; Pulse 83; Resp 16 S; Temp 98.3(O); Pulse Ox 97% on R/A; Weight 87.09 kg aa5 (R); Height 5 ft. 8 in. (172.72 cm) (R); 12:00 BP 112 / 94; Pulse 77; Resp 20; Pulse Ox 100% ; kb3 13:30 BP 106 / 61; Pulse 70; Resp 20; Pulse Ox 97% ; kb3 11:37 Body Mass Index 29.19 (87.09 kg, 172.72 cm) aa5 MDM: 11:30 Patient medically screened. [facility] 12:54 Data reviewed: vital signs, nurses notes. Data interpreted: Pulse oximetry: on room air snw is 100 %. Interpretation: normal. Counseling: I had a detailed discussion with the patient and/or guardian regarding: the historical points, exam findings, and any diagnostic results supporting the discharge/admit diagnosis, lab results, radiology results, the need for outpatient follow up, to return to the emergency department if symptoms worsen or persist or if there are any questions or concerns that arise at home. Special discussion: Based on the history and exam findings, there is no indication for further emergent testing or inpatient evaluation. I discussed with the patient/guardian the need to see the primary care provider for further evaluation of the symptoms. I discussed with the patient/guardian the need to see the gang saw operator for further evaluation of the symptoms. 07/22 11:26 Order name: COVID-19/FLU A+B/RSV; Complete Time: 12:28 snw 07/22 11:38 Order name: Chest Single View XRAY; Complete Time: 12:41 snw Administered Medications: 11:53 Drug: Decadron (dexamethasone) 10 mg Route: IM; Site: right ventrogluteal; kb3 12:30 Follow up: Response: No adverse reaction kb3 11:55 Drug: Albuterol 2.5 mg Route: Inhalation; kb3 12:30 Follow up: Response: No adverse reaction kb3 13:26 Drug: Rocephin (cefTRIAXone) 1 grams {Note: OK to give IM per Rona Escalante TRUCK DESPATCHER. kb3 Administered in left ventrogluteal.} Route: IV; Rate: calculated rate; Site: Other; 13:30 Follow up: IV Status: Completed infusion kb3 Disposition Summary: 07/22/22 12:52 Discharge Ordered Location: Home snw Condition: Stable snw Diagnosis - COPD/ Chronic obstructive pulmonary disease with (acute) exacerbation snw Followup: snw - With: Emergency Department - When: As needed - Reason: Worsening of condition Followup: snw - With: Private Physician - When: 2 - 3 days - Reason: Recheck today's complaints, Continuance of care, Re-evaluation by your physician Discharge Instructions: - Discharge Summary Sheet snw - Chronic Bronchitis, Adult snw - Chronic Obstructive Pulmonary Disease Exacerbation snw Forms: - Medication Reconciliation Form snw - Thank You Letter snw - Antibiotic Education snw - Prescription Opioid Use snw Prescriptions: - Zyrtec 10 mg Oral Tablet - take 1 tablet by ORAL route once daily As needed; 20 tablet; Refills: 0, snw Product Selection Permitted - Prednisone 20 mg Oral Tablet - take 2 tablets by ORAL route once daily for 5 days; 10 tablet; Refills: 0, snw Product Selection Permitted - Pepcid 20 mg Oral Tablet - take 1 tablet by ORAL route once daily; 20 tablet; Refills: 0, Product snw Selection Permitted - Zithromax 500 mg Oral Tablet - take 1 tablet by ORAL route once daily for 5 days; 5 tablet; Refills: 0, snw Product Selection Permitted Signatures: Dispatcher [employer] Lei Sandy MD MD cha Waters, Shelly, JEWELRY SALES-C JEWELRY SALES-Csnw Kyra Solis, RN RN aa5 Jazlyn Wing, ALBERT RN kb3
[2022-07-22] MEDS ORDERED: CEFTRIAXONE 1000 MG/VIAL ONE (13:23)
[2022-07-22 13:36] VITALS: TEMP 98.3
[2022-07-22 13:38] VITALS: BP 106/61; O2SAT 97
== END 2022-07-22 13:32 | disposition home or self-care (01) ==
LOC: ER 11:19
DX: J44.1 Chronic obstructive pulmonary disease with (acute) exacerbation (principal); I10 Essential (primary) hypertension; F17.210 Nicotine dependence, cigarettes, uncomplicated; Z20.822 Contact with and (suspected) exposure to COVID-19; Z88.8 Allergy status to other drugs, medicaments and biological substances
CPT/HCPCS: 0241U; 71045; J7613; J1100; 96372; 96374; 99284

== ENCOUNTER 2022-09-18 07:20 | Emergency (ER) | payer BC ==
--- OUTSIDE RECORDS SUMMARY | 2022-09-18 07:23 | XMS REPORT | Clinical Summary ---
:1960 Author Organization [facility] MD [facility] Address [address] [place] [address] Care Team Providers Name Role Phone Rafia Toure MD Unavailable Gaviota Maldonado MD Primary Care Provider [phone] Allergies Active Allergy Reactions Severity Noted Date [...] Paternal Aunt Kinsey -Breast cancer Paternal Grandmother Eustis Relation Name Status Comments Brother [place] Daughter Sienna Maternal Aunt Nithya Maternal Grandmother Brenda Maternal Uncle Be Mother Camerno Paternal Aunt Kinsey Paternal Grandmother Lala Social [...] Vaccination (#1) 1960 Results Not on fileafter 09/18/2021 Insurance Payer Benefit Plan / Subscriber ID Effective Dates Phone Addre ss Type Group [employer] [place] [id number] 2018-Present PO ROSALES X [id number] O BLUE [employer] BL[place] [employer] [id number] 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
--- OUTSIDE RECORDS SUMMARY | 2022-09-18 07:38 | XMS REPORT | Continuity of Care Document ---
:1960 Author Organization [facility] [place] [facility] t Address [address] [facility] [place] [address] Care Team Providers Name Role Phone Guero Caceres MD Primary Care Physician [phone] Junie Bhardwaj Attending Clinician Unavailable Amy Pandey Attending Clinician Unavailable Richard Phan Attending Clinician Doctor Unassigned, [place] Attending Clinician Unavailable Pedro Chamorro MD Attending Clinician PEDRO CHAMORRO Attending Clinician Unavailable Guero Valdovinos DPM Attending Clinician GUERO VALDOVINOS Attending Clinician Unavailable Only, Adc Test Attending Clinician Unavailable Guero Valdovinos DPM Admitting Clinician GUEOR VALDOVINOS Admitting Clinician Unavailable Payers Payer Name Policy Type Policy Number Effective Date Expiration Date Linda verdugo [employer] 6 [id number] 2018 Common Spiri t Blue Shield of 00:00:00 - [facility] Problems Condition Condition Condition Status Onset Resolution Last Treating Co mments Source Name Details Category Date Date Treatment Clinician Date Obesity Obesity Disease Active Univers (BMI (BMI 6-26 ity of 30-39.9) 30-39.9) 00:00: [place] 00 [facility] Other skin Other skin Disease Active U nivers change change 8-27 ity of 00:00: [place] 00 MD [facility] Hypertensi Hypertens Problem Active 2022-03-25 Memoria ve chris 03:56:05 l disorder, disorder, Herm chinmay systemic systemic arterial arterial (disorder) (disorder) Active Problem 03/25/2022 [facility] Hypothyroi Hypothyro Problem Active 2022-03-25 Memoria dism idism 03:56:05 l (disorder) (disorder) He rmann Active Problem 03/25/2022 [facility] Lumbar Lumbar Problem Active 2022-03-25 Babatunde roe radiculopa radiculopa 03:56:05 l thy thy Jamie (disorder) (disorder) Active Problem 03/25/2022 [facility] Weight Weight Problem Active 2022-03-25 Babatunde roe gain gain 03:56:05 l finding finding Jamie (finding) (finding) Active Problem 03/25/2022 [facility] Cervical Cervical Problem Active 2022-03-25 Memoria radiculopa radiculopa 03:56:05 l thy thy Carlton (disorder) (disorder) Active Problem 03/25/2022 [facility] Headache Headache Problem Active 2022-03-25 Memoria (finding) (finding) 03:56:05 l Active Jamie Problem 03/25/2022 [facility] Paresthesi Paresthes Problem Active 2022-03-25 Memoria a ia 03:56:05 l (finding) (finding) Herm chinmay Active Problem 03/25/2022 [facility] Rheumatoid Rheumatoi Problem Active 2022-03-25 Memoria arthritis d 03:56:05 l (disorder) arthritis Her echeverria (disorder) Active Problem 03/25/2022 [facility] [id number] Thalassemi Problem Com mon a, Spirit unspecifie - CHI d type [facility] [id number] Primary Problem Comm on osteoarthr Spirit itis of - CHI right knee [facility] Anxiety Anxiety Problem Common [facility] [id number] Pain in Problem Common joint of Spirit right knee [facility] [id number] Essential Problem Comm on hypertensi Spirit on [facility] Allergic Allergic Problem Commo n rhinitis rhinitis [facility] [id number] +5th digit Problem Co mmon eff Spirit 04/28/20*CK - CHI D (chronic kidney [facility] disease), Medical stage III Center [id number] [place] [id number] lesion of Spirit breast [facility] [id number] Primary Problem Common insomnia [facility] Depression Depression Problem C ommon [facility] Gastroesop Gastroesop [facility] hageal hageal Spirit reflux reflux - CHI disease disease, esophagiti [facility] s presence Medica l not Center specified Thalassemi Thalassemi Problem [facility] a minor a minor [facility] [id number] Cigarette Problem Comm on nicotine [facility] dependence - [facility] Migraine Migraine Problem Commo n with aura with aura Spir it and - CHI without [facility] migrainosu Medica l s, not Center intractabl e [id number] PUD Problem Common (peptic Spirit ulcer - CHI disease) [facility] [id number] Simple Problem Common chronic Spirit bronchitis [facility] Mixed Mixed Problem Common hyperlipid hyperlipid Sp sunitha emia emia [facility] Vitamin D Vitamin D Problem Com mon deficiency deficiency Sp sunitha [facility] [id number] Gastro-eso Problem Co mmon phageal Spirit reflux - CHI disease without [facility] esophagiti Medica l s Center Cervical Osteoarthr Problem Com mon spondylosi itis of Spiri t s without spine with - C HI myelopathy radiculopa [facility] cervicotho Medica l racic Center region Acquired Acquired Problem Commo n hypothyroi hypothyroi Sp sunitha dism dism [facility] [id number] Rheumatoid Problem Co mmon arthritis Spirit involving - CHI multiple [facility] unspecifie Medica l d whether Center rheumatoid factor present [id number] Depression Problem Co mmon with Spirit anxiety - CHI [facility] Degenerati Lumbar Problem Commo n on of degenerati Spirit lumbar ve disc - CHI interverte disease bral [facility] [id number] Unsteady Problem Comm on gait Spirit - CHI [facility] [id number] Chronic Problem Comm on obstructiv Spirit e - CHI pulmonary [facility] with Medical (acute) Center lower respirator y infection [id number] Unspecifie Problem Com mon d chronic Spirit bronchitis - CHI [facility] [id number] Needs flu Problem Com mon shot Spirit - CHI [facility] Chronic Stage 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 - CHI stage 3A disease [facility] [id number] Aftercare Problem Com mon following [facility] Artificial Status Problem Commo n knee joint post right Sp sunitha [facility] Allergies, Adverse Reactions, Alerts Allergy Allergy Status [...] 00 Medical Branch METOPROL DRUG Active Rash Univers OL INGREDI 6- ity of 00:00: [place] [facility] Aspirin Propensi Active GI 2019 Univers ty to Intolerance 8 ity o f adverse 00:00: [place] reaction 00 MD linda schumacher [facility] [place] Propensi Active Hives Univer s [place] ty to 03-24 ity of chloroth adverse 00:00: [place] iazide reaction 00 MD linda schumacher [facility] Clonidin Propensi Active Palpitations Univers e ty to 03-24 ity of adverse 00:00: [place] reaction 00 MD linda schumacher [facility] Pregabal Propensi Active Palpitations Univers in ty to 03-24 ity of adverse 00:00: [place] reaction 00 MD linda schumacher [facility] Nitrofur Propensi Active Other (See Back pain Univers antoin ty to Comments) 8 per ity of Monohyd/ adverse 00:00: patient [place] M-Cryst reaction 00 MD linda schumacher [facility] Metoprol Propensi Active Shortness Of Univers ol ty to Breath 8 ity of adverse 00:00: [place] reaction 00 MD linda schumacher [facility] Guaifene Propensi Active Palpitations Univers sin ty to 03-24 ity of adverse 00:00: [place] reaction 00 MD linda schumacher [facility] NO KNOWN Drug Active Univers ALLERGIE Class ity of S [facility] sulfa sulfa Active Memoria drugs drugs l [place] guaifene guaifene Active Unknown Commo n sin sin [facility] aspirin aspirin Active Unknown Common [facility] metoprol metoprol Active Unknown Commo n ol ol [facility] nitrofur nitrofur Active Unknown Commo n antoin, antoin, Spirit macrocry macrocry [facility] stals / stals / St nitrofur nitrofur kes antoin, antoin, Medical monohydr monohydr Center ate ate pregabal pregabal Active Unknown Commo n in in [facility] clonidin clonidin Active Unknown Commo n e e [facility] cait chavira Active Unknown Commo n an an Spirit - [facility] Family History Family Member Diagnosis Comments Start Date Stop Date Source Natural brother -Pancreatic Universi ty of cancer [place] [facility] Natural daughter -Cervical cancer [facility] Maternal aunt -Thyroid cancer Univer sity [facility] MD [facility] Maternal grandmother -Breast cancer [facility] MD [facility] [place] Maternal uncle -Melanoma [facility] MD Ari ruvalcaba [facility] Natural mother -Ovarian cancer [facility] MD [facility] [place] Paternal aunt -Brain cancer [facility]i ty [facility] [place] MD [facility] [place] Paternal grandmother -Breast cancer [facility] MD Ari ruvalcaba [facility] Social History Social Habit Start Date Stop Date Quantity Comments Source History of Tobacco Current Smoker Co mmon Spirit - Use [facility] Exposure to Not sure [facility]-CoV-2 (event) [facility] Tobacco use and 2020-01-21 2020-01-21 Never used Universit y of exposure 00:00:00 00:00:00 [facility] Cigarettes smoked 2019-03-24 2019-03-24 Univers ity of current (pack per 00:00:00 00:00:00 [facility] Roxanne ) - Reported Cancer Ce nter Cigarette 2019-03-24 2019-03-24 University of pack-years 00:00:00 00:00:00 [place] MD [facility] Alcohol intake 2019-03-24 2019-03-24 Ex-drinker University 00:00:00 00:00:00 (finding) [place] MD Ari ruvalcaba [facility] Sex Assigned At [birth year] Universit y of 00:00:00 00:00:00 [place] MD [facility] Smoking Status Start Date Stop Date Source Tobacco smoking consumption [facility] unknown Social History 2022-03-22 16:30:58 [facility] Current some day smoker 2020-01-21 00:00:00 [facility] Medications Ordered Filled Start Stop Current Ordering Indication Dosage Frequency Signature Comments Components Source Medication Medication Date Date Medication? Clinician (SIG) Name Name Cipro 500 Cipro 500 2021-07- No 1{table BID Cipro 500 MG MG 0-31 11-06 t} MG 00:00: 00:00 00 :00 Cipro 500 Cipro 500 2021-07- No 1{table BID Cipro 500 MG MG 0-31 -06 t} MG 00:00: 00:00 00 :00 Finasteride Finasteride 2021-07 No 1{table QD Finasterid 1 MG 1 MG 0-28 t} e 1 MG 00:00: 00 Finasteride Finasteride 2021-07 No 1{table QD Finasterid 1 MG 1 MG 0-28 t} e 1 MG 00:00: 00 Finasteride Finasteride 2021-07- No 1{table Finasterid 1 MG 1 MG 0-28 -25 t} e 1 MG 00:00: 00:00 00 :00 Finasteride Finasteride 2021-07- No 1{table Finasterid 1 MG 1 MG 0-28 -25 t} e 1 MG 00:00: 00:00 00 :00 Finasteride Finasteride 2021-07- No 1{table Finasterid 1 MG 1 MG 0-28 -25 t} e 1 MG 00:00: 00:00 00 :00 Finasteride Finasteride 2021-07- No 1{table Finasterid 1 MG 1 MG 0-28 -25 t} e 1 MG 00:00: 00:00 00 :00 Finasteride Finasteride 2021-07- No 1{table Finasterid 1 MG 1 MG 0-28 -25 t} e 1 MG 00:00: 00:00 00 :00 baclofen 10 2021-0 Yes 20 mg = 2 M emoria mg oral 8-25 tab, PO, l tablet 16:46: Daily, # Carlton 00 180 tab, 3 Refill(s), Pharmacy: [id number], 170.18, cm, 03/22/22 11:35:00 CDT, Height, 85.511, kg, 03/22/22 11:35:00 CDT, Weight baclofen 10 2021-0 Yes 20 mg = 2 M emoria mg oral 8-25 tab, PO, l tablet 16:46: Daily, # Jamie 00 180 tab, 3 Refill(s), Pharmacy: [facility] #[id number], 170.18, cm, 03/22/22 11:35:00 CDT, Height, [...] MG 00 :00 7.5-325 MG HYDROcodone HYDROcodone 2020-07 No 1{table HYDROcodon -Acetaminop -Acetaminop 08-06 t_as_ne e-Acetamin hen 7.5-325 hen 7.5-325 00:00: 00:00 eded} ophen MG MG 00 :00 7.5-325 MG HYDROcodone HYDROcodone 2020-07- No 1{table HYDROcodon -Acetaminop -Acetaminop -04 09-08 t_as_ne e-Acetamin hen 7.5-325 hen 7.5-325 00:00: 00:00 eded} ophen MG MG 00 :00 7.5-325 MG Xarelto 10 Xarelto 10 2020- No 1{table [...] MG 00:00: 00 Xarelto 10 Xarelto 10 1-1 No 1{table QD Xarelto 10 MG MG 1-08 t} MG 00:00: 00 Xarelto 10 Xarelto 10 1-1 No 1{table QD Xarelto 10 MG MG 1-08 t} MG 00:00: 00 Xarelto 10 Xarelto 10 1-1 No 1{table QD Xarelto 10 MG MG [...] MG 00:00: 00 Xarelto 10 Xarelto 10 1-1 No 1{table QD Xarelto 10 MG MG 1-08 t} MG 00:00: 00 Xarelto 10 Xarelto 10 2020-1 No 1{table QD Xarelto 10 MG MG 1-08 t} MG 00:00: 00 Xarelto 10 Xarelto 10 1-1 No 1{table QD Xarelto 10 MG MG 1-08 t} MG 00:00: 00 Xarelto 10 Xarelto 10 1-1 No 1{table QD Xarelto 10 MG MG 1-08 t} MG 00:00: 00 Xarelto 10 Xarelto 10 1-1 No 1{table QD Xarelto 10 MG MG [...] MG 1-08 t} MG 00:00: 00 tramadol 0 Yes 50 mg = 1 Babatunde roe hydrochlori 7-09 tab, PO, l de 50 MG 19:25: Daily, X Natalia nn Oral Tablet 30 day, # 30 tab, 2 Refill(s), Pharmacy: [id number], 172.72, cm, 09/05/20 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, Height, 7.636, kg, 02/03/21 14:08:00 CDT, Weight tramadol Yes 50 mg = 1 Babatunde roe hydrochlori 7-09 tab, PO, l de 50 MG 19:25: Daily, X Natalia nn Oral Tablet 30 day, # 30 tab, 2 Refill(s), Pharmacy: [email or web address] #[id number], 172.72, cm, 09/05/20 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, Height, 7.636, kg, 02/03/21 14:08:00 CDT, Weight gabapentin Yes 600 mg = 2 M emoria 300 MG Oral - cap, PO, l Capsule 19:18: BID, # 120 Herm chinmay 00 cap, 3 Refill(s), Pharmacy: [id number], 172.72, cm, 09/05/20 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, Height, 7.636, kg, 02/03/21 14:08:00 CDT, Weight baclofen 10 0 Yes 20 mg = 2 M emoria mg oral 7-09 tab, PO, l tablet 19:18: Daily, # Jamie 00 180 tab, 3 Refill(s), Pharmacy: [facility] #[id number], 172.72, cm, 09/05/20 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, Height, 7.636, kg, 02/03/21 14:08:00 CDT, Weight topiramate 2020-0 Yes = 1 tab, Mem oria 100 mg oral 7-09 PO, BID, # l tablet 19:18: 180 tab, 3 Natalia nn 00 Refill(s), Pharmacy: [id number], 172.72, cm, 09/05/20 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, Height, 7.636, kg, 02/03/21 14:08:00 CDT, Weight gabapentin 2020-0 Yes 600 mg = 2 M emoria 300 MG Oral 7-09 cap, PO, l Capsule 19:18: BID, # 120 Herm chinmay 00 cap, 3 Refill(s), Pharmacy: [id number], 172.72, cm, 09/05/20 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, Height, 7.636, kg, 02/03/21 14:08:00 CDT, Weight baclofen 10 0 Yes 20 mg = 2 M emoria mg oral 7-09 tab, PO, l tablet 19:18: Daily, # Jamie 00 180 tab, 3 Refill(s), Pharmacy: [facility] #[id number], 172.72, cm, 09/05/20 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, Height, 7.636, kg, 02/03/21 14:08:00 CDT, Weight topiramate 2020-0 Yes = 1 tab, Mem oria 100 mg oral 7-09 PO, BID, # l tablet 19:18: 180 tab, 3 Natalia nn 00 Refill(s), Pharmacy: [email or web address] #[id number], 172.72, cm, 09/05/20 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, Height, 7.636, kg, 02/03/21 14:08:00 CDT, Weight Bupivicaine Bupivicaine 2020-0 No 2.5mg Common [place] 5-17 Spirit 00:00: - CHI [facility] Kenalog Kenalog 2020-0 No 40mg Common (Triamcinol (Triamcinol 5-17 S pirit one) one) 00:00: - CHI 00 [facility] Bupivicaine Bupivicaine 2020-0 No 2.5mg Common [place] 5-17 Spirit 00:00: - CHI 00 [facility] Kenalog Kenalog 2020-0 No 40mg Common (Triamcinol (Triamcinol 5-17 S pirit one) one) 00:00: - CHI 00 [facility] Bupivicaine Bupivicaine 2020-0 No 2.5mg Common [place] 5-17 Spirit 00:00: - CHI 00 [facility] Kenalog Kenalog 2020-0 No 40mg Common (Triamcinol (Triamcinol 5-17 S pirit one) one) 00:00: - CHI 00 [facility] Bupivicaine Bupivicaine 2020-0 No 2.5mg Common [place] 5-17 Spirit 00:00: - CHI 00 [facility] Kenalog Kenalog 2020-0 No 40mg Common (Triamcinol (Triamcinol 5-17 S pirit one) one) 00:00: - CHI 00 [facility] Bupivicaine Bupivicaine 2020-0 No 2.5mg Common [place] 5-17 Spirit 00:00: - CHI 00 [facility] Kenalog Kenalog 2020-0 No 40mg Common (Triamcinol (Triamcinol 5-17 S pirit one) one) 00:00: - CHI 00 [facility] Bupivicaine Bupivicaine 2020-0 No 2.5mg Common [place] 5-17 Spirit 00:00: - CHI 00 [facility] Kenalog Kenalog 2020-0 No 40mg Common (Triamcinol (Triamcinol 5-17 S pirit one) one) 00:00: - CHI 00 [facility] Bupivicaine Bupivicaine 2020-0 No 2.5mg Common [place] 5-17 Spirit 00:00: - CHI 00 [facility] Kenalog Kenalog 2020-0 No 40mg Common (Triamcinol (Triamcinol 5-17 S pirit one) one) 00:00: - CHI 00 [facility] Bupivicaine Bupivicaine 2020-0 No 2.5mg Common [place] 5-17 Spirit 00:00: - CHI 00 [facility] Kenalog Kenalog 2020-0 No 40mg Common (Triamcinol (Triamcinol 5-17 S pirit one) one) 00:00: - CHI 00 [facility] Bupivicaine Bupivicaine 1-0 No 2.5mg Common [place] 5-17 Spirit 00:00: - CHI 00 [facility] Kenalog Kenalog 2020-0 No 40mg Common (Triamcinol (Triamcinol 5-17 S pirit one) one) 00:00: - CHI 00 [facility] Bupivicaine Bupivicaine 2020-0 No 2.5mg Common [place] 5-17 Spirit 00:00: - CHI 00 [facility] Kenalog Kenalog 2020-0 No 40mg Common (Triamcinol (Triamcinol 5-17 S pirit one) one) 00:00: - CHI 00 [facility] Bupivicaine Bupivicaine 2020-0 No 2.5mg Common [place] 5-17 Spirit 00:00: - CHI 00 [facility] Kenalog Kenalog 2020-0 No 40mg Common (Triamcinol (Triamcinol 5-17 S pirit one) one) 00:00: - CHI 00 [facility] Bupivicaine Bupivicaine 2020-0 No 2.5mg Common [place] 5-17 Spirit 00:00: - CHI 00 [facility] Kenalog Kenalog 2020-0 No 40mg Common (Triamcinol (Triamcinol 5-17 S pirit one) one) 00:00: - CHI 00 [facility] Bupivicaine Bupivicaine 2020-0 No 2.5mg Common [place] 5-17 Spirit 00:00: - CHI 00 [facility] Kenalog Kenalog 2020-0 No 40mg Common (Triamcinol (Triamcinol 5-17 S pirit one) one) 00:00: - CHI 00 [facility] Bupivicaine Bupivicaine 2020-0 No 2.5mg Common [place] 5-17 Spirit 00:00: - CHI 00 [facility] Kenalog Kenalog 2020-0 No 40mg Common (Triamcinol (Triamcinol 5-17 S pirit one) one) 00:00: - CHI 00 [facility] Bupivicaine Bupivicaine 2020-0 No 2.5mg Common [place] 5-17 Spirit 00:00: - CHI 00 [facility] Kenalog Kenalog 2020-0 No 40mg Common (Triamcinol (Triamcinol 5-17 S pirit one) one) 00:00: - CHI 00 [facility] Bupivicaine Bupivicaine 2020-0 No Common [place] 5-17 Spirit 00:00: - CHI 00 [facility] Kenalog Kenalog 2020-0 No 40mg Common (Triamcinol (Triamcinol 5-17 S pirit one) one) 00:00: - CHI 00 [facility] Bupivicaine Bupivicaine 2020-0 No Common [place] 5-17 Spirit 00:00: - CHI 00 [facility] Kenalog Kenalog 2020-0 No 40mg Common (Triamcinol (Triamcinol 5-17 S pirit one) one) 00:00: - CHI 00 [facility] Bupivicaine Bupivicaine 2020-0 No Common [place] 5-17 Spirit 00:00: - CHI 00 [facility] Kenalog Kenalog 2020-0 No 40mg Common (Triamcinol (Triamcinol 5-17 S pirit one) one) 00:00: - CHI 00 [facility] Bupivicaine Bupivicaine 2020-0 No 2.5mg Common [place] 5-17 Spirit 00:00: - CHI 00 [facility] Kenalog Kenalog 2020-0 No 40mg Common (Triamcinol (Triamcinol 5-17 S pirit one) one) 00:00: - CHI 00 [facility] Bupivicaine Bupivicaine 2020-0 No 2.5mg Common [place] 5-17 Spirit 00:00: - CHI 00 [facility] Kenalog Kenalog 2020-0 No 40mg Common (Triamcinol (Triamcinol 5-17 S pirit one) one) 00:00: - CHI 00 [facility] Hyalgan 20 Hyalgan 20 2020-0 No 20mg C ommon mg mg 10-24 Spirit 00:00: - CHI 00 [facility] Hyalgan 20 Hyalgan 20 2020-0 No 20mg C ommon mg mg 10-24 Spirit 00:00: - CHI [facility] Hyalgan 20 Hyalgan 20 2020-0 No 20mg C ommon mg mg 10-24 Spirit 00:00: - CHI [facility] Hyalgan 20 Hyalgan 20 2020-0 No 20mg C ommon mg mg 10-24 Spirit 00:00: - [facility]I [facility] Hyalgan 20 Hyalgan 20 2020-0 No 20mg C ommon mg mg 10-24 Spirit 00:00: - [facility]I [facility] Hyalgan 20 Hyalgan 20 2020-0 No 20mg C ommon mg mg 10-24 Spirit 00:00: - [facility] Hyalgan 20 Hyalgan 20 2020-0 No 20mg C ommon mg mg 10-24 Spirit 00:00: - CHI [facility] Hyalgan 20 Hyalgan 20 2020-0 No 20mg C ommon mg mg 10-24 Spirit 00:00: - [facility]I [facility] Hyalgan 20 Hyalgan 20 2020-0 No 20mg C ommon mg mg 10-24 Spirit 00:00: - [facility]I [facility] Hyalgan 20 Hyalgan 20 2020-0 No 20mg C ommon mg mg 10-24 Spirit 00:00: - CHI [facility] Hyalgan 20 Hyalgan 20 2020-0 No 20mg C ommon mg mg 10-24 Spirit 00:00: - CHI [facility] Hyalgan 20 Hyalgan 20 2020-0 No 20mg C ommon mg mg 10-24 Spirit 00:00: - CHI [facility] Hyalgan 20 Hyalgan 20 2020-0 No 20mg C ommon mg mg 10-24 Spirit 00:00: - CHI [facility] Hyalgan 20 Hyalgan 20 2020-0 No 20mg C ommon mg mg 10-24 Spirit 00:00: - CHI [facility] Hyalgan 20 Hyalgan 20 2020-0 No 20mg C ommon mg mg 329 Spirit 00:00: - CH[facility] Hyalgan 20 Hyalgan 20 2020-0 No 20mg C ommon mg mg 10-24 Spirit 00:00: - [facility] Hyalgan 20 Hyalgan 20 2020-0 No 20mg C ommon mg mg 10-24 Spirit 00:00: - [facility] Hyalgan 20 Hyalgan 20 2020-0 No 20mg C ommon mg mg 10-24 Spirit 00:00: - [facility] Hyalgan 20 Hyalgan 20 2020-0 No 20mg C ommon mg mg 10-24 Spirit 00:00: - [facility] Hyalgan 20 Hyalgan 20 2020-0 No 20mg C ommon mg mg 10-24 Spirit 00:00: - [facility] Hyalgan 20 Hyalgan 20 2020-0 No 20mg C ommon mg mg 10-17 Spirit 00:00: - [facility] Hyalgan 20 Hyalgan 20 2020-0 No 20mg C ommon mg mg 10-17 Spirit 00:00: - [facility] Hyalgan 20 Hyalgan 20 2020-0 No 20mg C ommon mg mg 10-17 Spirit 00:00: - [facility] Hyalgan 20 Hyalgan 20 2020-0 No 20mg C ommon mg mg 10-17 Spirit 00:00: - [facility] Hyalgan 20 Hyalgan 20 2020-0 No 20mg C ommon mg mg 10-17 Spirit 00:00: - [facility] Hyalgan 20 Hyalgan 20 2020-0 No 20mg C ommon mg mg 10-17 Spirit 00:00: - [facility] Hyalgan 20 Hyalgan 20 2020-0 No 20mg C ommon mg mg 10-17 Spirit 00:00: - [facility] Hyalgan 20 Hyalgan 20 2020-0 No 20mg C ommon mg mg 10-17 Spirit 00:00: - [facility] Hyalgan 20 Hyalgan 20 2020-0 No 20mg C ommon mg mg 10-17 Spirit 00:00: - [facility] Hyalgan 20 Hyalgan 20 2020-0 No 20mg C ommon mg mg 10-17 Spirit 00:00: - CHI 00 [facility] Hyalgan 20 Hyalgan 20 2020-0 No 20mg C ommon mg mg 10-17 Spirit 00:00: - CHI 00 [facility] Hyalgan 20 Hyalgan 20 2020-0 No 20mg C ommon mg mg 10-17 Spirit 00:00: - CHI 00 [facility] Hyalgan 20 Hyalgan 20 2020-0 No 20mg C ommon mg mg 10-17 Spirit 00:00: - CHI 00 [facility] Hyalgan 20 Hyalgan 20 2020-0 No 20mg C ommon mg mg 10-17 Spirit 00:00: - [facility] Hyalgan 20 Hyalgan 20 2020-0 No 20mg C ommon mg mg 10-17 Spirit 00:00: - [facility] 00 [facility] Hyalgan 20 Hyalgan 20 2020-0 No 20mg C ommon mg mg 10-17 [facility] 00:00: - [facility] Hyalgan 20 Hyalgan 20 2020-0 No 20mg C ommon mg mg 10-17 [facility] 00:00: - [facility] Hyalgan 20 Hyalgan 20 2020-0 No 20mg C ommon mg mg 10-17 [facility] 00:00: - [facility] 00 [facility] Hyalgan 20 Hyalgan 20 2020-0 No 20mg C ommon mg mg 10-17 [facility] 00:00: - [facility] 00 [facility] Hyalgan 20 Hyalgan 20 2020-0 No 20mg C ommon mg mg 10-17 [facility] 00:00: - [facility] 00 [facility] Hyalgan 20 Hyalgan 20 2020-0 No 20mg C ommon mg mg 3 [facility] 00:00: - [facility] 00 [facility] Hyalgan 20 Hyalgan 20 2020-0 No 20mg C ommon mg mg 3- [facility] 00:00: - [facility] 00 [facility] Hyalgan 20 Hyalgan 20 2020-0 No 20mg C ommon mg mg 3- [facility] 00:00: - [facility] 00 [facility] Hyalgan 20 Hyalgan 20 2020-0 No 20mg C ommon mg mg 3- [facility] 00:00: - [facility] 00 [facility] Hyalgan 20 Hyalgan 20 2020-0 No 20mg C ommon mg mg 3-15 [facility] 00:00: - [facility] 00 [facility] Hyalgan 20 Hyalgan 20 2020-0 No 20mg C ommon mg mg 3-15 [facility] 00:00: - [facility] 00 [facility] Hyalgan 20 Hyalgan 20 2020-0 No 20mg C ommon mg mg 3-15 [facility] 00:00: - [facility] 00 [facility] Hyalgan 20 Hyalgan 20 2020-0 No 20mg C ommon mg mg 3-15 [facility] 00:00: - [facility] 00 [facility] Hyalgan 20 Hyalgan 20 2020-0 No 20mg C ommon mg mg 3-15 [facility] 00:00: - [facility] 00 [facility] Hyalgan 20 Hyalgan 20 2020-0 No 20mg C ommon mg mg 3-15 [facility] 00:00: - [facility] 00 [facility] Hyalgan 20 Hyalgan 20 2020-0 No 20mg C ommon mg mg 3-15 [facility] 00:00: - [facility] 00 [facility] Hyalgan 20 Hyalgan 20 2020-0 No 20mg C ommon mg mg 3-15 [facility] 00:00: - [facility] 00 [facility] Hyalgan 20 Hyalgan 20 2020-0 No 20mg C ommon mg mg 3-15 [facility] 00:00: - [facility] 00 [facility] Hyalgan 20 Hyalgan 20 2020-0 No 20mg C ommon mg mg 3-15 [facility] 00:00: - [facility] 00 [facility] Hyalgan 20 Hyalgan 20 2020-0 No 20mg C ommon mg mg 3-15 [facility] 00:00: - [facility] 00 [facility] Hyalgan 20 Hyalgan 20 2020-0 No 20mg C ommon mg mg 3-15 [facility] 00:00: - [facility] 00 [facility] Hyalgan 20 Hyalgan 20 2020-0 No 20mg C ommon mg mg 3-15 [facility] 00:00: - [facility] 00 [facility] Hyalgan 20 Hyalgan 20 2020-0 No 20mg C ommon mg mg 3-15 [facility] 00:00: - [facility] 00 [facility] Hyalgan 20 Hyalgan 20 2020-0 No 20mg C ommon mg mg 3-15 [facility] 00:00: - [facility] 00 [facility] Hyalgan 20 Hyalgan 20 2020-0 No 20mg C ommon mg mg 3-15 [facility] 00:00: - [facility] 00 [facility] Kenalog Kenalog 2020-0 No 40mg Common (Triamcinol (Triamcinol 2-05 S pirit one) one) 00:00: - [facility] 00 [facility] Bupivicaine Bupivicaine 2020-0 No 2.5mg [place] 2-05 [facility] 00:00: - [facility] 00 [facility] Kenalog Kenalog 2020-0 No 40mg Common (Triamcinol (Triamcinol 2-05 S pirit one) one) 00:00: - [facility] 00 [facility] Bupivicaine Bupivicaine 2020-0 No 2.5mg [place] 2-05 [facility] 00:00: - [facility] 00 [facility] Kenalog Kenalog 2020-0 No 40mg Common (Triamcinol (Triamcinol 2-05 S pirit one) one) 00:00: - [facility] 00 [facility] Bupivicaine Bupivicaine 2020-0 No 2.5mg [place] 2-05 [facility] 00:00: - [facility] 00 [facility] Kenalog Kenalog 2020-0 No 40mg Common (Triamcinol (Triamcinol 2-05 S pirit one) one) 00:00: - [facility] 00 [facility] Bupivicaine Bupivicaine 2020-0 No 2.5mg Common [place] 2-05 [facility] 00:00: - [facility] 00 [facility] Kenalog Kenalog 2020-0 No 40mg Common (Triamcinol (Triamcinol 2-05 S pirit one) one) 00:00: - [facility] 00 [facility] Bupivicaine Bupivicaine 2020-0 No 2.5mg Common [place] 2-05 [facility] 00:00: - [facility] 00 [facility] Kenalog Kenalog 2020-0 No 40mg Common (Triamcinol (Triamcinol 2-05 S pirit one) one) 00:00: - [facility] 00 [facility] Bupivicaine Bupivicaine 2020-0 No 2.5mg Common [place] 2-05 [facility] 00:00: - [facility] 00 [facility] Kenalog Kenalog 2020-0 No 40mg Common (Triamcinol (Triamcinol 2-05 S pirit one) one) 00:00: - [facility] 00 [facility] Bupivicaine Bupivicaine 2020-0 No 2.5mg Common [place] 2-05 [facility] 00:00: - [facility] 00 [facility] Kenalog Kenalog 2020-0 No 40mg Common (Triamcinol (Triamcinol 2-05 S pirit one) one) 00:00: - [facility] 00 [facility] Bupivicaine Bupivicaine 2020-0 No 2.5mg Common [place] 2-05 [facility] 00:00: - [facility] 00 [facility] Wadealog Kenalog 2020-0 No 40mg Common (Triamcinol (Triamcinol 2-05 S pirit one) one) 00:00: - [facility] 00 [facility] Bupivicaine Bupivicaine 2020-0 No 2.5mg Common [place] 2-05 [facility] 00:00: - [facility] 00 [facility] Kenalog Kenalog 2020-0 No 40mg Common (Triamcinol (Triamcinol 2-05 S pirit one) one) 00:00: - [facility] 00 [facility] Bupivicaine Bupivicaine 2020-0 No 2.5mg Common [place] 2-05 [facility] 00:00: - [facility] 00 [facility] Kenalog Kenalog 2020-0 No 40mg Common (Triamcinol (Triamcinol 2-05 S pirit one) one) 00:00: - [facility] 00 [facility] Bupivicaine Bupivicaine 2020-0 No 2.5mg Common [place] 2-05 [facility] 00:00: - [facility] 00 [facility] Kenalog Kenalog 2020-0 No 40mg Common (Triamcinol (Triamcinol 2-05 S pirit one) one) 00:00: - [facility] 00 [facility] Bupivicaine Bupivicaine 2020-0 No 2.5mg Common [place] 2-05 [facility] 00:00: - [facility] 00 [facility] Kenalog Kenalog 2020-0 No 40mg Common (Triamcinol (Triamcinol 2-05 S pirit one) one) 00:00: - [facility] 00 [facility] Bupivicaine Bupivicaine 2020-0 No 2.5mg Common [place] 2-05 [facility] 00:00: - [facility] 00 [facility] Kenalog Kenalog 2020-0 No 40mg Common (Triamcinol (Triamcinol 2-05 S pirit one) one) 00:00: - [facility] 00 [facility] Bupivicaine Bupivicaine 2020-0 No 2.5mg Common [place] 2-05 [facility] 00:00: - [facility] 00 [facility] Kenalog Kenalog 2020-0 No 40mg Common (Triamcinol (Triamcinol 2-05 S pirit one) one) 00:00: - [facility] 00 [facility] Bupivicaine Bupivicaine 2020-0 No 2.5mg Common [place] 2-05 [facility] 00:00: - [facility] 00 [facility] Kenalog Kenalog 2020-0 No 40mg Common (Triamcinol (Triamcinol 2-05 S pirit one) one) 00:00: - [facility] 00 [facility] Bupivicaine Bupivicaine 2020-0 No Common [place] 2-05 [facility] 00:00: - [facility] 00 [facility] Kenalog Kenalog 2020-0 No 40mg Common (Triamcinol (Triamcinol 2-05 S pirit one) one) 00:00: - [facility] 00 [facility] Bupivicaine Bupivicaine 2020-0 No Common [place] 2-05 [facility] 00:00: - [facility] 00 [facility] Kenalog Kenalog 2020-0 No 40mg Common (Triamcinol (Triamcinol 2-05 S pirit one) one) 00:00: - [facility] 00 [facility] Bupivicaine Bupivicaine 2020-0 No Common [place] 2-05 [facility] 00:00: - [facility] 00 [facility] Kenalog Kenalog 2020-0 No 40mg Common (Triamcinol (Triamcinol 2-05 S pirit one) one) 00:00: - [facility] Bupivicaine Bupivicaine No 2.5mg Common [place] 2-05 [facility] 00:00: - [facility] Kenalog Kenalog No 40mg Common (Triamcinol (Triamcinol 2-05 S pirit one) one) 00:00: - [facility] Bupivicaine Bupivicaine No 2.5mg Common [place] 2-05 [facility] 00:00: - [facility] barium 202- No 340g 340 g, Univers sulfate 2-03 Oral, ity of (LIQUID E-Z 16:00: 15:33 ONCE, 1 Cheng RICO) 60 % 00 :00 dose, Wed Med ical (w/v) oral 08/31/20 at [facility] suspension 1000, 340 g Routine tramadol 2019-07 Yes 50 mg = 1 Babatunde roe hydrochlori 0-12 tab, PO, l de 50 MG 19:22: Daily, X Natalia nn Oral Tablet day, # 30 tab, 2 Refill(s), Pharmacy: [facility] #[id number], 172.72, cm, 02/18/20 9:24:00 CDT, Height, 101.818, kg, 02/18/20 9:24:00 CDT, Weight tramadol 2019-07 Yes 50 mg = 1 Babatunde roe hydrochlori 0-12 tab, PO, l de 50 MG 19:22: Daily, X Natalia nn Oral Tablet day, # 30 tab, 2 Refill(s), Pharmacy: [facility] cy #[id number], 172.72, cm, 02/18/20 9:24:00 CDT, Height, 101.818, kg, 02/18/20 9:24:00 CDT, Weight methotrexat Yes IV, ONCE, M emoria e 1 g 9-04 0 l injection 19:57: Refill(s) Her echeverria methotrexat Yes IV, ONCE, M emoria e 1 g 9-04 0 l injection 19:57: Refill(s) Her echeverria Hyalgan 20 Hyalgan 20 2019-0 No 20mg C ommon mg mg 03-23 [facility] 00:00: - [facility] 00 [facility] Hyalgan 20 Hyalgan 20 2020-0 No 20mg C ommon mg mg 03-23 [facility] 00:00: - [facility] 00 [facility] Hyalgan 20 Hyalgan 20 2020-0 No 20mg C ommon mg mg 03-23 [facility] 00:00: - [facility] 00 [facility] Hyalgan 20 Hyalgan 20 2020-0 No 20mg C ommon mg mg 03-23 [facility] 00:00: - [facility] 00 [facility] Hyalgan 20 Hyalgan 20 2020-0 No 20mg C ommon mg mg 03-23 [facility] 00:00: - [facility] Hyalgan 20 Hyalgan 20 2020-0 No 20mg C ommon mg mg 03-23 [facility] 00:00: - [facility] 00 [facility] Hyalgan 20 Hyalgan 20 2020-0 No 20mg C ommon mg mg 03-23 [facility] 00:00: - [facility] 00 [facility] Hyalgan 20 Hyalgan 20 2020-0 No 20mg C ommon mg mg 03-23 [facility] 00:00: - [facility] 00 [facility] Hyalgan 20 Hyalgan 20 2020-0 No 20mg C ommon mg mg 03-23 [facility] 00:00: - [facility] 00 [facility] Hyalgan 20 Hyalgan 20 2020-0 No 20mg C ommon mg mg 03-23 [facility] 00:00: - [facility] Hyalgan 20 Hyalgan 20 2020-0 No 20mg C ommon mg mg 03-23 [facility] 00:00: - [facility] 00 [facility] Hyalgan 20 Hyalgan 20 2020-0 No 20mg C ommon mg mg 03-23 [facility] 00:00: - [facility] 00 [facility] Hyalgan 20 Hyalgan 20 2020-0 No 20mg C ommon mg mg 03-23 [facility] 00:00: - [facility] 00 [facility] Hyalgan 20 Hyalgan 20 2020-0 No 20mg C ommon mg mg 03-23 [facility] 00:00: - [facility] 00 [facility] Hyalgan 20 Hyalgan 20 2020-0 No 20mg C ommon mg mg 03-23 [facility] 00:00: - [facility] 00 [facility] Hyalgan 20 Hyalgan 20 2020-0 No 20mg C ommon mg mg 03-23 [facility] 00:00: - [facility] Hyalgan 20 Hyalgan 20 2020-0 No 20mg C ommon mg mg 03-23 [facility] 00:00: - [facility] Hyalgan 20 Hyalgan 20 2020-0 No 20mg C ommon mg mg 03-23 [facility] 00:00: - [facility] Hyalgan 20 Hyalgan 20 2020-0 No 20mg C ommon mg mg 03-23 [facility] 00:00: - [facility] Hyalgan 20 Hyalgan 20 2020-0 No 20mg C ommon mg mg 03-23 [facility] 00:00: - [facility] Hyalgan 20 Hyalgan 20 2020-0 No 20mg C ommon mg mg 03-14 [facility] 00:00: - [facility] Hyalgan 20 Hyalgan 20 2020-0 No 20mg C ommon mg mg 03-14 [facility] 00:00: - [facility] Hyalgan 20 Hyalgan 20 2020-0 No 20mg C ommon mg mg 03-14 [facility] 00:00: - [facility] Hyalgan 20 Hyalgan 20 2020-0 No 20mg C ommon mg mg 03-14 [facility] 00:00: - [facility] Hyalgan 20 Hyalgan 20 2020-0 No 20mg C ommon mg mg 03-14 [facility] 00:00: - [facility] Hyalgan 20 Hyalgan 20 2020-0 No 20mg C ommon mg mg 03-14 [facility] 00:00: - [facility] Hyalgan 20 Hyalgan 20 2020-0 No 20mg C ommon mg mg 03-14 [facility] 00:00: - [facility] Hyalgan 20 Hyalgan 20 2020-0 No 20mg C ommon mg mg 03-14 [facility] 00:00: - [facility] Hyalgan 20 Hyalgan 20 2020-0 No 20mg C ommon mg mg 03-14 [facility] 00:00: - [facility] Hyalgan 20 Hyalgan 20 2020-0 No 20mg C ommon mg mg 03-14 [facility] 00:00: - [facility] Hyalgan 20 Hyalgan 20 2020-0 No 20mg C ommon mg mg 03-14 [facility] 00:00: - [facility] Hyalgan 20 Hyalgan 20 2020-0 No 20mg C ommon mg mg 03-14 [facility] 00:00: - [facility] Hyalgan 20 Hyalgan 20 2020-0 No 20mg C ommon mg mg 03-14 [facility] 00:00: - [facility] Hyalgan 20 Hyalgan 20 2020-0 No 20mg C ommon mg mg 03-14 [facility] 00:00: - [facility] Hyalgan 20 Hyalgan 20 2020-0 No 20mg C ommon mg mg 03-14 [facility] 00:00: - [facility] Hyalgan 20 Hyalgan 20 2020-0 No 20mg C ommon mg mg 03-14 [facility] 00:00: - [facility] Hyalgan 20 Hyalgan 20 2020-0 No 20mg C ommon mg mg 03-14 [facility] 00:00: - [facility] Hyalgan 20 Hyalgan 20 2020-0 No 20mg C ommon mg mg 03-14 [facility] 00:00: - [facility] Hyalgan 20 Hyalgan 20 2020-0 No 20mg C ommon mg mg 03-14 [facility] 00:00: - [facility] Hyalgan 20 Hyalgan 20 2020-0 No 20mg C ommon mg mg 03-14 [facility] 00:00: - [facility] Hyalgan 20 Hyalgan 20 2020-0 No 20mg C ommon mg mg 8 [facility] 00:00: - [facility] Kenalog Kenalog 2020-0 No 40mg Common (Triamcinol (Triamcinol 8-10 S pirit one) one) 00:00: - [facility]I [facility] Bupivicaine Bupivicaine 2020-0 No 4mL Common [place] 8- [facility] 00:00: - [facility] Hyalgan 20 Hyalgan 20 2020-0 No 20mg C ommon mg mg 8 [facility] 00:00: - [facility] Kenalog Kenalog 2020-0 No 40mg Common (Triamcinol (Triamcinol 8-10 S pirit one) one) 00:00: - [facility]I 00 [facility] Bupivicaine Bupivicaine 2020-0 No 4mL Common [place] 8-10 [facility] 00:00: - [facility] 00 [facility] Hyalgan 20 Hyalgan 20 2020-0 No 20mg C ommon mg mg 8-10 [facility] 00:00: - [facility] 00 [facility] Kenalog Kenalog 2020-0 No 40mg Common (Triamcinol (Triamcinol 8-10 S pirit one) one) 00:00: - [facility]I 00 [facility] Bupivicaine Bupivicaine 2020-0 No 4mL Common [place] 8-10 [facility] 00:00: - [facility] 00 [facility] Hyalgan 20 Hyalgan 20 2020-0 No 20mg C ommon mg mg 8-10 [facility] 00:00: - [facility] 00 [facility] Kenalog Kenalog 2020-0 No 40mg Common (Triamcinol (Triamcinol 8-10 S pirit one) one) 00:00: - [facility]I 00 [facility] Bupivicaine Bupivicaine 2020-0 No 4mL Common [place] 8-10 [facility] 00:00: - [facility] 00 [facility] Hyalgan 20 Hyalgan 20 2020-0 No 20mg C ommon mg mg 8-10 [facility] 00:00: - [facility] 00 [facility] Kenalog Kenalog 2020-0 No 40mg Common (Triamcinol (Triamcinol 8-10 S pirit one) one) 00:00: - [facility]I 00 [facility] Bupivicaine Bupivicaine 2020-0 No 4mL Common [place] 8-10 [facility] 00:00: - [facility] 00 [facility] Hyalgan 20 Hyalgan 20 2020-0 No 20mg C ommon mg mg 8-10 [facility] 00:00: - [facility] 00 [facility] Kenalog Kenalog 2020-0 No 40mg Common (Triamcinol (Triamcinol 8-10 S pirit one) one) 00:00: - [facility]I 00 [facility] Bupivicaine Bupivicaine 2020-0 No 4mL Common [place] 8-10 [facility] 00:00: - [facility] 00 [facility] Hyalgan 20 Hyalgan 20 2020-0 No 20mg C ommon mg mg 8-10 [facility] 00:00: - [facility] 00 [facility] Kenalog Kenalog 2020-0 No 40mg Common (Triamcinol (Triamcinol 8-10 S pirit one) one) 00:00: - [facility]I 00 [facility] Bupivicaine Bupivicaine 2020-0 No 4mL Common [place] 8-10 [facility] 00:00: - [facility] 00 [facility] Hyalgan 20 Hyalgan 20 2020-0 No 20mg C ommon mg mg 8-10 [facility] 00:00: - [facility] 00 [facility] Kenalog Kenalog 2020-0 No 40mg Common (Triamcinol (Triamcinol 8-10 S pirit one) one) 00:00: - [facility]I 00 [facility] Bupivicaine Bupivicaine 2020-0 No 4mL Common [place] 8-10 [facility] 00:00: - [facility] 00 [facility] Hyalgan 20 Hyalgan 20 2020-0 No 20mg C ommon mg mg 8-10 [facility] 00:00: - [facility] 00 [facility] Kenalog Kenalog 2020-0 No 40mg Common (Triamcinol (Triamcinol 8-10 S pirit one) one) 00:00: - [facility]I 00 [facility] Bupivicaine Bupivicaine 2020-0 No 4mL Common [place] 8-10 [facility] 00:00: - [facility] 00 [facility] Hyalgan 20 Hyalgan 20 2020-0 No 20mg C ommon mg mg 8-10 [facility] 00:00: - [facility] 00 [facility] Kenalog Kenalog 2020-0 No 40mg Common (Triamcinol (Triamcinol 8-10 S pirit one) one) 00:00: - [facility]I 00 [facility] Bupivicaine Bupivicaine 2020-0 No 4mL Common [place] 8-10 [facility] 00:00: - [facility] 00 [facility] Hyalgan 20 Hyalgan 20 2020-0 No 20mg C ommon mg mg 8-10 [facility] 00:00: - [facility] 00 [facility] Kenalog Kenalog 2020-0 No 40mg Common (Triamcinol (Triamcinol 8-10 S pirit one) one) 00:00: - [facility]I 00 [facility] Bupivicaine Bupivicaine 2020-0 No 4mL Common [place] 8-10 [facility] 00:00: - [facility] 00 [facility] Hyalgan 20 Hyalgan 20 2020-0 No 20mg C ommon mg mg 8-10 [facility] 00:00: - [facility] 00 [facility] Kenalog Kenalog 2020-0 No 40mg Common (Triamcinol (Triamcinol 8-10 S pirit one) one) 00:00: - [facility] 00 [facility] Bupivicaine Bupivicaine 2020-0 No 4mL Common [place] 8-10 [facility] 00:00: - [facility] 00 [facility] Hyalgan 20 Hyalgan 20 2020-0 No 20mg C ommon mg mg 8-10 [facility] 00:00: - [facility] 00 [facility] Kenalog Kenalog 2020-0 No 40mg Common (Triamcinol (Triamcinol 8-10 S pirit one) one) 00:00: - [facility] 00 [facility] Bupivicaine Bupivicaine 2020-0 No 4mL Common [place] 8-10 [facility] 00:00: - [facility] 00 [facility] Hyalgan 20 Hyalgan 20 2020-0 No 20mg C ommon mg mg 8-10 [facility] 00:00: - [facility] 00 [facility] Kenalog Kenalog 2020-0 No 40mg Common (Triamcinol (Triamcinol 8-10 S pirit one) one) 00:00: - [facility]I 00 [facility] Bupivicaine Bupivicaine 2020-0 No 4mL Common [place] 8-10 [facility] 00:00: - [facility] 00 [facility] Hyalgan 20 Hyalgan 20 2020-0 No 20mg C ommon mg mg 8-10 [facility] 00:00: - [facility] 00 [facility] Kenalog Kenalog 2020-0 No 40mg Common (Triamcinol (Triamcinol 8-10 S pirit one) one) 00:00: - [facility]I 00 [facility] Bupivicaine Bupivicaine 2020-0 No 4mL Common [place] 8-10 [facility] 00:00: - [facility] 00 [facility] Hyalgan 20 Hyalgan 20 2020-0 No 20mg C ommon mg mg 8-10 [facility] 00:00: - [facility] 00 [facility] Kenalog Kenalog 2020-0 No 40mg Common (Triamcinol (Triamcinol 8-10 S pirit one) one) 00:00: - [facility]I 00 [facility] Bupivicaine Bupivicaine 2020-0 No 4mL Common [place] 8-10 [facility] 00:00: - [facility] 00 [facility] Hyalgan 20 Hyalgan 20 2020-0 No 20mg C ommon mg mg 8-10 [facility] 00:00: - [facility] 00 [facility] Kenalog Kenalog 2020-0 No 40mg Common (Triamcinol (Triamcinol 8-10 S pirit one) one) 00:00: - [facility] 00 [facility] Bupivicaine Bupivicaine 2020-0 No 4mL Common [place] 8-10 [facility] 00:00: - [facility] 00 [facility] Hyalgan 20 Hyalgan 20 2020-0 No 20mg C ommon mg mg 8-10 [facility] 00:00: - [facility] 00 [facility] Kenalog Kenalog 2020-0 No 40mg Common (Triamcinol (Triamcinol 8-10 S pirit one) one) 00:00: - [facility] 00 [facility] Bupivicaine Bupivicaine 2020-0 No 4mL Common [place] 8-10 [facility] 00:00: - [facility] 00 [facility] Hyalgan 20 Hyalgan 20 2020-0 No 20mg C ommon mg mg 8-10 [facility] 00:00: - [facility] 00 [facility] Kenalog Kenalog 2020-0 No 40mg Common (Triamcinol (Triamcinol 8-10 S pirit one) one) 00:00: - [facility] 00 [facility] Bupivicaine Bupivicaine 2020-0 No 4mL Common [place] 8-10 [facility] 00:00: - [facility] 00 [facility] Hyalgan 20 Hyalgan 20 2020-0 No 20mg C ommon mg mg 8-10 [facility] 00:00: - [facility] 00 [facility] Kenalog Kenalog 2020-0 No 40mg Common (Triamcinol (Triamcinol 8-10 S pirit one) one) 00:00: - [facility]I 00 [facility] Bupivicaine Bupivicaine 2020-0 No 4mL Common [place] 8-10 [facility] 00:00: - [facility]I 00 [facility] topiramate 2020-0 Yes = 1 tab, Mem oria 100 mg oral 7-23 PO, BID, # l tablet 14:35: 180 tab, 3 Natalia nn 00 Refill(s), Pharmacy: [email or web address] #[id number], 172.72, cm, 02/18/20 9:24:00 CDT, Height, 101.818, kg, 02/18/20 9:24:00 CDT, Weight topiramate 2020-0 Yes = 1 tab, Mem oria 100 mg oral 7-23 PO, BID, # l tablet 14:35: 180 tab, 3 Natalia nn 00 Refill(s), Pharmacy: [email or web address] #[id number], 172.72, cm, 02/18/20 9:24:00 CDT, Height, 101.818, kg, 02/18/20 9:24:00 CDT, Weight Hydroxychlo 2020-0 Yes 400 mg, Mem oria roquine 7-23 PO, BID, 0 l 14:29: Refill(s) [place] 00 Buspirone 2020-0 Yes 5 mg, PO, Mem oria 7-23 Q8H, 0 l 14:29: Refill(s) [place] 00 Hydroxychlo 2020-0 Yes 400 mg, Mem oria roquine 7-23 PO, BID, 0 l 14:29: Refill(s) [place] 00 Buspirone 2020-0 Yes 5 mg, PO, Mem oria 7-23 Q8H, 0 l 14:29: Refill(s) nebivolol 2019-0 Yes 10mg Take 10 mg Un ford (BYSTOLIC) 6-26 by mouth ity o f 10 mg 16:40: daily. [facility] 13 [facility] Branch liothyronin 2019-0 Yes 25ug Take 25 Uni vers e 25 mcg 6-26 mcg by ity of tablet 16:40: mouth [place] [address] daily. Medical Branch Levothyroxi 0 Yes Take by Uni vers ne 125 mcg 6-26 mouth. ity of capsule 16:40: [place] [address] Medical Branch citalopram 2019-0 Yes 40mg Take 40 mg U nivers 40 mg 6-26 by mouth ity of tablet 16:40: daily. [place] [address] Medical Branch amLODIPine 0 Yes 5mg Take 5 mg Un [facility] 5 mg tablet 6-26 by mouth ity of 16:40: daily. [place] [address] Medical Branch topiramate 2020-0 Yes 200mg Take 200 Un for[place] 200 mg Cp24 6-26 mg by ity of 16:40: mouth 2 [place] 13 (two) Medical times Branch daily. baclofen 10 2020-0 Yes 10mg Take 10 mg Univers mg tablet 6-26 by mouth 2 ity of 16:40: (two) [place] [address] times Medical daily. Branch Dexlansopra 2020-0 Yes 60mg Take 60 mg Univers zole 6-26 by mouth ity of (DEXILANT) 16:40: daily [place] 60 mg 13 before Medical capsule breakfast. Branch gabapentin 2020-0 Yes Take by Univ ers ER 600 mg 6-26 mouth at ity of tablet, 16:40: bedtime. [place] extended Medical release 24 Branch hr hydroxychlo 2020-0 Yes 400mg Take 400 U nivers roquine 200 6-26 mg by ity of mg tablet 16:40: mouth [place] [address] daily. Medical Branch nebivolol 2019-0 Yes 10mg Take 10 mg Un for[place] (BYSTOLIC) 6-26 by mouth ity o f 10 mg 16:40: daily. [place] tablet 13 Medical Branch liothyronin 2019-0 Yes 25ug Take 25 Uni vers e 25 mcg 6-26 mcg by ity of tablet 16:40: mouth [place] [address] daily. Medical Branch Levothyroxi 2019-0 Yes Take by Uni vers ne 125 mcg 6-26 mouth. ity of capsule 16:40: [place] [address] Medical Branch citalopram 2020-0 Yes 40mg Take 40 mg U nivers 40 mg 6-26 by mouth ity of tablet 16:40: daily. [place] [address] Medical Branch amLODIPine 2020-0 Yes 5mg Take 5 mg Un ford 5 mg tablet 6-26 by mouth ity of 16:40: daily. [place] [address] Medical Branch topiramate 2020-0 Yes 200mg Take 200 Un for[place] 200 mg Cp24 6-26 mg by ity of 16:40: mouth 2 [place] 13 (two) Medical times Branch daily. baclofen 10 2019-0 Yes 10mg Take 10 mg Univers mg tablet 6-26 by mouth 2 ity of 16:40: (two) [place] [address] times Medical daily. Branch Dexlansopra 2020-0 Yes 60mg Take 60 mg Univers zole 6-26 by mouth ity of (DEXILANT) 16:40: daily [place] 60 mg 13 before Medical capsule breakfast. Branch gabapentin 2020-0 Yes Take by [facility] ers ER 600 mg 6-26 mouth at ity of tablet, 16:40: bedtime. [place] extended 13 Medical release 24 Branch hr hydroxychlo 2020-0 Yes 400mg Take 400 U nivers roquine 200 6-26 mg by ity of mg tablet 16:40: mouth [place] 13 daily. Medical Branch nebivolol 2020-0 Yes 10mg Take 10 mg Un ford (BYSTOLIC) 6-26 by mouth ity o f 10 mg 16:40: daily. [place] tablet 13 Medical Branch liothyronin 2020-0 Yes 25ug Take 25 Uni vers e 25 mcg 6-26 mcg by ity of tablet 16:40: mouth [place] 13 daily. Medical Branch Levothyroxi 2020-0 Yes Take by Uni vers ne 125 mcg 6-26 mouth. ity of capsule 16:40: 13 Medical Branch citalopram 2020-0 Yes 40mg Take 40 mg U nivers 40 mg 6-26 by mouth ity of tablet 16:40: daily. Medical Branch amLODIPine 2020-0 Yes 5mg Take 5 mg Un ford 5 mg tablet 6-26 by mouth ity of 16:40: daily. Medical Branch topiramate 2020-0 Yes 200mg Take 200 Un for[place] 200 mg Cp24 6-26 mg by ity of 16:40: mouth 2 13 (two) Medical times Branch daily. baclofen 10 2020-0 Yes 10mg Take 10 mg Univers mg tablet 6-26 by mouth 2 ity of 16:40: (two) [place] 13 times Medical daily. Branch Dexlansopra 2020-0 Yes 60mg Take 60 mg Univers zole 6-26 by mouth ity of (DEXILANT) 16:40: daily [place] 60 mg 13 before Medical capsule breakfast. Branch gabapentin 2020-0 Yes Take by [facility] ers ER 600 mg 6-26 mouth at ity of tablet, 16:40: bedtime. [place] extended 13 Medical release 24 Branch hr [...] 01-21 Starting ity of free) 0.5% 13:22: Sat (SENSORCAIN 01/22/20 at [facility]) 0.5 0822, Branch % (5 mg/mL) Until injection Discontinu ed, Routine, Intra-op lactated 2020-0 2020- No 1000mL at 20 Unive rs ringers IV 01-21 06-26 mL/hr, ity of infusion 12:45: 12:43 1,000 mL, [place] as 1,000 mL 00 :00 IV Medical Infusion, Branch ONCE, 1 dose, Sat01/22/20 at 0745, Routine, DSU Pre-op lidocaine 2020-0 [...] ity o f 10 mg 11:40: daily. [place] tablet 13 Medical Branch liothyronin 2020-0 Yes 25ug Take 25 Uni vers e 25 mcg 6-26 mcg by ity of tablet 11:40: mouth [place] 13 daily. Medical Branch Levothyroxi 2020-0 Yes Take by Uni vers ne 125 mcg 6-26 mouth. ity of capsule 11:40: [place] 13 Medical Branch citalopram 2020-0 Yes 40mg Take 40 mg U nivers 40 mg 6-26 by mouth ity of tablet 11:40: daily. [place] [address] Medical Branch amLODIPine 2020-0 Yes 5mg Take 5 mg Un ford 5 mg tablet 6-26 by mouth ity of 11:40: daily. [place] [address] Medical Branch topiramate 2020-0 Yes 200mg Take 200 Un for[place] 200 mg Cp24 6-26 mg by ity of 11:40: mouth 2 [place] 13 (two) Medical times Branch daily. baclofen 10 2020-0 Yes 10mg Take 10 mg Univers mg tablet 6-26 by mouth 2 ity of 11:40: (two) [place] 13 times Medical daily. Branch Dexlansopra 2020-0 Yes 60mg Take 60 mg Univers zole 6-26 by mouth ity of (DEXILANT) 11:40: daily [place] 60 mg 13 before Medical capsule breakfast. Branch gabapentin 2020-0 Yes Take by [facility] ers ER 600 mg 6-26 mouth at ity of tablet, 11:40: bedtime. [place] extended 13 Medical release 24 Branch hr hydroxychlo 2020-0 Yes 400mg Take 400 U nivers roquine 200 6-26 mg by ity of mg tablet 11:40: mouth [place] 13 daily. Medical Branch Hydrochloro 2020-0 Yes 400 mg, Mem oria thiazide 5-28 PO, Daily, l 18:05: 0 Jamie 00 Refill(s) Hydrochloro 2020-0 Yes 400 mg, Mem oria thiazide 5-28 PO, Daily, l 18:05: 0 [place] 00 Refill(s) Kenalog Kenalog 2020-0 No 40mg Common (Triamcinol (Triamcinol 1-14 S pirit one) one) 00:00: - [facility] 00 [facility] Kenalog Kenalog 2020-0 No 40mg Common (Triamcinol (Triamcinol 1-14 S pirit one) one) 00:00: - [facility] 00 [facility] Kenalog Kenalog 2020-0 No 40mg Common (Triamcinol (Triamcinol 1-14 S pirit one) one) 00:00: - [facility] 00 [facility] Kenalog Kenalog 2020-0 No 40mg Common (Triamcinol (Triamcinol 1-14 S pirit one) one) 00:00: - [facility] 00 [facility] Kenalog Kenalog 2020-0 No 40mg Common (Triamcinol (Triamcinol 1-14 S pirit one) one) 00:00: - [facility] 00 [facility] Kenalog Kenalog 2020-0 No 40mg Common (Triamcinol (Triamcinol 1-14 S pirit one) one) 00:00: - [facility] 00 [facility] Kenalog Kenalog 2020-0 No 40mg Common (Triamcinol (Triamcinol 1-14 S pirit one) one) 00:00: - [facility] 00 [facility] Kenalog Kenalog 2020-0 No 40mg Common (Triamcinol (Triamcinol 1-14 S pirit one) one) 00:00: - [facility] 00 [facility] Kenalog Kenalog 2020-0 No 40mg Common (Triamcinol (Triamcinol 1-14 S pirit one) one) 00:00: - [facility] 00 [facility] Kenalog Kenalog 2020-0 No 40mg Common (Triamcinol (Triamcinol 1-14 S pirit one) one) 00:00: - [facility] 00 [facility] Kenalog Kenalog 2020-0 No 40mg Common (Triamcinol (Triamcinol 1-14 S pirit one) one) 00:00: - [facility] 00 [facility] Kenalog Kenalog 2020-0 No 40mg Common (Triamcinol (Triamcinol 1-14 S pirit one) one) 00:00: - [facility] 00 [facility] Kenalog Kenalog 2020-0 No 40mg Common (Triamcinol (Triamcinol 1-14 S pirit one) one) 00:00: - [facility] 00 [facility] Kenalog Kenalog 2020-0 No 40mg Common (Triamcinol (Triamcinol 1-14 S pirit one) one) 00:00: - [facility] 00 [facility] Kenalog Kenalog 2020-0 No 40mg Common (Triamcinol (Triamcinol 1-14 S pirit one) one) 00:00: - [facility] 00 [facility] Kenalog Kenalog 2020-0 No 40mg Common (Triamcinol (Triamcinol 1-14 S pirit one) one) 00:00: - [facility] 00 [facility] Kenalog Kenalog 2020-0 No 40mg Common (Triamcinol (Triamcinol 1-14 S pirit one) one) 00:00: - [facility] 00 [facility] Kenalog Kenalog 2020-0 No 40mg Common (Triamcinol (Triamcinol 1-14 S pirit one) one) 00:00: - [facility] 00 [facility] Kenalog Kenalog 2020-0 No 40mg Common (Triamcinol (Triamcinol 1-14 S pirit one) one) 00:00: - [facility] 00 [facility] Kenalog Kenalog 2020-0 No 40mg Common (Triamcinol (Triamcinol 1-14 S pirit one) one) 00:00: - [facility] 00 [facility] gabapentin 2018-07 Yes 600 mg = 2 M emoria 300 MG Oral 1-20 cap, PO, l Capsule 16:19: BID, # 120 Herm chinmay 22 cap, 2 Refill(s), [facility]acy: [id number] gabapentin 2018-07 Yes 600 mg = 2 M emoria 300 MG Oral 1-20 cap, PO, l Capsule 16:19: BID, # 120 Herm chinmay 22 cap, 2 Refill(s), Pharmacy: [email or web address][id number] baclofen 2018-07 Yes 20 mg = 2 M emoria mg oral 1-20 tab, PO, l tablet 16:19: BID, # 360 Natalia nn 19 tab, 3 Refill(s), Pharmacy: [email or web address][id number] baclofen 2018-07 Yes 20 mg = 2 M emoria mg oral 1-20 tab, PO, l tablet 16:19: BID, # 360 Natalia nn 19 tab, 3 Refill(s), Pharmacy: [facility] #[id number] topiramate 2019- Yes = 1 tab, Mem oria 100 mg oral 1-12 PO, BID, # l tablet 22:03: 180 tab, 3 Natalia nn 42 Refill(s), [id number] topiramate 2018-07 Yes = 1 tab, Mem oria 100 mg oral 1-12 PO, BID, # l tablet 22:03: 180 tab, 3 Natalia nn 42 Refill(s), [id number] QUEtiapine Yes 600mg Take 600 Un [place] (SEROquel 8-27 mg by ity of XR) 300 MG 09:24: mouth at [place] 24 hr 02 [facility]. [facility] Yes 300mg Take 300 Un ford (NEURONTIN) 8-27 mg by ity of 300 mg 09:24: mouth at [place] capsule 02 bedtime. MD Vandana schumacher [facility] liothyronin Yes 25ug Take 25 Uni vers e (CYTOMEL) 8-27 mcg by ity of 25 mcg 09:24: mouth [place] tablet 02 daily. MD Vandana schumacher [facility] citalopram Yes 80mg Take 80 mg U nivers (CeleXA) 40 8-27 by mouth ity of mg tablet 09:24: daily. [facility] dexlansopra Yes 60mg Take 60 mg Univers zole 8-27 by mouth ity of (DEXILANT) 09:24: daily. [place] 60 mg 02 [facility] nebiv[facility]ol Yes 10mg Take 10 mg Un for[place] (BYSTOLIC) 8-27 by mouth ity o f 10 mg 09:24: daily. [facility] amLODIPine Yes 5mg Take 5 mg Un [place] (NORVASC) 5 8-27 by mouth ity of mg tablet 09:24: daily. MD [facility] baclofen Yes 10mg Take 10 mg Uni vers (LIORESAL) 8-27 by mouth ity o f 10 mg 09:24: every 12 [place] tablet 02 (twelve) MD hours. [facility] topiramate Yes 200mg Take 200 Un ford (TOPAMAX) 8-27 mg by ity of 100 mg 09:24: mouth [place] tablet 02 twice MD daily. [facility] levothyroxi Yes 125ug Take 125 U nivers ne 8-27 mcg by ity of (TIROSINT) 09:24: mouth [place] 125 mcg cap 02 daily. MD [facility] mupirocin Yes 1{appli Apply 1 Un ford (BACTROBAN) 8-27 cation} applicatio ity of 2% ointment 09:24: n 02 topically to [facility] area(s) Cancer daily. [place] QUEtiapine Yes 600mg Take 600 Un ford (SEROquel 8-27 mg by ity of XR) 300 MG 09:24: mouth at [place] 24 hr 02 bedtime. tablet [facility] gab[facility] Yes 300mg Take 300 Un ford (NEURONTIN) 8-27 mg by ity of 300 mg 09:24: mouth at [place] capsule 02 bedtime. MD Vandana schumacher [facility] liothyronin Yes 25ug Take 25 Uni vers e (CYTOMEL) 8-27 mcg by ity of 25 mcg 09:24: mouth [place] tablet 02 daily. MD Vandana schumacher [facility] citalopram Yes 80mg Take 80 mg U nivers (CeleXA) 40 8-27 by mouth ity of mg tablet 09:24: daily. MD [facility] dexlansopra Yes 60mg Take 60 mg Univers zole 8-27 by mouth ity of (DEXILANT) 09:24: daily. [place] 60 mg 02 capsule [facility] nebivolol Yes 10mg Take 10 mg Un for[place] (BYSTOLIC) 8-27 by mouth ity o f 10 mg 09:24: daily. [place] tablet MD [facility] amLODIPine Yes 5mg Take 5 mg Un for[place] (NORVASC) 5 8-27 by mouth ity of mg tablet 09:24: daily. [facility] baclofen Yes 10mg Take 10 mg Uni vers (LIORESAL) 8-27 by mouth ity o f 10 mg 09:24: every 12 [place] tablet 02 (twelve) MD hours. [facility] topiramate Yes 200mg Take 200 Un ford (TOPAMAX) 8-27 mg by ity of 100 mg 09:24: mouth [place] tablet 02 twice MD daily. [facility] levothyroxi Yes 125ug Take 125 U nivers ne 8-27 mcg by ity of (TIROSINT) 09:24: mouth [place] 125 mcg cap 02 [facility] mupirocin Yes 1{appli Apply 1 Un ford (BACTROBAN) 8-27 cation} applicatio ity of 2% ointment 09:24: n [place] 02 topically MD to [facility] area(s) Cancer daily. [place] lidocaine Yes RECTAL Univer s HCl-hydroco 809 APPLY ity of rtison ac 00:00: RECTALLY [place] 3-0.5 % kit 00 TWICE MD WEEKLY [facility] lidocaine Yes RECTAL Univer s HCl-hydroco 809 APPLY ity of rtison ac 00:00: [place]ALLY [place] 3-0.5 % kit 00 [facility]ICE [facility] topiramate Yes = 1 tab, Mem oria 100 mg oral 7-31 PO, BID, # l tablet 19:50: 180 tab, [place] 27 Refill(s) 7, Pharmacy: [email or web address][id number] topiramate Yes = 1 tab, Mem oria 100 mg oral 7-31 PO, BID, # l tablet 19:50: 180 tab, [place] 27 Refill(s) 7, Pharmacy: [email or web address][id number] Depo Medrol Depo Medrol No 1mL Common (40mg) (40mg) 02-13 Spirit 00:00: - [facility] Bupivicaine Bupivicaine 2018- No 5mL Common [place] 02-13 Spirit 00:00: - [facility] Depo Medrol Depo Medrol 2019-0 No 1mL Common (40mg) (40mg) 02-13 Spirit 00:00: - [facility] Bupivicaine Bupivicaine 2019-0 No 5mL Common [place] 02-13 Spirit 00:00: - [facility] Depo Medrol Depo Medrol 2019-0 No 1mL Common (40mg) (40mg) 02-13 Spirit 00:00: - [facility] Bupivicaine Bupivicaine 2019-0 No 5mL Common [place] 02-13 Spirit 00:00: - [facility] 00 [facility] Depo Medrol Depo Medrol 2019-0 No 1mL Common (40mg) (40mg) 02-13 Spirit 00:00: - [facility] Bupivicaine Bupivicaine 2019-0 No 5mL Common [place] 02-13 Spirit 00:00: - [facility] Depo Medrol Depo Medrol 2019-0 No 1mL Common (40mg) (40mg) 02-13 Spirit 00:00: - [facility] Bupivicaine Bupivicaine 2019-0 No 5mL Common [place] 02-13 Spirit 00:00: - [facility] Depo Medrol Depo Medrol 2019-0 No 1mL Common (40mg) (40mg) 02-13 Spirit 00:00: - [facility] Bupivicaine Bupivicaine 2019-0 No 5mL Common [place] 02-13 Spirit 00:00: - [facility] Depo Medrol Depo Medrol 2019-0 No 1mL Common (40mg) (40mg) 02-13 Spirit 00:00: - [facility] Bupivicaine Bupivicaine 2019-0 No 5mL Common [place] 02-13 Spirit 00:00: - [facility] Depo Medrol Depo Medrol 2019-0 No 1mL Common (40mg) (40mg) 02-13 Spirit 00:00: - [facility] Bupivicaine Bupivicaine 2019-0 No 5mL Common [place] 02-13 Spirit 00:00: - [facility] Depo Medrol Depo Medrol 2019-0 No 1mL Common (40mg) (40mg) 02-13 Spirit 00:00: - [facility] Bupivicaine Bupivicaine 2019-0 No 5mL Common [place] 02-13 Spirit 00:00: - [facility] Depo Medrol Depo Medrol 2019-0 No 1mL Common (40mg) (40mg) 02-13 Spirit 00:00: - [facility] Bupivicaine Bupivicaine 2019-0 No 5mL Common [place] 02-13 Spirit 00:00: - [facility] Depo Medrol Depo Medrol 2019-0 No 1mL Common (40mg) (40mg) 02-13 Spirit 00:00: - [facility] Bupivicaine Bupivicaine 2019-0 No 5mL Common [place] 02-13 Spirit 00:00: - [facility] Depo Medrol Depo Medrol 2019-0 No 1mL Common (40mg) (40mg) 02-13 Spirit 00:00: - [facility] Bupivicaine Bupivicaine 2019-0 No 5mL Common [place] 02-13 Spirit 00:00: - [facility] Depo Medrol Depo Medrol 2019-0 No 1mL Common (40mg) (40mg) 02-13 Spirit 00:00: - [facility] Bupivicaine Bupivicaine 2019-0 No 5mL Common [place] 02-13 Spirit 00:00: - [facility] Depo Medrol Depo Medrol 2019-0 No 1mL Common (40mg) (40mg) 02-13 Spirit 00:00: - [facility] Bupivicaine Bupivicaine 2019-0 No 5mL Common [place] 02-13 Spirit 00:00: - [facility] Depo Medrol Depo Medrol 2019-0 No 1mL Common (40mg) (40mg) 02-13 Spirit 00:00: - [facility] Bupivicaine Bupivicaine 2019-0 No 5mL Common [place] 02-13 Spirit 00:00: - [facility] Depo Medrol Depo Medrol 2018-0 No 1mL Common (40mg) (40mg) 02-13 Spirit 00:00: - [facility] Bupivicaine Bupivicaine 2019-0 No 5mL Common [place] 02-13 Spirit 00:00: - [facility] Depo Medrol Depo Medrol 2018-0 No 1mL Common (40mg) (40mg) 02-13 Spirit 00:00: - [facility] Bupivicaine Bupivicaine 2019-0 No 5mL Common [place] 02-13 Spirit 00:00: - [facility] Depo Medrol Depo Medrol 0 No 1mL Common (40mg) (40mg) 02-13 Spirit 00:00: - [facility] Bupivicaine Bupivicaine 2018-0 No 5mL Common [place] 02-13 Spirit 00:00: - [facility] Depo Medrol Depo Medrol 0 No 1mL Common (40mg) (40mg) 02-13 Spirit 00:00: - [facility] Bupivicaine Bupivicaine 2018-0 No 5mL Common [place] 02-13 Spirit 00:00: - [facility] Depo Medrol Depo Medrol 2018-0 No 1mL Common (40mg) (40mg) 02-13 Spirit 00:00: - [facility] Bupivicaine Bupivicaine 2018-0 No 5mL Common [place] 02-13 Spirit 00:00: - [facility] RECTICARE 5 Yes APPLY TO Un for[place] % cream 01-27 AFFECTED ity of 00:00: [address] 00 TIMES A MD DAY [facility] RECTICARE 5 Yes APPLY TO Un ford % cream 01-27 AFFECTED ity of 00:00: [address] 00 TIMES A MD DAY [facility] gabapentin Yes 300 mg = 1 M emoria 300 MG Oral 6-17 cap, PO, l Capsule 13:36: Bedtime, # Herm chinmay 56 90 cap, 3 Refill(s), Pharmacy: [facility] #[id number] gabapentin Yes 300 mg = 1 M emoria 300 MG Oral 6-17 cap, PO, l Capsule 13:36: Bedtime, # Herm chinmay 56 90 cap, 3 Refill(s), Pharmacy: [facility] #[id number] topiramate 2018- Yes 100 mg = 1 M emoria 100 MG Oral 5-17 tab, PO, l Tablet 15:22: BID, 0 [place] [Topamax] 00 Refill(s) nebivolol Yes 10 mg = 1 Mem oria 10 MG Oral 5-17 tab, PO, l Tablet 15:22: Daily, 0 [place] [Bystolic] 00 Refill(s) topiramate Yes 100 mg = 1 M emoria 100 MG Oral 5-17 tab, PO, l Tablet 15:22: BID, 0 [place] [Topamax] 00 Refill(s) nebivolol Yes 10 mg = 1 Mem oria 10 MG Oral 5-17 tab, PO, l Tablet 15:22: Daily, 0 [place] [Bystolic] 00 Refill(s) baclofen 10 No 10 mg = 1 M emoria mg oral 1-04 tab, PO, l tablet 18:15: BID, X 30 Donnell n 00 day, # 60 tab, 2 Refill(s), Pharmacy: [facility] #[id number] baclofen 10 No 10 mg = 1 M emoria mg oral 1-04 tab, PO, l tablet 18:15: BID, X 30 Donnell n 00 day, # 60 tab, 2 Refill(s), Pharmacy: [facility] #[id number] levothyroxi Yes 75 Memori a ne 75 mcg 1-04 microgram l (0.075 mg) 18:08: = 1 tab, Her echeverria oral tablet 00 PO, Daily, 0 Refill(s) citalopram 2018- Yes 40 mg = 1 Me moria 40 mg oral 1-04 tab, PO, l tablet 18:08: Daily, 0 [place] 00 Refill(s) QUEtiapine Yes See Memoria 200 mg oral 1-04 Instructio l tablet 18:08: ns, 3 po [place] 00 qhs, 0 Refill(s) levothyroxi Yes 75 Memori a ne 75 mcg 1-04 microgram l (0.075 mg) 18:08: = 1 tab, Her echeverria oral tablet 00 PO, Daily, 0 Refill(s) citalopram Yes 40 mg = 1 Me moria 40 mg oral 08-01 tab, PO, l tablet 18:08: Daily, 0 Refill(s) QUEtiapine Yes See Memoria 200 mg oral 08-01 Instructio l tablet 18:08: ns, 3 po qhs, 0 Refill(s) Citalopram No 40 mg, PO, M emoria -04 Daily, 0 l 18:04: Refill(s) Citalopram No 40 mg, PO, M emoria 08-01 Daily, 0 l 18:04: Refill(s) Depo Medrol Depo Medrol 2018-0 No 1mL Common (40mg) (40mg) 03-18 00:00: - [facility] Bupivicaine Bupivicaine 2018-0 No 5mL Common [place] 03-18 Spirit 00:00: - [facility] Depo Medrol Depo Medrol 2018-0 No 1mL Common (40mg) (40mg) 03-18 00:00: - [facility] Bupivicaine Bupivicaine 2018-0 No 5mL Common [place] 03-18 00:00: - [facility] Depo Medrol Depo Medrol 2018-0 No 1mL Common (40mg) (40mg) 03-18 00:00: - [facility] Bupivicaine Bupivicaine 2018-0 No 5mL Common [place] 03-18 Spirit 00:00: - [facility] Depo Medrol Depo Medrol 2018-0 No 1mL Common (40mg) (40mg) 03-18 00:00: - [facility] Bupivicaine Bupivicaine 2018-0 No 5mL Common [place] 03-18 Spirit 00:00: - [facility] Depo Medrol Depo Medrol 2018-0 No 1mL Common (40mg) (40mg) 03-18 00:00: - [facility] Bupivicaine Bupivicaine 2018-0 No 5mL Common [place] 03-18 00:00: - [facility] Depo Medrol Depo Medrol 2018-0 No 1mL Common (40mg) (40mg) 03-18 00:00: - [facility] Bupivicaine Bupivicaine 2018-0 No 5mL Common [place] 03-18 00:00: - [facility] Depo Medrol Depo Medrol 2018-0 No 1mL Common (40mg) (40mg) 03-18 00:00: - [facility] Bupivicaine Bupivicaine 2018-0 No 5mL Common [place] 03-18 00:00: - [facility] Depo Medrol Depo Medrol 2018-0 No 1mL Common (40mg) (40mg) 03-18 00:00: - [facility] Bupivicaine Bupivicaine 2018-0 No 5mL Common [place] 03-18 00:00: - [facility] Depo Medrol Depo Medrol 2018-0 No 1mL Common (40mg) (40mg) 03-18 00:00: - [facility] Bupivicaine Bupivicaine 2018-0 No 5mL Common [place] 03-18 00:00: - [facility] Depo Medrol Depo Medrol 2018-0 No 1mL Common (40mg) (40mg) 03-18 00:00: - [facility] Bupivicaine Bupivicaine 2018-0 No 5mL Common [place] 03-18 00:00: - [facility] Depo Medrol Depo Medrol 2018-0 No 1mL Common (40mg) (40mg) 03-18 00:00: - [facility] Bupivicaine Bupivicaine 2018-0 No 5mL Common [place] 03-18 Spirit 00:00: - [facility] Depo Medrol Depo Medrol 2018-0 No 1mL Common (40mg) (40mg) 03-18 00:00: - [facility] Bupivicaine Bupivicaine 2018-0 No 5mL Common [place] 03-18 00:00: - [facility] Depo Medrol Depo Medrol 2018-0 No 1mL Common (40mg) (40mg) 03-18 00:00: - [facility] Bupivicaine Bupivicaine 2018-0 No 5mL Common [place] 03-18 00:00: - [facility] Depo Medrol Depo Medrol 2018-0 No 1mL Common (40mg) (40mg) 03-18 00:00: - [facility] Bupivicaine Bupivicaine 2018-0 No 5mL Common [place] 03-18 00:00: - [facility] Depo Medrol Depo Medrol 2018-0 No 1mL Common (40mg) (40mg) 03-18 00:00: - [facility] Bupivicaine Bupivicaine 2018-0 No 5mL Common [place] 03-18 00:00: - [facility] Depo Medrol Depo Medrol 2018-0 No 1mL Common (40mg) (40mg) 03-18 00:00: - [facility] Bupivicaine Bupivicaine 2018-0 No 5mL Common [place] 03-18 Spirit 00:00: - [facility] Depo Medrol Depo Medrol 2018-0 No 1mL Common (40mg) (40mg) 03-18 00:00: - [facility] Bupivicaine Bupivicaine 2018-0 No 5mL Common [place] 03-18 Spirit 00:00: - [facility] Depo Medrol Depo Medrol 2018-0 No 1mL Common (40mg) (40mg) 03-18 Spirit 00:00: - [facility] Bupivicaine Bupivicaine 2018-0 No 5mL Common [place] 03-18 Spirit 00:00: - [facility] Depo Medrol Depo Medrol 2018-0 No 1mL Common (40mg) (40mg) 03-18 Spirit 00:00: - [facility] Bupivicaine Bupivicaine No 5mL Common [place] 03-18 Spirit 00:00: [facility] Depo Medrol Depo Medrol No 1mL Common (40mg) (40mg) 03-18 Spirit 00:00: [facility] Bupivicaine Bupivicaine No 5mL Common [place] 03-18 Spirit 00:00: - [facility] Baclofen Baclofen Yes Na Pandey 2 tabs Co mmon Spirit - [facility] Bactroban Bactroban Yes Na Pandey 1 Co mmon applicatio Spirit n to - [facility] affected [facility] Doxycycline Doxycycline Yes Na Pandey 1 capsule Common Hyclate Hyclate [facility] Azithromyci Azithromyci Yes Na Pandey 2 tablets Common n n on the Spirit first day, - [facility]I then [address] tablet [facility] daily for Medical 4 days Center Gabapentin Gabapentin Yes Na Pandey 1 capsule Common [facility] Topiramate Topiramate Yes Na Pandey not Common defined [facility] PredniSONE PredniSONE Yes Na Pandey 2 tablet Common daily x 5 Spirit days then - [facility]I one tablet St daily x 5 [facility] Bystolic Bystolic Yes Na Pandey 1 tablet Common [facility] Liothyronin Liothyronin Yes Na Pandey 1 tablet Common e Sodium e Sodium on an Spirit empty - CHI stomach [facility] Dexilant Dexilant Yes Na Pandey 1 capsule Common [facility] Levothyroxi Levothyroxi Yes Na Pandey 1 tablet Common ne Sodium ne Sodium on an Spir it empty - [facility]I stomach in [facility] Hydroxychlo Hydroxychlo Yes Na Pandey not Common roquine roquine defined Spirit Sulfate Sulfate - [facility] Levothyroxi Levothyroxi Yes Na Pandey 1 tablet Common ne Sodium ne Sodium on an Spir it empty - [facility]I stomach in [facility] Amlodipine Amlodipine Yes Na Pandey 1 tablet Common Besylate Besylate [facility] Quetiapine Quetiapine Yes Na Pandey not Common Fumarate Fumarate defined [facility] - [facility] Liothyronin Liothyronin Yes Na Pandey 1 tablet Common e Sodium e Sodium on an [facility] empty - [facility] stomach [facility] Azithromyci Azithromyci No QD Azithromyc n 250 [...] HYDROcodone HYDROcodone No HYDROcodon -Acetaminop -Acetaminop e-Acetamin [facility] ophen Nebivolol Nebivolol No Nebivolol HCl 10 [...] HYDROcodone HYDROcodone No HYDROcodon -Acetaminop -Acetaminop e-Acetamin [facility] ophen Citalopram Citalopram No Citalopram Hydrobromid Hydrobromid [...] QD Dexilant MG MG le} 60 MG Nebivolol Nebivolol No Nebivolol HCl 10 [...] predniSONE 10 MG 10 MG 10 MG Citalopram Citalopram No Citalopram [...] MG e 40 MG de 40 MG Azithromyci Azithromyci No QD Azithromyc n 250 MG n 250 MG in 250 MG Baclofen 10 Baclofen 10 No BID Baclofen MG MG 10 MG busPIRone busPIRone No [...] traMADol traMADol No traMADol HCl HCl HCl Triamcinolo Triamcinolo No 1{appli BID Triamcinol ne ne cation_ one Acetonide Acetonide to_affe Acetonide 0.1 % 0.1 % cted_ar 0.1 % ea} Liothyronin Liothyronin No 1{table QD Liothyroni e Sodium 25 e Sodium 25 t_on_an ne Sodium MCG MCG _empty_ 25 MCG stomach } Hydroxychlo Hydroxychlo No Hydroxychl roquine roquine oroquine [...] le} e Hyclate MG MG 100 MG Levothyroxi Levothyroxi No QD Levothyrox ne Sodium ne Sodium ine Sodium 200 MCG 200 MCG 200 MCG Baby Baby No Baby Aspirin Aspirin Aspirin predniSONE predniSONE No QD predniSONE 10 MG 10 MG 10 MG Liothyronin Liothyronin No 1{table QD Liothyroni e Sodium 25 e Sodium 25 t_on_an ne Sodium MCG MCG _empty_ 25 MCG stomach } amLODIPine amLODIPine No 1{table amLODIPine Besylate 10 Besylate 10 t} Besylate MG MG 10 MG methylPREDN methylPREDN No methylPRED ISolone ISolone NISolone Citalopram Citalopram No Citalopram Hydrobromid Hydrobromid Hydrobromi e 40 MG e 40 MG de 40 MG HYDROcodone HYDROcodone No HYDROcodon -Acetaminop -Acetaminop e-Acetamin hen [facility] ophen Nebivolol Nebivolol No Nebivolol HCl 10 MG HCl 10 MG HCl 10 MG Gabapentin Gabapentin No 1{capsu QD Gabapentin 300 MG 300 MG le} 300 MG Diclofenac Diclofenac No Diclofenac Sodium Sodium Sodium QUEtiapine QUEtiapine No QUEtiapine Fumarate Fumarate Fumarate 300 MG 300 MG 300 MG Topiramate Topiramate No Topiramate 100 MG 100 MG 100 MG Omeprazole Omeprazole No QD Omeprazole 40 MG 40 MG 40 MG Liothyronin Liothyronin No Liothyroni e Sodium 25 e Sodium 25 ne Sodium MCG MCG 25 MCG Hydroxychlo Hydroxychlo No Hydroxychl roquine roquine oroquine Sulfate Sulfate Sulfate Levothyroxi Levothyroxi No Levothyrox ne Sodium ne Sodium ine Sodium 200 MCG 200 MCG 200 MCG Baclofen 10 Baclofen 10 No BID Baclofen MG MG 10 MG Triamcinolo Triamcinolo No 1{appli BID Triamcinol ne ne cation_ one Acetonide Acetonide to_affe Acetonide 0.1 % 0.1 % cted_ar 0.1 % ea} QUEtiapine QUEtiapine No 2{table QD QUEtiapine Fumarate Fumarate ts_at_b Fumarate 300 MG 300 MG edtime} 300 MG Bystolic 10 Bystolic 10 No 1{table [...] MG HCl 5 MG HCl 5 MG Doxycycline Doxycycline No 1{capsu BID Doxycyclin Hyclate 100 Hyclate 100 le} e Hyclate MG MG 100 MG Bactroban 2 Bactroban 2 No 1{appli BID Bactroban % % cation_ 2 % to_affe cted_ar ea} Azithromyci Azithromyci No QD Azithromyc n 250 MG n 250 MG in 250 MG amLODIPine amLODIPine No 1{table QD amLODIPine Besylate 10 Besylate 10 t_at_be Besylate MG MG dtime} 10 MG Bystolic 10 Bystolic 10 No [...] HYDROcodone No HYDROcodon -Acetaminop -Acetaminop e-Acetamin [facility] Baby Baby No Baby Aspirin Aspirin Aspirin [...] stomach } No known No [facility] medications ity [facility] No known No [facility] medications ity [facility] Citalopram Citalopram Yes Na Pandey 1 tablet Common Hydrobromid Hydrobromid [facility] e e - [facility] Immunizations Ordered Filled Immunization Date Status Comments Sourc e Immunization Name Name Bupivicaine [place] Bupiv[place]aine [place] 2020-12-12 [facility]00 [facility] Bupivicaine [place] Bupivicaine [place] 2020-12-12 Completed [facility] 08:37[facility]00 [facility] Bupivicaine [place] Bupivicaine [place] 2020-12-12 Completed [facility] 08:37:00 [facility] Bupivicaine [place] Bupivicaine [place] 2020-12-12 Completed [facility] 08:37:00 [facility] Bupivicaine [place] Bupivicaine [place] 2020-12-12 Completed [facility] 08:37:00 [facility] Kenalog Kenalog 2020-12-12 Completed [facility] - (Triamcinolone) (Triamcinolone) 08:36:00 [facility] Kenalog Kenalog 2020-12-12 Completed [facility] - (Triamcinolone) (Triamcinolone) 08:36:00 [facility] Kenalog Kenalog 2020-12-12 Completed [facility] - (Triamcinolone) (Triamcinolone) 08:36:00 [facility] Kenalog Kenalog 2020-12-12 Completed [facility] - (Triamcinolone) (Triamcinolone) 08:36:00 [facility] Kenalog Kenalog 2020-12-12 Completed [facility] - (Triamcinolone) (Triamcinolone) 08:36:00 [facility] Hyalgan 20 mg Hyalgan 20 mg 2020-10-24 Completed [facility] - 09:24:00 [facility] Hyalgan 20 mg Hyalgan 20 mg 2020-10-24 Completed [facility] - 09:24:00 [facility] Hyalgan 20 mg Hyalgan 20 mg 2020-10-24 Completed [facility] - 09:24:00 [facility] Hyalgan 20 mg Hyalgan 20 mg 2020-10-24 Completed [facility] - 09:24:00 [facility] Hyalgan 20 mg Hyalgan 20 mg 2020-10-24 Completed [facility] - 09:24:00 [facility] Hyalgan 20 mg Hyalgan 20 mg 2020-10-17 Completed [facility] - 15:26:00 [facility] Hyalgan 20 mg Hyalgan 20 mg 2020-10-17 Completed [facility] - 15:26:00 [facility] Hyalgan 20 mg Hyalgan 20 mg 2020-10-17 Completed [facility] - 15:26:00 [facility] Hyalgan 20 mg Hyalgan 20 mg 2020-10-17 Completed [facility] - 15:26:00 [facility] Hyalgan 20 mg Hyalgan 20 mg 2020-10-17 Completed [facility] - 15:26:00 [facility] SARS-COV-2 COVID-19 2020-10-15 Completed [facility] rs[facility] of PFIZER VACCINE 00:00:00 [facility] Hyalgan 20 mg Hyalgan 20 mg 2020-10-10 Completed [facility] - 09:36:00 [facility] Hyalgan 20 mg Hyalgan 20 mg 2020-10-10 Completed [facility] - 09:36:00 [facility] Hyalgan 20 mg Hyalgan 20 mg 2020-10-10 Completed [facility] - 09:36:00 [facility] Hyalgan 20 mg Hyalgan 20 mg 2020-10-10 Completed [facility] - 09:36:00 [facility] Hyalgan 20 mg Hyalgan 20 mg 2020-10-10 Completed [facility] - 09:36:00 [facility] SARS-COV-2 COVID-19 2020-09-24 Completed [facility] rs[facility] of PFIZER VACCINE 00:00:00 [facility] Bupivicaine [place] Bupivicaine [place] 2020-09-02 [facility] 10:42[facility]00 [facility] Bupivicaine [place] Bupivicaine [place] 2020-09-02 Completed [facility] 10:42:00 [facility] Bupivicaine [place] Bupivicaine [place] 2020-09-02 Completed [facility] 10:42:00 [facility] Bupivicaine [place] Bupivicaine [place] 2020-09-02 Completed [facility] 10:42:00 [facility] Bupivicaine [place] Bupivicaine [place] 2020-09-02 Completed [facility] 10:42:00 [facility] Kenalog Kenalog 2020-09-02 Completed [facility] - (Triamcinolone) (Triamcinolone) 10:41:00 [facility] Norma Green 2020-09-02 Completed [facility] - (Triamcinolone) (Triamcinolone) 10:41:00 [facility] Norma Green 2020-09-02 Completed [facility] - (Triamcinolone) (Triamcinolone) 10:41:00 [facility] Norma Green 2020-09-02 Completed [facility] (Triamcinolone) (Triamcinolone) 10:41:00 [facility] Norma Green 2020-09-02 Completed [facility] (Triamcinolone) (Triamcinolone) 10:41:00 [facility] Afluria Afluria 2020-05-04 Completed [facility] 10:08:00 [facility] Afluria Afluria 2020-05-04 Completed [facility] 10:08:00 [facility] Afluria Afluria 2020-05-04 Completed [facility] 10:08:00 [facility] Afluria Afluria 2020-05-04 Completed [facility] 10:08:00 [facility] Afluria Afluria 2020-05-04 Completed [facility] 10:08:00 [facility] Afluria Afluria 2020-05-04 Completed [facility] 10:08:00 [facility] Afluria Afluria 2020-05-04 Completed [facility] - 10:08:00 [facility] Afluria Afluria 2020-05-04 Completed [facility] 10:08:00 [facility] Afluria Afluria 2020-05-04 Completed [facility] 10:08:00 [facility] Afluria Afluria 2020-05-04 Completed [facility] 10:08:00 [facility] Afluria Afluria 2020-05-04 Completed [facility] 10:08:00 [facility] Afluria Afluria 2020-05-04 Completed [facility] 10:08:00 [facility] Afluria Afluria 2020-05-04 Completed [facility] - 10:08:00 [facility] Afluria Afluria 2020-05-04 Completed [facility] - 10:08:00 [facility] Afluria Afluria 2020-05-04 Completed [facility] - 10:08:00 [facility] Afluria Afluria 2020-05-04 Completed [facility] 10:08:00 [facility] Afluria Afluria 2020-05-04 Completed [facility] 10:08:00 [facility] Afluria Afluria 2020-05-04 Completed [facility] 10:08:00 [facility] Afluria Afluria 2020-05-04 Completed [facility] 10:08:00 [facility] Afluria Afluria 2020-05-04 Completed [facility] 10:08:00 [facility] Afluria Afluria 2020-05-04 Completed [facility] 10:08:00 [facility] Afluria Afluria 2020-05-04 Completed [facility] 10:08:00 [facility] Afluria Afluria 2020-05-04 Completed [facility] 10:08:00 [facility] Afluria Afluria 2020-05-04 Completed [facility] 10:08:00 [facility] Afluria Afluria 2020-05-04 Completed [facility] 10:08:00 [facility] Afluria Afluria 2020-05-04 Completed [facility] 10:08:00 [facility] Afluria Afluria 2020-05-04 Completed [facility] 10:08:00 [facility] Afluria Afluria 2020-05-04 Completed [facility] 10:08:00 [facility] Afluria Afluria 2020-05-04 Completed [facility] 10:08:00 [facility] Afluria Afluria 2020-05-04 Completed [facility] 10:08:00 [facility] Afluria Afluria 2020-05-04 Completed [facility] 10:08:00 [facility] Afluria Afluria 2020-05-04 Completed [facility] - 10:08:00 [facility] Afluria Afluria 2020-05-04 Completed [facility] - 10:08:00 [facility] Afluria Afluria 2020-05-04 Completed [facility] - 10:08:00 [facility] Afluria Afluria 2020-05-04 Completed [facility] - 10:08:00 [facility] Afluria Afluria 2020-05-04 Completed [facility] 10:08:00 [facility] Hyalgan 20 mg Hyalgan 20 mg 2020-03-23 Completed [facility] - 08:21:00 [facility] Hyalgan 20 mg Hyalgan 20 mg 2020-03-23 Completed [facility] - 08:21:00 [facility] Hyalgan 20 mg Hyalgan 20 mg 2020-03-23 Completed [facility] - 08:21:00 [facility] Hyalgan 20 mg Hyalgan 20 mg 2020-03-23 Completed [facility] - 08:21:00 [facility] Hyalgan 20 mg Hyalgan 20 mg 2020-03-23 Completed [facility] - 08:21:00 [facility] Hyalgan 20 mg Hyalgan 20 mg 2020-03-14 Completed [facility] - 08:40:00 [facility] Hyalgan 20 mg Hyalgan 20 mg 2020-03-14 Completed [facility] - 08:40:00 [facility] Hyalgan 20 mg Hyalgan 20 mg 2020-03-14 Completed [facility] - 08:40:00 [facility] Hyalgan 20 mg Hyalgan 20 mg 2020-03-14 Completed [facility] - 08:40:00 [facility] Hyalgan 20 mg Hyalgan 20 mg 2020-03-14 Completed [facility] - 08:40:00 [facility] Bupivicaine [place] Bupivicaine [place] 2020-03-07 Completed [facility] 09:22:00 [facility] Kenalog Kenalog 2020-03-07 Completed [facility] - (Triamcinolone) (Triamcinolone) 09:22:00 [facility] Bupivicaine [place] Bupivicaine [place] 2020-03-07 Completed [facility] 09:22:00 [facility] Kenalog Kenalog 2020-03-07 Completed [facility] - (Triamcinolone) (Triamcinolone) 09:22:00 [facility] Bupivicaine [place] Bupivicaine [place] 2020-03-07 Completed [facility] 09:22:00 [facility] Kenalog Kenalog 2020-03-07 Completed [facility] - (Triamcinolone) (Triamcinolone) 09:22:00 [facility] Bupivicaine [place] Bupivicaine [place] 2020-03-07 Completed [facility] 09:22:00 [facility] Kenalog Kenalog 2020-03-07 Completed [facility] - (Triamcinolone) (Triamcinolone) 09:22:00 [facility] Bupivicaine [place] Bupivicaine [place] 2020-03-07 Completed [facility] - 09:22: [facility] Kenalog Kenalog 2020-03-07 Completed [facility] - (Triamcinolone) (Triamcinolone) 09:22:00 [facility] Hyalgan 20 mg Hyalgan 20 mg 2020-03-07 Completed [facility] - 09:21:00 [facility] Hyalgan 20 mg Hyalgan 20 mg 2020-03-07 Completed [facility] - 09:21:00 [facility] Hyalgan 20 mg Hyalgan 20 mg 2020-03-07 Completed [facility] - 09:21:00 [facility] Hyalgan 20 mg Hyalgan 20 mg 2020-03-07 Completed [facility] - 09:21:00 [facility] Hyalgan 20 mg Hyalgan 20 mg 2020-03-07 Completed [facility] - 09:21:00 [facility] Kenalog Kenalog 2019-08-11 Completed [facility] - (Triamcinolone) (Triamcinolone) 10:42:00 [facility] Kenalog Kenalog 2019-08-11 Completed [facility] - (Triamcinolone) (Triamcinolone) 10:42:00 [facility] Kenalog Kenalog 2019-08-11 Completed [facility] - (Triamcinolone) (Triamcinolone) 10:42:00 [facility] Kenalog Kenalog 2019-08-11 Completed [facility] - (Triamcinolone) (Triamcinolone) 10:42:00 [facility] Kenalog Kenalog 2019-08-11 Completed [facility] - (Triamcinolone) (Triamcinolone) 10:42:00 [facility] Fluzone Fluzone 2019-03-08 Completed [facility] - 15:07:00 [facility] Fluzone Fluzone 2019-03-08 Completed [facility] - 15:07:00 [facility] Fluzone Fluzone 2019-03-08 Completed [facility] - 15:07:00 [facility] Fluzone Fluzone 2019-03-08 Completed [facility] - 15:07:00 [facility] Fluzone Fluzone 2019-03-08 Completed [facility] - 15:07:00 [facility] Fluzone Fluzone 2019-03-08 Completed [facility] - 15:07:00 [facility] Fluzone Fluzone 2019-03-08 Completed [facility] - 15:07:00 [facility] Fluzone Fluzone 2019-03-08 Completed [facility] - 15:07:00 [facility] Fluzone Fluzone 2019-03-08 Completed [facility] - 15:07:00 [facility] Fluzone Fluzone 2019-03-08 Completed [facility] - 15:07:00 [facility] Fluzone Fluzone 2019-03-08 Completed [facility] 15:07:00 [facility] Fluzone Fluzone 2019-03-08 Completed [facility] 15:07:00 [facility] Fluzone Fluzone 2019-03-08 Completed [facility] 15:07:00 [facility] Fluzone Fluzone 2019-03-08 Completed [facility] - 15:07:00 [facility] Fluzone Fluzone 2019-03-08 Completed [facility] - 15:07:00 [facility] Fluzone Fluzone 2019-03-08 Completed [facility] - 15:07:00 [facility] Fluzone Fluzone 2019-03-08 Completed [facility] - 15:07:00 [facility] Fluzone Fluzone 2019-03-08 Completed [facility] - 15:07:00 [facility] Fluzone Fluzone 2019-03-08 Completed [facility] - 15:07:00 [facility] Fluzone Fluzone 2019-03-08 Completed [facility] - 15:07:00 [facility] Fluzone Fluzone 2019-03-08 Completed [facility] - 15:07:00 [facility] Fluzone Fluzone 2019-03-08 Completed [facility] - 15:07:00 [facility] Fluzone Fluzone 2019-03-08 Completed [facility] - 15:07:00 [facility] Fluzone Fluzone 2019-03-08 Completed [facility] 15:07:00 [facility] Fluzone Fluzone 2019-03-08 Completed [facility] - 15:07:00 [facility] Fluzone Fluzone 2019-03-08 Completed [facility] - 15:07:00 [facility] Fluzone Fluzone 2019-03-08 Completed [facility] - 15:07:00 [facility] Fluzone Fluzone 2019-03-08 Completed [facility] - 15:07:00 [facility] Fluzone Fluzone 2019-03-08 Completed [facility] - 15:07:00 [facility] Fluzone Fluzone 2019-03-08 Completed [facility] - 15:07:00 [facility] Fluzone Fluzone 2019-03-08 Completed [facility] - 15:07:00 [facility] Fluzone Fluzone 2019-03-08 Completed [facility] - 15:07:00 [facility] Fluzone Fluzone 2019-03-08 Completed [facility] - 15:07:00 [facility] Fluzone Fluzone 2019-03-08 Completed [facility] - 15:07:00 [facility] Fluzone Fluzone 2019-03-08 Completed [facility] - 15:07:00 [facility] Fluzone Fluzone 2019-03-08 Completed [facility] 15:07:00 [facility] Depo Medrol (40mg) Depo Medrol (40mg) 2019-02-13 Completed [facility] - 10:44:00 [facility] Depo Medrol (40mg) Depo Medrol (40mg) 2019-02-13 Completed [facility] 10:44:00 [facility] Depo Medrol (40mg) Depo Medrol (40mg) 2019-02-13 Completed [facility] 10:44:00 [facility] Depo Medrol (40mg) Depo Medrol (40mg) 2019-02-13 Completed [facility] 10:44:00 [facility] Depo Medrol (40mg) Depo Medrol (40mg) 2019-02-13 Completed [facility] 10:44:00 [facility] Bupivicaine [place] Bupivicaine [place] 2019-02-13 Completed [facility] 10:43:00 [facility] Bupivicaine [place] Bupivicaine [place] 2019-02-13 Completed [facility] 10:43:00 [facility] Bupivicaine [place] Bupivicaine [place] 2019-02-13 Completed [facility] - 10:43:00 [facility] Bupivicaine [place] Bupivicaine [place] 2019-02-13 Completed [facility] 10:43:00 [facility] Bupivicaine [place] Bupivicaine [place] 2019-02-13 Completed [facility] 10:43:00 [facility] Depo Medrol (40mg) Depo Medrol (40mg) 2018-03-18 Completed [facility] 09:14:00 [facility] Depo Medrol (40mg) Depo Medrol (40mg) 2018-03-18 Completed [facility] 09:14:00 [facility] Depo Medrol (40mg) Depo Medrol (40mg) 2018-03-18 Completed [facility] 09:14:00 [facility] Depo Medrol (40mg) Depo Medrol (40mg) 2018-03-18 Completed [facility] 09:14:00 [facility] Depo Medrol (40mg) Depo Medrol (40mg) 2018-03-18 Completed [facility] 09:14:00 [facility] Bupivicaine [place] Bupivicaine [place] 2018-03-18 Completed [facility] 09:13:00 [facility] Bupivicaine [place] Bupivicaine [place] 2018-03-18 Completed [facility] 09:13:00 [facility] Bupivicaine [place] Bupivicaine [place] 2018-03-18 Completed [facility] - 09:13:00 [facility] Bupivicaine [place] Bupivicaine [place] 2018-03-18 Completed [facility] 09:13:00 [facility] Bupivicaine [place] Bupivicaine [place] 2018-03-18 Completed [facility] 09:13:00 [facility] Vital Signs Vital Name Observation Time Observation Value Comments Source height 2022-05-25 13:40:00 68 [in_i] [facility] weight 2022-05-25 13:40:00 186 [lb_av] [facility] temperature 2022-05-25 13:40:00 97.5 [degF] [facility] bmi 2022-05-25 13:40:00 28.28 kg/m2 [facility] height 2022-05-22 08:30:00 68 [in_i] [facility] weight 2022-05-22 08:30:00 192.4 [lb_av] [facility] temperature 2022-05-22 08:30:00 98.2 [degF] [facility] bmi 2022-05-22 08:30:00 29.25 kg/m2 [facility] blood pressure 2022-05-22 08:30:00 134 mm[Hg] [facility] - systolic [facility] blood pressure 2022-05-22 08:30:00 78 mm[Hg] [facility] - diastolic [facility] height 2022-01-18 09:00:00 68 [in_i] [facility] weight 2022-01-18 09:00:00 184.8 [lb_av] [facility] temperature 2022-01-18 09:00:00 97.6 [degF] [facility] bmi 2022-01-18 09:00:00 28.1 kg/m2 [facility] height 2021-11-21 08:00:00 68 [in_i] [facility] weight 2021-11-21 08:00:00 184.6 [lb_av] [facility] temperature 2021-11-21 08:00:00 98.0 [degF] [facility] bmi 2021-11-21 08:00:00 28.07 kg/m2 [facility] blood pressure 2021-11-21 08:00:00 134 mm[Hg] [facility] - systolic [facility] blood pressure 2021-11-21 08:00:00 74 mm[Hg] [facility] - diastolic [facility] height 2021-11-17 15:40:00 68 [in_i] [facility] weight 2021-11-17 15:40:00 185.4 [lb_av] [facility] temperature 2021-11-17 15:40:00 97.3 [degF] [facility] bmi 2021-11-17 15:40:00 28.19 kg/m2 [facility] oximetry 2021-11-17 15:40:00 98 [facility] respiratory rate 2021-11-17 15:40:00 18 /min [facility] blood pressure 2021-11-17 15:40:00 132 mm[Hg] [facility] - systolic [facility] blood pressure 2021-11-17 15:40:00 61 mm[Hg] [facility] - diastolic [facility] height 2021-09-06 09:00:00 68 [in_i] [facility] weight 2021-09-06 09:00:00 183 [lb_av] [facility] temperature 2021-09-06 09:00:00 97.8 [degF] [facility] bmi 2021-09-06 09:00:00 27.82 kg/m2 [facility] height 2021-08-28 08:30:00 68 [in_i] [facility] weight 2021-08-28 08:30:00 190 [lb_av] [facility] temperature 2021-08-28 08:30:00 98.0 [degF] [facility] bmi 2021-08-28 08:30:00 28.89 kg/m2 [facility] blood pressure 2021-08-28 08:30:00 126 mm[Hg] [facility] - systolic [facility] blood pressure 2021-08-28 08:30:00 78 mm[Hg] [facility] - diastolic [facility] height 2021-07-17 11:00:00 68 [in_i] [facility] weight 2021-07-17 11:00:00 190 [lb_av] [facility] temperature 2021-07-17 11:00:00 97.5 [degF] [facility] bmi 2021-07-17 11:00:00 28.89 kg/m2 [facility] blood pressure 2021-07-17 11:00:00 128 mm[Hg] [facility] - systolic [facility] blood pressure 2021-07-17 11:00:00 78 mm[Hg] [facility] - diastolic [facility] height 2021-06-21 10:30:00 68 [in_i] [facility] weight 2021-06-21 10:30:00 190 [lb_av] [facility] temperature 2021-06-21 10:30:00 97.4 [degF] [facility] bmi 2021-06-21 10:30:00 28.89 kg/m2 [facility] blood pressure 2021-06-21 10:30:00 132 mm[Hg] [facility] - systolic [facility] blood pressure 2021-06-21 10:30:00 86 mm[Hg] [facility] - diastolic [facility] height 2021-06-01 08:30:00 68 [in_i] [facility] weight 2021-06-01 08:30:00 190.5 [lb_av] [facility] - [facility] temperature 2021-06-01 08:30:00 97.3 [degF] [facility] bmi 2021-06-01 08:30:00 28.96 kg/m2 [facility] Systolic blood 2020-01-22 15:34:00 160 mm[Hg] [facility] Diastolic blood 2020-01-22 15:34:00 62 mm[Hg] [facility] 2020-01-22 15:34:00 67 /min [facility] Respiratory rate 2020-01-22 15:34:00 12 /min General acute hospital Oxygen saturation in 2020-01-22 15:34:00 96 /min [facility] Arterial blood by [facility] Pulse oximetry Branch Body temperature 2020-01-22 14:37:00 36.5 Deanne [facility] acute hospital Body height 2020-01-21 16:45:00 172.7 cm [facility] Body weight 2020-01-21 16:45:00 95.255 kg [facility] BMI 2020-01-21 16:45:00 31.93 kg/m2 [facility] Height 2022-03-22 16:30:00 [facility]22-03-22 16:30:00 [facility] BMI Calculated 2022-03-22 16:30:00 Cheo caceres Jamie Systolic (mm Hg) 2022-03-22 16:30:00 Babatunde salinas Jamie Diastolic (mm Hg) 2022-03-22 16:30:00 Mem [facility] Heart Rate 2022-03-22 16:30:00 [facility] Respitory Rate 2022-03-22 16:30:00 [facility] Systolic (mm Hg) 2021-08-10 15:01:00 Babatunde rial Jamie Diastolic (mm Hg) 2021-08-10 15:01:00 Mem orial Jamie Heart Rate 2021-08-10 15:01:00 [facility] Respitory Rate 2021-08-10 15:01:00 [facility] Height 2021-08-10 15:01:00 172.72 cm [facility] Weight 2021-08-10 15:01:00 [facility] BMI Calculated 2021-08-10 15:01:00 [facility] Systolic (mm Hg) 2021-05-09 15:20:00 Babatunde rial Jamie Diastolic (mm Hg) 2021-05-09 15:20:00 Mem [facility] Heart Rate 2021-05-09 15:20:00 [facility] Respitory Rate 2021-05-09 15:20:00 [facility] Height 2021-05-09 15:20:00 172.72 cm [facility] Weight 2021-05-09 15:20:00 [facility] BMI Calculated 2021-05-09 15:20:00 [facility] Systolic (mm Hg) 2021-03-20 13:36:00 Babatunde rial Jamie Diastolic (mm Hg) 2021-03-20 13:36:00 [facility] Heart Rate 2021-03-20 13:36:00 [facility] Respitory Rate 2021-03-20 13:36:00 [facility] Height 2021-03-20 13:36:00 172.72 cm [facility] Weight 2021-03-20 13:36:00 [facility] BMI Calculated 2021-03-20 13:36:00 [facility] Systolic (mm Hg) 2021-02-03 18:54:00 Babatunde rial [facility] Diastolic (mm Hg) 2021-02-03 18:54:00 [facility] Heart Rate 2021-02-03 18:54:00 [facility] Respitory Rate 2021-02-03 18:54:00 [facility] Weight 2021-02-03 18:54:00 [facility] Height 2020-09-05 15:53:00 172.72 cm [facility] Weight 2020-09-05 15:53:00 [facility] BMI Calculated 2020-09-05 15:53:00 [facility] Systolic (mm Hg) 2020-09-05 15:53:00 Babatunde rial [facility] Diastolic (mm Hg) 2020-09-05 15:53:00 Mem orial [facility] Heart Rate 2020-09-05 15:53:00 [facility] Systolic (mm Hg) 2020-02-18 14:24:00 Babatunde rial Jamie Diastolic (mm Hg) 2020-02-18 14:24:00 Mem orial [facility] Heart Rate 2020-02-18 14:24:00 [facility] Respitory Rate 2020-02-18 14:24:00 [facility] Temperature Oral (F) 2020-02-18 14:24:00 98.6 F [facility] Height 2020-02-18 14:24:00 172.72 cm [facility] Weight 2020-02-18 14:24:00 [facility] BMI Calculated 2020-02-18 14:24:00 [facility] Systolic (mm Hg) 2019-06-17 15:37:00 Babatunde rial [facility] Diastolic (mm Hg) 2019-06-17 15:37:00 Mem orial [facility] Heart Rate 2019-06-17 15:37:00 [facility] Respitory Rate 2019-06-17 15:37:00 [facility] Height 2019-06-17 15:37:00 172.72 cm [facility] Weight 2019-06-17 15:37:00 [facility] BMI Calculated 2019-06-17 15:37:00 Memori [facility] BMI Calculated 2018-12-12 15:05:00 [facility] Weight 2018-12-12 15:05:00 [facility] Height 2018-12-12 15:05:00 172.72 cm [facility] Respitory Rate 2018-12-12 15:05:00 [facility] Heart Rate 2018-12-12 15:05:00 [facility] Systolic (mm Hg) 2018-12-12 15:05:00 Babatunde rial Jamie Diastolic (mm Hg) 2018-12-12 15:05:00 [facility] BMI Calculated 2018-08-07 22:41:00 [facility] Weight 2018-08-07 22:41:00 [facility] Height 2018-08-07 22:41:00 172.72 cm [facility] Systolic (mm Hg) 2018-08-07 22:41:00 Babatunde rial Jamie Diastolic (mm Hg) 2018-08-07 22:41:00 Mem [facility] Heart Rate 2018-08-07 22:41:00 [facility] Respitory Rate 2018-08-07 22:41:00 [facility] Weight 2018-08-01 17:50:00 [facility] Height 2018-08-01 17:50:00 172.72 cm [facility] BMI Calculated 2018-08-01 17:50:00 [facility] Heart Rate 2018-08-01 17:50:00 [facility] Systolic (mm Hg) 2018-08-01 17:50:00 Babatunde rial Jamie Diastolic (mm Hg) 2018-08-01 17:50:00 [facility] Respitory Rate 2018-08-01 17:50:00 [facility] Procedures Procedure Date / Time Performing Clinician Source Performed REFERRAL- REQUEST/RESPONSE 2021-11-20 05:01:00 Doctor Karoline , [facility] Name Medical [place] BARIUM SWALLOW 2020-08-31 15:50:28 Pedro Chamorro [facility] [place] TIME OR 2020-01-22 14:15:[address] [facility] (NON-REPORTABLE) [facility] CBC WITH DIFFERENTIAL 2020-01-22 12:27:00 Guero Valdovinos [facility] PROTHROMBIN TIME / INR 2020-01-22 12:27:00 Guero Valdovinos [facility] ACTIVATED PARTIAL THRMPLAS 2020-01-22 12:27:00 [facility] DAY SURGERY - ADC 2020-01-22 05:01:00 Doctor Karoline, [facility] Name Medical [facility] PATIENT FINANCIAL 2020-01-18 17:24:22 [facility]IC[facility] [place] [facility] NO SHOW OR MISSED 2020-01-18 17:23:47 Doctor Karoline, [facility] APPOINTMENT POLICY [place] [facility] ACKNOWLEDGEMENT NOTICE OF PRIVACY 2020-01-18 17:23:25 Doctor Unassigned, [facility] PRACTICES [place] [facility] CONSENT/REFUSAL FOR 2020-01-18 17:23:00 Doctor Unassleroy, Oksana [facility] DIAGNOSIS AND TREATMENT [place] [facility] ASSIGNMENT OF BENEFITS 2020-01-18 17:22:39 Doctor Unassigned, [facility] [place] [facility] Colectomy [facility] Plan of Care Planned Activity Planned Date Details Comments Source Future Scheduled 2022-09-18 COVID-19 VACCINE (#1) [facility] Test 07:23:41 [code = COVID-19 VACCINE (#1)] Future Scheduled 2022-09-18 [facility] Test 07:23:41 malignant neoplasm of cervix (procedure) [code = 531516682] Future Scheduled 2022-09-18 BREAST CANCER [facility] Test 07:23:41 SCREENING [code = BREAST CANCER SCREENING] Future Scheduled 2022-09-18 COLONOSCOPY SCREENING [facility] Hospital Test 07:23:41 [code = COLONOSCOPY SCREENING] Future Scheduled 2022-09-18 [facility]ING[facility]IN[facility] 07:23:41 of 2) [code = SHINGLES VACCINES (1 of 2)] Future Scheduled 2022-09-18 INFLUENZA VACCINE [facility] Test 07:23:41 [code = INFLUENZA VACCINE] Future Scheduled 2022-07-18 COVID-19 VACCINE (#1) [facility] Hospital Test 23:49:55 [code = COVID-19 VACCINE (#1)] Future Scheduled 2022-07-18 [facility] Test 23:49:55 malignant neoplasm of cervix (procedure) [code = 025229410] Future Scheduled 2022-07-18 BREAST CANCER [facility] Test 23:49:55 SCREENING [code = BREAST CANCER SCREENING] Future Scheduled 2022-07-18 COLONOSCOPY SCREENING [facility] Hospital Test 23:49:55 [code = COLONOSCOPY SCREENING] Future Scheduled 2022-07-18 SHINGLES VACCINES ([facility] 23:49:55 of 2) [code = SHINGLES VACCINES (1 of 2)] Future Scheduled 2022-07-18 INFLUENZA VACCINE [facility] Test 23:49:55 [code = INFLUENZA VACCINE] Future Scheduled 2022-05-16 COVID-19 Vaccination [facility] Test 10:25:36 (#1) [code = COVID-19 [facility] (#1)] Center Future Scheduled 2022-05-16 COVID-19 Vaccination [facility] Test 10:25:36 (#1) [code = COVID-19 [facility] Vaccination (#1)] Center Encounters Start End Encounter Admission Attending Care Care Encounter Source Date/Time Date/Time Type Type Clinicians Facility Department ID 2022-08-27 Outpatient Lashae, STLMLC STLMLC [id number] Common 14:27:00 Junie [id number] [facility] 2022-05-23 Outpatient Pandey, Na STLMLC STLMLC [id number] 2 Common 13:33:00 [facility] 2022-05-22 Outpatient Pandey, Na STLMLC STLMLC [id number] 2 Common 09:33:01 [facility] 2022-01-16 Outpatient Pandey, Na STLMLC STLMLC [id number] 2 Common 15:46:00 [facility] 2021-11-20 Outpatient Pandey, Na STLMLC STLMLC [id number] 2 Common 10:45:01 [facility] 2021-11-17 Outpatient Pandey, Na STLMLC STLMLC [id number] 2 Common 15:36:02 [facility] 2021-11-15 Outpatient Pandey, Na STLMLC STLMLC [id number] 2 Common 13:25:00 [facility] 2021-09-04 Outpatient Pandey, Na STLMLC STLMLC [id number] 2 Common 09:01:00 [facility] 2021-08-23 Outpatient Pandey, Na STLMLC STLMLC [id number] 2 Common 14:20:13 [facility] 2021-08-23 Outpatient Pandey, Na STLMLC STLMLC [id number] 2 Common 14:15:44 [facility] 2021-08-23 Outpatient Pandey, Na STLMLC STLMLC [id number] 2 Common 14:07:55 [id number] [facility] 2021-08-23 Outpatient Pandey, Na STLMLC STLMLC [id number] 2 Common 14:05:46 [id number] [facility] 2021-08-23 Outpatient Pandey, Na STLMLC STLMLC [id number] 2 Common 13:25:20 [id number] [facility] 2021-08-23 Outpatient Pandey, Na STLMLC STLMLC [id number] 2 Common 13:04:16 [id number] [facility] 2021-08-23 Outpatient Pandey, Na STLMLC STLMLC [id number] 2 Common 12:56:34 [id number] [facility] 2021-08-23 Outpatient Pandey, Na STLMLC STLMLC [id number] 2 Common 12:51:22 [id number] [facility] 2021-08-23 Outpatient Pandey, Na STLMLC STLMLC [id number] 2 Common 12:47:17 [id number] [facility] 2021-08-23 Outpatient Pandey, Na STLMLC STLMLC [id number] 2 Common 12:28:22 [id number] [facility] 2021-08-23 Outpatient Pandey, Na STLMLC STLMLC [id number] 2 Common 12:18:35 [id number] [facility] 2021-08-23 Outpatient Pandey, Na STLMLC STLMLC [id number] 2 Common 12:11:19 [id number] [facility] 2021-08-23 Outpatient Pandey, Na STLMLC STLMLC [id number] 2 Common 11:57:16 [id number] [facility] 2021-08-23 Outpatient Pandey, Na STLMLC STLMLC [id number] 2 Common 11:44:02 [id number] [facility] 2021-08-23 Outpatient Pandey, Na STLMLC STLMLC [id number] 2 Common 11:42:26 [id number] [facility] 2021-08-23 Outpatient Pandey, Na STLMLC STLMLC [id number] 2 Common 11:35:39 [id number] [facility] 2021-08-23 Outpatient Pandey, Na STLMLC STLMLC [id number] 2 Common 11:34:32 [id number] [facility] 2021-08-23 Outpatient Pandey, Na STLMLC STLMLC [id number] 2 Common 11:26:35 [id number] [facility] 2021-08-23 Outpatient Pandey, Na STLMLC STLMLC [id number] 2 Common 11:17:41 [id number] [facility] 2021-08-23 Outpatient Pandey, Na STLMLC STLMLC [id number] 2 Common 11:13:27 [id number] [facility] 2021-08-23 Outpatient Pandey, Na STLMLC STLMLC [id number] 2 Common 11:13:21 [id number] [facility] 2022-09-25 2022-09-25 Outpatient MHIE MHIE [id number] Memoria 09:00:00 09:00:00 26 mike Ayala 2022-09-25 2022-09-25 Outpatient MHIE MHIE [id number] Memoria 09:00:00 09:00:00 26 mike Ayala 2022-08-29 2022-08-29 (TEL) STLMLC STLMLC [id number] Co mmon 00:00:00 00:00:00 [facility] 2022-08-27 2022-08-27 (TEL) STLMLC STLMLC [id number] Co mmon 00:00:00 00:00:00 [facility] 2022-06-26 2022-06-26 (TEL) STLMLC STLMLC [id number] Co mmon 00:00:00 00:00:00 [facility] 2022-06-11 2022-06-11 (WEB) STLMLC STLMLC [id number] Co mmon 00:00:00 00:00:00 [facility] 2022-05-282022-05-28 (WEB) STLMLC STLMLC [id number] Co mmon 00:00:00 00:00:00 [facility] 2022-05-25 2022-05-25 OFFICE STLMLC STLMLC [id number] Co mmon 00:00:00 00:00:00 VISIT Spirit ESTAB PT - CHI LEVEL 4 [facility] 2022-05-22 2022-05-22 OFFICE STLMLC STLMLC [id number] Co mmon 00:00:00 00:00:00 VISIT EST Spir it PT LEVEL 3 - CHI [facility] 2022-05-05 2022-05-05 (WEB) STLMLC STLMLC [id number] Co mmon 00:00:00 00:00:00 [facility] 2022-05-05 2022-05-05 (WEB) STLMLC STLMLC [id number] Co mmon 00:00:00 00:00:00 [facility] 2022-04-04 2022-04-04 (WEB) STLMLC STLMLC [id number] Co mmon 00:00:00 00:00:00 [facility] 2022-03-27 2022-03-27 (WEB) STLMLC STLMLC [id number] Co mmon 00:00:00 00:00:00 [facility] 2022-03-22 2022-03-23 Outpatient nullFlavo MNA [id number] Memoria 16:30:00 04:59:59 r Neurology 25 l Yolo Jamie 2022-03-22 2022-03-23 Outpatient nullFlavo MNA [id number] Memoria 16:30:00 04:59:59 r Neurology 25 l Shaila Ayala 2022-03-22 2022-03-22 Outpatient TOMMY PhanMISCHER [id number] 11:30:00 23:59:59 Richard Nando Erickson 2022-03-22 2022-03-22 Outpatient MHIE MHIE [id number] Memoria 11:30:00 11:30:00 25 mike Ayala 2022-03-17 2022-03-17 (WEB) STLMLC STLMLC [id number] Co mmon 00:00:00 00:00:00 [facility] 2022-02-01 2022-02-01 (WEB) STLMLC STLMLC [id number] Co mmon 00:00:00 00:00:00 [facility] 2022-01-18 2022-01-18 OFFICE STLMLC STLMLC [id number] Co mmon 00:00:00 00:00:00 VISIT [facility] PT - CHI LEVEL 4 [facility] 2021-12-12 2021-12-12 (WEB) STLMLC STLMLC [id number] Co mmon 00:00:00 00:00:00 [facility] 2021-11-21 2021-11-21 OFFICE STLMLC STLMLC [id number] Co mmon 00:00:00 00:00:00 VISIT EST Spir it PT LEVEL 3 [facility] 2021-11-20 2021-11-20 Orders Doctor BRYAN [id number] Univers 00:00:00 00:00:00 Only Unassigned, ANGIE [id number] [facility]y [facility] [place] [facility] [id number] Dong as [phone] [place] [address] Branch 2021-11-17 2021-11-17 OFFICE STLMLC STLMLC [id number] Co mmon 00:00:00 00:00:00 VISIT [facility] PT - CHI LEVEL 4 [facility] 2021-10-03 2021-10-03 (WEB) STLMLC STLMLC [id number] Co mmon 00:00:00 00:00:00 [facility] 2021-09-28 2021-09-28 (WEB) STLMLC STLMLC [id number] Co mmon 00:00:00 00:00:00 [facility] 2021-09-06 2021-09-06 OFFICE STLMLC STLMLC [id number] Co mmon 00:00:00 00:00:00 VISIT [facility] PT - CHI LEVEL 4 [facility] 2021-08-28 2021-08-28 NON-BILLAB STLMLC STLMLC [id number] Common 00:00:00 00:00:00 LE VISIT [facility] 2021-08-21 2021-08-21 (WEB) STLMLC STLMLC [id number] Co mmon 00:00:00 00:00:00 [facility] 2021-08-20 2021-08-20 (WEB) STLMLC STLMLC [id number] Co mmon 00:00:00 00:00:00 [facility] 2021-08-10 2021-08-11 Outpatient nullFlavo MNA [id number] Memoria 15:00:00 05:59:59 r Neurology 24 l Shaila Ayala 2021-08-10 2021-08-11 Outpatient nullFlavo MNA [id number] Memoria 15:00:00 05:59:59 r Neurology 24 l Yoloantony Janeann 2021-08-10 2021-08-10 Outpatient LOU PhanMISCHSANG MISCHER [id number] 09:00:00 23:59:59 Richard 24 Dre 2021-08-10 2021-08-10 Outpatient MHIE MHIE [id number] Memoria 09:00:00 09:00:00 24 l Jamie 2021-07-17 2021-07-17 NON-BILLAB STLMLC STLMLC [id number] Common 00:00:00 00:00:00 LE VISIT [facility] 2021-06-26 2021-06-26 (TEL) STLMLC STLMLC [id number] Co mmon 00:00:00 00:00:00 [facility] 2021-06-21 2021-06-21 NON-BILLAB STLMLC STLMLC [id number] Common 00:00:00 00:00:00 LE VISIT [facility] 2021-06-19 2021-06-19 (TEL) STLMLC STLMLC [id number] Co mmon 00:00:00 00:00:00 [facility] 2021-06-14 2021-06-14 (WEB) STLMLC STLMLC [id number] Co mmon 00:00:00 00:00:00 [facility] 2021-06-01 2021-06-01 OFFICE STLMLC STLMLC [id number] Co mmon 00:00:00 00:00:00 VISIT [facility] LEVEL 4 [facility] 2021-05-22 2021-05-22 (TEL) STLMLC STLMLC [id number] Co mmon 00:00:00 00:00:00 [facility] 2021-05-16 2021-05-16 (WEB) STLMLC STLMLC [id number] Co mmon 00:00:00 00:00:00 [facility] 2021-05-11 2021-05-11 (WEB) STLMLC STLMLC [id number] Co mmon 00:00:00 00:00:00 [facility] 2021-05-11 2021-05-11 (WEB) STLMLC STLMLC [id number] Co mmon 00:00:00 00:00:00 [facility] 2021-05-09 2021-05-10 Outpatient nullFlavo MNA [id number] Memoria 15:15:00 04:59:59 r Neurology 22 l Yoloantony Janeann 2021-05-09 2021-05-10 Outpatient nullFlavo MNA [id number] Memoria 15:15:00 04:59:59 r Neurology 22 l Shaila Ayala 2021-05-09 2021-05-09 [id number] 10:15:00 23:59:59 Richard 22 Dre 2021-05-09 2021-05-09 Outpatient MHIE MHIE [id number] Memoria 10:15:00 10:15:00 22 l Jamie 2021-04-14 2021-04-14 (WEB) STLMLC STLMLC [id number] Co mmon 00:00:00 00:00:00 [facility] 2021-04-14 2021-04-14 (WEB) STLMLC STLMLC [id number] Co mmon 00:00:00 00:00:00 [facility] 2021-03-20 2021-03-21 Outpatient nullFlavo MNA [id number] Memoria 13:15:00 04:59:59 r Neurology 23 l Shaila Ayala 2021-03-20 2021-03-21 Outpatient nullFlavo MNA [id number] Memoria 13:15:00 04:59:59 r Neurology 23 l Shaila Ayala 2021-03-20 2021-03-20 Outpatient [facility] [id number] 08:15:00 23:59:59 Richard 23 Dre 2021-03-20 2021-03-20 Outpatient MHIE IE [id number] Memoria 08:15:00 08:15:00 23 l Jamie 2021-03-20 2021-03-20 Outpatient STLMLC STLMLC [id number] Common 00:00:00 00:00:00 [facility] 2021-02-24 2021-02-24 (TEL) STLMLC STLMLC [id number] Co mmon 00:00:00 00:00:00 [facility] 2021-02-23 2021-02-23 Outpatient STLMLC STLMLC [id number] Common 00:00:00 00:00:00 [facility] 2021-02-23 2021-02-23 Outpatient STLMLC STLMLC [id number] Common 00:00:00 00:00:00 [facility] 2021-02-23 2021-02-23 Outpatient STLMLC STLMLC [id number] Common 00:00:00 00:00:00 [facility] 2021-02-09 2021-02-09 Outpatient STLMLC STLMLC [id number] Common 00:00:00 00:00:00 [facility] 2021-02-08 2021-02-08 Outpatient STLMLC STLMLC [id number] Common 00:00:00 00:00:00 [facility] 2021-02-03 2021-02-04 Outpatient nullFlavo MNA [id number] Memoria 18:45:00 04:59:59 r Neurology 21 l Shaila Janeann 2021-02-03 2021-02-04 Outpatient nullFlavo MNA [id number] Memoria 18:45:00 04:59:59 r Neurology 21 l Shaila Ayala 2021-02-03 2021-02-03 Outpatient Sylvester JEFFWINIFRED JEFFSCHER [id number] 13:45:00 23:59:59 Richard Kasia Erickson 2021-02-03 2021-02-03 Outpatient MHIE MHIE [id number] Memoria 13:45:00 13:45:00 21 l Jamie 2020-12-12 2020-12-12 Outpatient STLMLC STLMLC [id number] Common 00:00:00 00:00:00 [facility] 2020-11-22 2020-11-22 Outpatient STLMLC STLMLC [id number] Common 00:00:00 00:00:00 [facility] 2020-11-21 2020-11-21 Outpatient STLMLC STLMLC [id number] Common 00:00:00 00:00:00 [facility] 2020-11-09 2020-11-09 Outpatient STLMLC STLMLC [id number] Common 00:00:00 00:00:00 [facility] 2020-10-24 2020-10-24 Outpatient STLMLC STLMLC [id number] Common 00:00:00 00:00:00 [facility] 2020-10-17 2020-10-17 Outpatient STLMLC STLMLC [id number] Common 00:00:00 00:00:00 [facility] 2020-10-15 2020-10-15 Outpatient [facility] [id number] Univers 09:10:00 09:10:00 [facility] 2020-10-10 2020-10-10 Outpatient STLMLC STLMLC [id number] Common 00:00:00 00:00:00 [facility] 2020-09-24 2020-09-24 Outpatient [facility] [id number] Univers 09:10:00 09:10:00 [facility] 2020-09-21 2020-09-21 Ambulatory nullFlavo MNA [id number] Memoria 14:15:00 14:15:00 Pre-Reg r Neurology 20 l Shaila Ayala 2020-09-21 2020-09-21 Ambulatory nullFlavo MNA [id number] Memoria 14:15:00 14:15:00 Pre-Reg r Neurology 20 l Shaila Ayala 2020-09-21 2020-09-21 Outpatient MHIE ZENY [id number] Memoria 08:15:00 08:15:00 20 mike Ayala 2020-09-21 2020-09-21 Outpatient TOMMY Phan [facility] [id number] 08:15:00 08:15:00 Richard 20 Dre 2020-09-08 2020-09-08 Outpatient STLMLC STLMLC [id number] Common 00:00:00 00:00:00 [facility] 2020-09-07 2020-09-07 Outpatient STLMLC STLMLC [id number] Common 00:00:00 00:00:00 [facility] 2020-09-07 2020-09-07 Outpatient STLMLC STLMLC [id number] Common 00:00:00 00:00:00 [facility] 2020-09-05 2020-09-06 Outpatient nullFlavo MNA [id number] Memoria 15:45:00 05:59:59 r Neurology 19 mike Ayala 2020-09-05 2020-09-06 Outpatient nullFlavo MNA [id number] Memoria 15:45:00 05:59:59 r Neurology 19 mike Ayala 2020-09-05 2020-09-05 Outpatient TOMMY Phan [facility] [id number] 09:45:00 23:59:59 Richard Alana Erickson 2020-09-05 2020-09-05 Outpatient MHIE MHIE [id number] Memoria 09:45:00 09:45:00 19 mike Ayala 2020-09-02 2020-09-02 Outpatient STLMLC STLMLC [id number] Common 00:00:00 00:00:00 [facility] 2020-08-31 2020-08-[address] [facility] [id number] Univers 09:00:00 23:59:00 [id number] [id number] [place] [address] Branch 2020-08-31 2020-08-31 Outpatient PEDRO TELLEZ [facility] [id number] Univers 00:00:00 00:00:00 ity [facility] 2020-08-29 2020-08-29 Outpatient STLMLC STLMLC [id number] Common 00:00:00 00:00:00 [facility] 2020-08-23 2020-08-23 Ambulatory nullFlavo MNA [id number] Memoria 15:15:00 15:15:00 Pre-Reg r Neurology 16 l Yolo Carlton 2020-08-23 2020-08-23 Ambulatory nullFlavo MNA [id number] Memoria 15:15:00 15:15:00 Pre-Reg r Neurology 16 l Shaila Carlton 2020-08-23 2020-08-23 Outpatient MHIE MHIE [id number] Memoria 09:15:00 09:15:00 16 l Jamie 2020-08-23 2020-08-23 Outpatient TOMMY Phan MISCHER [id number] 09:15:00 09:15:00 Richard Erickson 2020-08-05 2020-08-05 Outpatient STLMLC STLMLC [id number] Common 00:00:00 00:00:00 [facility] 2020-07-07 2020-07-07 Outpatient STLMLC STLMLC [id number] Common 00:00:00 00:00:00 [facility] 2020-05-13 2020-05-13 Outpatient STLMLC STLMLC [id number] Common 00:00:00 00:00:00 [facility] 2020-05-11 2020-05-11 Outpatient STLMLC STLMLC [id number] Common 00:00:00 00:00:00 [facility] 2020-05-09 2020-05-10 Outpatient nullFlavo MNA [id number] Memoria 18:45:00 04:59:59 r Neurology 18 l Shaila Janeann 2020-05-09 2020-05-10 Outpatient nullFlavo MNA [id number] Memoria 18:45:00 04:59:59 r Neurology 18 l Shaila Carlton 2020-05-10 2020-05-10 Outpatient STLMLC STLMLC [id number] Common 00:00:00 00:00:00 [facility] 2020-05-10 2020-05-10 Outpatient STLMLC STLMLC [id number] Common 00:00:00 00:00:00 [facility] 2020-05-09 2020-05-09 Outpatient Sylvester MHMISCHER MHMISCHER [id number] 13:45:00 23:59:59 Richard 18 Dre 2020-05-09 2020-05-09 Outpatient MHIE MHIE [id number] Memoria 13:45:00 13:45:00 18 l [place] 2020-05-04 2020-05-04 Outpatient STLMLC STLMLC [id number] Common 00:00:00 00:00:00 [facility] 2020-04-08 2020-04-08 [facility] [id number] Common 14:25:00 14:25:[address] [facility] 2020-04-07 2020-04-07 [facility] [id number] Common 11:00:00 11:00:[address] [facility] 2020-04-01 2020-04-02 Outpatient nullFlavo MNA [id number] Memoria 19:30:00 04:59:59 r Neurology 17 l Shaila Janeann 2020-04-01 2020-04-02 Outpatient nullFlavo MNA [id number] Memoria 19:30:00 04:59:59 r Neurology 17 l Yolo Carlton 2020-04-01 2020-04-01 Outpatient Sylvester MHMISCHER MHMISCHER [id number] 14:30:00 23:59:59 Richard 17 Dre 2020-04-01 2020-04-01 Outpatient MHIE MHIE [id number] Memoria 14:30:00 14:30:00 17 mike Ayala 2020-03-29 2020-03-29 [facility] [id number] Common 14:53:00 14:53:00 t [facility] [address] [facility] 2020-03-29 2020-03-29 Ambulatory nullFlavo MNA [id number] Memoria 14:00:00 14:00:00 Pre-Reg r Neurology 13 l Yolo Carlton 2020-03-29 2020-03-29 Ambulatory nullFlavo MNA [id number] Memoria 14:00:00 14:00:00 Pre-Reg r Neurology 14 l Yolo Carlton 2020-03-29 2020-03-29 Ambulatory nullFlavo MNA [id number] Memoria 14:00:00 14:00:00 Pre-Reg r Neurology 14 l Yolo Jamie 2020-03-29 2020-03-29 Ambulatory nullFlavo MNA [id number] Memoria 14:00:00 14:00:00 Pre-Reg r Neurology 13 l Yolo [place] 2020-03-29 2020-03-29 [facility] [id number] Common 09:48:00 09:48:00 [facility] [employer] [address] [facility] 2020-03-29 2020-03-29 Outpatient MHIE MHIE [id number] Memoria 09:00:00 09:00:00 13 l [place] 2020-03-29 2020-03-29 Outpatient MHIE MHIE [id number] Memoria 09:00:00 09:00:00 14 mike JaneJamie 2020-03-29 2020-03-29 Outpatient LOU PhanMISCHER MHMISCHER [id number] 09:00:00 09:00:00 Richard 13 Dre 2020-03-29 2020-03-29 Outpatient Sylvester MHMISCHER MHMISCHER [id number] 09:00:00 09:00:00 Richard 14 Dre 2020-03-23 2020-03-23 [facility] [id number] Common 08:00:00 08:00:00 [facility] 2020-03-07 2020-03-07 [facility] [id number] Common 08:45:00 08:45:00 t [facility] 2020-02-25 2020-02-25 [facility] [id number] Common 15:00:00 15:00:00 t [facility] 2020-02-18 2020-02-19 Outpatient nullFlavo MNA [id number] Memoria 14:00:00 04:59:59 r Neurology 15 l Yolo Jamie 2020-02-18 2020-02-19 Outpatient nullFlavo MNA [id number] Memoria 14:00:00 04:59:59 r Neurology 15 l Shaila Ayala 2020-02-18 2020-02-18 Outpatient LOU PhanMISCHSANG MHMISCHER [id number] 09:00:00 23:59:59 Richard 15 Dre 2020-02-18 2020-02-18 Outpatient MHIE MHIE [id number] [facility] 09:00:00 09:00:00 15 mike Carlton 2020-01-22 2020-01-22 [facility] [id number] Univers 07:05:01 10:45:00 Encounter Guero Reyes 350.1.13.10 [place] [facility] [phone] [address] 2020-01-22 2020-01-22 [facility] LORELEI [id number] Univers 07:05:01 10:45:00 GUERO ritter of [facility] 2020-01-22 2020-01-22 Orders Doctor BRYAN [id number] Univers 00:00:00 00:00:00 Only Unassigned, ANGIE 350.1.13.10 ity of [place] [facility] 4.2.7.2.686 Dong as [phone] [place] [id number] [place] 2020-01-21 2020-01-21 Laboratory Only, Adc Test [facility] 1.2.840. [id number] Univers 10:52:42 11:19:22 Only Guero Valdovinos 350.1.13.10 [facility] [place] 4.2.7.2.686 [facility] [phone] [address] 2020-01-21 2020-01-21 Outpatient Hannah VALDOVINOS [facility] [id number] Univers 11:00:00 11:00:00 GUERO ritter [facility] 2020-01-11 2020-01-11 [facility] [id number] Common 13:35:00 13:35:00 [place] [address] [facility] 2020-01-06 2020-01-06 [facility] [id number] Common 10:20:00 10:20:00 [place] [address] [facility] 2019-12-31 2019-12-31 [facility] [id number] Common 11:52:00 11:52:00 [place] [address] [facility] 2019-12-24 2019-12-25 Outpatient nullFlavo MNA [id number] Memoria 18:00:00 04:59:59 r Neurology 12 l Shaila Ayala 2019-12-24 2019-12-25 Outpatient nullFlavo MNA [id number] Memoria 18:00:00 04:59:59 r Neurology 12 l Shaila Ayala 2019-12-24 2019-12-24 Outpatient TOMMY Phan MHMISCHER [id number] 13:00:00 23:59:59 Richard 12 Dre 2019-12-24 2019-12-24 Outpatient MHIE IE [id number] Memoria 13:00:00 13:00:00 12 mike Ayala 2019-12-14 2019-12-14 [facility] [id number] Common 13:21:00 13:21:00 [place] [address] [facility] 2019-11-12 2019-11-12 [facility] [id number] Common 09:37:00 09:37:00 [place] [address] [facility] 2019-10-07 2019-10-07 [facility] [id number] Common 08:00:00 08:00:00 [place] [address] [facility] 2019-10-01 2019-10-01 [facility] [id number] Common 11:58:00 11:58:00 [place] [address] [facility] 2019-09-18 2019-09-18 [facility] [id number] Common 09:05:00 09:05:00 [place] [address] [facility] 2019-08-19 2019-08-19 Ambulatory nullFlavo MNA [id number] Memoria 15:00:00 15:00:00 Pre-Reg r Neurology 11 l Yolo Jamie 2019-08-19 2019-08-19 Ambulatory nullFlavo MNA [id number] Memoria 15:00:00 15:00:00 Pre-Reg r Neurology 11 l Shaila Ayala 2019-08-19 2019-08-19 Outpatient MHIE MHIE [id number] Memoria 09:00:00 09:00:00 11 l [place] 2019-08-19 2019-08-19 Outpatient Sylvester MISCHER MISCHER [id number] 09:00:00 09:00:00 Richard Dolores Dre 2019-08-11 2019-08-11 [facility] [id number] Common 09:20:00 09:20:00 [place] [address] [facility] 2019-07-03 2019-07-03 [facility] [id number] Common 09:40:00 09:40:00 [place] [address] [facility] 2019-06-23 2019-06-23 [facility] [id number] Common 17:04:00 17:04:00 [place] [address] [facility] 2019-06-17 2019-06-18 Outpatient nullFlavo MNA [id number] Memoria 15:30:00 05:59:59 r Neurology 10 l Shaila Ayala 2019-06-17 2019-06-18 Outpatient nullFlavo MNA [id number] Memoria 15:30:00 05:59:59 r Neurology 10 l Shaila Ayala 2019-06-17 2019-06-17 [id number] 09:30:00 23:59:59 Richard 10 Dre 2019-06-17 2019-06-17 Outpatient MHIE MHIE [id number] Memoria 09:30:00 09:30:00 10 mike Ayala 2019-06-11 2019-06-11 Ambulatory nullFlavo MNA [id number] Memoria 16:45:00 16:45:00 Pre-Reg r Neurology 09 l Shaila Ayala 2019-06-11 2019-06-11 Ambulatory nullFlavo MNA [id number] Memoria 16:45:00 16:45:00 Pre-Reg r Neurology 09 l Shaila Carlton 2019-06-11 2019-06-11 Outpatient MHIE MHIE [id number] Memoria 10:45:00 10:45:00 09 mike Ayala 2019-06-11 2019-06-11 [facility] [id number] 10:45:00 10:45:00 Richard 09 [facility] 2019-04-03 2019-04-03 [facility] [id number] Common 10:40:00 10:40:00 t [employer] [facility] it Drive [facility] 2019-03-05 2019-03-05 Ambulatory nullFlavo MNA [id number] Memoria 15:00:00 15:00:00 Pre-Reg r Neurology 08 l Shaila Ayala 2019-03-05 2019-03-05 Ambulatory nullFlavo MNA [id number] Memoria 15:00:00 15:00:00 Pre-Reg r Neurology 08 l Shaila Ayala 2019-03-05 2019-03-05 Outpatient MHIE MHIE [id number] Memoria 10:00:00 10:00:00 08 mike Ayala 2019-03-05 2019-03-05 Outpatient Sylvester MISCHER MISCHER [id number] 10:00:00 10:00:00 Richard 08 Dre 2019-03-03 2019-03-03 [facility] [id number] Common 10:17:00 10:17:00 t [employer] [facility] it Drive [facility] 2019-02-23 2019-02-23 [facility] [id number] Common 08:38:00 08:38:00 t [employer] [address] [facility] 2019-02-13 2019-02-13 [facility] [id number] Common 08:30:00 08:30:00 t [facility] 2019-02-11 2019-02-11 [facility] [id number] Common 08:00:00 08:00:00 t [facility] 2019-01-27 2019-01-27 [facility] [id number] Common 16:20:00 16:20:00 t [employer] [address] [facility] 2019 2019 Ambulatory nullFlavo MNA [id number] Memoria 19:15:00 19:15:00 Pre-Reg r Neurology 07 l Yolo Carlton 2019 2019 Ambulatory nullFlavo MNA [id number] Memoria 19:15:00 19:15:00 Pre-Reg r Neurology 07 l Yolo Carlton 2019 2019 Outpatient MHIE MHIE [id number] Memoria 14:15:00 14:15:00 07 l [place] 2019 2019 Outpatient Sylvester MHMISCHER MHMISCHER [id number] 14:15:00 14:15:00 Richard Erickson 2018-12-19 2018-12-21 Outside nullFlavo MNA [id number] Memoria 17:05:48 04:59:59 Medical r Neurology 05 l Records Yolo Carlton 2018-12-19 2018-12-21 Outside nullFlavo MNA [id number] Memoria 17:05:48 04:59:59 Medical r Neurology 05 l Records Yolo Carlton 2018-12-19 2018-12-20 Outpatient MHMISCHER MHMISCHER [id number] 12:05:48 23:59:59 2018-12-12 2018-12-13 Outpatient nullFlavo MNA [id number] Memoria 14:30:00 04:59:59 r Neurology 06 l Shaila Ayala 2018-12-12 2018-12-13 Outpatient nullFlavo MNA [id number] Memoria 14:30:00 04:59:59 r Neurology 06 l Shaila Ayala 2018-12-12 2018-12-12 Outpatient LOU PhanMISCHER MHMISCHER [id number] 09:30:00 23:59:59 Richard Frederick Erickson 2018-12-12 2018-12-12 Outpatient MHIE MHIE [id number] Memoria 09:30:00 09:30:00 06 mike Ayala 2018-12-08 2018-12-08 [facility] [id number] Common 09:44:00 09:44:00 [facility] [employer] [facility] 2018-11-26 2018-11-26 Outpatient MHIE MHIE [id number] Memoria 11:00:00 11:00:00 04 mike Jamie 2018-11-26 2018-11-26 Outpatient MHIE MHIE [id number] Memoria 11:00:00 11:00:00 04 mike Jamie 2018-11-18 2018-11-18 Ambulatory nullFlavo MNA [id number] Memoria 21:00:00 21:00:00 Pre-Reg r Neurology 05 l Yolo Jamie 2018-11-18 2018-11-18 Ambulatory nullFlavo MNA [id number] Memoria 21:00:00 21:00:00 Pre-Reg r Neurology 05 mike Yolo Jamie 2018-11-18 2018-11-18 Outpatient MHIE MHIE [id number] Memoria 16:00:00 16:00:00 05 mike Jamie 2018-11-18 2018-11-18 [facility] [id number] 16:00:00 16:00:00 Richard Joey Dre 2018-10-23 2018-10-23 Outpatient MHIE MHIE [id number] Memoria 10:15:00 10:15:00 03 mike Jamie 2018-10-23 2018-10-23 Outpatient MHIE MHIE [id number] Memoria 10:15:00 10:15:00 03 mike Ayala 2018-09-18 2018-09-18 Outpatient MHIE MHIE [id number] Memoria 11:30:00 11:30:00 02 mike Carlton 2018-09-18 2018-09-18 Outpatient MHIE MHIE [id number] Memoria 11:30:00 11:30:00 02 mike Ayala 2018-08-25 2018-08-27 Phone nullFlavo MNA [id number] Memoria 20:14:00 05:59:59 Message r Neurology 01 mike Ayala 2018-08-25 2018-08-27 Phone nullFlavo MNA [id number] Memoria 20:14:00 05:59:59 Message r Neurology 01 mike Janeann 2018-08-25 2018-08-26 Outpatient MHMISCHER MHMISCHER [id number] 14:14:00 23:59:59 2018-08-07 2018-08-08 Outpatient nullFlavo MNA [id number] Memoria 22:00:00 05:59:59 r Neurology 01 mike Yolo Jamie 2018-08-07 2018-08-08 Outpatient nullFlavo MNA [id number] Memoria 22:00:00 05:59:59 r Neurology 01 mike Yolo Jamie 2018-08-07 2018-08-07 Outpatient Sylvester MHMISCHER MHMISCHER [id number] 16:00:00 23:59:59 Richard Dre 2018-08-07 2018-08-07 Outpatient MHIE MHIE [id number] Memoria 16:00:00 16:00:00 01 mike Jamie 2018-08-01 2018-08-02 Outpatient nullFlavo MNA [id number] Memoria 17:45:00 05:59:59 r Neurology 00 l Yolo Jamie 2018-08-01 2018-08-02 Outpatient nullFlavo MNA [id number] Memoria 17:45:00 05:59:59 r Neurology 00 mike Yolo Jamie 2018-08-01 2018-08-01 Outpatient Sylvester MHMISCHER MHMISCHER [id number] 11:45:00 23:59:59 Richard Dre 2018-08-01 2018-08-01 Outpatient MHIE MHIE [id number] Memoria 11:45:00 11:45:00 00 mike Ayala 2018-03-18 2018-03-18 [facility] [id number] Common 08:30:00 08:30:00 t [facility] Bone [facility] Sp[facility] t [facility] Joint [facility] Results Test Description Test Test Results Result [...] short sliding hiatal hernia withoutsignificant gastroesophageal reflux. [facility], Radiant Results Inft User - [...] rsity of (NON-REPORTABLE) 26 require a Radiology [facility] 14:16:17 diagnostic report. Branch CBC WITH DIFFERENTIAL [...] H [Au tomated message] The system which [employer] nerated this result transmit kalli reference range: [...] g/dL 31.6-35.1 L RDW-SD (test code = 76332-4) 37.5 fL 39-49.9 L RDW-CV (test code = 788-0) 18.6 % 12-15.5 H PLT (test code = 777-3) See_Comment [Au tomated message] The system which [employer] nerated this result transmit kalli reference range: 166 - 35 8 10*3/?L. The reference range was not used to interpret th is result as normal/abnormal . MPV (test code = 20878-5) 10.1 fL 9.5-12.9 NRBC/100 WBC (test code = See_Comment [ Automated message] The [id number]) system which [employer] nerated this result transmit kalli reference range: 0.0 - 10 .0 /100 WBCs. The reference r gonzalez was not used to interpr et this result as normal/abnor mal. NRBC x10^3 (test code = <0.01 See_Comment [Au tomated message] The [id number]) system which [employer] nerated this result transmit kalli reference range: 10*3/?L. The reference range was not u sed to interpret this result as normal/abnormal . GRAN MAT (NEUT) % (test code 66.8 % = 770-8) IMM GRAN % (test code = 0.60 % [id number]) LYMPH % (test code = 736-9) 23.4 % MONO % (test code = 5905-5) 7.0 % EOS % (test code = 713-8) 1.6 % BASO % (test code = 706-2) 0.6 % GRAN MAT x10^3(ANC) (test 6.70 10*3/uL 1.88-7.09 code = 1131181614) IMM GRAN x10^3 (test code = 0.06 10*3/uL 0-0.06 [id number]) LYMPH x10^3 (test code = 2.34 10*3/uL 1.32-3.29 731-0) MONO x10^3 (test code = 0.70 10*3/uL 0.33-0.92 742-7) EOS x10^3 (test code = 0.16 10*3/uL 0.03-0.39 711-2) BASO x10^3 (test code = 0.06 10*3/uL 0.01-0.07 704-7) Lab Interpretation (test Abnormal code = 53441-2) [id number] 13:16:00 Test Item Value Reference Range Interpretation [...] tions. Lab Interpretation (test Normal code = 95439-9) [facility] 13:15:00 Test Item Value Reference Range Interpretation Comments APTT Patient (test See_Comment [Automat ed code = 3173-2) message] The system which generated this result transmitted reference range : 23 - 38 Seconds . The reference range was not used to interpr et this result as normal/abnormal . SERA (test code = SERA) [facility] patient population mean normal value for aPTT is 30 seconds. Lab Interpretation Normal (test code = 25766-5) [facility] Wo ContMRI Knee Right Wo Cont
[2022-09-18] MEDS ORDERED: AZITHROMYCIN 250 MG TAB ONE (07:45)
[2022-09-18] MEDS ORDERED: CEFTRIAXONE 1000 MG/VIAL ONE (07:45)
[2022-09-18] MEDS ORDERED: NA CHLORIDE 0.9% 500 ML ONE (07:46)
[2022-09-18] MEDS ORDERED: NA CHLORIDE 0.9% 1,000 ML ONE (07:46)
[2022-09-18] MEDS ORDERED: NA CHLORIDE 0.9% 50 ML ONE (07:46)
[2022-09-18] MEDS ORDERED: ALBUTEROL 2.5 MG/3 ML NEB SOL ONE ×2 (07:54→13:09)
[2022-09-18] MEDS ORDERED: METHYLPREDNISOLONE 125 MG INJ ONE (07:54)
[2022-09-18] MEDS ORDERED: IPRATROPIUM BROM 0.5MG/2.5ML ONE (07:54)
[2022-09-18] MEDS ORDERED: predniSONE 20 MG TAB ONE (07:54)
[2022-09-18] MEDS ORDERED: HYDROCODONE/CHLORPHEN 5 ML/OSYR ONE (08:03)
[2022-09-18 08:20] LABS: Absolute Lymphocytes (CBC) 3.5 K/uL (0.7-4.9); Hematocrit 40.3 % (36.0-45.0); MCV 61.4 fL (80-100); MPV 8.3 fL (7.6-11.3); RBC Red Blood Cell Count 6.55 M/uL (3.86-4.86)
[2022-09-18 08:27] LABS: Albumin 3.9 g/dL (3.4-5.0); Bilirubin Direct 0.1 mg/dL (0-0.2); Bilirubin Total 0.5 mg/dL (0.2-1.0); Magnesium 2.3 mg/dL (1.6-2.4); Troponin High Sensitivity 52.5 pg/mL (<58.9)
[2022-09-18 08:44] LABS: SARS-COV-2 RT PCR NEGATIVE (NEGATIVE)
[2022-09-18 09:41] LABS: Anisocytosis 1+; Blood Morphology Comment NOTED (NOT SEEN); Hypochromasia 2+; Ovalocytes 1+; Platelet Estimate ADEQ; Poikilocytosis 1+; Teardrop Cell 1+; White Blood Cell Scan OK (OK)
--- NOTE | 2022-09-18 10:05 | RAD REPORT ---
EXAM DESCRIPTION: US - Extrem Venous W Compress Pratik - 09/18/2022 9:55 am CLINICAL HISTORY: Pain Bilateral leg edema and swelling. COMPARISON: No comparisons TECHNIQUE: Real-time sonographic interrogation of the left and right lower extremity deep venous sys tems was performed. FINDINGS: Normal compressibility, flow augmentation, phasic flow and spontaneous flow is identified in both the left and right lower extremity deep venous systems. IMPRESSION: No sonographic evidence of left or right lower extremity deep venous thrombosis.
[2022-09-18 10:30] LABS: Urine Blood Negative (Negative); Urine Glucose Negative (Negative); Urine Protein Negative (Negative)
--- NOTE | 2022-09-18 10:37 | RAD REPORT ---
EXAM DESCRIPTION: RAD - Chest Pa And Lat (2 Views) - 09/18/2022 10:10 am CLINICAL HISTORY: Cough Chest pain. COMPARISON: Chest Single View dated 07/22/2022; Chest Pa And Lat (2 Views) dated 06/29/2022; Chest Pa And Lat (2 Views) dated 06/02/2021; Chest Pa And Lat (2 Views) dated 10/03/2016 FINDINGS: The lungs are clear. The heart is normal in size. No displaced fractures. IMPRESSION: No acute or concerning finding suspected.
[2022-09-18] MEDS ORDERED: ALBUTEROL INHALER 60 PUFF/8 GM IH ONE (10:44)
[2022-09-18] MEDS ORDERED: MAGNESIUM SULFATE 1 gm IVPB 1 GM/100 ML BAG IV ONE (13:09)
--- NOTE | 2022-09-18 14:20 | RAD REPORT ---
EXAM DESCRIPTION: NM - Vent Perfusion VQ Scan - 09/18/2022 1:55 pm CLINICAL HISTORY: DYSPNEA COMPARISON: Chest Pa And Lat (2 Views) dated 09/18/2022 TECHNIQUE: 19.9mCi Xe-133 gas inhaled and 7.1mCi Tc-MAA IV. Planar ventilation scan was performed in posterior projection after Xe-133 gas inhalation (wash-in, e quilibrium, and wash-out phases) followed by perfusion scan with Tc-MAA IV in multiple projections. Examination is correlated with recent chest radiograph. FINDINGS: Normal ventilation with appropriate wash-out and no significant air-trapping. No mismatched segmental perfusion defect. IMPRESSION: Normal exam. No perfusion defects detected.
--- NOTE | 2022-09-18 14:40 | ER ---
Nurse's Notes [facility] Name: Nelsy Romero Age: 62 yrs Sex: Female : 1960 Arrival Date: 09/18/2022 Time: 07:23 Bed 20 Private MD: Diagnosis: COPD/ Chronic obstructive pulmonary disease with acute lower respiratory infection;COPD/ Chronic obstructive pulmonary disease with (acute) exacerbation;Dyspnea;Tobacco abuse counseling;Tobacco use;Chronic kidney disease, unspecified Presentation: 09/18 07:29 Chief complaint: Patient states: she has had cough, cold and congestion since ap3 Elmer. patient states she feels like she can't breath. patients SpO2 is currently 100% on room air. Coronavirus screen: Client presents with at least one sign or symptom that may indicate coronavirus-19. Ebola Screen: No symptoms or risks identified at this time. Initial Sepsis Screen: Does the patient meet any 2 criteria? No. Patient's initial sepsis screen is negative. Does the patient have a suspected source of infection? No. Patient's initial sepsis screen is negative. Risk Assessment: Do you want to hurt yourself or someone else? Patient reports no desire to harm self or others. Onset of symptoms was July 22, 2022. 07:29 Method Of Arrival: Ambulatory ap3 07:29 Acuity: RENITA 3 ap3 Triage Assessment: 07:35 General: Appears in no apparent distress. Behavior is calm, cooperative. Pain: Denies ap3 pain. Neuro: Level of Consciousness is awake, alert, obeys commands, Oriented to person, place, time, situation. Cardiovascular: Patient's skin is warm and dry. Respiratory: Reports shortness of breath cough that is Airway is patent Respiratory effort is even, unlabored, Respiratory pattern is regular, symmetrical. Historical: - Allergies: 07:31 benacor; ap3 07:31 Clonidine; ap3 07:31 GABAPENTIN; ap3 07:31 IRON COMPLEX; ap3 07:31 Lipitor; ap3 07:31 Lyrica; ap3 07:31 Macrobid; ap3 07:31 Metoprolol Tartrate; ap3 07:31 Mucinex; ap3 - Home Meds: 07:31 Bystolic 10 mg Oral tab 1 tab once daily [Active]; citalopram 40 mg tab 1 tab once ap3 daily [Active]; levothyroxine 25 mcg tab once daily [Active]; liothyronine 25 mcg oral tab 1 tab once daily [Active]; amlodipine 5 mg tab 2 tabs [Active]; topiramate 100 mg oral tab 2 tabs 2 times per day [Active]; baclofen 10 mg Oral tab 1 tab BID [Active]; Dexilant 60 mg oral CpDB 1 cap once daily [Active]; gabapentin 300 mg oral tab 1 tab as needed [Active]; quetiapine 300 mg oral tab 2 tabs nightly [Active]; - PMHx: 07:31 Anxiety; buldging disk in neck; Degenerative disc disease; Depression; Hypertension; ap3 thalassemia minor; Thyroid problem; - Immunization history:: Client reports receiving the 2nd dose of the Covid vaccine. - Social history:: Smoking status: Patient reports the use of cigarette tobacco products, smokes one-half pack cigarettes per day. Screenin:36 [facility] ED Fall Risk Assessment (Adult) History of falling in the last 3 months, ap3 including since admission No falls in past 3 months (0 pts). Abuse screen: Denies threats or abuse. Nutritional screening: No deficits noted. Tuberculosis screening: No symptoms or risk factors identified. Assessment: 08:48 Reassessment: Patient and/or family updated on plan of care and expected duration. Pain ap3 level reassessed. Patient is alert, oriented x 3, equal unlabored respirations, skin warm/dry/pink. Cardiovascular: Patient's skin is warm and dry. Respiratory: Airway is patent Respiratory effort is even, unlabored. 10:36 Reassessment: Patient and/or family updated on plan of care and expected duration. Pain ap3 level reassessed. Patient is alert, oriented x 3, equal unlabored respirations, skin warm/dry/pink. 12:00 General: Appears in no apparent distress. comfortable, Behavior is calm, cooperative, kr3 appropriate for age. Neuro: Level of Consciousness is awake, alert, obeys commands, Oriented to person, place, time, situation. Respiratory: Airway is patent Respiratory effort is even, unlabored. GI: No signs and/or symptoms were reported involving the gastrointestinal system. : No signs and/or symptoms were reported regarding the genitourinary system. EENT: No signs and/or symptoms were reported regarding the EENT system. Derm: No signs and/or symptoms reported regarding the dermatologic system. Musculoskeletal: No signs and/or symptoms reported regarding the musculoskeletal system. 13:00 Reassessment: Patient and/or family updated on plan of care and expected duration. Pain kr3 level reassessed. Patient is alert, oriented x 3, equal unlabored respirations, skin warm/dry/pink. 14:00 Reassessment: Patient and/or family updated on plan of care and expected duration. Pain kr3 level reassessed. Patient is alert, oriented x 3, equal unlabored respirations, skin warm/dry/pink. Vital Signs: 07:29 BP 175 / 65; Pulse 65; Resp 19; Temp 97.9; Pulse Ox 100% on R/A; Weight 89.36 kg; ap3 Height 5 ft. 8 in. (172.72 cm); 08:49 Pulse 90; Pulse Ox 99% on R/A; ap3 10:36 BP 151 / 59; Pulse 74; Resp 18; Pulse Ox 98% on R/A; ap3 11:43 BP 162 / 58; Pulse 68; Pulse Ox 97% on R/A; ap3 14:34 BP 142 / 63; Pulse 82; Resp 18; Pulse Ox 98% on R/A; kr3 15:36 BP 170 / 63; Pulse 79; Resp 18; Pulse Ox 97% on R/A; kr3 07:29 Body Mass Index 29.95 (89.36 kg, 172.72 cm) ap3 08:49 after neb treatment ap3 ED Course: 07:23 Patient arrived in ED. rg4 07:24 Lei Cruz MD is Attending Physician. rosina 07:31 Triage completed. ap3 07:36 Arm band placed on right wrist. ap3 07:36 Patient has correct armband on for positive identification. Bed in low position. Call ap3 light in reach. Side rails up X 1. Pulse ox on. NIBP on. Door closed. Noise minimized. 08:00 Inserted saline lock: 20 gauge in left antecubital area, using aseptic technique. Blood ap3 collected. 08:01 Ann Parmar, ALBERT is Primary Nurse. ap3 08:02 Troponin HS Sent. ap3 08:02 PT-INR Sent. ap3 08:02 NT PRO-BNP Sent. ap3 08:02 Magnesium Sent. ap3 08:02 LFT's Sent. ap3 08:02 CBC with Diff Sent. ap3 08:02 Basic Metabolic Panel Sent. ap3 08:02 COVID-19/FLU A+B Sent. ap3 08:02 Lactate w/ 2H reflex if indic. Sent. ap3 08:02 D-Dimer Sent. ap3 08:02 Blood Culture Adult (2) Sent. ap3 10:10 X-ray completed. Patient tolerated procedure well. Patient moved back from radiology. 1 14:40 Humble Riley MD is Referral Physician. rosina 15:37 No provider procedures requiring assistance completed. IV discontinued, intact, kr3 bleeding controlled, No redness/swelling at site. Pressure dressing applied. Administered Medications: 08:10 Drug: predniSONE 40 mg Route: PO; ap3 08:47 Follow up: Response: No adverse reaction ap3 08:10 Drug: Tussionex Pennkinetic ER (chlorpheniramine-hydrocodone) Suspension 5 ml Route: PO;ap3 08:48 Follow up: Response: No adverse reaction ap3 08:11 Drug: NS 0.9% 500 ml Route: IV; Rate: bolus; Site: left antecubital; ap3 08:11 Drug: Zithromax (azithromycin) 500 mg Route: PO; ap3 08:48 Follow up: Response: No adverse reaction ap3 08:11 Drug: Rocephin (cefTRIAXone) 1 grams Route: IV; Rate: per protocol; Site: left ap3 antecubital; 08:47 Follow up: Response: No adverse reaction; IV Status: Completed infusion ap3 08:11 Drug: Albuterol - atroVENT (ipratropium) (3:1) (2.5 mg - 0.5 mg) 3 ml Route: Nebulizer; ap3 08:47 Follow up: Response: No adverse reaction ap3 08:11 Drug: SOLU-Medrol (methylPrednisoLONE) 125 mg Route: IVP; Site: left antecubital; ap3 08:47 Follow up: Response: No adverse reaction ap3 09:14 Drug: NS 0.9% 1000 ml Route: IV; Rate: 125 ml/hr; Site: left antecubital; ap3 10:44 Drug: Albuterol 2.5 mg Route: Inhalation; ap3 15:41 Follow up: Response: No adverse reaction kr3 13:48 Drug: Magnesium Sulfate 1 grams Route: IVPB; Infused Over: 1 hrs; Site: right kr3 antecubital; 15:40 Follow up: Response: No adverse reaction; IV Status: Completed infusion; IV Intake: kr3 100ml 13:53 Drug: Albuterol 2.5 mg Route: Inhalation; kr3 15:41 Follow up: Response: No adverse reaction kr3 Medication: 08:01 VIS not applicable for this client. ap3 Intake: 15:40 IV: 100ml; Total: 100ml. kr3 Outcome: 14:40 Discharge ordered by . rosina 15:36 Patient left the ED. kr3 15:37 Discharged to home ambulatory. kr3 15:37 Condition: stable 15:37 Discharge instructions given to patient, Instructed on discharge instructions, follow up and referral plans. medication usage, Demonstrated understanding of instructions, follow-up care, medications, Prescriptions given X 6 Signatures: Lei Cruz MD MD cha Harvey, Martha 1 Torie Torres 4 Ann Parmar RN RN ap3 Erma Gurrola RN RN kr3 Corrections: (The following items were deleted from the chart) 14:34 12:00 Reassessment: Patient and/or family updated on plan of care and expected kr3 duration. Pain level reassessed. Patient is alert, oriented x 3, equal unlabored respirations, skin warm/dry/pink. kr3
--- NOTE | 2022-09-18 14:41 | EDPHYS ---
Physician Documentation [facility] Name: Nelsy Romero Age: 62 yrs Sex: Female : 1960 Arrival Date: 09/18/2022 Time: 07:23 Bed 20 Private MD: PHILIPP Physician Lei Cruz HPI: 09/18 07:52 This 62 yrs old Female presents to ER via Ambulatory with complaints of rosina Cough, Congestion, Breathing Difficulty. 07:52 The patient or guardian reports cough, that is constant, difficulty breathing, flu rosina symptoms, arthralgias, low-grade fever, myalgias. Onset: The symptoms/episode began/occurred 1 month(s) ago. Severity of symptoms: At their worst the symptoms were mild, moderate, in the emergency department the symptoms are unchanged. Modifying factors: The symptoms are alleviated by nothing, the symptoms are aggravated by damp environment, exertion. Associated signs and symptoms: Pertinent positives: rhinorrhea, sore throat. The patient has experienced similar episodes in the past, multiple times. Historical: - Allergies: 07:31 benacor; ap3 07:31 Clonidine; ap3 07:31 GABAPENTIN; ap3 07:31 IRON COMPLEX; ap3 07:31 Lipitor; ap3 07:31 Lyrica; ap3 07:31 Macrobid; ap3 07:31 Metoprolol Tartrate; ap3 07:31 Mucinex; ap3 - Home Meds: 07:31 Bystolic 10 mg Oral tab 1 tab once daily [Active]; citalopram 40 mg tab 1 tab once ap3 daily [Active]; levothyroxine 25 mcg tab once daily [Active]; liothyronine 25 mcg oral tab 1 tab once daily [Active]; amlodipine 5 mg tab 2 tabs [Active]; topiramate 100 mg oral tab 2 tabs 2 times per day [Active]; baclofen 10 mg Oral tab 1 tab BID [Active]; Dexilant 60 mg oral CpDB 1 cap once daily [Active]; gabapentin 300 mg oral tab 1 tab as needed [Active]; quetiapine 300 mg oral tab 2 tabs nightly [Active]; - PMHx: 07:31 Anxiety; buldging disk in neck; Degenerative disc disease; Depression; Hypertension; ap3 thalassemia minor; Thyroid problem; - Immunization history:: Client reports receiving the 2nd dose of the Covid vaccine. - Social history:: Smoking status: Patient reports the use of cigarette tobacco products, smokes one-half pack cigarettes per day. ROS: 07:55 Constitutional: Negative for fever, chills, and weight loss, Eyes: Negative for injury, rosina pain, redness, and discharge, ENT: Negative for injury, pain, and discharge, Neck: Negative for injury, pain, and swelling, Cardiovascular: Negative for chest pain, palpitations, and edema, Abdomen/GI: Negative for abdominal pain, nausea, vomiting, diarrhea, and constipation, Back: Negative for injury and pain, : Negative for injury, bleeding, discharge, and swelling, MS/Extremity: Negative for injury and deformity, Skin: Negative for injury, rash, and discoloration, Neuro: Negative for headache, weakness, numbness, tingling, and seizure, Psych: Negative for depression, anxiety, suicide ideation, homicidal ideation, and hallucinations, Allergy/Immunology: Negative for hives, rash, and allergies, Endocrine: Negative for neck swelling, polydipsia, polyuria, polyphagia, and marked weight changes, Hematologic/Lymphatic: Negative for swollen nodes, abnormal bleeding, and unusual bruising. 07:55 Respiratory: Positive for cough, shortness of breath, wheezing, inspiratory, expiratory. Exam: 07:55 Constitutional: This is a well developed, well nourished patient who is awake, alert, rosina and in no acute distress. Head/Face: Normocephalic, atraumatic. Eyes: Pupils equal round and reactive to light, extra-ocular motions intact. Lids and lashes normal. Conjunctiva and sclera are non-icteric and not injected. Cornea within normal limits. Periorbital areas with no swelling, redness, or edema. ENT: Nares patent. No nasal discharge, no septal abnormalities noted. Tympanic membranes are normal and external auditory canals are clear. Oropharynx with no redness, swelling, or masses, exudates, or evidence of obstruction, uvula midline. Mucous membranes moist. Neck: Trachea midline, no thyromegaly or masses palpated, and no cervical lymphadenopathy. Supple, full range of motion without nuchal rigidity, or vertebral point tenderness. No Meningismus. Chest/axilla: Normal chest wall appearance and motion. Nontender with no deformity. No lesions are appreciated. Cardiovascular: Regular rate and rhythm with a normal S1 and S2. No gallops, murmurs, or rubs. Normal PMI, no JVD. No pulse deficits. Abdomen/GI: Soft, non-tender, with normal bowel sounds. No distension or tympany. No guarding or rebound. No evidence of tenderness throughout. Back: No spinal tenderness. No costovertebral tenderness. Full range of motion. Female : Normal external genitalia. Skin: Warm, dry with normal turgor. Normal color with no rashes, no lesions, and no evidence of cellulitis. MS/ Extremity: Pulses equal, no cyanosis. Neurovascular intact. Full, normal range of motion. Neuro: Awake and alert, GCS 15, oriented to person, place, time, and situation. Cranial nerves II-XII grossly intact. Motor strength 5/5 in all extremities. Sensory grossly intact. Cerebellar exam normal. Normal gait. Psych: Awake, alert, with orientation to person, place and time. Behavior, mood, and affect are within normal limits. 07:55 Respiratory: the patient does not display signs of respiratory distress, Respirations: labored breathing, that is mild, Breath sounds: bronchial sounds, that are mild, decreased breath sounds, that are mild, rhonchi, that are mild, stridor, is not appreciated, + upper airway congestion. wheezing: inspiratory expiratory is scattered. 08:44 ECG was reviewed by the Attending Physician. [facility] Vital Signs: 07:29 BP 175 / 65; Pulse 65; Resp 19; Temp 97.9; Pulse Ox 100% on R/A; Weight 89.36 kg; ap3 Height 5 ft. 8 in. (172.72 cm); 08:49 Pulse 90; Pulse Ox 99% on R/A; ap3 10:36 BP 151 / 59; Pulse 74; Resp 18; Pulse Ox 98% on R/A; ap3 11:43 BP 162 / 58; Pulse 68; Pulse Ox 97% on R/A; ap3 14:34 BP 142 / 63; Pulse 82; Resp 18; Pulse Ox 98% on R/A; kr3 15:36 BP 170 / 63; Pulse 79; Resp 18; Pulse Ox 97% on R/A; kr3 07:29 Body Mass Index 29.95 (89.36 kg, 172.72 cm) ap3 08:49 after neb treatment ap3 MDM: 07:24 Patient medically screened. [facility] 07:56 Differential diagnosis: asthma, Bronchitis CHF exacerbation, Chronic Obstructive rosina Pulmonary Disease Myocardial Infarction pneumonia, pulmonary edema, Pulmonary Embolism reactive airway disease, Unstable Angina. Antibiotic administration: Rocephin and Zithromax given. Differential Diagnosis: Bronchitis Influenza Upper Respiratory Infection Sinusitis Pharyngitis Viral Syndrome Pneumonia. Immunization status: Influenza vaccine: Data reviewed: vital signs, nurses notes, lab test result(s), EKG, radiologic studies. Consideration of Admission/Observation Escalation of care including admission/observation considered. I considered the following discharge prescriptions or medication management in the emergency department Medications were administered in the Emergency Department. See MAR. Test considered but Not performed: X-ray: copd. Historians other than the Patient: Spouse/Significant Other: . Care significantly affected by the following chronic conditions: Chronic Obstructive Pulmonary Disease, anxiety , depression. 09/18 07:28 Order name: Basic Metabolic Panel 09/18 07:28 Order name: CBC with Diff [facility] 09/18 07:28 Order name: LFT's [facility] 09/18 07:28 Order name: Magnesium [facility] 09/18 07:28 Order name: NT PRO-BNP [facility] 09/18 07:28 Order name: PT-INR [facility] 09/18 07:28 Order name: Troponin HS [facility] 09/18 07:28 Order name: Blood Culture Adult (2) [facility] 09/18 07:28 Order name: COVID-19/FLU A+B [facility] 09/18 07:28 Order name: Lactate w/ 2H reflex if indic. [facility] 09/18 07:28 Order name: D-Dimer [facility] 09/18 08:29 Order name: Basic Metabolic Panel; Complete Time: 08:42 EDMS 09/18 08:29 Order name: Liver (Hepatic) Function; Complete Time: 08:42 EDMS 09/18 08:29 Order name: Troponin High Sensitivity; Complete Time: 08:42 EDMD 09/18 08:18 Order name: Chest Pa And Lat (2 Views) XRAY [place] 09/18 08:29 Order name: NT PRO-BNP; Complete Time: 08:42 EDMS 09/18 08:29 Order name: Magnesium; Complete Time: 08:42 EDMD 09/18 08:30 Order name: CBC with Automated Diff; Complete Time: 10:02 EDMD 09/18 08:31 Order name: Protime (+INR); Complete Time: 09:14 EDMD 09/18 08:31 Order name: Lactate w/ 2H reflex if indic.; Complete Time: 08:42 EDMD 09/18 08:44 Order name: COVID-19/FLU A+B; Complete Time: 09:14 [facility] 09/18 08:49 Order name: D-Dimer; Complete Time: 09:14 EDMD 09/18 08:58 Order name: VQ scan (Nuclear Medicine) [facility] 09/18 08:58 Order name: US Extremity Venous W Compression Pratik [facility] 09/18 09:42 Order name: CBC Smear Scan; Complete Time: 10:02 [facility] 09/18 10:06 Order name: US; Complete Time: 10:26 [facility] 09/18 10:30 Order name: Urine Dipstick-Ancillary; Complete Time: 10:33 [facility] 09/18 10:34 Order name: Echo w/ Doppler [facility] 09/18 10:37 Order name: RAD; Complete Time: 12:38 [facility] 09/18 14:20 Order name: NM [facility] 09/18 07:28 Order name: EKG; Complete Time: 07:29 [facility] 09/18 07:28 Order name: Cardiac monitoring; Complete Time: 08:43 [facility] 09/18 07:28 Order name: EKG - Nurse/Tech; Complete Time: 08:43 [facility] 09/18 07:28 Order name: IV Saline Lock; Complete Time: 08:00 [facility] 09/18 07:28 Order name: Labs collected and sent; Complete Time: 08:00 [facility] 09/18 07:28 Order name: O2 Per Protocol; Complete Time: 07:36 [facility] 09/18 07:28 Order name: O2 Sat Monitoring; Complete Time: 07:36 [facility] 09/18 07:28 Order name: Urine Dipstick-Ancillary (obtain specimen); Complete Time: 10:36 [facility] EC:44 Rate is 95 beats/min. Rhythm is regular. QRS Cushing is Normal. AL interval is normal. QRS rosina interval is normal. QT interval is normal. No Q waves. T waves are Normal. No ST changes noted. Clinical impression: NSR w/ Non-specific ST/T Changes and No evidence of ischemia. Interpreted by me. Reviewed by me. Administered Medications: 08:10 Drug: predniSONE 40 mg Route: PO; ap3 08:47 Follow up: Response: No adverse reaction ap3 08:10 Drug: Tussionex Pennkinetic ER (chlorpheniramine-hydrocodone) Suspension 5 ml Route: PO;ap3 08:48 Follow up: Response: No adverse reaction ap3 08:11 Drug: NS 0.9% 500 ml Route: IV; Rate: bolus; Site: left antecubital; ap3 08:11 Drug: Zithromax (azithromycin) 500 mg Route: PO; ap3 08:48 Follow up: Response: No adverse reaction ap3 08:11 Drug: Rocephin (cefTRIAXone) 1 grams Route: IV; Rate: per protocol; Site: left ap3 antecubital; 08:47 Follow up: Response: No adverse reaction; IV Status: Completed infusion ap3 08:11 Drug: Albuterol - atroVENT (ipratropium) (3:1) (2.5 mg - 0.5 mg) 3 ml Route: Nebulizer; ap3 08:47 Follow up: Response: No adverse reaction ap3 08:11 Drug: SOLU-Medrol (methylPrednisoLONE) 125 mg Route: IVP; Site: left antecubital; ap3 08:47 Follow up: Response: No adverse reaction ap3 09:14 Drug: NS 0.9% 1000 ml Route: IV; Rate: 125 ml/hr; Site: left antecubital; ap3 10:44 Drug: Albuterol 2.5 mg Route: Inhalation; ap3 15:41 Follow up: Response: No adverse reaction kr3 13:48 Drug: Magnesium Sulfate 1 grams Route: IVPB; Infused Over: 1 hrs; Site: right kr3 antecubital; 15:40 Follow up: Response: No adverse reaction; IV Status: Completed infusion; IV Intake: kr3 100ml 13:53 Drug: Albuterol 2.5 mg Route: Inhalation; kr3 15:41 Follow up: Response: No adverse reaction kr3 Disposition Summary: 09/18/22 14:40 Discharge Ordered Location: Home rosina Problem: new rosina Symptoms: have improved rosina Condition: Stable rosina Diagnosis - COPD/ Chronic obstructive pulmonary disease with acute lower respiratory infection rosina - COPD/ Chronic obstructive pulmonary disease with (acute) exacerbation rosina - Dyspnea rosina - Tobacco abuse counseling rosina - Tobacco use rosina - Chronic kidney disease, unspecified rosina Followup: rosina - With: Private Physician - When: 2 - 3 days - Reason: Recheck today's complaints, Continuance of care, Re-evaluation by your physician Followup: rosina - With: - When: 2 - 3 days - Reason: Recheck today's complaints, Continuance of care, Re-evaluation by your physician Discharge Instructions: - Discharge Summary Sheet rosina - Acute Bronchitis, Adult rosina - Chronic Bronchitis, Adult rosina - Chronic Obstructive Pulmonary Disease [facility] - Steps to Quit Smoking rosina - Chronic Obstructive Pulmonary Disease Exacerbation rosina - Chronic Obstructive Pulmonary Disease, [id number] [facility] - Steps to Quit Smoking, [id number] rosina - Cough, Adult, [id number] [facility] - How to Use a Nebulizer, Adult [facility] Forms: - Medication Reconciliation Form [facility] - Thank You Letter [facility] - Antibiotic Education [facility] - Prescription Opioid Use [facility] Prescriptions: - albuterol sulfate 90 mcg/actuation Inhalation HFA aerosol inhaler - inhale 2 puff by INHALATION route every 4-6 hours; 1 Pump; Refills: 0, Product [facility] Selection Permitted - Augmentin 875-125 mg Oral Tablet - take 1 tablet by ORAL route every 12 hours for 7 days; 14 tablet; Refills: 0, [facility] Product Selection Permitted - Albuterol Sulfate 2.5 mg /3 mL (0.083 %) Inhalation Solution for Nebulization - inhale 1 unit by NEBULIZATION route every 8 hours As needed; 1 box; Refills: 0, [facility] Product Selection Permitted - Prednisone 20 mg Oral Tablet - take 2 tablets by ORAL route once daily for 5 days; 10 tablet; Refills: 0, [facility] Product Selection Permitted - Zithromax 500 mg Oral Tablet - take 1 tablet by ORAL route once daily for 5 days; 5 tablet; Refills: 0, [facility] Product Selection Permitted - Guaifenesin AC 10-100 mg/5 mL Oral Liquid - take 7.5 milliliter by ORAL route every 6 hours As needed; 150 milliliter; [facility] Refills: 0, Product Selection Permitted Signatures: Dispatcher [employer] Lei Sandy MD MD cha Mickail, Joel, PA PA jmm Prokisch, Amanda RN RN ap3 Erma Gurrola RN RN kr3
[2022-09-18 16:09] VITALS: TEMP 97.9
--- NOTE | 2022-09-18 16:17 | EKG ---
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
[2022-09-18 16:26] VITALS: BP 142/63; O2SAT 98
== END 2022-09-18 15:36 | disposition home or self-care (01) ==
LOC: ER 07:20
DX: J44.1 Chronic obstructive pulmonary disease with (acute) exacerbation (principal); J44.0 Chronic obstructive pulmonary disease with (acute) lower respiratory infection; I12.9 Hypertensive chronic kidney disease with stage 1 through stage 4 chronic kidney disease, or unspecified chronic kidney disease; N18.9 Chronic kidney disease, unspecified; Z72.0 Tobacco use; Z71.6 Tobacco abuse counseling; Z20.822 Contact with and (suspected) exposure to COVID-19; Z88.8 Allergy status to other drugs, medicaments and biological substances; Z91.048 Other nonmedicinal substance allergy status
CPT/HCPCS: 93005; 87040 ×2; 85025; 80048; 36415; 83735; 85610; 85379; 80076; 83605; 81003; 84484; 83880; 0240U; 71046; 93970; 78582; J7512; J7613 ×2; J7644; J3475; J7040; J7030; J2930; A9558; A9540

== ENCOUNTER 2023-03-18 07:30 | Day surgery (SDC) | payer BC, OTHER ==
--- NOTE | 2023-03-14 11:23 | RAD REPORT ---
EXAM DESCRIPTION: [facility] (2 Views)03/14/2023 11:16 am CLINICAL HISTORY: pre op for [employer]. Hypertension COMPARISON: Chest Pa And Lat (2 Views) dated 09/18/2022; Chest Single View dated 07/22/2022; Chest Pa And Lat (2 Views) dated 06/29/2022; Chest Pa And Lat (2 Views) dated 06/02/2021 TECHNIQUE: Portable AP view of the chest. FINDINGS: The lungs are clear. No pneumothorax or effusion. The cardiomediastinal contours are unrem arkable. IMPRESSION: No acute cardiopulmonary process.
[2023-03-14 11:34] LABS: Absolute Lymphocytes (CBC) 2.9 K/uL (0.7-4.9); Hematocrit 39.8 % (36.0-45.0); Lymphocytes % 24.2 % (15.3-44.8); MCV 61.1 fL (80-100); MPV 8.2 fL (7.6-11.3); Platelets 307 thou/uL (152-406); RBC Red Blood Cell Count 6.51 M/uL (3.86-4.86)
[2023-03-14 11:42] LABS: Potassium 4.4 mEq/L (3.5-5.1)
[2023-03-14 12:27] LABS: Anisocytosis 1+; Blood Morphology Comment NOTED (NOT SEEN); Hypochromasia 1+; Ovalocytes 1+; Platelet Estimate ADEQ; White Blood Cell Scan OK (OK)
--- NOTE | 2023-03-14 17:27 | EKG ---
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
[2023-03-18] MEDS ORDERED: NA CHLORIDE 0.9% 500 ML ONE (08:01)
[2023-03-18] MEDS ORDERED: VERAPAMIL HCL 10 MG/4 ML VIAL IV ONE (10:22)
[2023-03-18] MEDS ORDERED: HEPARIN 5000 UNIT/ML 1 ML VIAL ONE (10:22)
[2023-03-18] MEDS ORDERED: MIDAZOLAM HCL 2 MG/2 ML INJ ONE (10:22)
[2023-03-18] MEDS ORDERED: LIDOCAINE 1% 20 ML MDV ONE (10:22)
[2023-03-18] MEDS ORDERED: HEPA 1000U/500MLS 2,000 UNIT/1,000 ML BAG IV ONE (10:22)
[2023-03-18] MEDS ORDERED: ATROPINE SULF 1 MG/10 ML SYR IV ONE (10:23)
[2023-03-18] MEDS ORDERED: ASPIRIN 325 MG TAB ONE (10:23)
[2023-03-18] MEDS ORDERED: NITROGLYCERIN 100 MCG/ML SYR (for cath lab use only) IV ONE (10:23)
[2023-03-18] MEDS ORDERED: TICAGRELOR 90 MG TABLET PO ONE (10:23)
[2023-03-18] MEDS ORDERED: CLOPIDOGREL 75 MG TABLET ONE (10:23)
[2023-03-18] MEDS ORDERED: FENTANYL CITR 100 MCG/2 ML ONE (10:24)
[2023-03-18 13:14] VITALS: O2SAT 99
[2023-03-18 14:57] VITALS: BP 155/57; TEMP 98.1
--- NOTE | 2023-03-19 03:39 | OP ---
Date of Procedure: 03/18/2023 Surgeon: MICHELA TOWNSEND Procedure Performed: 1.Selective coronary angiogram. 2.Left heart catheterization. 3.Peripheral angiogram. Indication: 1.Chest pain with abnormal stress test. 2.Peripheral vascular disease. Access: Right femoral artery 6-Stateless closed with StarClose. Complications: None. Bleeding: Less than 20 mL. Anesthesia: Total sedation time was 45 minutes, used fentanyl, Versed. Description Of Procedure: After risks, benefits, alternatives were explained, the patient agreed to procedure and signed informal consent. Patient was brought into cardiac catheterization laboratory, prepped and draped in usual sterile fashion and I accessed right femoral artery using micropuncture k it and fluoroscopy and ultrasound guidance, placed a 6-Stateless [place] sheath. We took a 6-Stateless JL 4 catheter into the aortic root, engaged left main, took 7 views and then exchanged for 6-Stateless JR4 catheter, engaged the RCA, took standard views and then I took a straight pigtail from distal aorta, performed distal aortogram and runoff and then removed the catheter and the sheath and StarClose was used for closure with good hemostasis. Findings: Coronary angiogram: 1.Left main; large and normal. 2.LAD; proximal 30% to 40% stenosis. Rest of the LAD and diagonal branches are normal. 3.Left circumflex is normal. 4.RCA; it is dominant circulation with mid 50% stenosis. Otherwise, no significant disease. 5.Elevated LVEDP at 21 mmHg. Peripheral angiogram: 1.Distal aorta; there is a black, but not occlusive. 2.Right lower extremity. We have ostial right common iliac 50% stenosis and then the right external iliac, right common femoral, right profunda, right SFA, and [id number] circulation all intact wi thout any disease. 3.Left lower extremity; the left common iliac is widely patent and left external iliac has focal hea vily calcified 90% stenosis and then the left common femoral and left profunda, left SFA and below th e knee circulation all normal. Conclusion: 1.Moderate coronary artery disease. 2.Severe left external iliac stenosis, heavily calcified. 3.Slightly elevated LVEDP. Plan: Balloon angioplasty with shock wave at [place] of the left external iliac artery in the [facility] r future. SR/MODL Voice ID: [id number] Report ID: [id number]
== END 2023-03-18 13:57 | disposition home or self-care (01) ==
LOC: CCL 07:30
PROVIDERS: ATTEND Internal Medicine
DX: I25.10 Atherosclerotic heart disease of native coronary artery without angina pectoris (principal); I70.223 Atherosclerosis of native arteries of extremities with rest pain, bilateral legs; I65.23 Occlusion and stenosis of bilateral carotid arteries; I10 Essential (primary) hypertension; F17.210 Nicotine dependence, cigarettes, uncomplicated; Z79.899 Other long term (current) drug therapy; Z88.2 Allergy status to sulfonamides; Z88.6 Allergy status to analgesic agent; Z88.8 Allergy status to other drugs, medicaments and biological substances; Z91.040 Latex allergy status; Z82.49 Family history of ischemic heart disease and other diseases of the circulatory system
CPT/HCPCS: 93005; 85025; 80048; 36415; 85610; 85730; 71046; 75630; 93458; 76937; C1893; Q9966; J1644; J2001; J2250; J3010; J7040; J0461

== ENCOUNTER 2023-10-28 17:07 | Observation (INO) | payer OTHER ==
--- OUTSIDE RECORDS SUMMARY | 2023-10-28 17:09 | XMS REPORT | Clinical Summary ---
Author Name Unknown Organization [facility] Address [address] [place] [address] Care Team Providers Care Special Investigation Unit Investigator Name Role Phone Rafia Toure MD Unavailable JavierttGaviota galeas MD Primary Care Prov ider Allergies Active Allergy Reactions Criticality Noted Date Comments Aspirin GI Intolerance 03/24/2019 Olmesartan-Hydrochloroth iazide Hives 03/24/2019 Clonidine Palpitations Low 03/24/2019 Pregabalin Palpitations Low 03/24/2019 Nitrofurantoin Monohyd/M-Cryst Other (See Comments) 03/24/2019 Back pain per patient Metoprolol Shortness Of Breath High 03/24/2019 Guaifenesin Palpitations Low 03/24/2019 Medications Medication Sig Dispensed Refills Start Date End Date Status QUEtiapine (SEROquel XR) 300 MG 24 hr tablet Take 600 mg by mouth at bedtime. 0 Active gabapentin (NEURONTIN) 300 mg capsule Take 300 mg by mouth at bedtime. 0 Active liothyronine (CYTOMEL) 25 mcg tablet Take 25 mcg by mouth daily. 0 Active citalopram (CeleXA) 40 mg tablet Take 80 mg by mouth daily. 0 Active dexlansoprazole (DEXILANT) 60 mg capsule Take 60 mg by mouth daily. 0 Active nebivolol (BYSTOLIC) 10 mg tablet Take 10 mg by mouth daily. 0 Active amLODIPine (NORVASC) 5 mg tablet Take 5 mg by mouth daily. 0 Active baclofen (LIORESAL) 10 mg tablet Take 10 mg by mouth every 12 (twelve) hours. 0 Active topiramate (TOPAMAX) 100 mg tablet Take 200 mg by mouth twice daily. 0 Active levothyroxine (TIROSINT) 125 mcg cap Take 125 mcg by mouth daily. 0 Active mupirocin (BACTROBAN) 2% ointment Apply 1 application topically to affected area(s) daily. 0 Active lidocaine HCl-hydrocortison ac 3-0.5 % kit RECTAL APPLY RECTALLY TWICE WEEKLY NEEDED 6 03/06/2019 Active RECTICARE 5 % cream APPLY TO AFFECTED AREA 4 TIMES A DAY NEEDED 1 01/27/2019 Active Active Problems Problem Noted Date Diagnosed Date Other skin change 03/24/2019 Surgical History Surgery Date Site/Laterality Comments UPPER GASTROINTESTINAL ENDOSCOPY 02/19/2019 Dr. Gareth Hensley COLECTOMY 07/29/2004 - 07/28/2005 total colectomy for treatment of colonic inertia ESOPHAGEAL DILATION KNEE CARTILAGE SURGERY 07/29/1973 - 07/28/1974 Right APPENDECTOMY Medical History Medical History Date Comments Hypertension 1997 Migraine 2000 Caused by disc. Treated by Dr. Richard Phan Allergic rhinitis As lomg as I r emember Tooth disorder Wear upper dentu re Swallowing problem 2013 Dr. Gareth readron Gastric ulcer 2015 Dr. Gareth Hensley Menopause 11/2007 Anemia Thalasemia minor Blood transfusion, without r eported diagnosis 08/2004 After Operation Arthritis Age Depressive disorder Anxiety Herpes zoster 2014 Across right qian e of face Hypothyroidism Atony of colon 2004 [...] Mother Cameron Paternal Aunt Kinsey Paternal Grandmother [place] Social History Tobacco Use Types Packs/Day Years Used Date Smoking Tobacco: Every Day Cigarettes 1 46 Tobacco Cessation:Ready to Q uit: No Alcohol Use Standard Drinks/Week Comments Not Currently 0 (1 standard drink = 0.6 oz pur e alcohol) Sex and Gender Information Value Date Recorded Sex Assigned at Not on file Gender Identity Female 03/12/2019 9:38 AM CDT Sexual Orientation Not on file Obstetrics History Para Term AB IAB SAB Ectopic Multiple Livin g Live Births 1 1 0 Date Outcome GA Total Labor Labor/2nd/3rd Weight Sex Delivery Anes PTL Shanthi A1 A5 Name Cl in Para Comments Menarche age 12 Menopause: LMP age 40 Denies breast feeding or HRT OCP for 6 years Plan of Treatment Health Maintenance Due Date Last Done Comments COVID-19 Vaccine (#1) 1960 Influenza Vaccine 03/29/2023 Care Teams Special Investigation Unit Investigator Relationship Specialty Start Date End Date Rafia Toure MD [address] [place] [id number] PCP - External Referring Obstetrics/Gynecology 03/03/19 Gaviota Maldonado MD [address] [place] [id number] PCP - General Breast Surgery 03/11/19
[2023-10-28 17:37] LABS: Absolute Basophils 0.1 K/uL (0-0.5); Absolute Eosinophils 0.1 K/uL (0-0.5); Absolute Lymphocytes (CBC) 4.2 K/uL (0.7-4.9); Absolute Monocytes 0.6 K/uL (0.1-1.3); Absolute Neutrophil 7.3 K/uL (1.8-8.0); Basophils % 0.6 % (0-1.3); Eosinophils % 0.9 % (0-4.4); Hematocrit 37.5 % (36.0-45.0); Hemoglobin 11.7 g/dL (12.0-15.0); MCH 19.2 pg (27.0-35.0); MCHC 31.2 g/dL (32.0-36.0); MCV 61.4 fL (80-100); MPV 8.2 fL (7.6-11.3); Monocytes % 5.2 % (3.3-12.3); Neutrophils % 59.3 % (41.7-73.7); Nucleated Red Blood Cells % 0.2 % (0-0); Platelets 302 thou/uL (152-406); RBC Red Blood Cell Count 6.11 M/uL (3.86-4.86); Red Cell Distribution Width 18.7 % (12.1-15.2)
[2023-10-28 17:53] LABS: PT Prothrombin Time 10.5 SECONDS (9.5-12.5); PTT, Activated Partial Thromb 30.9 SECONDS (24.3-36.9); Protime INR 0.95
[2023-10-28 17:58] LABS: Albumin 3.5 g/dL (3.4-5.0); Albumin/Globulin Ratio 0.9 (1.1-1.8); Anion Gap 8.2 mEq/L (5.0-15.0); Bilirubin Direct 0.1 mg/dL (0-0.2); Bilirubin Indirect, Calculated 0.4 mg/dL (0.2-0.8); Bilirubin Total 0.5 mg/dL (0.2-1.0); Globulin 3.8 g/dL (2.3-3.5); Magnesium 2.2 mg/dL (1.6-2.4); Potassium 4.2 mEq/L (3.5-5.1); Protein, Total 7.3 g/dL (6.4-8.2); Troponin High Sensitivity 6.8 pg/mL (<58.9)
--- NOTE | 2023-10-28 18:32 | RAD REPORT ---
EXAM DESCRIPTION: CT - Head C Spine Mpr Wo Con - 10/28/2023 6:12 pm CLINICAL HISTORY: Syncope .Head and neck injury status post fall. Head and neck pain COMPARISON: 2013 CT cervical spine TECHNIQUE: Computed axial tomography of the head and cervical spine was obtained. Sagittal and coronal reconstruction was performed. All CT scans are performed using dose optimization technique as appropriate and may include automated exposure control or mA/KV adjustment according to patient size. FINDINGS: An intracranial bleed is not seen. The ventricles are normal in caliber. No significant hypodensity within the brain. An extra-axial fluid collection is not noted. Fluid within the visualized sinuses and mastoids is not seen A cervical fracture is not visualized. No dislocation is noted. Spondylosis cervical spine IMPRESSION: No acute intracranial abnormality is seen. A cervical fracture is not visualized. If the patient continues to have symptoms to suggest intracranial /spinal cord pathology then MRI wou ld be recommended
--- NOTE | 2023-10-28 18:34 | RAD REPORT ---
EXAM DESCRIPTION: RAD - Knee Right 3 View - 10/28/2023 6:00 pm CLINICAL HISTORY: Right knee pain status post injury FINDINGS: No fracture or dislocation is seen. No evidence of loosening of the knee prosthesis
--- NOTE | 2023-10-28 18:34 | RAD REPORT ---
EXAM DESCRIPTION: [place] Single View10/28/2023 5:59 pm CLINICAL HISTORY: Chest pain COMPARISON: 2022 FINDINGS: The lungs appear clear of acute infiltrate. The heart is normal size Old rib fractures IMPRESSION: No acute abnormalities displayed
--- NOTE | 2023-10-28 18:36 | RAD REPORT ---
EXAM DESCRIPTION: RAD - Hip Right 2 View - 10/28/2023 5:59 pm CLINICAL HISTORY: Right hip pain FINDINGS: No fracture or dislocation is seen. Bones are osteoporotic If the patient continues to have symptoms to suggest an occult fracture MRI would be recommended
--- NOTE | 2023-10-28 18:52 | ER ---
Nurse's Notes [facility] Name: Nelsy Romero Age: 63 yrs Sex: Female : 1960 Arrival Date: 10/28/2023 Time: 17:07 Bed 17 Private MD: Diagnosis: Syncope Presentation: 10/27 17:11 Chief complaint: EMS states: syncopal episode. Patient woke up on floor with complaints cp4 of pain to the back of the head, chest bone, right hip, and right knee. Coronavirus screen: Client denies travel out of the [place] in the last 14 days. At this time, the client does not indicate any symptoms associated with coronavirus-19. Ebola Screen: Patient negative for fever greater than or equal to 101.5 degrees Fahrenheit, and additional compatible Ebola Virus Disease symptoms Patient denies exposure to infectious person. Patient denies travel to an Ebola-affected area in the 21 days before illness onset. No symptoms or risks identified at this time. Initial Sepsis Screen: Does the patient meet any 2 criteria? No. Patient's initial sepsis screen is negative. Does the patient have a suspected source of infection? No. Patient's initial sepsis screen is negative. Risk Assessment: Do you want to hurt yourself or someone else? Patient reports no desire to harm self or others. Onset of symptoms was October 28, 2023. 17:11 Method Of Arrival: EMS: [facility] cp4 17:11 Acuity: RENITA 3 cp4 Triage Assessment: 17:13 General: Appears in no apparent distress. Behavior is calm, cooperative, appropriate cp4 for age. Pain: Complains of pain in back of head, chest wall, right hip, right knee. Neuro: Reports a syncopal episode. Historical: - Allergies: 17:13 benacor; cp4 17:13 Clonidine; cp4 17:13 GABAPENTIN; cp4 17:13 IRON COMPLEX; cp4 17:13 Lipitor; cp4 17:13 Lyrica; cp4 17:13 Macrobid; cp4 17:13 Metoprolol Tartrate; cp4 17:13 Mucinex; cp4 - Home Meds: 17:13 amlodipine 5 mg tab 2 tabs [Active]; baclofen 10 mg Oral tab 1 tab BID [Active]; cp4 Bystolic 10 mg Oral tab 1 tab once daily [Active]; citalopram 40 mg tab 1 tab once daily [Active]; Dexilant 60 mg Oral CpDB 1 cap once daily [Active]; gabapentin 300 mg Oral tab 1 tab as needed [Active]; levothyroxine 25 mcg tab once daily [Active]; liothyronine 25 mcg Oral tab 1 tab once daily [Active]; quetiapine 300 mg Oral tab 2 tabs nightly [Active]; topiramate 100 mg Oral tab 2 tabs 2 times per day [Active]; - PMHx: 17:13 Anxiety; buldging disk in neck; Degenerative disc disease; Depression; Hypertension; cp4 thalassemia minor; Thyroid problem; - Immunization history:: Adult Immunizations up to date. - Infectious Disease History:: Denies. CDIFF, C. Auris, ESBL, MRSA (w/in 1 year), VRE (w/in 1 year), TB, . - Social history:: Smoking status: Patient denies any tobacco usage or history of. Screenin:16 [facility] ED Fall Risk Assessment (Adult) History of falling in the last 3 months, cp4 including since admission No falls in past 3 months (0 pts) Confusion or Disorientation No (0 pts) Intoxicated or Sedated No (0 pts) Impaired Gait No (0 pts) Mobility Assist Device Used No (0 pt) Altered Elimination No (0 pt) Score/Fall Risk Level 0 - 2 = Low Risk Oriented to surroundings, Maintained a safe environment, Assessed \T\ reinforced patient's understanding of fall precautions, Hourly rounding (assess needs \T\ fall precautionary measures) done. Abuse screen: Denies threats or abuse. Nutritional screening: No deficits noted. Tuberculosis screening: No symptoms or risk factors identified. Assessment: 17:16 Reassessment: No changes from previously documented assessment. Neuro: Level of cp4 Consciousness is awake, alert, obeys commands, Oriented to person, place, time, situation, Sheet Rock Installer are equal bilaterally Moves all extremities. Full function Gait is steady, Speech is normal. Cardiovascular: Rhythm is regular. 18:27 Reassessment: Patient requesting pain medication, provider notified. cp4 22:15 Reassessment: Asked tech to take patient up in 5 minutes. vc1 22:30 Reassessment: Asked tech to take patient up, she stated she will in a few minutes. vc1 Vital Signs: 17:11 BP 120 / 60; Pulse 70; Resp 18; Temp 98; Pulse Ox 98% ; Weight 82.55 kg; Height 5 ft. 8 cp4 in. ; Pain 7/10; 18:38 BP 132 / 50; Pulse 57; Resp 18; Pulse Ox 99% ; cp4 19:30 BP 129 / 62; Pulse 60; Resp 18; Pulse Ox 99% ; cp4 20:30 BP 129 / 70; Pulse 59; Resp 18; Pulse Ox 99% ; cp4 21:30 BP 116 / 88; Pulse 77; Resp 18; Pulse Ox 96% ; cp4 17:11 Body Mass Index 27.67 (82.55 kg, 172.72 cm) cp4 17:11 Pain Scale: Adult cp4 ED Course: 17:10 Patient arrived in ED. cp4 17:11 Mckenzie Sosa is Primary Nurse. cp4 17:13 Triage completed. cp4 17:13 Arm band placed on right wrist. Patient placed in an exam room, on a stretcher. cp4 17:15 Salvatore Molina DO is Attending Physician. ms3 17:15 Miranda Crawford [facility]-C [facility]. kb 17:16 Bed in low position. Call light in reach. Side rails up X2. cp4 17:20 Client placed on continuous cardiac and pulse oximetry monitoring. NIBP monitoring cp4 applied. conveyor monitor on. Warm blanket given. 17:20 No provider procedures requiring assistance completed. Maintain EMS IV. Dressing cp4 intact. Good blood return noted. Site clean \T\ dry. Gauge \T\ site: 20G LAC. 17:27 Basic Metabolic Panel Sent. cp4 17:27 CBC with Diff Sent. cp4 17:27 Hepatic Function Sent. cp4 17:27 Magnesium Sent. cp4 17:27 Protime (+inr) Sent. cp4 17:27 Ptt, Activated Sent. cp4 17:27 Troponin High Sensitivity Sent. cp4 18:01 Chest Single View XRAY In Process Unspecified. EDMS 18:01 Hip Right 2 View XRAY In Process Unspecified. EDMS 18:02 Knee Right 3 View XRAY In Process Unspecified. EDMS 18:13 CT Head C Spine In Process Unspecified. EDMS 18:50 Mile Thibodeaux MD is Hospitalizing Provider. ms3 20:55 Provided Education on: admission. cp4 22:56 Patient admitted, IV remains in place. vc1 Administered Medications: 19:29 Drug: morphine IVP or IV 4 mg IVP once over 4 mins Route: IVP; Infused Over: 4 mins; cp4 Site: left antecubital; 20:52 Follow up: Response: No adverse reaction; Pain is decreased cp4 Medication: 17:16 VIS not applicable for this client. cp4 Point of Care Testing: Blood Glucose: 17:13 Blood Glucose: 75 mg/dL; cp4 Ranges: Outcome: 18:51 Decision to Hospitalize by Provider. ms3 22:56 Admitted to Tele accompanied by tech, via wheelchair, room 405, vc1 22:56 Condition: good 22:56 Instructed on the need for admit, 22:56 Patient left the ED. vc1 Signatures: Dispatcher [employer] EDMiranda Brar, NEENA MANAGER ADMINISTRATION-Salvatore Boswell DO DO ms3 Lola Miranda RN RN vc1 Mckenzie Sosa cp4
--- NOTE | 2023-10-28 18:53 | EDPHYS ---
Physician Documentation [facility] Name: Nelsy Romero Age: 63 yrs Sex: Female : 1960 Arrival Date: 10/28/2023 Time: 17:07 Bed 17 Private MD: ED Physician Salvatore Molina HPI: 10/27 19:55 This 63 yrs old Female presents to ER via EMS with complaints of Syncope. ms3 19:55 63-year-old female with past medical history of anxiety, bulging disc, degenerative ms3 disc disease, depression, hypertension, thalassemia, hypothyroidism presents to the emergency department via EMS status post syncopal episode. Patient states over the last year she has a history of her blood pressure dropping. Typically patient patient can feel her blood pressure drop and cannot sit down. Patient states today she was unable to sit down and fell down. Patient states she is having 7/10 head chest, right hip, right knee pain.. Historical: - Allergies: 17:13 benacor; cp4 17:13 Clonidine; cp4 17:13 GABAPENTIN; cp4 17:13 IRON COMPLEX; cp4 17:13 Lipitor; cp4 17:13 Lyrica; cp4 17:13 Macrobid; cp4 17:13 Metoprolol Tartrate; cp4 17:13 Mucinex; cp4 - Home Meds: 17:13 amlodipine 5 mg tab 2 tabs [Active]; baclofen 10 mg Oral tab 1 tab BID [Active]; cp4 Bystolic 10 mg Oral tab 1 tab once daily [Active]; citalopram 40 mg tab 1 tab once daily [Active]; Dexilant 60 mg Oral CpDB 1 cap once daily [Active]; gabapentin 300 mg Oral tab 1 tab as needed [Active]; levothyroxine 25 mcg tab once daily [Active]; liothyronine 25 mcg Oral tab 1 tab once daily [Active]; quetiapine 300 mg Oral tab 2 tabs nightly [Active]; topiramate 100 mg Oral tab 2 tabs 2 times per day [Active]; - PMHx: 17:13 Anxiety; buldging disk in neck; Degenerative disc disease; Depression; Hypertension; cp4 thalassemia minor; Thyroid problem; - Immunization history:: Adult Immunizations up to date. - Infectious Disease History:: Denies. CDIFF, C. Auris, ESBL, MRSA (w/in 1 year), VRE (w/in 1 year), TB, . - Social history:: Smoking status: Patient denies any tobacco usage or history of. ROS: 19:55 Constitutional: Negative for fever, and chills. Neck: Negative for injury, pain, and ms3 swelling, Cardiovascular: Negative for chest pain, and palpitations. Respiratory: Negative for shortness of breath, cough, wheezing, and pleuritic chest pain, Abdomen/GI: Negative for abdominal pain, nausea, vomiting, diarrhea, and constipation, 19:55 MS/extremity: Positive for Right knee, right hip, chest pain, 19:55 Neuro: Positive for syncope, Exam: 19:55 Constitutional: This is a well developed, well nourished patient who is awake, alert, ms3 and in no acute distress. Head/Face: Normocephalic, atraumatic. Neck: Trachea midline, no cervical lymphadenopathy. Supple, full range of motion without nuchal rigidity, or vertebral point tenderness. No Meningismus. Chest/axilla: Normal chest wall appearance and motion. Nontender with no deformity. Cardiovascular: Regular rate and rhythm with a normal S1 and S2. No gallops, murmurs, or rubs. Normal PMI, no JVD. No pulse deficits. Respiratory: Lungs have equal breath sounds bilaterally, clear to auscultation and percussion. No rales, rhonchi or wheezes noted. No increased work of breathing, no retractions or nasal flaring. Abdomen/GI: Soft, non-tender, with normal bowel sounds. No distension or tympany. No guarding or rebound. No evidence of tenderness throughout. Skin: Warm, dry with normal turgor. Normal color with no rashes, no lesions, and no evidence of cellulitis. 19:55 Musculoskeletal/extremity: Right knee tender to palpation, anterior posterior drawer normal. Right hip tender to palpation.. Vital Signs: 17:11 BP 120 / 60; Pulse 70; Resp 18; Temp 98; Pulse Ox 98% ; Weight 82.55 kg; Height 5 ft. 8 cp4 in. ; Pain 7/10; 18:38 BP 132 / 50; Pulse 57; Resp 18; Pulse Ox 99% ; cp4 19:30 BP 129 / 62; Pulse 60; Resp 18; Pulse Ox 99% ; cp4 20:30 BP 129 / 70; Pulse 59; Resp 18; Pulse Ox 99% ; cp4 21:30 BP 116 / 88; Pulse 77; Resp 18; Pulse Ox 96% ; cp4 17:11 Body Mass Index 27.67 (82.55 kg, 172.72 cm) cp4 17:11 Pain Scale: Adult cp4 MDM: 17:45 Patient medically screened. ms3 19:55 Differential Diagnosis: cardiac arrhythmia, idiopathic syncope, vasovagal episode. Data ms3 reviewed: vital signs, nurses notes, lab test result(s), EKG, radiologic studies, and as a result, I will admit patient. Consideration of Admission/Observation Patient was admitted/placed on observation. Management of patient was discussed with the following: Hospitalist: Dr Thibodeaux. I considered the following discharge prescriptions or medication management in the emergency department Medications were administered in the Emergency Department. See MAR. Independent interpretation of the following test(s) in the Emergency Department EKG: See my EKG interpretation above. Historians other than the Patient: EMS: . Counseling: I had a detailed discussion with the patient and/or guardian regarding the historical points, exam findings, and any diagnostic results supporting the discharge/admit diagnosis, lab results, radiology results, the need for outpatient follow up, to return to the emergency department if symptoms worsen or persist or if there are any questions or concerns that arise at home. ED course: Discussed discussion with Dr Thibodeaux with patient. Dr Thibodeaux would like cortisol stim test in the morning. . 10/27 17:15 Order name: Basic Metabolic Panel; Complete Time: 18:41 ms3 10/27 17:15 Order name: CBC with Diff ms3 10/27 17:15 Order name: Hepatic Function; Complete Time: 18:41 ms3 10/27 17:15 Order name: Magnesium; Complete Time: 18:41 ms3 10/27 17:15 Order name: Protime (+inr); Complete Time: 18:41 ms3 10/27 17:15 Order name: Ptt, Activated; Complete Time: 18:41 ms3 10/27 17:15 Order name: Troponin High Sensitivity; Complete Time: 18:41 ms3 10/27 19:03 Order name: Troponin High Sensitivity EDMS 10/27 19:03 Order name: Troponin High Sensitivity EDMS 10/27 19:03 Order name: Troponin High Sensitivity EDMS 10/27 19:03 Order name: Troponin High Sensitivity EDMS 10/27 19:11 Order name: CBC Smear Scan EDMS 10/27 17:15 Order name: Chest Single View XRAY; Complete Time: 18:41 ms3 10/27 17:20 Order name: CT Head C Spine; Complete Time: 18:41 ms3 10/27 17:20 Order name: Hip Right 2 View XRAY; Complete Time: 18:41 ms3 10/27 17:20 Order name: Knee Right 3 View XRAY; Complete Time: 18:41 ms3 10/27 17:15 Order name: Cardiac monitoring; Complete Time: 17:21 ms3 10/27 17:15 Order name: EKG - Nurse/Tech; Complete Time: 17:41 ms3 10/27 17:15 Order name: IV Saline Lock; Complete Time: 17:22 ms3 10/27 17:15 Order name: Labs collected and sent; Complete Time: 17:26 ms3 10/27 17:15 Order name: NPO; Complete Time: 17:22 ms3 10/27 17:15 Order name: O2 Per Protocol; Complete Time: 17:26 ms3 10/27 17:15 Order name: O2 Sat Monitoring; Complete Time: 17:26 ms3 Administered Medications: 19:29 Drug: morphine IVP or IV 4 mg IVP once over 4 mins Route: IVP; Infused Over: 4 mins; cp4 Site: left antecubital; 20:52 Follow up: Response: No adverse reaction; Pain is decreased cp4 Point of Care Testing: Blood Glucose: 17:13 Blood Glucose: 75 mg/dL; cp4 Ranges: Critical Glucose Levels:Adult <50 mg/dl or >400 mg/dl <40 mg/dl or >180 mg/dl Disposition Summary: 10/28/23 18:51 Hospitalization Ordered Notes: Hospitalization Status: Observation ms3 Provider: Mile Thibodeaux ms3 Location: Telemetry/MedSurg (observation) ms3 Condition: Stable ms3 Problem: new ms3 Symptoms: are unchanged ms3 Bed/Room Type: Standard ms3 Room Assignment: 405(10/28/23 19:45) cg Diagnosis - Syncope ms3 Forms: - Medication Reconciliation Form ms3 - SBAR form ms3 - Leadership Thank You Letter ms3 Signatures: Dispatcher [employer] EDMS Nithya Torres, RN RN cg Tracy, Salvatore, DO ms3 Mckenzie Sosa cp4 Corrections: (The following items were deleted from the chart) 17:16 17:16 BASIC METABOLIC PANEL+C.LAB.BRZ ordered. EDMS EDMS 17:16 17:16 CBC+H.LAB.BRZ ordered. EDMS EDMS 17:16 17:16 HEPATIC FUNCTION+C.LAB.BRZ ordered. EDMS EDMS 17:16 17:16 MAGNESIUM+C.LAB.BRZ ordered. EDMS EDMS 17:16 17:16 PROTIME (+INR)+COAG.LAB.BRZ ordered. EDMS EDMS 17:16 17:16 PTT, ACTIVATED+COAG.LAB.BRZ ordered. EDMS EDMS 17:16 17:16 Troponin High Sensitivity+C.LAB.BRZ ordered. EDMS EDMS 17:16 17:16 Chest Single View+RAD.RAD.BRZ ordered. EDMS EDMS 19:45 18:51 ms3 cg
[2023-10-28] MEDS ORDERED: ONDANSETRON 4 MG/2 ML VIAL IV PRN (18:58)
[2023-10-28] MEDS ORDERED: ACETAMINOPHEN 500 MG TAB PO PRN (18:58)
[2023-10-28 19:10] LABS: Anisocytosis 2+; Blood Morphology Comment NOTED (NOT SEEN); Platelet Estimate ADEQ; Poikilocytosis 2+; White Blood Cell Scan OK (OK)
[2023-10-28] MEDS ORDERED: MORPHINE 4 MG/ML SYR ONE (19:25)
[2023-10-28] MEDS: HYDROCODONE/APAP 5/325 MG TAB PO PRN (23:52)
[2023-10-29 00:26] VITALS: BMI 28.3
[2023-10-29] MEDS: COSYNTROPIN 0.25 MG VIAL IV ONE (08:09)
[2023-10-29 08:58] VITALS: O2SAT 96
[2023-10-29 12:01] VITALS: BP 145/57; TEMP 97.2
--- NOTE | 2023-10-29 13:29 | EKG ---
Test Date: 2023-10-28 Test Time: 17:39:02 Sales Trainee: DREW MEASUREMENT RESULTS: Intervals: Rate: 69 UT: 154 QRSD: 80 QT: 406 QTc: 435 [place]: P: 60 UT: 154 QRS: 50 T: 77 INTERPRETIVE STATEMENTS: Normal sinus rhythm Normal ECG Compared to ECG 03/14/2023 11:02:21 No significant changes Electronically Signed On 10-29-23 13:27:49 CDT by Reza Bajwa
--- NOTE | 2023-10-31 02:09 | HP ---
Date of Admission: 10/28/2023 Chief Complaint: Fainting spell. History Of Present Illness: This is a 63-year-old pleasant female patient, who has a longstanding hi story of recurrent episodes, where she has fainting type of feeling and falls down on the floor and s he had similar episode yesterday while she was in her kitchen and for no obvious reason without any p rior symptoms, she fell down on the floor. The patient thinks that she momentarily had fainted. She was not able to get up on her own and subsequently was brought into emergency room by ambulance, whe re she was evaluated and admitted to the hospital. Allergies: TO METOPROLOL CAUSING RASH AND HIVES, NITROFURANTOIN CAUSING ANAPHYLACTIC REACTION, SAY A CAUSING ANAPHYLACTIC REACTION, CLONIDINE CAUSING NAUSEA AND VOMITING, MUCINEX CAUSING SHORTNESS OF BREATH, ATORVASTATIN DETAILS UNKNOWN, BENICAR CAUSING RASH AND ITCHING, SUCCINYLCHOLINE DETAILS UNKNO WN, AND IRON DETAILS UNKNOWN. Medications: Aspirin 81 mg daily, baclofen 10 mg she takes 2 tablets daily, citalopram 40 mg daily, clopidogrel 75 mg daily, famotidine 20 mg 2 times a day, Dulera inhaler 2 puffs 2 times a day, gabape ntin 300 mg she takes 2 capsules 2 times a day, , Seroquel 300 mg she takes 2 tablets daily at bedtime, rosuvastatin 5 mg daily at bedtime, Topamax 100 mg 2 times a day, vitamin D3 5000 units daily. Review of Systems: Cardiovascular: As mentioned above. All other systems reviewed and negative. Past Medical History: Hypothyroidism, hyperlipidemia, chronic kidney disease stage 3B, hypertension, coronary artery disease, osteoarthritis at multiple sites, insomnia, depression, anxiety, vitamin D deficiency, migraine, thalassemia minor, peripheral vascular disease, osteopenia. Past Surgical History: Angioplasty with stent placement in left leg in April 2023, total colectomy to redundant colon in 2004, cervical spine surgery, knee surgery. Family History: Father committed suicide. Mother has hypertension. Brother , had pancreatic ca ncer. Social History: Positive for smoking. Use of alcohol negative. Physical Examination: Vital Signs: Temperature 98.4, pulse 72, respiratory rate 18, blood pressure 121/60, oxygen saturati on 90%, height 5 feet 8 inches, weight 186 pounds this morning. General: Awake, alert, oriented, not in distress. HEENT: Head atraumatic, normocephalic. Conjunctivae nonerythematous. Sclerae white. Mouth, no thr ush or edema noted. Ears/Nose, no mass, lesion, discharge noted. Neck: Supple. No JVD, lymph nodes, bruit, thyromegaly noted. Lungs: Bilateral good equal air entry. Clear to auscultation. No rhonchi. No rales. Heart: Normal heart sounds, no murmur or gallop. Abdomen: Soft, bowel sounds normal. No guarding, rigidity, tenderness, mass, hepatosplenomegaly, dis tention, or bruit noted. Extremities: No leg edema. No calf tenderness. Skin: No rash, ulcer, cellulitis. Lymphatics: No lymph node enlargement in neck, supraclavicular, infraclavicular region. Neuro: No focal neurological deficit. Chest: Unremarkable. External Genitalia: Deferred. Rectal: Deferred. Laboratory Data: White count 12.3, hemoglobin 11.7, platelets 302. Sodium 138, potassium 4.2, chlor caio 110, bicarb 24, BUN 17, creatinine 1.35, glucose 76. Liver function tests unremarkable. Initial troponin 6.8, second troponin 8.6, third troponin 7.3. Chest x-ray, no acute cardiopulmonary change s. CAT scan of the head and cervical spine, no acute intracranial changes. Hip and knee x-ray showe d changes of arthritis, but no fracture. Cortisol stimulation test was done today and results came b ack normal and no evidence of adrenal insufficiency. Her baseline cortisol level was 17.4; at 30 min utes, 28.1; 60 minutes, 34.4; and 90 minutes, 35.1. Discharge Medications And Instructions: 1.Continue all prior home medications. 2.Follow up at my office next week. 3.Take Tylenol 500 mg 4 times a day as needed for pain. Final Diagnoses: 1.Syncope. 2.Chronic kidney disease stage 3B. 3.Hypothyroidism. 4.Hyperlipidemia. 5.Hypertension. 6.Coronary artery disease. 7.Peripheral vascular disease. 8.Insomnia. 9.Depression. 10.Anxiety. 11.Thalassemia minor. BESSIE/MODL Voice ID: [id number]
== END 2023-10-29 13:12 | disposition home or self-care (01) ==
LOC: ER 17:07 → ERHOLD 18:58 → 4TH 21:49
PROVIDERS: ADMIT Internal Medicine; ATTEND Internal Medicine
DX: R55 Syncope and collapse (principal); E03.9 Hypothyroidism, unspecified; E78.5 Hyperlipidemia, unspecified; I12.9 Hypertensive chronic kidney disease with stage 1 through stage 4 chronic kidney disease, or unspecified chronic kidney disease; N18.32 Chronic kidney disease, stage 3b; F17.210 Nicotine dependence, cigarettes, uncomplicated; F32.A Depression, unspecified; F41.9 Anxiety disorder, unspecified; G43.909 Migraine, unspecified, not intractable, without status migrainosus; E55.9 Vitamin D deficiency, unspecified; I73.9 Peripheral vascular disease, unspecified; M85.80 Other specified disorders of bone density and structure, unspecified site; D56.3 Thalassemia minor
CPT/HCPCS: 93005; 85025; 80048; 36415; 83735; 85610; 80076; 85730; 84484 ×4; 82533 ×4; 82024; 70450; 72125; 71045; 73502; 73562; 96374; 99285; J0834; G0378 ×4

== ENCOUNTER 2024-03-30 15:04 | Emergency (ER) | payer OTHER ==
--- OUTSIDE RECORDS SUMMARY | 2024-03-30 15:08 | XMS REPORT | Clinical Summary ---
Author Name Unknown Organization [facility] [place] Address [address] [place] [address] Care Team Providers Care Paint Stripper Name Role Phone Rafia Toure MD Unavailable [phone] JavierttGaviota galeas MD Primary Care Prov ider [...] Take 600 mg by mouth at bedtime. Active gabapentin (NEURONTIN) 300 mg capsule Take 300 mg by mouth at bedtime. Active liothyronine (CYTOMEL) 25 mcg tablet Take 25 mcg by mouth daily. Active citalopram (CeleXA) 40 mg tablet Take 80 mg by mouth daily. Active dexlansoprazole (DEXILANT) 60 mg capsule Take 60 mg by mouth daily. Active nebivolol (BYSTOLIC) 10 mg tablet Take 10 mg by mouth daily. Active amLODIPine (NORVASC) 5 mg tablet Take 5 mg by mouth daily. Active baclofen (LIORESAL) 10 mg tablet Take 10 mg by mouth every 12 (twelve) hours. Active topiramate (TOPAMAX) 100 mg tablet Take 200 mg by mouth twice daily. Active levothyroxine (TIROSINT) 125 mcg cap Take 125 mcg by mouth daily. Active mupirocin (BACTROBAN) 2% ointment Apply 1 application topically to affected area(s) daily. Active lidocaine HCl-hydrocortison ac 3-0.5 % kit [...] dentu re Swallowing problem 2013 Dr. Gareth reardon Gastric ulcer 2015 Dr. Gareth Hensley Menopause [...] Paternal Aunt Kinsey -Breast cancer Paternal Grandmother [place] Relation Name Status Comments Brother [place] Daughter Sienna Maternal Aunt Nithya Maternal Grandmother Brenda Maternal Uncle Be Mother Cameron Paternal Aunt [place] Paternal Grandmother [place] Social History Tobacco Use Types Packs/Day Years [...] Outcome GA Total Labor Labor/2nd/3rd Weight Sex Type Anes PTL Shanthi A1 A5 Name Clin Para Comments Menarche age 12 Menopause: LMP age 40 Denies breast feeding or HRT OCP for 6 years Plan of Treatment Health Maintenance Due Date Last Done Comments Pneumococcal Vaccine: 65+ Years (1 of 1 - PCV) 023 COVID-19 Vaccine ( - season) 2024 Influenza Vaccine 03/29/2024 Care Teams Paint Stripper Relationship Specialty Start Date End Date Rafia Toure MD [address] [place] [phone] [email or web address] PCP - External Referring Obstetrics/Gynecology 03/03/19 Gaviota Maldonado MD [address] [place] [id number] [email or web address] PCP - General Breast Surgery 03/11/19
[2024-03-30] MEDS ORDERED: ONDANSETRON 4 MG/2 ML VIAL ONE (15:23)
[2024-03-30] MEDS ORDERED: HYDROMORPHONE HCL 1 MG/ML INJ ONE (15:24)
[2024-03-30 15:35] LABS: Absolute Basophils 0.1 K/uL (0-0.5); Absolute Eosinophils 0.1 K/uL (0-0.5); Absolute Lymphocytes (CBC) 2.5 K/uL (0.7-4.9); Absolute Monocytes 0.5 K/uL (0.1-1.3); Absolute Neutrophil 8.6 K/uL (1.8-8.0); Basophils % 0.5 % (0-1.3); Hematocrit 34.8 % (36.0-45.0); Hemoglobin 10.7 g/dL (12.0-15.0); Lymphocytes % 21.6 % (15.3-44.8); MCH 19.3 pg (27.0-35.0); MCHC 30.8 g/dL (32.0-36.0); MCV 62.8 fL (80-100); MPV 8.1 fL (7.6-11.3); Neutrophils % 72.9 % (41.7-73.7); Nucleated Red Blood Cells % 0.1 % (0-0); PT Prothrombin Time 10.5 SECONDS (9.4-12.5); Platelets 297 thou/uL (152-406); Protime INR 0.94; RBC Red Blood Cell Count 5.55 M/uL (3.86-4.86); Red Cell Distribution Width 18.7 % (12.1-15.2)
[2024-03-30 15:49] LABS: ALT/SGPT 22 U/L (13-56); AST/SGOT 14 U/L (15-37); Albumin 3.5 g/dL (3.4-5.0); Albumin/Globulin Ratio 0.9 (1.1-1.8); Alkaline Phosphatase 100 U/L (45-117); Anion Gap 8.2 mEq/L (5.0-15.0); BUN Blood Urea Nitrogen 13 mg/dL (7-18); Bicarbonate 25 mEq/L (21-32); Bilirubin Total 0.3 mg/dL (0.2-1.0); Globulin 3.7 g/dL (2.3-3.5); Glomerular Filtration Rate 42 ml/min (=/>90); Glucose Level 108 mg/dL (74-106); Magnesium 2.1 mg/dL (1.6-2.4); Potassium 4.2 mEq/L (3.5-5.1); Protein, Total 7.2 g/dL (6.4-8.2); Sodium Level 136 mEq/L (136-145); Troponin High Sensitivity 5.6 pg/mL (<58.9)
[2024-03-30 15:53] LABS: Bilirubin Direct < 0.2 mg/dL (0-0.2); Bilirubin Indirect, Calculated 0.1 mg/dL (0.2-0.8)
--- NOTE | 2024-03-30 16:06 | EDPHYS ---
Physician Documentation [facility] Name: Nelsy Romero Age: 64 yrs Sex: Female : 1960 Arrival Date: 03/30/2024 Time: 15:04 Bed 4 Private MD: ED Physician Ileana Uribe HPI: 03/30 15:59 This 64 yrs old Female presents to ER via EMS with complaints of Syncope, Fall Injury. sp3 15:59 64-year-old female with history of hypertension, thalassemia, degenerative disc sp3 disease, multiple episodes of vasovagal syncope presents for syncopal episode where she fell on her right knee. No head injury, headache or other injuries noted. Patient has had a total knee replacement on the right knee in the past. Pain is predominantly in the distal femur and proximal tibia area. EMS reports shortening and deformity on scene to which they straightened out and transported here. EMS also reports distal pulses in place. Review of systems negative for headache, neck pain, chest pain, shortness of breath, back pain, abdominal pain, other extremity pain, or any other signs or symptoms at this time.. Historical: - Allergies: 15:18 benacor; dd2 15:18 Clonidine; dd2 15:18 GABAPENTIN; dd2 15:18 IRON COMPLEX; dd2 15:18 Lipitor; dd2 15:18 Lyrica; dd2 15:18 Macrobid; dd2 15:18 Metoprolol Tartrate; dd2 15:18 Mucinex; dd2 - PMHx: 15:18 Anxiety; buldging disk in neck; Degenerative disc disease; Depression; Hypertension; dd2 thalassemia minor; Thyroid problem; - PSHx: 15:18 Rt knee replacement (Thyroid problem); dd2 - Immunization history:: Adult Immunizations up to date. - Infectious Disease History:: Denies. - Social history:: Smoking status: Patient reports the use of cigarette tobacco products, smokes one pack cigarettes per day. ROS: 16:00 Constitutional: Negative for fever, chills, and weight loss, Eyes: Negative for injury, sp3 pain, redness, and discharge, ENT: Negative for injury, pain, and discharge, Neck: Negative for injury, pain, and swelling, Cardiovascular: Negative for chest pain, palpitations, and edema, Respiratory: Negative for shortness of breath, cough, wheezing, and pleuritic chest pain, Abdomen/GI: Negative for abdominal pain, nausea, vomiting, diarrhea, and constipation, Back: Negative for injury and pain, Skin: Negative for injury, rash, and discoloration, Allergy/Immunology: Negative for hives, rash, and allergies, Endocrine: Negative for neck swelling, polydipsia, polyuria, polyphagia, and marked weight changes, Hematologic/Lymphatic: Negative for swollen nodes, abnormal bleeding, and unusual bruising, 16:00 All other systems are negative, Exam: 16:01 Constitutional: This is a well developed, well nourished patient who is awake, alert, sp3 and in no acute distress. Head/Face: Normocephalic, atraumatic. Eyes: Pupils equal round and reactive to light, extra-ocular motions intact. Lids and lashes normal. Conjunctiva and sclera are non-icteric and not injected. Cornea within normal limits. Periorbital areas with no swelling, redness, or edema. ENT: Nares patent. No nasal discharge, no septal abnormalities noted. External auditory canals are clear. Oropharynx with no redness, swelling, or masses, exudates, or evidence of obstruction, uvula midline. Mucous membranes moist. Neck: Trachea midline, no thyromegaly or masses palpated, and no cervical lymphadenopathy. Supple, full range of motion without nuchal rigidity, or vertebral point tenderness. No Meningismus. Chest/axilla: Normal chest wall appearance and motion. Nontender with no deformity. No lesions are appreciated. Cardiovascular: Regular rate and rhythm with a normal S1 and S2. No gallops, murmurs, or rubs. Normal PMI, no JVD. No pulse deficits. Respiratory: Lungs have equal breath sounds bilaterally, clear to auscultation and percussion. No rales, rhonchi or wheezes noted. No increased work of breathing, no retractions or nasal flaring. Abdomen/GI: Soft, non-tender, with normal bowel sounds. No distension or tympany. No guarding or rebound. No evidence of tenderness throughout. Back: No spinal tenderness. No costovertebral tenderness. Full range of motion. Skin: Warm, dry with normal turgor. Normal color with no rashes, no lesions, and no evidence of cellulitis. Neuro: Awake and alert, GCS 15, oriented to person, place, time, and situation. Cranial nerves II-XII grossly intact. Motor strength 5/5 in all extremities. Sensory grossly intact. Cerebellar exam normal. Normal gait. Psych: Awake, alert, with orientation to person, place and time. Behavior, mood, and affect are within normal limits. 16:01 Musculoskeletal/extremity: Significant pain and muscle spasm in the distal femur. Distal neurovascular exam is normal. Mild effusion on the knee. Also pain to palpation on the lateral proximal tibia.. 16:04 ECG was reviewed by the Attending Physician. EKG demonstrates normal sinus rhythm at 72 sp3 bpm with normal intervals, normal QRS, normal axis, normal ST's ST segments without evidence of acute ischemia. Vital Signs: 15:12 BP 174 / 88; Pulse 73; Resp 17; Temp 98; Pulse Ox 100% ; Weight 87.09 kg; Height 5 ft. dd2 8 in. ; 16:31 BP 92 / 50; Pulse 68; Resp 17 S; Pulse Ox 100% on 2 lpm NC; kc6 17:16 BP 96 / 52; Pulse 65; Resp 17 S; Pulse Ox 91% on R/A; kc6 17:54 BP 127 / 57; Pulse 68; Resp 17 S; Pulse Ox 95% on R/A; kc6 15:12 Body Mass Index 29.19 (87.09 kg, 172.72 cm) dd2 MDM: 15:11 Patient medically screened. sp3 16:01 Data reviewed: vital signs, nurses notes, lab test result(s), EKG, radiologic studies. sp3 ED course: 64-year-old female with vasovagal syncope with probable bony pathology from a traumatic standpoint on the right lower extremity between the femur and the tibia. X-rays pending as well as laboratory values and EKG from a syncope standpoint. Patient did not hit head and does not need a CT head at this time.. 16:03 ED course: Knee x-ray demonstrates distal femur fracture just proximal to the sp3 prostatic. Patient will be transferred to [facility] for orthopedic evaluation since we have nobody on-call and secondarily to this being a complex case. I discussed this with the family who is okay with the transfer. Initial laboratory values including troponin are negative. EKG is also normal. Normal neurological exam as well. Keep patient NPO.. 16:16 ED course: Discussed with [facility] orthopedics and hospitalist team who have sp3 graciously accepted this patient. Patient will be transferred at this time. 03/30 15:12 Order name: Basic Metabolic Panel; Complete Time: 16:02 sp3 03/30 15:12 Order name: CBC with Diff sp3 03/30 15:12 Order name: LFT's; Complete Time: 16:02 sp3 03/30 15:12 Order name: Magnesium; Complete Time: 16:02 sp3 03/30 15:12 Order name: PT-INR; Complete Time: 16:02 sp3 03/30 15:12 Order name: Troponin HS; Complete Time: 16:02 sp3 03/30 15:38 Order name: CBC Smear Scan EDMS 03/30 15:12 Order name: Knee Right 2 View XRAY; Complete Time: 16:16 sp3 03/30 15:12 Order name: Tib Fib Right XRAY; Complete Time: 16:14 sp3 03/30 15:12 Order name: Hip Right 2 View XRAY; Complete Time: 16:16 sp3 03/30 15:12 Order name: EKG; Complete Time: 15:13 sp3 03/30 15:12 Order name: Cardiac monitoring; Complete Time: 15:29 sp3 03/30 15:12 Order name: EKG - Nurse/Tech; Complete Time: 15:29 sp3 03/30 15:12 Order name: IV Saline Lock; Complete Time: 15:17 sp3 03/30 15:12 Order name: Labs collected and sent; Complete Time: 15:31 sp3 03/30 15:12 Order name: O2 Per Protocol; Complete Time: 15:17 sp3 03/30 15:12 Order name: O2 Sat Monitoring; Complete Time: 15:17 sp3 Administered Medications: 15:28 Drug: Ondansetron IVP 4 mg IVP once; over 2 minutes Route: IVP; Site: left antecubital; dd2 15:57 Follow up: Response: No adverse reaction kc6 15:29 Drug: HYDROmorphone IVP 1 mg IVP once Route: IVP; Site: left antecubital; dd2 15:57 Follow up: Response: No adverse reaction; Pain is decreased; RASS: Drowsy (-1) kc6 17:35 Drug: NS 0.9% IV 1000 ml IV at 1 bolus Per protocol; 1000 mL bolus Route: IV; Rate: 1 kc6 bolus; Site: left antecubital; 17:55 Follow up: Response: No adverse reaction; IV Status: Infusion continued upon transfer kc6 Disposition Summary: 03/30/24 16:05 Transfer Ordered Notes: Transfer Location: [facility] sp3 Reason: Higher level of care sp3 Condition: Stable sp3 Problem: an acute exacerbation sp3 Symptoms: have worsened sp3 Accepting Physician: [facility] [place] [facility](03/30/24 17:56) kc6 Diagnosis - Periprosthetic fracture of the distal femur on the right side sp3 Forms: - Medication Reconciliation Form sp3 - SBAR form sp3 Signatures: Dispatcher [employer] EDIleana Fam MD MD sp3 Mindy Weber RN RN kc6 SARY ROSAS RN RN dd2 Corrections: (The following items were deleted from the chart) 17:56 16:05 [facility] [place] [facility] sp3 kc6
--- NOTE | 2024-03-30 16:06 | ER ---
Nurse's Notes [facility] Name: Nelsy Rmoero Age: 64 yrs Sex: Female : 1960 Arrival Date: 03/30/2024 Time: 15:04 Bed 4 Private MD: Diagnosis: Periprosthetic fracture of the distal femur on the right side Presentation: 03/30 15:12 Chief complaint: EMS states: Pt brought in via EMS for fall after Syncopal episode. Per dd2 EMS pt was ambulating through the house and turned around and "passed out". Pt denies hitting head. EMS states Rt knee was deformed upon arrival and was able to manipulate in back into place. Coronavirus screen: At this time, the client does not indicate any symptoms associated with coronavirus-19. Ebola Screen: No symptoms or risks identified at this time. Initial Sepsis Screen: Does the patient meet any 2 criteria? No. Patient's initial sepsis screen is negative. Does the patient have a suspected source of infection? No. Patient's initial sepsis screen is negative. Risk Assessment: Do you want to hurt yourself or someone else? Patient reports no desire to harm self or others. Onset of symptoms was March 30, 2024. Care prior to arrival: Medication(s) given: Toradol 10mg IV initiated. 20 GA, in the right antecubital area. Mechanism of Injury: Fall. 15:12 Method Of Arrival: EMS: [facility] dd2 15:12 Acuity: RENITA 3 dd2 Triage Assessment: 15:18 General: Appears uncomfortable, Behavior is calm, cooperative, appropriate for age. dd2 Pain: Complains of pain in Rt Knee Pain currently is 10 out of 10 on a pain scale. Neuro: Level of Consciousness is awake, alert, obeys commands, Oriented to person, place, time, situation, Reports a syncopal episode. Historical: - Allergies: 15:18 benacor; dd2 15:18 Clonidine; dd2 15:18 GABAPENTIN; dd2 15:18 IRON COMPLEX; dd2 15:18 Lipitor; dd2 15:18 Lyrica; dd2 15:18 Macrobid; dd2 15:18 Metoprolol Tartrate; dd2 15:18 Mucinex; dd2 - PMHx: 15:18 Anxiety; buldging disk in neck; Degenerative disc disease; Depression; Hypertension; dd2 thalassemia minor; Thyroid problem; - PSHx: 15:18 Rt knee replacement (Thyroid problem); dd2 - Immunization history:: Adult Immunizations up to date. - Infectious Disease History:: Denies. - Social history:: Smoking status: Patient reports the use of cigarette tobacco products, smokes one pack cigarettes per day. Screenin:30 [facility] ED Fall Risk Assessment (Adult) History of falling in the last 3 months, kc6 including since admission Yes- physiologic fall (2 pts) Confusion or Disorientation No (0 pts) Intoxicated or Sedated No (0 pts) Impaired Gait Yes (1 pt) Mobility Assist Device Used Yes (1 pt) Altered Elimination No (0 pt) Score/Fall Risk Level 3 or more points = High Risk Oriented to surroundings, Maintained a safe environment. Abuse screen: Denies threats or abuse. Denies injuries from another. Nutritional screening: No deficits noted. Tuberculosis screening: No symptoms or risk factors identified. Assessment: 15:30 General: Appears in no apparent distress. uncomfortable, well groomed, well developed, kc6 Behavior is calm, cooperative, appropriate for age. Pain: Complains of pain in right knee. Neuro: Level of Consciousness is awake, alert, obeys commands, Oriented to person, place, time, situation, Appropriate for age. Cardiovascular: Capillary refill < 3 seconds Pulses are palpable in right dorsalis pedis artery Rhythm is sinus rhythm. Respiratory: Airway is patent Trachea midline Respiratory effort is even, unlabored, Respiratory pattern is regular, symmetrical. GI: No signs and/or symptoms were reported involving the gastrointestinal system. : No signs and/or symptoms were reported regarding the genitourinary system. EENT: No signs and/or symptoms were reported regarding the EENT system. Derm: No signs and/or symptoms reported regarding the dermatologic system. Skin is intact, is healthy with good turgor, Skin is pink, warm \\T\\ dry. Musculoskeletal: Capillary refill < 3 seconds, Range of motion: limited in right knee Bony deformity noted of right knee Swelling present in right knee. 16:30 Reassessment: pt with eyes closed, respirations even and unlabored. drowsy. pt kc6 responsive to verbal and painful stimulus. upon awakening pt is A\\T\\O x4. Dr. Uribe made aware. 17:36 Reassessment: Patient appears in no apparent distress at this time. No changes from kc6 previously documented assessment. Patient and/or family updated on plan of care and expected duration. Pain level reassessed. Vital Signs: 15:12 BP 174 / 88; Pulse 73; Resp 17; Temp 98; Pulse Ox 100% ; Weight 87.09 kg; Height 5 ft. dd2 8 in. ; 16:31 BP 92 / 50; Pulse 68; Resp 17 S; Pulse Ox 100% on 2 lpm NC; kc6 17:16 BP 96 / 52; Pulse 65; Resp 17 S; Pulse Ox 91% on R/A; kc6 17:54 BP 127 / 57; Pulse 68; Resp 17 S; Pulse Ox 95% on R/A; kc6 15:12 Body Mass Index 29.19 (87.09 kg, 172.72 cm) dd2 ED Course: 15:10 Patient arrived in ED. sb4 15:11 Ileana Uribe MD is Attending Physician. sp3 15:18 Triage completed. dd2 15:18 Arm band placed on left wrist. Patient placed in an exam room, on a stretcher, on pulse dd2 oximetry. 15:29 Mindy Weber, RN is Primary Nurse. kc6 15:29 Patient has correct armband on for positive identification. Bed in low position. Call [facility] light in reach. Side rails up X2. Adult w/ patient. Pulse ox on. NIBP on. Door closed. Noise minimized. Lights dimmed. Warm blanket given. Pillow given. 15:29 Ice pack to injury. kc6 16:[address] [facility]. bc6 16:09 Knee Right 2 View XRAY In Process Unspecified. EDMS 16:09 Tib Fib Right XRAY In Process Unspecified. EDMS 16:09 Hip Right 2 View XRAY In Process Unspecified. EDMS 16:10 doc to doc done with Dr Uribe. bc6 16:50 acceptance received through [facility] for [facility] room 1646. bc6 17:09 jeremy with [facility] given ETA of 30 minutes. bc6 17:55 No provider procedures requiring assistance completed. Patient transferred, IV remains kc6 in place. Administered Medications: 15:28 Drug: Ondansetron IVP 4 mg IVP once; over 2 minutes Route: IVP; Site: left antecubital; dd2 15:57 Follow up: Response: No adverse reaction kc6 15:29 Drug: HYDROmorphone IVP 1 mg IVP once Route: IVP; Site: left antecubital; dd2 15:57 Follow up: Response: No adverse reaction; Pain is decreased; RASS: Drowsy (-1) kc6 17:35 Drug: NS 0.9% IV 1000 ml IV at 1 bolus Per protocol; 1000 mL bolus Route: IV; Rate: 1 kc6 bolus; Site: left antecubital; 17:55 Follow up: Response: No adverse reaction; IV Status: Infusion continued upon transfer kc6 Medication: 17:56 VIS not applicable for this client. kc6 Outcome: 16:05 ER care complete, transfer ordered by . sp3 17:55 Transferred by ground EMS to [facility], [facility], Transfer form completed. kc6 17:55 Condition: stable 17:55 Instructed on the need for transfer, 17:56 Patient left the ED. kc6 Signatures: Dispatcher [employer] EDIleana Fam MD MD sp3 Mindy Weber, RN RN kc6 Na Fagan, PA-C PA-C connie4 Elizabeth Sher6 SARY ROSAS, RN RN dd2 Corrections: (The following items were deleted from the chart) 17:36 16:31 Reassessment: Patient appears in no apparent distress at this time. No changes kc6 from previously documented assessment. Patient and/or family updated on plan of care and expected duration. Pain level reassessed. Patient is alert, oriented x 3, equal unlabored respirations, skin warm/dry/pink. kc6
--- NOTE | 2024-03-30 16:13 | RAD REPORT ---
EXAM DESCRIPTION: RAD - Tib Fib Right - 03/30/2024 4:08 pm CLINICAL HISTORY: trauma COMPARISON: No comparisons FINDINGS/IMPRESSION: No acute fracture. No malalignment. No significant focal degenerative changes. Partially imaged right knee arthroplasty.
--- NOTE | 2024-03-30 16:15 | RAD REPORT ---
EXAM DESCRIPTION: RAD - Knee Right 2 View - 03/30/2024 4:08 pm CLINICAL HISTORY: trauma;Pain COMPARISON: Knee Right 3 View dated 10/28/2023; Knee Right 2 View dated 06/07/2021 FINDINGS/IMPRESSION: Distal femoral metadiaphyseal fracture which is displaced by up to 1/2 shaft wi dth posteriorly slightly medially. The fracture is mildly comminuted. It may extend up to the knee ar throplasty anteriorly. Mild foreshortening and slight angulation is present. The tibial component of the arthroplasty is intact.
--- NOTE | 2024-03-30 16:16 | RAD REPORT ---
EXAM DESCRIPTION: RAD - Hip Right 2 View - 03/30/2024 4:08 pm CLINICAL HISTORY: trauma COMPARISON: Hip Right 2 View dated 10/28/2023 FINDINGS: No acute fracture. No malalignment. Mild to moderate right acetabular degenerative changes . IMPRESSION: No acute osseous abnormality involving the right hip.
[2024-03-30] MEDS ORDERED: NA CHLORIDE 0.9% 1,000 ML ONE (17:30)
[2024-03-30 17:52] LABS: Anisocytosis 1+; Blood Morphology Comment NOTED (NOT SEEN); Hypochromasia 2+; Platelet Estimate ADEQ; White Blood Cell Scan OK (OK)
[2024-03-30 18:01] VITALS: TEMP 98
[2024-03-30 18:05] VITALS: BP 127/57; O2SAT 95
--- NOTE | 2024-03-31 12:38 | EKG ---
Test Date: 2024-03-30 Test Time: 15:26:54 Psychologist Educational: CORNELIO MEASUREMENT RESULTS: Intervals: Rate: 72 NM: 182 QRSD: 74 QT: 390 QTc: 427 [place]: P: 90 NM: 182 QRS: 62 T: 89 INTERPRETIVE STATEMENTS: Normal sinus rhythm Possible Lateral infarct, age undetermined Abnormal ECG Compared to ECG 10/28/2023 17:39:02 Myocardial infarct finding now present Electronically Signed On 03-31-24 12:36:22 CDT by Johnnie Arroyo
== END 2024-03-30 17:56 | disposition short-term general hospital (02) ==
LOC: ER 15:04
DX: S72.401A Unspecified fracture of lower end of right femur, initial encounter for closed fracture (principal); M97.11XA Periprosthetic fracture around internal prosthetic right knee joint, initial encounter; W18.30XA Fall on same level, unspecified, initial encounter; F17.210 Nicotine dependence, cigarettes, uncomplicated; Z96.651 Presence of right artificial knee joint
CPT/HCPCS: 93005; 96374; 96375; 99285

== ENCOUNTER 2025-05-24 10:20 | Day surgery (SDC) | payer OTHER ==
[2025-05-21 16:15] LABS: Absolute Lymphocytes (CBC) 3.6 K/uL (0.7-4.9); Hematocrit 36.6 % (36.0-45.0); Hemoglobin 11.6 g/dL (12.0-15.0); MCH 19.3 pg (27.0-35.0); MCHC 31.6 g/dL (32.0-36.0); MCV 61.0 fL (80-100); MPV 8.3 fL (7.6-11.3); Nucleated RBC Absolute Count 0.0 (0-0); Nucleated Red Blood Cells % 0.1 % (0-0); RBC Red Blood Cell Count 6.00 M/uL (3.86-4.86); White Blood Count 12.00 thou/uL (4.3-10.9)
[2025-05-21 16:23] LABS: Blood Morphology Comment NOTED (NOT SEEN); Hypochromasia 2+; Microcytosis 2+; White Blood Cell Scan OK (OK)
[2025-05-21 16:25] LABS: PT Prothrombin Time 11.3 SECONDS (10-13.0); PTT, Activated Partial Thromb 31.7 SECONDS (27.2-37.4); Protime INR 1.0
[2025-05-21 16:28] LABS: Anion Gap 9.1 mEq/L (5.0-15.0); BUN Blood Urea Nitrogen 8.0 mg/dL (7-18); Glucose Level 96.0 mg/dL (74-106); Potassium 5.1 mEq/L (3.5-5.1)
[2025-05-24] MEDS ORDERED: Ringers Lactate 1,000 ML IV ONE (10:55)
[2025-05-24] MEDS ORDERED: ONDANSETRON 4 MG/2 ML VIAL ONE (12:03)
[2025-05-24] MEDS ORDERED: LIDOCAINE 1% MPF 5 ML VIAL ONE (12:03)
[2025-05-24] MEDS ORDERED: MIDAZOLAM HCL 2 MG/2 ML INJ ONE (12:03)
[2025-05-24] MEDS ORDERED: FENTANYL CITR 100 MCG/2 ML ONE (12:03)
[2025-05-24] MEDS: CEFAZOLIN SODIUM 1 GM/VIAL ONE (12:28)
[2025-05-24] MEDS ORDERED: EPHEDRINE SULF 50 MG/ML VIAL ONE (13:11)
--- NOTE | 2025-05-24 13:48 | P.BOP ---
Preoperative diagnosis: tender subcutaneous mass left ankle, right thumb, right middle finger Postoperative diagnosis: same Primary procedure: Excisional biopsy tender subcutaneous mass: L ankle 1.5x1.5cm Secondary procedure: Right thumb 1x1cm amd R middle finger 1x1cm Estimated blood loss: <3cc Specimen: mass x 3 Findings: frozen left ankle no cancer Anesthesia: General Complications: None Transferred to: Recovery Room Condition: Good
[2025-05-24 14:45] VITALS: BP 135/86; TEMP 97; O2SAT 96
--- NOTE | 2025-05-24 23:35 | OP ---
Date of Procedure: 05/24/2025 Surgeon: Mikhail Ghosh MD Preoperative Diagnosis: Ulcerated tender subcutaneous masses, left ankle, right thumb, and right mid dle finger. Postoperative Diagnosis: Ulcerated tender subcutaneous masses, left ankle, right thumb, and right mi ddle finger. Procedures: 1. Excisional biopsy of tender subcutaneous ulcerated mass, left ankle 1.5 x 1.5 cm with frozen secti on. 2. Excisional biopsy of tender subcutaneous mass, right thumb 1 x 1 cm. 3. Excisional biopsy of tender subcutaneous mass, right middle finger 1 x 1 cm. Estimated Blood Loss: Less than 3 cc. Specimen: Mass x3. Findings: Frozen section done in the left ankle ulcerated lesion shows no cancer per Dr. Chao. Anesthesia: General plus local. Complications: None. Indication: This is a case of a 65-year-old patient who comes to us with 3 lesions, one of them, of the left ankle has some ulceration to it. Two of them are giving pain and discomfort. She wants nathan t excised on the left ankle. It is going to be sent to rule out a cancer, so it is going to be done with frozen section. The benefits, alternatives, and risks of excision fully explained, which includ e, but not limited to infection, bleeding, damage to adjacent structures, anesthesia complication, re currence, VT, even . She also understands this may not relieve the symptoms. She might need mo re than one surgical intervention. She understood, signed a consent. Description Of Procedure: The patient was brought to the operating room, put in supine position. An esthesia was induced without complication. Prior to surgery in the holding area, we marked 3 areas b y me and the patient. So, we are trying to separate 3 areas by instruments and glove, specially the left ankle one, so we have different injections, different lidocaine, and different incisions remaine d in setting including glove to do that. So, we did the left ankle first. A wedge incision was made in the skin. Incision was carried down until we found the subcutaneous mass. Mass was excised with ulceration. Area was irrigated, hemostasis obtained, and the area was closed with a nylon interrupt ed and Monocryl. The patient tolerated the procedure well. I have to once again mention that for th e rest of the areas we have different instruments, different glove setting to avoid cross contaminati on and then what we did to right thumb and right middle finger. On the right thumb with make once ag ain a wedge incision in that area, but due to the size of that and the lack of skin that region, area have to be left to close by secondary intention. Hemostasis was obtained and the area was covered w ith sterile dressing. The right middle finger lesion, we were able to be close the area with 3-0 nyl on x1. After excision and hemostasis an irrigation was done and local anesthetic. The patient chalo ated the procedure well. Frozen section come back negative for cancer in the left ankle, so patient is sent to recovery in stable condition and cover the wound with dressings. KRYSTEN/TAYA Voice ID: [id number] Report ID: [id number]
--- NOTE | 2025-05-24 23:38 | DS ---
Date of Discharge: 05/24/2025 Diagnosis: Tender subcutaneous mass of left ankle, right thumb, right middle finger. Procedure: Excisional biopsy of tender subcutaneous masses, left ankle, right thumb, and right middl e finger. Condition: Stable. Disposition: Home. Activity: As tolerated. No heavy lifting. Followup: In my office in 1 week. Call for appointment at [phone]. Keep area dry for 48 hours, th en may put Neosporin over the areas of surgery and covered with Band-Aids. She was advised to keep t he area away from dirty water. KRYSTEN/TAYA Voice ID: [id number] Report ID: [id number]
== END 2025-05-24 15:09 | disposition home or self-care (01) ==
LOC: OR 10:20
PROVIDERS: ATTEND Surgery
PROC: 0JBR0ZZ Excision of Left Foot Subcutaneous Tissue and Fascia, Open Approach (ICD-10-PCS; principal; 2025-05-24 12:30)
PROC: 0JBJ0ZZ Excision of Right Hand Subcutaneous Tissue and Fascia, Open Approach (ICD-10-PCS; 2025-05-24 12:30)
DX: R22.42 Localized swelling, mass and lump, left lower limb (principal); D17.21 Benign lipomatous neoplasm of skin and subcutaneous tissue of right arm
CPT/HCPCS: 85025; 80048; 36415; 85610; 88331; 88332; 88305; 85730; 11402; 11421 ×2; J2704; J2003; J2250; J3010; J2405; J7120; J0690